=== PATIENT | male | born 1950 | race Two or more races ===

== ENCOUNTER 2021-01-21 18:50 | Emergency (ER) | payer MEDICARE, SELFPAY ==
--- NOTE | ~2021-01-21 | XR_ITS ---
EXAMINATION: XR HAND, RIGHT CLINICAL INFORMATION: Swelling, animal bite COMPARISON: None TECHNIQUE: PA, lateral, and oblique views of the right hand. FINDINGS: Soft tissue swelling of the dorsum of the hand around the area of the head of the metacarpals. No air in the soft tissue or radiopaque foreign body. No fracture or bone destruction. No abnormal periosteal reaction. There is osteopenia. Degenerative periarticular erosions of the head of the third metacarpal at the metacarpal phalangeal joint. There are small vessel calcifications in the hand and the wrist. XR/XR hand RT 2V IMPRESSION: Soft tissue swelling of the dorsum of the hand. No radiopaque foreign body or air in the soft tissue. No acute osseous abnormality.
--- NOTE | ~2021-01-21 | CT_ITS ---
EXAMINATION: CT HAND WITHOUT CONTRAST, RIGHT CLINICAL INFORMATION: Swelling COMPARISON: Radiograph 01/21/2021 TECHNIQUE: Multidetector volumetric imaging of the right hand performed without IV contrast. Coronal and sagittal reformatted images are obtained and reviewed. This CT examination was performed using dose optimization techniques as appropriate, variously including the following: *Automated exposure control *Adjustment of mA and/or kV according to patient size (this includes techniques or standardized protocols for targeted exams where dose is matched to indication/reason for exam; i.e. extremities or head) *Use of iterative reconstruction technique DLP: 128 mGy-cm FINDINGS: There is no acute fracture identified. Soft tissue gas seen between the second and third metacarpals. Associated soft tissue swelling. Arthritic changes at the second metacarpophalangeal joint and third metacarpophalangeal joint with narrowing and subchondral cyst formation. Small marginal erosions. No radiopaque foreign bodies. CT/CT hand RT wo con IMPRESSION: Soft tissue gas with swelling seen between the second and third metacarpals. No acute fracture. 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
[2021-01-21 20:50] VITALS: BP 148/66; PULSE 75; RESP 16; TEMP 37.3; O2SAT 95; BMI 23.1
--- NOTE | 2021-01-21 21:21 | ED_ITS ---
HPI - Animal Bite General Chief Complaint: Animal Bite Stated Complaint: dog bite yesterday, hand swelling Time Seen by Provider: 01/21/21 22:43 Source: patient Mode of arrival: ambulatory Limitations: language barrier History of Present Illness HPI narrative: 70-year-old male presents with right hand redness, pain and swelling after a dog bite yesterday. Patient states his hand has been increasing in redness swelling and pain and is unable to comfortably use the right hand. He does not report any fevers or chills. The dog is unknown. MD complaint: animal bite Onset (ago): day(s) (2) Animal: dog Description of animal: unknown animal and immunizations unknown Mechanism: bite Location - Extremities: right: hand Pain description: burning and constant Severity scale (1-10): 7 Context: unprovoked Associated symptoms: erythema Related Data Patient tetanus UTD: No Previous Rx's Medication Instructions Recorded amoxicillin 875 mg-potassium 1 tab PO Q12H 10 Days #20 tab 01/22/21 clavulanate 125 mg tablet (Augmentin) Allergies Allergy/AdvReac Type Severity Reaction Status Date / Time oxycodone [From PERCOCET] Allergy Unknown CAN'T Verified 01/21/21 20:49 BREATH/VOMITING simvastatin [SIMVASTATIN] Allergy Unknown UNKNOWN Verified 01/21/21 20:49 peas AdvReac Unknown VOMITING/FA Verified 01/21/21 20:49 INTING SALMON [id number] AdvReac Unknown VOMITING/FA Uncoded 01/01/20 15:21 INT Review of Systems Review of Systems: Constitutional: No Fever, No Chills ENT/Mouth: No Ear Pain, No Hoarseness, No sore throat Eyes: No Eye Pain, No Swelling, No Redness, No Foreign Body Cardiovascular: No Chest Pain, No SOB Respiratory: No Cough, No Dyspnea Gastrointestinal: No Nausea, No Vomiting, No Diarrhea, No abdominal Pain Genitourinary: No Dysuria, No Hematuria Musculoskeletal: positive right hand pain and swelling No Myalgias, No Joint Swelling Skin: Positive right hand erythema, No Skin lacerations, No rash Neuro: No Weakness, No Numbness, No Paresthesias, No Loss of Consciousness, No Dizziness, No Headache Psych: No Anxiety/Panic, No Depression Heme/Lymph: no easy bruising, no Lymphadenopathy Endocrine: No Polyuria, No Polydipsia Yes all other systems are reviewed and are negative [facility] Past Medical History Attestation statement: The following information was validated with the patient. Source: old records reviewed Medical History Diabetes Renal failure Rhabdomyolysis Toe amputee Social History Social History Advance Directives: No Advance Directives Information Provided: Yes Physical Exam Vital Signs: Vital Signs: Last Vital Signs Temp 98.7 F 01/22/21 01:08 Pulse 74 01/22/21 01:08 Resp 17 01/22/21 01:08 BP 140/71 H 01/22/21 01:08 Pulse Ox 98 01/22/21 01:08 Body Mass Index 23.1 Appearance: Alert. Oriented X3. No acute distress. Eyes: Pupils equal, round and reactive to light. ENT: Pharynx normal. Neck: Normal inspection. Neck supple. CVS: Normal heart rate and rhythm. Pulses normal. Respiratory: No respiratory distress. Breath sounds normal. Abdomen: Soft and nontender. Skin: Skin warm and dry. Normal skin color. Normal skin turgor. Extremities: No lower extremity edema. Neuro: No motor deficit. No sensory deficit. Course Course Course Narrative: 70-year-old male presents with right hand pain and swelling w ith erythema after an unknown dog bite to the right hand yesterday. Will order labs, lactic, cultures, and ceftriaxone. White count is normal, elevated BUN of 24 which is consistent with prior values, creatinine is 2.07 which is an increase from prior value of 1.36. Did give 1 L of normal saline with ceftriaxone. CRP 5.61, discussion with Dr. Mistry. She will come down assessed patient and evaluate for admission. CT scan of the hand is negative for acute findings. Does show some mild gas consistent with puncture wound and dog bite. Will give Augmentin for 10 days. Patient understands that if symptoms worsen that he should return for evaluation immediately. Patient and patient's family verbalized understanding of and agrees to plan of care discharge home. Consultations Consultation #1: Fede Time: 23:05 MDM - Animal Bite Differential Diagnosis Differential diagnosis: Likely bite by animal and dog bite Medical Records Attestation: I reviewed the patient's medical records. Lab Data Attestation: I reviewed the patient's lab results. Result diagrams: 01/21/21 21:37 01/21/21 21:37 Labs: Lab Results 01/21/21 01/21/21 01/21/21 Range/Units 21:37 21:37 21:37 WBC 9.2 (4.8-10.8) X10*3/uL RBC 4.34 L (4.60-5.80) X10*6/uL Hgb 13.3 L (14.0-18.0) g/dl Hct 37.6 L (42-52) % MCV 86.6 (80-98) fL MCH 30.6 (27.0-33.0) pg MCHC 35.4 (31.0-36.0) g/dl RDW 12.2 (11.0-16.0) % Plt Count 228 (160-400) X10*3/uL MPV 9.7 (9.4-12.4) fL Immature Gran % (Auto) 0.2 (0.0-0.4) % Neut % (Auto) 77.9 H (45-73) % Lymph % (Auto) 13.0 L (20-40) % [place] % (Auto) 7.8 (2-11) % Eos % (Auto) 0.9 (0-4) % Baso % (Auto) 0.2 (0-2) % Lymph # (Auto) 1.2 (1.2-4.9) X10*3/uL [place] # (Auto) 0.7 (0.1-1.2) X10*3/uL Eos # (Auto) 0.1 (0.0-0.4) X10*3/uL Baso # (Auto) 0.0 (0.0-0.2) X10*3/uL Abs Immat Gran (auto) 0.02 (0.00-0.03) X10*3/uL Absolute Neuts (auto) 7.2 (2.0-8.3) X10*3/uL Absolute Nucleated RBC 0.000 (0.0-0.012) X10*3/uL Nucleated RBC % (auto) 0.0 (0.0-0.2) /100WBC ESR (0-15) MM/HR Sodium 139 (135-145) mmol/L Potassium 4.6 (3.3-5.1) mmol/L Chloride 105 (96-108) mmol/L Carbon Dioxide 24 (22-29) mmol/L Anion Gap 15 (12-20) BUN 24 H (9-16) mg/dL Creatinine 2.07 H (0.5-1.4) mg/dL Estim Creat Clear Calc 28.2 Estimated GFR 32 Random Glucose 156 H (60-115) mg/dL Lactic Acid 1.2 (0.5-2.0) mmol/L Calcium 9.8 (8.4-10.2) mg/dL C-Reactive Protein 5.61 H (< or = 0.50) mg/dL 01/21/21 Range/Units 21:37 WBC (4.8-10.8) X10*3/uL RBC (4.60-5.80) X10*6/uL Hgb (14.0-18.0) g/dl Hct (42-52) % MCV (80-98) fL MCH (27.0-33.0) pg MCHC (31.0-36.0) g/dl RDW (11.0-16.0) % Plt Count (160-400) X10*3/uL MPV (9.4-12.4) fL Immature Gran % (Auto) (0.0-0.4) % Neut % (Auto) (45-73) % Lymph % (Auto) (20-40) % [place] % (Auto) (2-11) % Eos % (Auto) (0-4) % Baso % (Auto) (0-2) % Lymph # (Auto) (1.2-4.9) X10*3/uL [place] # (Auto) (0.1-1.2) X10*3/uL Eos # (Auto) (0.0-0.4) X10*3/uL Baso # (Auto) (0.0-0.2) X10*3/uL Abs Immat Gran (auto) (0.00-0.03) X10*3/uL Absolute Neuts (auto) (2.0-8.3) X10*3/uL Absolute Nucleated RBC (0.0-0.012) X10*3/uL Nucleated RBC % (auto) (0.0-0.2) /100WBC ESR 39 H (0-15) MM/HR Sodium (135-145) mmol/L Potassium (3.3-5.1) mmol/L Chloride (96-108) mmol/L Carbon Dioxide (22-29) mmol/L Anion Gap (12-20) BUN (9-16) mg/dL Creatinine (0.5-1.4) mg/dL Estim Creat Clear Calc Estimated GFR Random Glucose (60-115) mg/dL Lactic Acid (0.5-2.0) mmol/L Calcium (8.4-10.2) mg/dL C-Reactive Protein (< or = 0.50) mg/dL Imaging Data Hand x-ray: Attestation: I personally reviewed and interpreted this imaging study as follows: Radiologist's impression: EXAMINATION: XR HAND, RIGHT CLINICAL INFORMATION: Swelling, animal bite COMPARISON: None? TECHNIQUE: PA, lateral, and oblique views of the right hand. FINDINGS: Soft tissue swelling of the dorsum of the hand around the area of the head of the metacarpals. No air in the soft tissue or radiopaque foreign body. No fracture or bone destruction. No abnormal periosteal reaction. There is osteopenia. Degenerative periarticular erosions of the head of the third metacarpal at the metacarpal phalangeal joint. There are small vessel calcifications in the hand and the wrist. XR/XR hand RT 2V IMPRESSION: Soft tissue swelling of the dorsum of the hand. No radiopaque foreign body or air in the soft tissue. No acute osseous abnormality. CT Hand: Attestation: I personally reviewed and interpreted this imaging study as follows: Radiologist's impression: EXAMINATION: CT HAND WITHOUT CONTRAST, RIGHT CLINICAL INFORMATION: Swelling? ? COMPARISON: Radiograph 01/21/2021? TECHNIQUE: Multidetector volumetric imaging of the right hand performed without IV contrast. Coronal and sagittal reformatted images are obtained and reviewed.? ? This CT examination was performed using dose optimization techniques as appropriate, variously including the following: *Automated exposure control *Adjustment of mA and/or kV according to patient size (this includes techniques or standardized protocols for targeted exams where dose is matched to indication/reason for exam; i.e. extremities or head) *Use of iterative reconstruction technique DLP: 128 mGy-cm FINDINGS: There is no acute fracture identified. Soft tissue gas seen between the second and third metacarpals. Associated soft tissue swelling. Arthritic changes at the second metacarpophalangeal joint and third metacarpophalangeal joint with narrowing and subchondral cyst formation. Small marginal erosions. No radiopaque foreign bodies. CT/CT hand RT wo con IMPRESSION: Soft tissue gas with swelling seen between the second and third metacarpals. ? No acute fracture. 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 Discharge Plan Discharge Clinical Impression: Rabies exposure Dog bite Qualifiers: Encounter type: initial encounter Qualified Code(s): W54.0XXA - Bitten by dog, initial encounter Patient Disposition: Home, Self-Care Instructions: Animal Bite (ED), Rabies (ED) Additional Instructions: You were evaluated for dog bite. You must return for rabies vaccine series. Please follow the directions on the discharge instructions. CT scan of the hand shows swelling consistent with cellulitis. Please take Augmentin twice a day for the next 10 days. If you notice any worsening symptoms please return to the emergency department for evaluation. Thank you for choosing this emergency department for evaluation. Please follow-up with primary care physician as needed. Return to the emergency department for any new, concerning, or worsening symptoms. Prescriptions: New amoxicillin-pot clavulanate [Augmentin] 875-125 mg tablet 1 tab PO Q12H 10 Days Qty: 20 RF: 0 Interventions: ED Discharge Assessment Last Done: 01/22/21 01:46
[2021-01-21 21:43] LABS: MANUAL DIFF FLAG NO
[2021-01-21 21:45] LABS: Basophils Percent Auto 0.2 % (0-2); Eosinophils Absolute Auto 0.1 X10*3/uL (0.0-0.4); Eosinophils Percent Auto 0.9 % (0-4); Hematocrit 37.6 % (42-52); Hemoglobin 13.3 g/dl (14.0-18.0); Imm Gran Abs Auto 0.02 X10*3/uL (0.00-0.03); Imm Gran Pct Auto 0.2 % (0.0-0.4); Lymphocytes Absolute Auto 1.2 X10*3/uL (1.2-4.9); Mean Corpuscular HGB Conc 35.4 g/dl (31.0-36.0); Mean Corpuscular Hemoglobin 30.6 pg (27.0-33.0); Mean Corpuscular Volume 86.6 fL (80-98); Mean Platelet Volume 9.7 fL (9.4-12.4); Monocytes Absolute Auto 0.7 X10*3/uL (0.1-1.2); Monocytes Percent Auto 7.8 % (2-11); Neutrophils Absolute Auto 7.2 X10*3/uL (2.0-8.3); Neutrophils Percent Auto 77.9 % (45-73); Platelet Count 228 X10*3/uL (160-400); Red Blood Count 4.34 X10*6/uL (4.60-5.80); Red Cell Distribution Width 12.2 % (11.0-16.0); White Blood Count 9.2 X10*3/uL (4.8-10.8)
[2021-01-21 21:56] LABS: Lactic Acid 1.2 mmol/L (0.5-2.0)
[2021-01-21 21:59] LABS: Anion Gap 15 (12-20); Blood Urea Nitrogen 24 mg/dL (9-16); Calcium 9.8 mg/dL (8.4-10.2); Carbon Dioxide 24 mmol/L (22-29); Chloride 105 mmol/L (96-108); Creatinine Clr Calc Pharmacy 28.2; Estimated Glomerular Filt Rate 32; Glucose Random 156 mg/dL (60-115); Potassium 4.6 mmol/L (3.3-5.1); Sodium 139 mmol/L (135-145)
[2021-01-21] MEDS: cefTRIAXone sodium 1 GM in 0.9 % Sodium Chloride 50 ML IV (22:16)
[2021-01-21] MEDS: Rabies Vaccine (PCEC)/PF 1 ML VIAL IM (22:17)
[2021-01-21] MEDS: Diphth,Pertus(ACell),Tet Adult 0.5 ML SYRINGE IM (22:18)
[2021-01-21] MEDS: Rabies Immune Globulin/PF 1,500 UNIT/5 ML VIAL 1224.7 UNIT IM (22:20)
[2021-01-21 22:51] LABS: C Reactive Protein 5.61 mg/dL (< or = 0.50)
[2021-01-21] MEDS: 0.9 % Sodium Chloride 1,000 ML 999 ML IVCONT (22:55)
[2021-01-21 23:37] LABS: Erythrocyte Sedimentation Rate 39 MM/HR (0-15)
--- NOTE | 2021-01-22 01:03 | PC.NURSE ---
REPORT GIVEN TO KEENA RUSSELL.
[2021-01-22 01:08] VITALS: BP 140/71; PULSE 74; RESP 17; TEMP 37.1; O2SAT 98
== END 2021-01-22 01:59 | disposition home or self-care (01) ==
PROVIDERS: Nurse Practitioner Family; Emergency Provider Emergency Medicine; PCP Internal Medicine
DX: S61.451A Open bite of right hand, initial encounter (principal); Z20.3 Contact with and (suspected) exposure to rabies; Z29.14 Encounter for prophylactic rabies immune globulin; W54.0XXA Bitten by dog, initial encounter; Y93.9 Activity, unspecified; Y92.9 Unspecified place or not applicable; Y99.9 Unspecified external cause status; E11.9 Type 2 diabetes mellitus without complications
CPT/HCPCS: 36415; 73120; 73200; 80048; 83605; 85025; 85652; 86140; 87040; 90375; 90471; 90472; 90675; 90715; 96361; 96365; 96372; 99284; J0696

== ENCOUNTER 2021-01-24 11:41 | Outpatient (REF) | payer MEDICARE, SELFPAY | END 2021-01-24 11:42 | disposition home or self-care (01) | LOC: HO.MDS 11:41 | PROVIDERS: PCP Internal Medicine; Visit Provider Nurse Practitioner Family | DX: Z29.14 Encounter for prophylactic rabies immune globulin (principal); S61.451D Open bite of right hand, subsequent encounter; S60.221D Contusion of right hand, subsequent encounter; W54.0XXD Bitten by dog, subsequent encounter; Z20.3 Contact with and (suspected) exposure to rabies | CPT/HCPCS: 90471; 90675 ==

== ENCOUNTER 2021-01-24 15:58 | Inpatient (IN) | payer MEDICARE, SELFPAY ==
--- NOTE | ~2021-01-24 | XR_ITS ---
EXAMINATION: XR HAND, RIGHT CLINICAL INFORMATION: Dog bite. COMPARISON: None TECHNIQUE: Three views of the right hand. FINDINGS: No fracture. No dislocation. No focal bone lesion or abnormal periosteal reaction. Small vessel calcifications in the hand and wrist. XR/XR hand RT 2V IMPRESSION: No acute abnormality
[2021-01-24 16:13] VITALS: BP 151/68; PULSE 69; RESP 16; TEMP 37.2; O2SAT 97; BMI 22.6
--- NOTE | 2021-01-24 20:52 | ED_ITS ---
HPI - Skin/Abscess/Foreign Bdy General Chief complaint: Skin/Abscess/Foreign Body Stated complaint: Red inflamed skin post dog bite Time Seen by Provider: 01/24/21 20:52 Source: patient and family Mode of arrival: ambulatory Limitations: no limitations History of Present Illness HPI narrative: Patient diabetic had a dog bite by stray dog 3 days ago on his right hand between index and middle finger was seen here started on Augmentin and rabies shot were given for last 24 hours patient noticed increased swelling and redness with some pus discharge at the site of the bite had fever last night of 102 degree. No pain in the paim no wrist pain, neurovascular intact Related Data Home Medications Medication Instructions Recorded Confirmed Lantus Solostar U-100 Insulin DAILY 01/24/21 amlodipine 10 mg tablet 1 tab PO DAILY 01/24/21 01/24/21 amoxicillin 875 mg-potassium 1 tab PO Q12H 01/24/21 01/24/21 clavulanate 125 mg tablet aspirin 81 mg tablet,delayed 1 tab PO DAILY 01/24/21 01/24/21 release citalopram 10 mg tablet 1 tab PO DAILY 01/24/21 01/24/21 clopidogrel 75 mg tablet 1 tab PO DAILY 01/24/21 01/24/21 donepezil 10 mg tablet 1 tab PO BEDTIME 01/24/21 01/24/21 finasteride 5 mg tablet 1 tab PO DAILY 01/24/21 01/24/21 insulin glargine 100 unit/mL 5 unit SUBCUT BEDTIME 01/24/21 01/24/21 subcutaneous solution (Lantus U-100 Insulin) tamsulosin 0.4 mg capsule 1 cap PO DAILY 01/24/21 01/24/21 Allergies Allergy/AdvReac Type Severity Reaction Status Date / Time oxycodone [From PERCOCET] Allergy Unknown CAN'T Verified 01/24/21 21:27 BREATH/VOMITING simvastatin [SIMVASTATIN] Allergy Unknown UNKNOWN Verified 01/24/21 21:27 peas AdvReac Unknown VOMITING/FA Verified 01/24/21 21:27 INTING SALMON [id number] AdvReac Unknown VOMITING/FA Uncoded 01/24/21 21:27 INT Review of Systems Review of Systems: Yes all other systems are reviewed and are negative PMFSH Past Medical History Medical History Diabetes Renal failure Rhabdomyolysis Toe amputee Social History Social History Advance Directives: No Advance Directives Information Provided: No Physical Exam Vital Signs: Vital Signs: Last Vital Signs Temp 99.1 F 01/24/21 23:52 Pulse 77 01/24/21 23:52 Resp 18 01/24/21 23:52 BP 141/76 H 01/24/21 23:52 Pulse Ox 97 01/24/21 23:52 Body Mass Index 22.6 Const: General: comfortable and no acute distress Orientation/consci ousness: patient oriented x3 HENMT: Head: Yes normocephalic Eyes: General: appearance normal, both eyes and all related structures Resp: Effort & Inspection: normal respiratory effort Auscultation: clear to auscultation bilaterally Cardio: Rate: regular rate Rhythm: regular rhythm Heart sounds: S1 normal heart sound present and S2 normal heart sound present GI: Inspection: Yes normal to inspection Palpation (GI): Soft to palpation and nontender Neuro: General: patient oriented x3 Extrem: Hand/finger images: 1. Dog bite ray with surrounding swelling and erythema with pus discharge Good finger movements no signs of tenosynovitis MDM - Skin/Abscess/Foreign Bdy MDM Narrative Medical decision making narrative: Patient dog bite right hand with worsening of swelling and pus discharge at the site of dog bite diabetic x-ray negative for bony erosion feel outpatient antibiotic will admit patient for IV antibiotics Vanco and Zosyn no signs of tenosynovitis at this time Lab Data Attestation: I reviewed the patient's lab results. Result diagrams: 01/24/21 21:18 01/24/21 21:18 Labs: Lab Results 01/24/21 01/24/21 01/24/21 Range/Units 21:18 21:18 21:18 WBC 5.7 (4.8-10.8) X10*3/uL RBC 3.76 L (4.60-5.80) X10*6/uL Hgb 11.7 L (14.0-18.0) g/dl Hct 32.3 L (42-52) % MCV 85.9 (80-98) fL MCH 31.1 (27.0-33.0) pg MCHC 36.2 H (31.0-36.0) g/dl RDW 12.1 (11.0-16.0) % Plt Count 209 (160-400) X10*3/uL MPV 9.8 (9.4-12.4) fL Immature Gran % (Auto) 0.2 (0.0-0.4) % Neut % (Auto) 71.9 (45-73) % Lymph % (Auto) 16.0 L (20-40) % [place] % (Auto) 9.7 (2-11) % Eos % (Auto) 1.8 (0-4) % Baso % (Auto) 0.4 (0-2) % Lymph # (Auto) 0.9 L (1.2-4.9) X10*3/uL [place] # (Auto) 0.6 (0.1-1.2) X10*3/uL Eos # (Auto) 0.1 (0.0-0.4) X10*3/uL Baso # (Auto) 0.0 (0.0-0.2) X10*3/uL Abs Immat Gran (auto) 0.01 (0.00-0.03) X10*3/uL Absolute Neuts (auto) 4.1 (2.0-8.3) X10*3/uL Absolute Nucleated RBC 0.000 (0.0-0.012) X10*3/uL Nucleated RBC % (auto) 0.0 (0.0-0.2) /100WBC Sodium 137 (135-145) mmol/L Potassium 4.2 (3.3-5.1) mmol/L Chloride 107 (96-108) mmol/L Carbon Dioxide 20 L (22-29) mmol/L Anion Gap 14 (12-20) BUN 21 H (9-16) mg/dL Creatinine 1.77 H (0.5-1.4) mg/dL Estim Creat Clear Calc 32.9 Estimated GFR 38 Random Glucose 162 H (60-115) mg/dL Lactic Acid 0.9 (0.5-2.0) mmol/L Calcium 8.8 D (8.4-10.2) mg/dL Total Bilirubin 0.6 (0.0-1.0) mg/dL AST 19 (5-37) U/L ALT 11 (0-40) U/L Alkaline Phosphatase 120 H (39-117) U/L Total Protein 7.1 (6.5-8.0) g/dL Albumin 4.0 (3.5-5.0) g/dL COVID-19 (SHEILA) (Negative) COVID-19 Clin Com 01/24/21 Range/Units 21:20 WBC (4.8-10.8) X10*3/uL RBC (4.60-5.80) X10*6/uL Hgb (14.0-18.0) g/dl Hct (42-52) % MCV (80-98) fL MCH (27.0-33.0) pg MCHC (31.0-36.0) g/dl RDW (11.0-16.0) % Plt Count (160-400) X10*3/uL MPV (9.4-12.4) fL Immature Gran % (Auto) (0.0-0.4) % Neut % (Auto) (45-73) % Lymph % (Auto) (20-40) % [place] % (Auto) (2-11) % Eos % (Auto) (0-4) % Baso % (Auto) (0-2) % Lymph # (Auto) (1.2-4.9) X10*3/uL [place] # (Auto) (0.1-1.2) X10*3/uL Eos # (Auto) (0.0-0.4) X10*3/uL Baso # (Auto) (0.0-0.2) X10*3/uL Abs Immat Gran (auto) (0.00-0.03) X10*3/uL Absolute Neuts (auto) (2.0-8.3) X10*3/uL Absolute Nucleated RBC (0.0-0.012) X10*3/uL Nucleated RBC % (auto) (0.0-0.2) /100WBC Sodium (135-145) mmol/L Potassium (3.3-5.1) mmol/L Chloride (96-108) mmol/L Carbon Dioxide (22-29) mmol/L Anion Gap (12-20) BUN (9-16) mg/dL Creatinine (0.5-1.4) mg/dL Estim Creat Clear Calc Estimated GFR Random Glucose (60-115) mg/dL Lactic Acid (0.5-2.0) mmol/L Calcium (8.4-10.2) mg/dL Total Bilirubin (0.0-1.0) mg/dL AST (5-37) U/L ALT (0-40) U/L Alkaline Phosphatase (39-117) U/L Total Protein (6.5-8.0) g/dL Albumin (3.5-5.0) g/dL COVID-19 (SHEILA) Negative (Negative) COVID-19 Clin Com See Note Discharge Plan Discharge Clinical Impression: Infected wound Dog bite Qualifiers: Encounter type: subsequent encounter Qualified Code(s): W54.0XXD - Bitten by dog, subsequent encounter Diabetes Qualifiers: Diabetes mellitus type: type 2 Diabetes mellitus medical terminologist insulin use: with medical terminologist use Diabetes mellitus complication status: with kidney complications Diabetes mellitus complication detail: with nephropathy Qualified Code(s): E11.21 - Type 2 diabetes mellitus with diabetic nephropathy Patient Disposition: Admitted As Inpatient
[2021-01-24 21:23] VITALS: BP 136/70; PULSE 70; RESP 19; TEMP 36.7; O2SAT 96
[2021-01-24 21:23] LABS: MANUAL DIFF FLAG NO
[2021-01-24 21:30] LABS: Basophils Percent Auto 0.4 % (0-2); Eosinophils Absolute Auto 0.1 X10*3/uL (0.0-0.4); Eosinophils Percent Auto 1.8 % (0-4); Hematocrit 32.3 % (42-52); Hemoglobin 11.7 g/dl (14.0-18.0); Imm Gran Abs Auto 0.01 X10*3/uL (0.00-0.03); Imm Gran Pct Auto 0.2 % (0.0-0.4); Lymphocytes Absolute Auto 0.9 X10*3/uL (1.2-4.9); Mean Corpuscular HGB Conc 36.2 g/dl (31.0-36.0); Mean Corpuscular Hemoglobin 31.1 pg (27.0-33.0); Mean Corpuscular Volume 85.9 fL (80-98); Mean Platelet Volume 9.8 fL (9.4-12.4); Monocytes Absolute Auto 0.6 X10*3/uL (0.1-1.2); Monocytes Percent Auto 9.7 % (2-11); Neutrophils Absolute Auto 4.1 X10*3/uL (2.0-8.3); Neutrophils Percent Auto 71.9 % (45-73); Platelet Count 209 X10*3/uL (160-400); Red Blood Count 3.76 X10*6/uL (4.60-5.80); Red Cell Distribution Width 12.1 % (11.0-16.0); White Blood Count 5.7 X10*3/uL (4.8-10.8)
[2021-01-24] MEDS: Piperacillin Sodium/Tazobactam 3.375 GM in 0.9 % Sodium Chloride 50 ML IV (21:45)
[2021-01-24 21:47] LABS: Lactic Acid 0.9 mmol/L (0.5-2.0)
[2021-01-24 21:54] LABS: Alanine Aminotransferase 11 U/L (0-40); Alkaline Phosphatase 120 U/L (39-117); Anion Gap 14 (12-20); Aspartate Amino Transferase 19 U/L (5-37); Bilirubin Total 0.6 mg/dL (0.0-1.0); Blood Urea Nitrogen 21 mg/dL (9-16); Calcium 8.8 mg/dL (8.4-10.2); Carbon Dioxide 20 mmol/L (22-29); Chloride 107 mmol/L (96-108); Creatinine Clr Calc Pharmacy 32.9; Estimated Glomerular Filt Rate 38; Glucose Random 162 mg/dL (60-115); Potassium 4.2 mmol/L (3.3-5.1); Sodium 137 mmol/L (135-145); Total Protein 7.1 g/dL (6.5-8.0)
[2021-01-24 22:04] LABS: COVID-19 Test Negative (Negative); IDNOW Serial# 9DD0AD1C
[2021-01-24] MEDS: vancomycin HCL 1,000 MG in 0.9 % Sodium Chloride 250 ML 270 MG IV (22:13)
--- NOTE | 2021-01-24 22:15 | PHA.PROG ---
Admission Date/Time: Indication: OSTEO Weight in k.874 kg Adjusted body weight in Kg: [place] body weight in Kg: Obesity Dosing Indication % IBW: N/A Serum Creatinine - Last 168 Hours 01/24/21 21:18 Creatinine 1.77 H Estimated CrCl and GFR - Last 168 Hours 01/24/21 21:18 Estim Creat Clear Calc 32.9 Estimated GFR 38 Vancomycin Loading Dose: 1000MG Current Vancomycin Dosing Regimen: 750MG Q24H Vancomycin Monitoring using AUC goal of 400 - 600 range with trough as surrogate marker: 409 MG/L.HR Date and Time for next Vancomycin Level to be drawn: 01/26/21 @ 2100 Pharmacist Comments on Vancomycin Plan: Vancomycin dosing will take advantage of [employer] as a clinical decision support tool that uses Bayesian modeling to calculate individual patient's pharmacokinetic parameters and forecast the patient's drug concentration time course with the target goal AUC 24 range of 400 - 600 mg/L/hr.
--- NOTE | 2021-01-24 22:41 | P.HPHOSP_ITS ---
History of Present Illness Date of Service: 01/24/21 Chief Complaint: Dog bite 61-year-old male with a past medical history of hypertension, hyperlipidemia, diabetes, BPH, dementia presented to the hospital with a chief complaint of dog bite. Spoke to the patient as well as patient's daughter at bedside. Reportedly patient had a dog bite on last ; had puncture wound between the 2nd and 3rd right hand fingers near the webspace. He has seen a physician outpatient, as they are not sure about the dog and its vaccinations status-patient was given diabetes vaccination; finished 2 doses; due for the 3rd dose on and 4 dose on of this month; management for the 2nd dose today to the clinic they noted that his dog bite site has been worsening and concern for cellulitis, despite being on Augmentin as outpatient. Hence suggested to go to the ER for further evaluation. Patient denies any fevers. Denies any chest pain palpitations lightheadedness or dizziness. Mentioned that he had the redness around the wound is slightly increased; denies any difficulty with range of motion of the fingers of the wrist. Denies any numbness tingling or focal weakness. Review of all other systems is negative except mentioned above ER course: Per ER team patient noted to have cellulitis on the dorsum of the right hand week most pronounced near the puncture wound located between the 2nd and 3rd fingers; range of motion intact; given Zosyn. Also mentioned that on metal plating has some small pus drained; which was sent for the cultures. Blood cultures were ordered. Admitted for further management. [facility] Medical History Diabetes Renal failure Rhabdomyolysis Toe amputee Pertinent family history: Reviewed, patient did not offer any information. Social History Advance Directives: No Advance Directives Information Provided: No Meds Allergies Allergy/AdvReac Type Severity Reaction Status Date / Time oxycodone [From PERCOCET] Allergy Unknown CAN'T Verified 01/24/21 21:27 BREATH/VOMITING simvastatin [SIMVASTATIN] Allergy Unknown UNKNOWN Verified 01/24/21 21:27 peas AdvReac Unknown VOMITING/FA Verified 01/24/21 21:27 INTING SALMON [id number] AdvReac Unknown VOMITING/FA Uncoded 01/24/21 21:27 INT Active Medications: Current Medications Acetaminophen (Acetaminophen 325 Mg Tablet) 650 mg PO Q6H PRN PRN Reason: Pain, Mild (Pain Scale 1-3) Dextrose (Dextrose 50 % 25 Gm/50 Ml Vial) 25 gm IVPUSH Q15M PRN; Protocol PRN Reason: per Hypoglycemia Standing Ord. Glucose (Glucose Gel 15 Gm Gel..Gram.) 15 gm PO Q15M PRN; Protocol PRN Reason: per Hypoglycemia Standing Ord. Vancomycin HCl 750 mg/ Sodium (Chloride) 265 mls @ 265 mls/hr IV Q24H [facility] Sodium Chloride (Ns) 1,000 mls @ 100 mls/hr IVCONT .Q10H [facility] Piperacillin Sod/Tazobactam (Sod 3.375 gm/ Sodium Chloride) 50 mls @ 100 mls/hr IV Q6H [facility] Insulin Human Lispro (Insulin Lispro 100 Unit/Ml 3 Ml Vial) 0 unit SUBCUT QIDACHS [facility]; Protocol Melatonin (Melatonin 3 Mg Tablet) 6 mg PO BEDTIME PRN PRN Reason: Insomnia Pharmacy Consult (Consult Rx Vancomycin Dosing) 1 each MISCELLANE DAILY PRN PRN Reason: Consult order Pharmacy Consult (Consult Rx Perform Med Rec) 1 each MISCELLANE ONCE PRN PRN Reason: Consult order Senna (Sennosides 8.6 Mg Tablet) 17.2 mg PO BEDTIME PRN PRN Reason: Constipation Sodium Chloride (0.9 % Sodium Chloride Flush 3 Ml Syringe) 3 ml IVFLUSH QSHIFT [facility] Home Medications Medication Instructions Recorded Confirmed Last Taken Type Lantus Solostar U-100 Insulin DAILY 01/24/21 Unknown History amlodipine 10 mg tablet 1 tab PO DAILY 01/24/21 01/24/21 01/24/21 History amoxicillin 875 mg-potassium 1 tab PO Q12H 01/24/21 01/24/21 01/24/21 History clavulanate 125 mg tablet aspirin 81 mg tablet,delayed 1 tab PO DAILY 01/24/21 01/24/21 01/24/21 History release citalopram 10 mg tablet 1 tab PO DAILY 01/24/21 01/24/21 01/24/21 History clopidogrel 75 mg tablet 1 tab PO DAILY 01/24/21 01/24/21 01/24/21 History donepezil 10 mg tablet 1 tab PO BEDTIME 01/24/21 01/24/21 01/23/21 History finasteride 5 mg tablet 1 tab PO DAILY 01/24/21 01/24/21 01/24/21 History insulin glargine 100 unit/mL 5 unit SUBCUT BEDTIME 01/24/21 01/24/21 Unknown History subcutaneous solution (Lantus U-100 Insulin) tamsulosin 0.4 mg capsule 1 cap PO DAILY 01/24/21 01/24/21 01/24/21 History Physical Exam Vital Signs and Narrative: Vital Signs: Last Vital Signs Temp 98.0 F 01/24/21 21:23 Pulse 70 01/24/21 21:23 Resp 19 01/24/21 21:23 BP 136/70 01/24/21 21:23 Pulse Ox 96 01/24/21 21:23 Body Mass Index 22.6 Results Labs CBC and Chem 7: 01/24/21 21:18 01/24/21 21:18 Labs: Laboratory Results - last 24 hr 01/24/21 01/24/21 01/24/21 21:18 21:18 21:18 MCV 85.9 MCH 31.1 MCHC 36.2 H RDW 12.1 Plt Count 209 MPV 9.8 Immature Gran % (Auto) 0.2 Neut % (Auto) 71.9 Lymph % (Auto) 16.0 L [place] % (Auto) 9.7 Eos % (Auto) 1.8 Baso % (Auto) 0.4 Lymph # (Auto) 0.9 L [place] # (Auto) 0.6 Eos # (Auto) 0.1 Baso # (Auto) 0.0 Abs Immat Gran (auto) 0.01 Absolute Neuts (auto) 4.1 Absolute Nucleated RBC 0.000 Nucleated RBC % (auto) 0.0 Anion Gap 14 Estim Creat Clear Calc 32.9 Estimated GFR 38 Random Glucose 162 H Lactic Acid 0.9 Calcium 8.8 D Total Bilirubin 0.6 AST 19 ALT 11 Alkaline Phosphatase 120 H Total Protein 7.1 Albumin 4.0 COVID-19 ([facility]) COVID-19 Clin Com 01/24/21 21:20 MCV MCH MCHC RDW Plt Count MPV Immature Gran % (Auto) Neut % (Auto) Lymph % (Auto) [place] % (Auto) Eos % (Auto) Baso % (Auto) Lymph # (Auto) [place] # (Auto) Eos # (Auto) Baso # (Auto) Abs Immat Gran (auto) Absolute Neuts (auto) Absolute Nucleated RBC Nucleated RBC % (auto) Anion Gap Estim Creat Clear Calc Estimated GFR Random Glucose Lactic Acid Calcium Total Bilirubin AST ALT Alkaline Phosphatase Total Protein Albumin COVID-19 ([facility]ILA) Negative COVID-19 Clin Com See Note Imaging Radiologist's Impressions: Impressions Hand X-Ray 01/24/21 21:06 IMPRESSION: No acute abnormality Assessment and Plan (1) Dog bite: Status: Acute (2) Diabetes: Status: Acute (3) Hypertension: Status: Acute 61-year-old male with a past medical history of hypertension, hyperlipidemia, diabetes, BPH, dementia presented to the hospital with a chief complaint of dog bite. Right hand dog bite/cellulitis: Continue Zosyn. Id consult. Patient received 2 dose of rabies vaccination. Third dose due on 15 and 4-6120 second. Follow-up cultures Diabetes: Insulin sliding scale BPH: Continue Flomax History of dementia: Continue home donepezil For all other chronic conditions, home medications will be continued DVT prophylaxis: SCD boots Code status: Full code Quality Stroke Does the patient have a stroke diagnosis?: No VTE Prior VTE?: No VTE Risk Level:: Medical - moderate - high VTE Device Contraindication: N/A - Device Ordered VTE Drug Contraindication: Treatment Not Indicated
[2021-01-24] MEDS: 0.9 % Sodium Chloride 1,000 ML 100 ML IVCONT (23:48)
[2021-01-24 23:52] VITALS: BP 141/76; PULSE 77; RESP 18; TEMP 37.3; O2SAT 97
[2021-01-24 23:57] LABS: Glucose, Whole Blood 127 mg/dL (60-115)
[2021-01-25 02:00] VITALS: BP 164/93; PULSE 76; RESP 19; TEMP 36.8; O2SAT 100
--- NOTE | 2021-01-25 02:04 | PC.NURSE ---
Pt resting on stretcher in NAD, breathing with ease on RA. Pt denies pain/discomfort. Pt offers no complaints. Stretcher remains in low locked position, rails raised, call dickerson and urinal within reach.
[2021-01-25 04:00] VITALS: BP 152/70; PULSE 67; RESP 18; O2SAT 98
[2021-01-25] MEDS: Piperacillin Sodium/Tazobactam 3.375 GM in 0.9 % Sodium Chloride 50 ML IV ×4 (04:11→23:02)
[2021-01-25 07:15] LABS: MANUAL DIFF FLAG NO
[2021-01-25 07:22] LABS: Basophils Percent Auto 0.4 % (0-2); Eosinophils Absolute Auto 0.1 X10*3/uL (0.0-0.4); Eosinophils Percent Auto 3.1 % (0-4); Hematocrit 31.1 % (42-52); Hemoglobin 10.9 g/dl (14.0-18.0); Imm Gran Abs Auto 0.01 X10*3/uL (0.00-0.03); Imm Gran Pct Auto 0.2 % (0.0-0.4); Lymphocytes Absolute Auto 0.9 X10*3/uL (1.2-4.9); Lymphocytes Percent Auto 19.1 % (20-40); Mean Corpuscular Hemoglobin 30.1 pg (27.0-33.0); Mean Corpuscular Volume 85.9 fL (80-98); Mean Platelet Volume 9.7 fL (9.4-12.4); Monocytes Absolute Auto 0.5 X10*3/uL (0.1-1.2); Monocytes Percent Auto 10.3 % (2-11); Neutrophils Percent Auto 66.9 % (45-73); Platelet Count 195 X10*3/uL (160-400); Red Blood Count 3.62 X10*6/uL (4.60-5.80); White Blood Count 4.5 X10*3/uL (4.8-10.8)
[2021-01-25 07:34] LABS: Glucose, Whole Blood 114 mg/dL (60-115)
[2021-01-25 07:46] LABS: Anion Gap 9 (12-20); Blood Urea Nitrogen 16 mg/dL (9-16); Calcium 8.4 mg/dL (8.4-10.2); Carbon Dioxide 25 mmol/L (22-29); Chloride 108 mmol/L (96-108); Creatinine Clr Calc Pharmacy 37.6; Estimated Glomerular Filt Rate 45; Glucose Random 113 mg/dL (60-115); Potassium 3.8 mmol/L (3.3-5.1); Sodium 138 mmol/L (135-145)
--- NOTE | 2021-01-25 08:33 | PHA.MEDREC ---
Pharmacy Consult ? Medication Reconciliation Pharmacy has completed the medication reconciliation. Patient is unsure of what medication he takes. Consult complete based on claim history. Patient did report he only takes Lantus only. Pamela Jin, DayanD
[2021-01-25] MEDS: 0.9 % Sodium Chloride 1,000 ML 100 ML IVCONT ×2 (08:53→23:01)
[2021-01-25] MEDS: Tamsulosin HCL 0.4 MG CAPSULE PO (09:24)
[2021-01-25 09:25] VITALS: BP 152/70
[2021-01-25] MEDS: Aspirin Enteric Coated 81 MG TABLET.DR PO (09:25)
[2021-01-25] MEDS: amLODIPine Besylate 10 MG TABLET PO (09:25)
[2021-01-25] MEDS: Clopidogrel Bisulfate 75 MG TABLET PO (09:25)
[2021-01-25] MEDS: Escitalopram Oxalate 5 MG TABLET PO (09:25)
[2021-01-25] MEDS: Finasteride 5 MG TABLET PO (09:59)
[2021-01-25] MEDS: Rabies Vaccine (PCEC)/PF 1 ML VIAL IM (11:09)
[2021-01-25 12:47] LABS: Glucose, Whole Blood 141 mg/dL (60-115)
--- NOTE | 2021-01-25 13:50 | PM.IMPN ---
Progress Note: A&P (1) Cellulitis: Status: Acute (2) Dog bite: Status: Acute (3) Hypertension: Status: Acute (4) Diabetes: Status: Acute (5) BPH (benign prostatic hyperplasia): Status: Acute (6) Dementia: Status: Acute Assessment and Plan: 61-year-old male with a past medical history of hypertension, hyperlipidemia, diabetes, BPH, dementia presented to the hospital with a chief complaint of dog bite. Right hand dog bite/cellulitis. Continue Zosyn.? ID consultation Initial dose of rabies vaccine on 01/21 along with immunoglobulin, 2nd dose 01/25 Follow rabies vaccine schedule of 4 total doses (day 1,3,7,14) 3rd dose 01/28, 4th dose 02/04, patient can return to the ED for doses Hypertension. Stable blood pressure. Continue amlodipine next Hyperlipidemia Continue aspirin, Plavix Diabetes. Insulin sliding scale, ADA diet BPH Continue Flomax, finasteride History of dementia Continue home donepezil DVT prophylaxis heparin Code status:? Full code Attending Dr. Simental Subjective Subjective Date of Service: 01/25/21 Review of Systems Follow up dog bite feeling ok, pain is better controlled Physical Exam Vital Signs: Vital Signs: Last Vital Signs Temp 98.3 F 01/25/21 02:00 Pulse 67 01/25/21 04:00 Resp 18 01/25/21 04:00 BP 152/70 H 01/25/21 09:25 Pulse Ox 98 01/25/21 04:00 Body Mass Index 22.6 Appearing in no acute distress lung sounds are clear to auscultation heart regular rate rhythm, clear S1, S2 positive bowel sounds, abdomen is soft, nontender neuro patient is alert x3, no focal deficits right hand 2nd and 3rd digit webbing with erythema, mild edema, no drainage or abscess noted Objective Data Current Medications Acetaminophen (Acetaminophen 325 Mg Tablet) 650 mg PO Q6H PRN PRN Reason: Pain, Mild (Pain Scale 1-3) Amlodipine Besylate (Amlodipine Besylate 10 Mg Tablet) 10 mg PO DAILY [facility]; Protocol Last Admin: 01/25/21 09:25 Dose: 10 mg Documented by: Aspirin (Aspirin Enteric Coated 81 Mg Tablet.) 81 mg PO DAILY [facility] Last Admin: 01/25/21 09:25 Dose: 81 mg Documented by: Clopidogrel Bisulfate (Clopidogrel Bisulfate 75 Mg Tablet) 75 mg PO DAILY [facility] Last Admin: 01/25/21 09:25 Dose: 75 mg Documented by: Dextrose (Dextrose 50 % 25 Gm/50 Ml Vial) 25 gm IVPUSH Q15M PRN; Protocol PRN Reason: per Hypoglycemia Standing Ord. Donepezil HCl (Donepezil Hcl 10 Mg Tablet) 10 mg PO BEDTIME [facility] Escitalopram Oxalate (Escitalopram Oxalate 5 Mg Tablet) 5 mg PO DAILY [facility] Last Admin: 01/25/21 09:25 Dose: 5 mg Documented by: Finasteride (Finasteride 5 Mg Tablet) 5 mg PO DAILY [facility] Last Admin: 01/25/21 09:59 Dose: 5 mg Documented by: Glucose (Glucose Gel 15 Gm Gel..Gram.) 15 gm PO Q15M PRN; Protocol PRN Reason: per Hypoglycemia Standing Ord. Vancomycin HCl 750 mg/ Sodium (Chloride) 265 mls @ 265 mls/hr IV Q24H [facility] Sodium Chloride (Ns) 1,000 mls @ 100 mls/hr IVCONT .Q10H [facility] Last Admin: 01/25/21 08:53 Dose: 100 mls/hr Documented by: Piperacillin Sod/Tazobactam (Sod 3.375 gm/ Sodium Chloride) 50 mls @ 100 mls/hr IV Q6H [facility] Last Infusion: 01/25/21 12:44 Dose: Infused Documented by: Insulin Human Lispro (Insulin Lispro 100 Unit/Ml 3 Ml Vial) 0 unit SUBCUT QIDACHS [facility]; Protocol Last Admin: 01/25/21 08:00 Dose: Not Given Documented by: Melatonin (Melatonin 3 Mg Tablet) 6 mg PO BEDTIME PRN PRN Reason: Insomnia Pharmacy Consult (Consult Rx Vancomycin Dosing) 1 each MISCELLANE DAILY PRN PRN Reason: Consult order Pharmacy Consult (Consult Rx Perform Med Rec) 1 each MISCELLANE ONCE PRN PRN Reason: Consult order Senna (Sennosides 8.6 Mg Tablet) 17.2 mg PO BEDTIME PRN PRN Reason: Constipation Sodium Chloride (0.9 % Sodium Chloride Flush 3 Ml Syringe) 3 ml IVFLUSH QSHIFT [facility] Last Admin: 01/25/21 08:01 Dose: Not Given Documented by: Tamsulosin HCl (Tamsulosin Hcl 0.4 Mg Capsule) 0.4 mg PO DAILY [facility] Last Admin: 01/25/21 09:24 Dose: 0.4 mg Documented by: Labs CBC & Chem 7: 01/25/21 07:00 01/25/21 07:00 Labs: Laboratory Results - last 24 hr 01/24/21 01/24/21 01/24/21 21:18 21:18 21:18 MCV 85.9 MCH 31.1 MCHC 36.2 H RDW 12.1 Plt Count 209 MPV 9.8 Immature Gran % (Auto) 0.2 Neut % (Auto) 71.9 Lymph % (Auto) 16.0 L [place] % (Auto) 9.7 Eos % (Auto) 1.8 Baso % (Auto) 0.4 Lymph # (Auto) 0.9 L [place] # (Auto) 0.6 Eos # (Auto) 0.1 Baso # (Auto) 0.0 Abs Immat Gran (auto) 0.01 Absolute Neuts (auto) 4.1 Absolute Nucleated RBC 0.000 Nucleated RBC % (auto) 0.0 Anion Gap 14 Estim Creat Clear Calc 32.9 Estimated GFR 38 POC Glucose Random Glucose 162 H Lactic Acid 0.9 Calcium 8.8 D Total Bilirubin 0.6 AST 19 ALT 11 Alkaline Phosphatase 120 H Total Protein 7.1 Albumin 4.0 COVID-19 ([facility]) COVID-19 Clin Com 01/24/21 01/24/21 01/25/21 21:20 23:49 07:00 MCV 85.9 MCH 30.1 MCHC 35.0 RDW 12.0 Plt Count 195 MPV 9.7 Immature Gran % (Auto) 0.2 Neut % (Auto) 66.9 Lymph % (Auto) 19.1 L [place] % (Auto) 10.3 Eos % (Auto) 3.1 Baso % (Auto) 0.4 Lymph # (Auto) 0.9 L [place] # (Auto) 0.5 Eos # (Auto) 0.1 Baso # (Auto) 0.0 Abs Immat Gran (auto) 0.01 Absolute Neuts (auto) 3.0 Absolute Nucleated RBC 0.000 Nucleated RBC % (auto) 0.0 Anion Gap Estim Creat Clear Calc Estimated GFR POC Glucose 127 H Random Glucose Lactic Acid Calcium Total Bilirubin AST ALT Alkaline Phosphatase Total Protein Albumin COVID-19 ([facility]) Negative COVID-19 Clin Com See Note 01/25/21 01/25/21 01/25/21 07:00 07:30 12:44 MCV MCH MCHC RDW Plt Count MPV Immature Gran % (Auto) Neut % (Auto) Lymph % (Auto) [place] % (Auto) Eos % (Auto) Baso % (Auto) Lymph # (Auto) [place] # (Auto) Eos # (Auto) Baso # (Auto) Abs Immat Gran (auto) Absolute Neuts (auto) Absolute Nucleated RBC Nucleated RBC % (auto) Anion Gap 9 L Estim Creat Clear Calc 37.6 Estimated GFR 45 POC Glucose 114 141 H Random Glucose 113 Lactic Acid Calcium 8.4 Total Bilirubin AST ALT Alkaline Phosphatase Total Protein Albumin COVID-19 ([facility]) COVID-19 Clin Com Microbiology Microbiology Results: Microbiology 01/24/21 21:17 Hand Right Gram Stain - Final 01/24/21 21:17 Hand Right Routine Culture - Preliminary No growth to date. Quality Stroke Does the patient have a stroke diagnosis?: No VTE Prior VTE?: No VTE Risk Level:: Medical - moderate - high VTE Device Contraindication: N/A - Device Ordered VTE Drug Contraindication: Treatment Not Indicated
--- NOTE | 2021-01-25 14:38 | MHC.CM.PN ---
Met with patient and community center director in regards to discharge planning. Patient lives with his , ambulates with a cane and has [employer]UC[employer] hours through [facility]. PCP verified. HCP completed, signed and witnessed.Original given to patient. Copy placed in chart. IMM explained and signed. Patient's daughter will transport him home when medically stable. Patient received J&J vaccine on 07/21. Continue to monitor for d/c needs.
[2021-01-25] MEDS: Heparin Sodium,Porcine 5,000 UNIT/ML VIAL 5000 UNIT SUBCUT (15:10)
[2021-01-25 19:17] VITALS: BP 138/68; PULSE 74; RESP 18; TEMP 36.6; O2SAT 98
[2021-01-25 19:49] VITALS: BMI 23.8
[2021-01-25 20:00] VITALS: BP 138/68; PULSE 74; RESP 18; TEMP 36.6; O2SAT 98
[2021-01-25 20:22] LABS: Glucose, Whole Blood 226 mg/dL (60-115)
[2021-01-25] MEDS: Insulin Lispro 100 UNIT/ML 3 ML VIAL SUBCUT (21:38)
[2021-01-25] MEDS: Donepezil HCl 10 MG TABLET PO (21:39)
[2021-01-25] MEDS: 0.9 % Sodium Chloride Flush 3 ML SYRINGE IVFLUSH (22:51)
[2021-01-25] MEDS: vancomycin HCL 750 MG in 0.9 % Sodium Chloride 250 ML 265 MG IV (23:46)
[2021-01-25] MEDS: Acetaminophen 325 MG TABLET 650 MG PO (23:52)
[2021-01-26] VITALS (7 sets, daily range): BP systolic 131–160; BP diastolic 67–78; PULSE 66–80; RESP 16–18; TEMP 36.1–37.2; O2SAT 96–100; BMI 23.6
[2021-01-26] MEDS: Heparin Sodium,Porcine 5,000 UNIT/ML VIAL 5000 UNIT SUBCUT ×2 (01:48→12:10)
[2021-01-26] MEDS: Piperacillin Sodium/Tazobactam 3.375 GM in 0.9 % Sodium Chloride 50 ML IV ×4 (03:30→21:21)
[2021-01-26 07:05] LABS: Anion Gap 10 (12-20); Blood Urea Nitrogen 20 mg/dL (9-16); Calcium 8.4 mg/dL (8.4-10.2); Carbon Dioxide 22 mmol/L (22-29); Chloride 110 mmol/L (96-108); Creatinine Clr Calc Pharmacy 39.7; Estimated Glomerular Filt Rate 47; Glucose Random 128 mg/dL (60-115); Potassium 4.1 mmol/L (3.3-5.1); Sodium 138 mmol/L (135-145)
[2021-01-26 07:31] LABS: Glucose, Whole Blood 117 mg/dL (60-115)
[2021-01-26] MEDS: Clopidogrel Bisulfate 75 MG TABLET PO (09:27)
[2021-01-26] MEDS: Escitalopram Oxalate 5 MG TABLET PO (09:27)
[2021-01-26] MEDS: Aspirin Enteric Coated 81 MG TABLET.DR PO (09:27)
[2021-01-26] MEDS: amLODIPine Besylate 10 MG TABLET PO (09:27)
[2021-01-26] MEDS: Finasteride 5 MG TABLET PO (09:27)
[2021-01-26] MEDS: Tamsulosin HCL 0.4 MG CAPSULE PO (09:27)
[2021-01-26 11:35] LABS: Glucose, Whole Blood 158 mg/dL (60-115)
[2021-01-26] MEDS: Insulin Lispro 100 UNIT/ML 3 ML VIAL SUBCUT ×2 (12:10→21:20)
[2021-01-26] MEDS: 0.9 % Sodium Chloride 1,000 ML 100 ML IVCONT ×2 (12:24→22:20)
--- NOTE | 2021-01-26 12:32 | PM.DS ---
DS: Providers Provider Date of Service: 01/27/21 <Ramiro Simental MD - Last Filed: 01/27/21 10:11> Date of admission: 01/24/21 22:38 <May Mejias NP - Last Filed: 01/26/21 12:35> Primary care physician: Hien Khan MD <May Mejias NP - Last Filed: 01/26/21 12:35> Attending physician on discharge: Ramiro Simental <Ramiro Simental MD - Last Filed: 01/27/21 10:11> DS: Diagnosis Discharge Diagnosis (1) Cellulitis: Status: Acute <May Mejias NP - Last Filed: 01/26/21 12:35> (2) Dog bite: Status: Acute <May Mejias NP - Last Filed: 01/26/21 12:35> (3) Hypertension: Status: Acute <May Mejias NP - Last Filed: 01/26/21 12:35> (4) Diabetes: Status: Acute <May Mejias NP - Last Filed: 01/26/21 12:35> (5) BPH (benign prostatic hyperplasia): Status: Acute <May Mejias NP - Last Filed: 01/26/21 12:35> (6) Dementia: Status: Acute <May Mejias NP - Last Filed: 01/26/21 12:35> DS: Summary Hospital Course Hospital Course: HP as per admitting provider 61-year-old male with a past medical history of hypertension, hyperlipidemia, diabetes, BPH, dementia presented to the hospital with a chief complaint of dog bite. Spoke to the patient as well as patient's daughter at bedside. Reportedly patient had a dog bite on last ; had puncture wound between the 2nd and 3rd right hand fingers near the webspace. He has seen a physician outpatient, as they are not sure about the dog and its vaccinations status-patient was given diabetes vaccination; finished 2 doses; due for the 3rd dose on and 4 dose on of this month; management for the 2nd dose today to the clinic they noted that his dog bite site has been worsening and concern for cellulitis, despite being on Augmentin as outpatient.? Hence suggested to go to the ER for further evaluation. Patient denies any fevers.? Denies any chest pain palpitations lightheadedness or dizziness. Mentioned that he had the redness around the wound is slightly increased; denies any difficulty with range of motion of the fingers of the wrist. Denies any numbness tingling or focal weakness. Review of all other systems is negative except mentioned above ER course: Per ER team patient noted to have cellulitis on the dorsum of the right hand week most pronounced near the puncture wound located between the 2nd and 3rd fingers; range of motion intact; given Zosyn.? Also mentionthaton metal plating has some small pus drained; which was sent for the cultures.? Blood cultures were ordered. Admitted for further management . Right hand dog bite/cellulitis. Treated with IV vanco and zosyn with significant improvement in his cellulitis. He will be discharged home on doxycycline in addition to the Augmentin that he has at home. (Augmentin script at home was confirmed with daughter). To complete 7 more days. In regards to his rabies vaccine,?initial dose of rabies vaccine on 01/21 along with immunoglobulin, 2nd dose 01/25. Follow rabies vaccine schedule of 4 total doses (day 0,3,7,14) 3rd dose 01/28, 4th dose 02/04, patient can return to the ED for doses. <May Mejias NP - Last Filed: 01/26/21 12:35> Time Spent with Patient Time attestation: Total time spent providing and/or coordinating discharge services: <May Mejias NP - Last Filed: 01/26/21 12:35> Discharge coordination time: Greater than 30 minutes <Ramiro Simental MD - Last Filed: 01/27/21 10:11> Quality: Stroke Does the patient have a stroke diagnosis?: No <Ramiro Simental MD - Last Filed: 01/27/21 10:11> Physical Exam Vital Signs: Vital Signs: Last Vital Signs Temp 97 F 01/26/21 11:09 Pulse 66 01/26/21 11:09 Resp 18 01/26/21 11:09 BP 131/67 01/26/21 11:09 Pulse Ox 96 01/26/21 11:09 Body Mass Index 23.6 <May Mejias NP - Last Filed: 01/26/21 12:35> Const: Other: General - no acute distress, appears comfortable Cardiovascular - regular rate and rhythm, S1-S2 Lungs - normal respiratory effort, clear to auscultation bilaterally, no wheezing Abdomen - soft, non-tender, no rebound or guarding Extremities - no edema bilaterally, Neuro - awake and alert, no focal deficits Hand - R hand erythema significantly improved, no tender, able to make a fist, ROM nearly normal <Ramiro Simental MD - Last Filed: 01/27/21 10:11> DS: Data Data Completed and Pending Labs on day of discharge: Laboratory Results - last 24 hr 01/25/21 01/25/21 01/26/21 12:44 20:12 05:58 Sodium 138 Potassium 4.1 Chloride 110 H Carbon Dioxide 22 Anion Gap 10 L BUN 20 H Creatinine 1.47 H Estim Creat Clear Calc 39.7 Estimated GFR 47 POC Glucose 141 H 226 H Random Glucose 128 H Calcium 8.4 01/26/21 01/26/21 07:23 11:09 Sodium Potassium Chloride Carbon Dioxide Anion Gap BUN Creatinine Estim Creat Clear Calc Estimated GFR POC Glucose 117 H 158 H Random Glucose Calcium Preliminary micro results at discharge 01/24/21 21:17 Routine Culture - Preliminary Hand Right Culture in progress. 01/24/21 21:18 Blood Culture - Preliminary Blood - Venous No growth after 24 hours. 01/24/21 21:17 Blood Culture - Preliminary Blood - Venous No growth after 24 hours. <May Mejias NP - Last Filed: 01/26/21 12:35> Discharge Plan Discharge Patient Disposition: Home, Self-Care <May Mejias NP - Last Filed: 01/26/21 12:35> Discharge Diagnosis: Cellulitis animal bite <May Mejias NP - Last Filed: 01/26/21 12:35> Cellulitis animal bite <Ramiro Simental MD - Last Filed: 01/27/21 10:11> Referrals: Hien Khan MD [Primary Care Provider] - 1 Week <May Mejias NP - Last Filed: 01/26/21 12:35> Discharge Medications: New doxycycline hyclate 100 mg capsule 100 mg PO DAILY Qty: 14 RF: 0 amoxicillin-pot clavulanate [Augmentin] 875-125 mg tablet 1 tab PO BID Qty: 14 RF: 0 Continued citalopram 10 mg tablet 1 tab PO DAILY RF: 0 donepezil 10 mg tablet 1 tab PO BEDTIME [facility]: 0 clopidogrel 75 mg tablet 1 tab PO DAILY RF: 0 aspirin 81 mg tablet,delayed release (DR/EC) 1 tab PO DAILY RF: 0 tamsulosin 0.4 mg capsule 1 cap PO DAILY [facility]: 0 amlodipine 10 mg tablet 1 tab PO DAILY RF: 0 finasteride 5 mg tablet 1 tab PO DAILY RF: 0 Lantus U-100 Insulin 100 unit/mL solution 5 unit subcut BEDTIME RF: 0 Discontinued amoxicillin-pot clavulanate 875-125 mg tablet 1 tab PO Q12H RF: 0 <May Mejias NP - Last Filed: 01/26/21 12:35> Discharge Orders: Discharge Order (Routine); Ordered 01/27/21 Ordered By: Ramiro Simental <May Mejias NP - Last Filed: 01/26/21 12:35> Diet: advance to usual diet <May Mejias NP - Last Filed: 01/26/21 12:35> advance to usual diet <Ramiro Simental MD - Last Filed: 01/27/21 10:11> Activity on Discharge: As tolerated <May Mejias NP - Last Filed: 01/26/21 12:35> As tolerated <Ramiro Simental MD - Last Filed: 01/27/21 10:11> Stand Alone Forms: Patient Portal Discharge page <May Mejias NP - Last Filed: 01/26/21 12:35> Care Plan Goals: Complete rabies vaccine schedule. Next dose is due on 01/28/21, then 02/04/21. <May Mejias NP - Last Filed: 01/26/21 12:35> Health Concerns: Cellulitis animal bite <May Mejias NP - Last Filed: 01/26/21 12:35> Plan of Treatment: Complete treatment for cellulitis - Take Augmentin and doxycycline for another 7 days Make sure to return to [facility] for the rabies vaccine <May Mejias NP - Last Filed: 01/26/21 12:35> Assessment: 70-year-old diabetic who presented initially with dog bite on the right hand. Was readmitted for worsening symptoms. Improved with vanc and Zosyn. Will be discharged home on Augmentin and doxy for another 7 days. Has to return to [facility] short-stay on 01/28 and 02/04 for his last 2 doses of his rabies immunization. <May Mejias NP - Last Filed: 01/26/21 12:35>
--- NOTE | 2021-01-26 12:41 | PM.IMPN ---
Progress Note: A&P (1) Dementia: Status: Acute (2) BPH (benign prostatic hyperplasia): Status: Acute (3) Cellulitis: Status: Acute (4) Infected wound: Status: Acute (5) Dog bite: Status: Acute (6) Diabetes: Status: Acute (7) Hypertension: Status: Acute Assessment and Plan: 61-year-old male with a past medical history of hypertension, hyperlipidemia, diabetes, BPH, dementia presented to the hospital with a chief complaint of dog bite. Right hand dog bite/cellulitis. Continue Vanco and Zosyn.? ID consultation Initial dose of rabies vaccine on 01/21 along with immunoglobulin, 2nd dose 01/25 Follow rabies vaccine schedule of 4 total doses (day 1,3,7,14) 3rd dose 01/28, 4th dose 02/04, patient can return to the ED for doses Follow cx neg after 24 hrs Hypertension.? Stable blood pressure.? Continue amlodipine Hyperlipidemia Continue aspirin, Plavix Diabetes. Insulin sliding scale, ADA diet BPH Continue Flomax, finasteride History of dementia Continue home donepezil DISPO Likely home tomorrow if medically stable and cx negative DVT prophylaxis heparin Code status:? Full code Attending Dr. Simental Subjective Subjective Date of Service: 01/26/21 Review of Systems Follow up dog bite feeling ok, pain is better controlled wound looks better Physical Exam Vital Signs: Vital Signs: Last Vital Signs Temp 97 F 01/26/21 11:09 Pulse 66 01/26/21 11:09 Resp 18 01/26/21 11:09 BP 131/67 01/26/21 11:09 Pulse Ox 96 01/26/21 11:09 Body Mass Index 23.6 Appearing in no acute distress lung sounds are clear to auscultation heart regular rate rhythm, clear S1, S2 positive bowel sounds, abdomen is soft, nontender neuro patient is alert x3, no focal deficits 01/25/21 1st image 01/24/21 2nd image Objective Data Current Medications Acetaminophen (Acetaminophen 325 Mg Tablet) 650 mg PO Q6H PRN PRN Reason: Pain, Mild (Pain Scale 1-3) Last Admin: 01/25/21 23:52 Dose: 650 mg Documented by: Amlodipine Besylate (Amlodipine Besylate 10 Mg Tablet) 10 mg PO DAILY [facility]; Protocol Last Admin: 01/26/21 09:27 Dose: 10 mg Documented by: Aspirin (Aspirin Enteric Coated 81 Mg Tablet.) 81 mg PO DAILY [facility] Last Admin: 01/26/21 09:27 Dose: 81 mg Documented by: Clopidogrel Bisulfate (Clopidogrel Bisulfate 75 Mg Tablet) 75 mg PO DAILY [facility] Last Admin: 01/26/21 09:27 Dose: 75 mg Documented by: Dextrose (Dextrose 50 % 25 Gm/50 Ml Vial) 25 gm IVPUSH Q15M PRN; Protocol PRN Reason: per Hypoglycemia Standing Ord. Donepezil HCl (Donepezil Hcl 10 Mg Tablet) 10 mg PO BEDTIME [facility] Last Admin: 01/25/21 21:39 Dose: 10 mg Documented by: Escitalopram Oxalate (Escitalopram Oxalate 5 Mg Tablet) 5 mg PO DAILY [facility] Last Admin: 01/26/21 09:27 Dose: 5 mg Documented by: Finasteride (Finasteride 5 Mg Tablet) 5 mg PO DAILY [facility] Last Admin: 01/26/21 09:27 Dose: 5 mg Documented by: Glucose (Glucose Gel 15 Gm Gel..Gram.) 15 gm PO Q15M PRN; Protocol PRN Reason: per Hypoglycemia Standing Ord. Heparin Sodium (Porcine) (Heparin Sodium,Porcine 5,000 Unit/Ml Vial) 5,000 unit SUBCUT Q12H [facility] Last Admin: 01/26/21 12:10 Dose: 5,000 unit Documented by: Vancomycin HCl 750 mg/ Sodium (Chloride) 265 mls @ 265 mls/hr IV Q24H [facility] Last Infusion: 01/26/21 00:57 Dose: Infused Documented by: Sodium Chloride (Ns) 1,000 mls @ 100 mls/hr IVCONT .Q10H [facility] Last Admin: 01/26/21 12:24 Dose: 100 mls/hr Documented by: Piperacillin Sod/Tazobactam (Sod 3.375 gm/ Sodium Chloride) 50 mls @ 100 mls/hr IV Q6H [facility] Last Infusion: 01/26/21 09:58 Dose: Infused Documented by: Insulin Human Lispro (Insulin Lispro 100 Unit/Ml 3 Ml Vial) 0 unit SUBCUT QIDACHS [facility]; Protocol Last Admin: 01/26/21 12:10 Dose: 2 unit Documented by: Melatonin (Melatonin 3 Mg Tablet) 6 mg PO BEDTIME PRN PRN Reason: Insomnia Pharmacy Consult (Consult Rx Vancomycin Dosing) 1 each MISCELLANE DAILY PRN PRN Reason: Consult order Pharmacy Consult (Consult Rx Perform Med Rec) 1 each MISCELLANE ONCE PRN PRN Reason: Consult order Senna (Sennosides 8.6 Mg Tablet) 17.2 mg PO BEDTIME PRN PRN Reason: Constipation Sodium Chloride (0.9 % Sodium Chloride Flush 3 Ml Syringe) 3 ml IVFLUSH QSHIFT [facility] Last Admin: 01/26/21 09:15 Dose: Not Given Documented by: Tamsulosin HCl (Tamsulosin Hcl 0.4 Mg Capsule) 0.4 mg PO DAILY [facility] Last Admin: 01/26/21 09:27 Dose: 0.4 mg Documented by: Labs CBC & Chem 7: 01/25/21 07:00 01/26/21 05:58 Labs: Laboratory Results - last 24 hr 01/25/21 01/25/21 01/26/21 12:44 20:12 05:58 Anion Gap 10 L Estim Creat Clear Calc 39.7 Estimated GFR 47 POC Glucose 141 H 226 H Random Glucose 128 H Calcium 8.4 01/26/21 01/26/21 07:23 11:09 Anion Gap Estim Creat Clear Calc Estimated GFR POC Glucose 117 H 158 H Random Glucose Calcium Microbiology Microbiology Results: Microbiology 01/24/21 21:17 Hand Right Gram Stain - Final 01/24/21 21:17 Hand Right Routine Culture - Preliminary Culture in progress. 01/24/21 21:18 Blood - Venous Blood Culture - Preliminary No growth after 24 hours. 01/24/21 21:17 Blood - Venous Blood Culture - Preliminary No growth after 24 hours. Quality Stroke Does the patient have a stroke diagnosis?: No VTE Prior VTE?: No VTE Risk Level:: Medical - moderate - high VTE Device Contraindication: N/A - Device Ordered VTE Drug Contraindication: Treatment Not Indicated
[2021-01-26 16:02] LABS: Glucose, Whole Blood 149 mg/dL (60-115)
--- NOTE | 2021-01-26 16:23 | MHC.CM.PN ---
Female 70 DX Dog bite Patient is being treated with IV ABX while hospitalized. She has received 2/4 rabbies injections. DP home CCA services. [place] [facility] [place] the 2 remaining Rabbies injectiions. Family will provide transportation.
[2021-01-26 20:21] LABS: Glucose, Whole Blood 186 mg/dL (60-115)
[2021-01-26] MEDS: Donepezil HCl 10 MG TABLET PO (21:20)
[2021-01-26] MEDS: 0.9 % Sodium Chloride Flush 3 ML SYRINGE IVFLUSH (21:21)
[2021-01-26 21:49] LABS: Vancomycin Random 7.4 mcg/mL (15-20)
--- NOTE | 2021-01-26 22:06 | HE.PHANOTE ---
VANCO DOSE CHANGED TO 1 GM Q24H EXPECTED TROUGH 16.7 AUC 475
[2021-01-26] MEDS: vancomycin HCL 1,000 MG in 0.9 % Sodium Chloride 250 ML 270 MG IV (22:20)
[2021-01-27] MEDS: Heparin Sodium,Porcine 5,000 UNIT/ML VIAL 5000 UNIT SUBCUT (02:34)
[2021-01-27] MEDS: Piperacillin Sodium/Tazobactam 3.375 GM in 0.9 % Sodium Chloride 50 ML IV ×2 (03:26→10:10)
[2021-01-27 04:00] VITALS: BP 155/78; PULSE 74; RESP 18; TEMP 36.4; O2SAT 96
[2021-01-27 05:48] VITALS: BMI 24.2
[2021-01-27 07:08] VITALS: BP 139/74; PULSE 74; RESP 18; TEMP 36.4; O2SAT 99
[2021-01-27 07:24] LABS: Glucose, Whole Blood 87 mg/dL (60-115)
[2021-01-27 08:19] LABS: Creatinine Clr Calc Pharmacy 41.6; Estimated Glomerular Filt Rate 50
[2021-01-27] MEDS: Aspirin Enteric Coated 81 MG TABLET.DR PO (10:09)
[2021-01-27] MEDS: Finasteride 5 MG TABLET PO (10:09)
[2021-01-27] MEDS: amLODIPine Besylate 10 MG TABLET PO (10:10)
[2021-01-27] MEDS: 0.9 % Sodium Chloride Flush 3 ML SYRINGE IVFLUSH (10:10)
[2021-01-27] MEDS: Tamsulosin HCL 0.4 MG CAPSULE PO (10:10)
[2021-01-27] MEDS: Clopidogrel Bisulfate 75 MG TABLET PO (10:10)
[2021-01-27] MEDS: Escitalopram Oxalate 5 MG TABLET PO (10:10)
--- NOTE | 2021-01-27 10:12 | MHC.CM.PN ---
PATIENT IS DC HOME - SELF CARE. RN AWARE OF PLAN
[2021-01-27 11:41] VITALS: BP 138/76; PULSE 74; RESP 18; TEMP 36.5; O2SAT 98
[2021-01-27 12:00] LABS: Glucose, Whole Blood 130 mg/dL (60-115)
== END 2021-01-27 14:28 | disposition home or self-care (01) | DRG 603 ==
LOC: HO.ED 20:44 → HO.EDOVER 22:49 → HO.IMC 01-25 17:42 → HO.S3 01-26 22:33
PROVIDERS: Nurse Practitioner Acute Care; Admitting Provider Hospitalist; Emergency Provider Internal Medicine; PCP Internal Medicine; Visit Provider Physician Assistant Medical
DX: L03.113 Cellulitis of right upper limb (principal); S61.431A Puncture wound without foreign body of right hand, initial encounter; W54.0XXA Bitten by dog, initial encounter; E78.5 Hyperlipidemia, unspecified; I10 Essential (primary) hypertension; N40.0 Benign prostatic hyperplasia without lower urinary tract symptoms; E11.9 Type 2 diabetes mellitus without complications; F03.90 Unspecified dementia, unspecified severity, without behavioral disturbance, psychotic disturbance, mood disturbance, and anxiety; Z23 Encounter for immunization; Z88.5 Allergy status to narcotic agent; Z79.4 Long term (current) use of insulin; Z79.02 Long term (current) use of antithrombotics/antiplatelets; Z79.82 Long term (current) use of aspirin; Z79.899 Other long term (current) drug therapy
CPT/HCPCS: 36415; 73120; 80048; 80053; 80202; 82565; 82947; 83605; 85025; 87040; 87071; 87077; 87186; 87205; 87635; 90675; 99285; J2543; J3370

== ENCOUNTER 2021-01-28 15:15 | Outpatient (REF) | payer MEDICARE, SELFPAY | END 2021-01-28 15:16 | disposition home or self-care (01) | LOC: HO.MDS 15:15 | PROVIDERS: PCP Internal Medicine; Visit Provider Nurse Practitioner Family | DX: Z29.14 Encounter for prophylactic rabies immune globulin (principal); S61.451D Open bite of right hand, subsequent encounter; L03.113 Cellulitis of right upper limb; W54.0XXD Bitten by dog, subsequent encounter; Z20.3 Contact with and (suspected) exposure to rabies | CPT/HCPCS: 90471; 90675 ==

== ENCOUNTER 2021-02-04 15:17 | Outpatient (REF) | payer MEDICARE, SELFPAY | END 2021-02-04 15:18 | disposition home or self-care (01) | LOC: HO.MDS 15:17 | PROVIDERS: PCP Internal Medicine; Visit Provider Nurse Practitioner Family | DX: Z29.14 Encounter for prophylactic rabies immune globulin (principal); S61.451D Open bite of right hand, subsequent encounter; L03.90 Cellulitis, unspecified; W54.0XXD Bitten by dog, subsequent encounter; Z20.3 Contact with and (suspected) exposure to rabies | CPT/HCPCS: 90471; 90675 ==

== ENCOUNTER 2021-02-18 09:47 | Outpatient (REF) | payer MEDICARE, SELFPAY ==
[2021-02-18 10:16] LABS: MANUAL DIFF FLAG NO
[2021-02-18 10:28] LABS: Basophils Percent Auto 0.5 % (0-2); Eosinophils Absolute Auto 0.1 X10*3/uL (0.0-0.4); Eosinophils Percent Auto 1.8 % (0-4); Hematocrit 34.1 % (42.0-52.0); Hemoglobin 11.9 g/dl (14.0-18.0); Imm Gran Abs Auto 0.03 X10*3/uL (0.00-0.03); Imm Gran Pct Auto 0.5 % (0.0-0.4); Lymphocytes Absolute Auto 1.2 X10*3/uL (1.2-4.9); Lymphocytes Percent Auto 18.8 % (20-40); Mean Corpuscular HGB Conc 34.9 g/dl (31.0-36.0); Mean Corpuscular Hemoglobin 30.5 pg (27.0-33.0); Mean Corpuscular Volume 87.4 fL (80.0-98.0); Mean Platelet Volume 9.9 fL (9.4-12.4); Monocytes Absolute Auto 0.4 X10*3/uL (0.1-1.2); Monocytes Percent Auto 7.2 % (2-11); Neutrophils Absolute Auto 4.4 x10*3/uL (2.0-8.3); Neutrophils Percent Auto 71.2 % (45-73); Platelet Count 219 X10*3/uL (160-400); Red Cell Distribution Width 12.4 % (11.0-16.0); White Blood Count 6.1 X10*3/uL (4.8-10.8)
[2021-02-18 10:48] LABS: Appearance Urine CLEAR; Color Urine YELLOW; Glucose Urine UA 100 MG/DL (NEG); Leukocyte Esterase Urine NEG (NEG); Nitrite Urine NEG (NEG); Urine Blood TRACE (NEG); Urine Ketones NEG (NEG); Urine Protein 2+ MG/DL (NEG-TRACE)
[2021-02-18 10:52] LABS: Albumin Level 4.2 g/dL (3.5-5.0); Anion Gap 14 (12-20); Blood Urea Nitrogen 25 mg/dL (9-16); Calcium 9.5 mg/dL (8.4-10.2); Carbon Dioxide 26 mmol/L (22-29); Chloride 104 mmol/L (96-108); Estimated Glomerular Filt Rate 35; Magnesium 2.1 mg/dL (1.6-2.6); Phosphorus 4.4 mg/dL (2.7-4.5); Potassium 5.6 mmol/L (3.3-5.1); Sodium 138 mmol/L (135-145)
[2021-02-18 11:00] LABS: RBC Urine 0-2 /HPF (0); WBC Urine 0-2 /HPF (0-4)
[2021-02-18 11:19] LABS: Creatinine Urine 88.33 mg/dL; Protein/Creatinine Ratio, Ur 0.83 (<0.2); Total Protein Urine Random 73 mg/dL (<12)
[2021-02-18 11:52] LABS: Microalbum/Creatinine Ratio Ur 537.7 ug/mg cr
[2021-02-21 13:21] LABS: Calcium (PTHI) 9.4 mg/dL (8.6-10.3); PTHI 55 pg/mL (14-64)
== END 2021-02-18 09:48 | disposition home or self-care (01) ==
LOC: HO.LAB 09:47
PROVIDERS: PCP Internal Medicine Hematology & Oncology; Visit Provider Internal Medicine Nephrology
DX: N18.32 Chronic kidney disease, stage 3b (principal); R80.1 Persistent proteinuria, unspecified; N25.0 Renal osteodystrophy
CPT/HCPCS: 36415; 80051; 81001; 82040; 82043; 82306; 82310; 82565; 83735; 83970; 84100; 84156; 84520; 85025; 87086

== ENCOUNTER 2021-03-17 12:00 | Emergency (ER) | payer MEDICARE, SELFPAY ==
--- NOTE | ~2021-03-17 | CT_ITS ---
EXAMINATION: CT SOFT TISSUE NECK WITHOUT CONTRAST CLINICAL INFORMATION: Neck pain. COMPARISON: None TECHNIQUE: Helical imaging was performed in the axial plane with generation of coronal and sagittal reformatted images. This CT examination was performed using dose optimization techniques as appropriate, variously including the following: *Automated exposure control *Adjustment of mA and/or kV according to patient size (this includes techniques or standardized protocols for targeted exams where dose is matched to indication/reason for exam; i.e. extremities or head) *Use of iterative reconstruction technique DLP: 538 mGy-cm FINDINGS: No cervical adenopathy is identified. The parotid glands are homogeneous in attenuation. The submandibular glands are normal. No contour abnormality or pathologic enhancement is seen within the oral cavity or pharyngeal mucosal space. The laryngeal structures are normal. The parapharyngeal fat is preserved. The carotid sheath vasculature opacify normally. No extra mucosal soft tissue mass or fluid collection is seen. No retropharyngeal fluid collection is seen. The thyroid gland is normal. The superior mediastinum is unremarkable. The lung apices are clear. The mastoid air cells and visualized portions of the paranasal sinuses are well-aerated. The temporomandibular joints are normal. No periapical disease is identified. No osseous abnormalities are seen. The imaged portions of the brain parenchyma are unremarkable. There is a loss of C4-C5, C5-C6 and C6-C7 and C7-T1 disc heights with mild ventral and posterior spondylosis. The craniovertebral junction and the C1-C2 alignment is normal. CT/CT soft tissue neck wo con IMPRESSION: Unremarkable CT soft tissue neck with contrast except for degenerative arthritic changes cervical spine.
[2021-03-17 12:05] VITALS: BP 147/54; PULSE 73; RESP 18; TEMP 36.6; O2SAT 98; BMI 22.8
--- NOTE | 2021-03-17 14:25 | ED.GENADULT ---
HPI - General Adult General Chief complaint: General Medical Stated complaint: neck pain, hard time swallowing Time Seen by Provider: 03/17/21 14:23 History of Present Illness HPI narrative: Patient is a 70-year-old male with a history diabetes. Presents today with having neck pain. It is worse with turning to the left or to the right. Not as bad tilting head up and down. There is no fever. Patient denies any pain on swallowing. There is swelling to the neck noted by daughter which had subsided over the last 24 hours. No coughing or congestion. No upper respiratory symptoms. No diaphoresis. No chest pain. No shortness of breath. Patient is from home. Sent in for further evaluation. There is no change in voice. No difficulty in swallowing. No pain noted inside the mouth. No dental issues. No recent oral surgery. Related Data Home Medications Medication Instructions Recorded Confirmed amlodipine 10 mg tablet 1 tab PO DAILY 01/24/21 01/24/21 aspirin 81 mg tablet,delayed 1 tab PO DAILY 01/24/21 01/24/21 release citalopram 10 mg tablet 1 tab PO DAILY 01/24/21 01/24/21 clopidogrel 75 mg tablet 1 tab PO DAILY 01/24/21 01/24/21 donepezil 10 mg tablet 1 tab PO BEDTIME 01/24/21 01/24/21 finasteride 5 mg tablet 1 tab PO DAILY 01/24/21 01/24/21 insulin glargine 100 unit/mL 5 unit SUBCUT BEDTIME 01/24/21 01/24/21 subcutaneous solution (Lantus U-100 Insulin) tamsulosin 0.4 mg capsule 1 cap PO DAILY 01/24/21 01/24/21 Previous Rx's Medication Instructions Recorded amoxicillin 875 mg-potassium 1 tab PO BID #14 tab 01/27/21 clavulanate 125 mg tablet (Augmentin) doxycycline hyclate 100 mg capsule 100 mg PO BID #14 cap 01/27/21 cyclobenzaprine 10 mg tablet 10 mg PO TID PRN #14 tab 03/17/21 Allergies Allergy/AdvReac Type Severity Reaction Status Date / Time oxycodone [From PERCOCET] Allergy Unknown CAN'T Verified 01/24/21 21:27 BREATH/VOMITING simvastatin [SIMVASTATIN] Allergy Unknown UNKNOWN Verified 01/24/21 21:27 peas AdvReac Unknown VOMITING/FA Verified 01/24/21 21:27 INTING BRIJESH [id number] AdvReac Unknown VOMITING/FA Uncoded 01/24/21 21:27 INT Review of Systems Review of Systems: Positive neck pain. Worse with turning the head to the right or left. No nuchal rigidity. All system reviewed otherwise negative [facility] Past Medical History Attestation statement: The following information was validated with the patient. Medical History BPH (benign prostatic hyperplasia) Dementia Diabetes Diabetes Hypertension Renal failure Rhabdomyolysis Toe amputee Social History Social History Household Members: Spouse Housing: Apartment Do you presently have visiting nurse or other home services: Yes (every 3 months) Alcohol intake: never Patient Tobacco Use Status: Never used Tobacco Advance Directives: Yes Advance Directives on File: Yes Advance Directives Date on File: 01/25/21 service: No Current occupational status: retired Physical Exam Vital Signs: Vital Signs: Last Vital Signs Temp 98.0 F 03/17/21 14:39 Pulse 71 03/17/21 14:39 Resp 18 03/17/21 14:39 BP 143/70 H 03/17/21 14:39 Pulse Ox 97 03/17/21 14:39 BMI result Body Mass Index 22.8 Appearance: Alert. Oriented X3. No acute distress. Eyes: Pupils equal, round and reactive to light. ENT: Pharynx normal. No pain on flexion of the neck. Positive pain on turning the head to the left or right. There is no dental issue identified. Posterior pharynx is normal. Tongue is normal. TMs intact bilaterally. Neck: Normal inspection. Neck supple. No lymph nodes noted. No crepitus CVS: Normal heart rate and rhythm. Pulses normal. Normal S1 and S2 Respiratory: No respiratory distress. Breath sounds normal. No Wheezing. No rales Abdomen: Soft and nontender. No rigidity. No distention. good BS x4 Skin: Skin warm and dry. Normal skin color. Normal skin turgor. Extremities: No lower extremity edema. Neurovascular intact to all extremities. No Lacerations. No Rash Neuro: Oriented X 3. No motor deficit. No sensory deficit. Moving all extermities. No slurred speech Medical Decision Making MDM Narrative Medical decision making narrative: Positive pain worse with turning to the left and right. LEs with up and down. No change in voice. No difficulty swallowing. No shortness of breath. Patient electrolytes are unremarkable white count is normal. Unable to give IV contrast due to patient's elevated creatinine which is baseline. A CT scan was done and showed no acute findings. Will discharge patient home. Will likely tore the callus. Lab Data Result diagrams: 03/17/21 14:46 03/17/21 14:46 Labs: Lab Results 03/17/21 03/17/21 Range/Units 14:46 14:46 WBC 7.2 (4.8-10.8) X10*3/uL RBC 3.81 L (4.60-5.80) X10*6/uL Hgb 11.6 L (14.0-18.0) g/dl Hct 33.3 L (42.0-52.0) % MCV 87.4 (80.0-98.0) fL MCH 30.4 (27.0-33.0) pg MCHC 34.8 (31.0-36.0) g/dl RDW 12.1 (11.0-16.0) % Plt Count 235 (160-400) X10*3/uL MPV 9.5 (9.4-12.4) fL Immature Gran % (Auto) 0.0 (0.0-0.4) % Neut % (Auto) 81.6 H (45-73) % Lymph % (Auto) 10.5 L (20-40) % Hendricks % (Auto) 6.9 (2-11) % Eos % (Auto) 0.7 (0-4) % Baso % (Auto) 0.3 (0-2) % Lymph # (Auto) 0.8 L (1.2-4.9) X10*3/uL Hendricks # (Auto) 0.5 (0.1-1.2) X10*3/uL Eos # (Auto) 0.1 (0.0-0.4) X10*3/uL Baso # (Auto) 0.0 (0.0-0.2) X10*3/uL Abs Immat Gran (auto) 0.00 (0.00-0.03) X10*3/uL Absolute Neuts (auto) 5.9 (2.0-8.3) x10*3/uL Absolute Nucleated RBC 0.000 (0.0-0.012) X10*3/uL Nucleated RBC % (auto) 0.0 (0.0-0.2) /100WBC Sodium 137 (135-145) mmol/L Potassium 4.3 D (3.3-5.1) mmol/L Chloride 104 (96-108) mmol/L Carbon Dioxide 24 (22-29) mmol/L Anion Gap 13 (12-20) BUN 24 H (9-16) mg/dL Creatinine 1.75 H (0.5-1.4) mg/dL Estim Creat Clear Calc 33.3 Estimated GFR 39 Random Glucose 203 H D (60-115) mg/dL Calcium 9.1 (8.4-10.2) mg/dL Total Bilirubin 0.6 (0.0-1.0) mg/dL Direct Bilirubin 0.2 (0.0-0.5) mg/dL AST 12 (5-37) U/L ALT 9 (0-40) U/L Alkaline Phosphatase 121 H (39-117) U/L Total Protein 6.9 (6.5-8.0) g/dL Albumin 3.8 (3.5-5.0) g/dL Discharge Plan Discharge Clinical Impression: Torticollis Patient Disposition: Home, Self-Care Instructions: Spasmodic Torticollis (ED) Prescriptions: New cyclobenzaprine 10 mg tablet 10 mg PO TID PRN (Reason: pain) Qty: 14 RF: 0 No Action citalopram 10 mg tablet 1 tab PO DAILY RF: 0 donepezil 10 mg tablet 1 tab PO BEDTIME RF: 0 clopidogrel 75 mg tablet 1 tab PO DAILY RF: 0 aspirin 81 mg tablet,delayed release (DR/EC) 1 tab PO DAILY RF: 0 tamsulosin 0.4 mg capsule 1 cap PO DAILY RF: 0 amlodipine 10 mg tablet 1 tab PO DAILY RF: 0 finasteride 5 mg tablet 1 tab PO DAILY RF: 0 Lantus U-100 Insulin 100 unit/mL solution 5 unit subcut BEDTIME RF: 0 amoxicillin-pot clavulanate [Augmentin] 875-125 mg tablet 1 tab PO BID Qty: 14 RF: 0 doxycycline hyclate 100 mg capsule 100 mg PO BID Qty: 14 RF: 0 Referrals: Hien Khan MD [Primary Care Provider] - 2 days
[2021-03-17 14:39] VITALS: BP 143/70; PULSE 71; RESP 18; TEMP 36.7; O2SAT 97
[2021-03-17 14:53] LABS: MANUAL DIFF FLAG NO
[2021-03-17 14:54] LABS: Basophils Percent Auto 0.3 % (0-2); Eosinophils Absolute Auto 0.1 X10*3/uL (0.0-0.4); Eosinophils Percent Auto 0.7 % (0-4); Hematocrit 33.3 % (42.0-52.0); Hemoglobin 11.6 g/dl (14.0-18.0); Lymphocytes Absolute Auto 0.8 X10*3/uL (1.2-4.9); Lymphocytes Percent Auto 10.5 % (20-40); Mean Corpuscular HGB Conc 34.8 g/dl (31.0-36.0); Mean Corpuscular Hemoglobin 30.4 pg (27.0-33.0); Mean Corpuscular Volume 87.4 fL (80.0-98.0); Mean Platelet Volume 9.5 fL (9.4-12.4); Monocytes Absolute Auto 0.5 X10*3/uL (0.1-1.2); Monocytes Percent Auto 6.9 % (2-11); Neutrophils Absolute Auto 5.9 x10*3/uL (2.0-8.3); Neutrophils Percent Auto 81.6 % (45-73); Platelet Count 235 X10*3/uL (160-400); Red Blood Count 3.81 X10*6/uL (4.60-5.80); Red Cell Distribution Width 12.1 % (11.0-16.0); White Blood Count 7.2 X10*3/uL (4.8-10.8)
--- NOTE | 2021-03-17 14:57 | PC.NURSE ---
labs drawn per order
[2021-03-17 15:26] LABS: Alanine Aminotransferase 9 U/L (0-40); Albumin Level 3.8 g/dL (3.5-5.0); Alkaline Phosphatase 121 U/L (39-117); Anion Gap 13 (12-20); Aspartate Amino Transferase 12 U/L (5-37); Bilirubin Direct 0.2 mg/dL (0.0-0.5); Bilirubin Total 0.6 mg/dL (0.0-1.0); Blood Urea Nitrogen 24 mg/dL (9-16); Calcium 9.1 mg/dL (8.4-10.2); Carbon Dioxide 24 mmol/L (22-29); Chloride 104 mmol/L (96-108); Creatinine Clr Calc Pharmacy 33.3; Estimated Glomerular Filt Rate 39; Glucose Random 203 mg/dL (60-115); Potassium 4.3 mmol/L (3.3-5.1); Sodium 137 mmol/L (135-145); Total Protein 6.9 g/dL (6.5-8.0)
--- NOTE | 2021-03-17 15:45 | PC.NURSE ---
iv inserted for pt to goto ct scan, daughter at bedside, pt c/o 10/10 neck pain with movement only, pt states if he lays still he has no pain.
[2021-03-17 16:00] VITALS: BP 146/72; PULSE 76; RESP 18; TEMP 36.7; O2SAT 96
== END 2021-03-17 17:00 | disposition home or self-care (01) ==
PROVIDERS: Emergency Provider Emergency Medicine Emergency Medical Services; PCP Internal Medicine
DX: M43.6 Torticollis (principal); M54.2 Cervicalgia; E11.9 Type 2 diabetes mellitus without complications; I10 Essential (primary) hypertension; Z79.82 Long term (current) use of aspirin; Z79.4 Long term (current) use of insulin
CPT/HCPCS: 36415; 70490; 80048; 80076; 85025; 99284

== ENCOUNTER 2021-08-29 11:22 | Outpatient (REF) | payer MEDICARE, SELFPAY ==
--- NOTE | ~2021-08-29 | US_ITS ---
EXAMINATION: US RETROPERITONEAL LIMITED (RENAL ONLY) CLINICAL INFORMATION: Persistent proteinuria, CKD. COMPARISON: None TECHNIQUE: Routine imaging of kidneys is performed. FINDINGS: RIGHT KIDNEY: 9.3 x 4.7 x 5.0 cm (SAG x AP x TRV). The kidney is normal in size, contour, and echogenicity. Renal cortical thickness is normal. There is an echogenic stone in the midpole measuring 0.20 x 0.13 x 0.23 cm. No additional echogenic stones seen. There is a simple cyst midpole measuring 0.60 x 0.30 x 0.44 cm. There is no caliectasis or hydronephrosis. LEFT KIDNEY: 9.0 x 5.3 x 4.5 cm (SAG x AP x TRV). The kidney is normal in size, contour, and echogenicity. Renal cortical thickness is normal. No calculi or focal parenchymal lesions. No hydronephrosis. There is anechoic cyst in the midpole measuring 0.47 x 0.35 x 0.50 cm. No additional cyst seen. US/US renal BI IMPRESSION: 1. Bilateral simple renal cysts. 2. Nonobstructive echogenic small calculi midpole, right kidney. 3. There is no caliectasis or hydronephrosis in either kidney.
== END 2021-08-29 11:23 | disposition home or self-care (01) ==
LOC: HO.US 11:22
PROVIDERS: Visit Provider Internal Medicine Nephrology
DX: N18.32 Chronic kidney disease, stage 3b (principal); R80.1 Persistent proteinuria, unspecified
CPT/HCPCS: 76775

== ENCOUNTER 2021-09-26 11:39 | Outpatient (REF) | payer OTHER, SELFPAY ==
[2021-09-26 12:41] LABS: Anion Gap 12 (12-20); Blood Urea Nitrogen 26 mg/dL (9-16); Calcium 9.1 mg/dL (8.4-10.2); Carbon Dioxide 27 mmol/L (22-29); Chloride 104 mmol/L (96-108); Estimated Glomerular Filt Rate 41; Potassium 5.3 mmol/L (3.3-5.1); Sodium 138 mmol/L (135-145)
[2021-09-26 13:26] LABS: Appearance Urine CLEAR; Color Urine YELLOW; Glucose Urine UA NEG (NEG); Leukocyte Esterase Urine NEG (NEG); Nitrite Urine NEG (NEG); Specific Gravity - Urine 1.025 (1.005-1.025); Urine Blood TRACE (NEG); Urine Ketones NEG (NEG); Urine Protein 2+ MG/DL (NEG-TRACE)
[2021-09-26 13:50] LABS: Creatinine Urine 99.74 mg/dL; Protein/Creatinine Ratio, Ur 1.93 (<0.2); Total Protein Urine Random 192 mg/dL (<12)
[2021-09-26 13:55] LABS: Amorphous Sediment Urine 1+ /LPF; RBC Urine 0-2 /HPF (0); WBC Urine 0-2 /HPF (0-4)
[2021-09-26 14:06] LABS: Microalbum/Creatinine Ratio Ur 1246.2 ug/mg cr
[2021-09-27 08:32] LABS: HBS Num1 0.66 mIU/mL (0-7.99); HBc Num1 0.11 S/CO (0.00-0.79); HBsAGNum1 0.18 S/CO (0.00-0.99); Hepatitis B Core Antibody Nonreactive (Nonreactive); Hepatitis B Surface Antigen Negative (Negative); ~HepC Num1 0.06 S/CO (0.00-0.79); ~Hepatitis B Surface Antibody NONREACTIVE (Nonreactive); ~Hepatitis C Antibody Nonreactive (Nonreactive)
[2021-09-27 14:16] LABS: Calcium (PTHI) 9.4 mg/dL (8.6-10.3); PTHI 122 pg/mL (16-77)
[2021-09-28 06:02] LABS: Complement C3 102 mg/dL (82-185)
[2021-09-28 22:03] LABS: Anti Nuclear Antibody Pattern Nuclear, Homogeneous; Anti Nuclear Antibody Screen POSITIVE (NEGATIVE); Anti Nuclear Antibody Titer 1:40 titer
[2021-09-30 15:33] LABS: Prot Elec - Albumin 4.2 g/dL (3.8-4.8); Prot Elec - Alpha1 0.3 g/dL (0.2-0.3); Prot Elec - Alpha2 0.7 g/dL (0.5-0.9); Prot Elec - Beta 1 0.6 g/dL (0.4-0.6); Prot Elec - Beta 2 0.5 g/dL (0.2-0.5); Prot Elec - Gamma 1.1 g/dL (0.8-1.7); Prot Elec - Total Protein 7.3 g/dL (6.1-8.1)
[2021-09-30 16:06] LABS: Kappa, Serum 288 mg/dL (176-443); Kappa/Lambda Ratio, Serum 1.33 (1.29-2.55); Lambda, Serum 216 mg/dL (91-240)
== END 2021-09-26 11:40 | disposition home or self-care (01) ==
LOC: HO.LAB 11:39
PROVIDERS: PCP Internal Medicine; Visit Provider Internal Medicine Nephrology
DX: R80.1 Persistent proteinuria, unspecified (principal); N18.32 Chronic kidney disease, stage 3b
CPT/HCPCS: 36415; 80051; 81001; 82043; 82310; 82565; 83883; 83970; 84156; 84165; 84520; 86038; 86039; 86160; 86704; 86706; 86803; 87340

== ENCOUNTER 2022-02-12 10:09 | Inpatient (IN) | payer OTHER, SELFPAY ==
--- NOTE | ~2022-02-12 | IR_ITS ---
PROCEDURE: IR INSERTION OF PICC CLINICAL INFORMATION: Long-term IV antibiotic requirement. Right hand infection. COMPARISON: None TECHNIQUE: Procedure and risks and benefits including bleeding, infection and blood clot were discussed with the patient and informed consent was obtained. All elements of maximal sterile barrier technique followed including use of cap, mask, sterile gown, sterile gloves, a sterile full body drape and hand hygiene. Also followed skin preparation with 2% chlorhexidine for cutaneous antisepsis, and sterile ultrasound preparation with sterile gel and probe cover when applicable. The right upper arm was prepped and draped in the usual sterile fashion. The skin and soft tissues were anesthetized with 1% lidocaine plain. Using ultrasound guidance, right basilic vein access was obtained. Over an 018 wire and through a peel-away sheath, a 4 [place] single lumen PICC line was positioned. Catheter length is 32 cm. Catheter tip is in the SVC. Real-time ultrasound guidance was used to document vein patency and for needle entry. A formal ultrasound picture was recorded. Fluoroscopy time 0.2 minutes. DAP 27 CG Y per centimeter squared. 1 saved fluoroscopic image. FINDINGS: There is a right upper extremity PICC line with tip projecting over the SVC. IR/IR cvc insert peripheral IMPRESSION: Right upper extremity PICC line placement.
--- NOTE | ~2022-02-12 | IR_ITS ---
EXAMINATION: IR ULTRASOUND-GUIDED VENOUS FOR PICC LINE PLACEMENT Please see PICC line dictation from the same day.
--- NOTE | ~2022-02-12 | MR_ITS ---
EXAMINATION: MR HAND WITH AND WITHOUT CONTRAST, LEFT CLINICAL INFORMATION: Cellulitis of the left hand. COMPARISON: Radiograph dated 02/12/2022. TECHNIQUE: Multiplanar MR imaging was obtained through the left hand on a 1.5 Lakia magnet before and after intravenous administration of 6 mL Gadavist. FINDINGS: At the dorsal aspect of the thumb metacarpal shaft, there is a peripherally enhancing wound in the skin measuring 1 x 1 cm in area with a depth of 1 cm. Peripheral enhancing material within the deep soft tissue planes overlying the dorsal margin of the metacarpal shaft measures 1.5 x 0.5 x 3 cm and tracks along the extensor tendons to the thumb, most concerning for abscess/phlegmon. There is underlying edema signal and enhancement at the thumb metacarpal without appreciable changes on T1-weighted images. The surrounding thenar musculature is edematous with hyperenhancement, likely reactive in nature. No additional collections are identified. Aside from the thumb metacarpal, the bones are normal in signal intensity without additional areas of edema signal or enhancement. 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 No evidence of acute septic arthritis. Tendons are normal in signal intensity without tears. No clear findings of tenosynovitis. MR/MR hand LT wo/w con IMPRESSION: Soft tissue wound at the dorsal aspect of the thumb metacarpal shaft with a 3 cm abscess/phlegmon tracking adjacent to the extensor tendons. Edema signal and enhancement within the thumb metacarpal represent a high probability of osteomyelitis given the proximity to the abscess. No evidence of septic arthritis.
--- NOTE | ~2022-02-12 | XR_ITS ---
EXAMINATION: XR HAND, LEFT CLINICAL INFORMATION: Trauma. Laceration. COMPARISON: Prior imaging of the right hand TECHNIQUE: PA, lateral, and oblique views of the left hand. FINDINGS: An arrow indicates the thenar eminence. There is soft tissue swelling at this site. Extensive vascular calcifications. No radiopaque foreign body. No fracture or dislocation. The bones are demineralized. XR/XR hand LT 2V IMPRESSION: Soft tissue swelling thenar eminence. Vascular calcifications. No radiopaque foreign body. No acute osseous abnormality.
[2022-02-12 10:14] VITALS: BP 150/78; PULSE 78; RESP 17; TEMP 36.1; O2SAT 95; BMI 23.8
--- NOTE | 2022-02-12 11:11 | ED_ITS ---
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 Patient states that 4 days ago, a lamp fell and broke, he tripped over a box and put his hands into the broken lamp to catch himself. Patient denies any dizziness, lightheadedness, abdominal pain, nausea, vomiting, fever, chills, blurry vision, double vision, loss of vision, chest pain, difficulty breathing, shortness of breath, back pain, night sweats, pain with urination, increased urinary frequency, increased urinary urgency, blood in his urine or stool, syncope or a near syncopal episode, bowel incontinence, bladder incontinence, bowel retention, bladder retention, or any other complaints at this time. Onset (ago): day(s) (4) Location: left (hand / thumb) and right (5th finger) Severity: moderate Severity scale (1-10): 5 Relieving factors: none Exacerbating factors: none Associated symptoms: denies other symptoms Treatments prior to arrival: none Related Data Home Medications Medication Instructions Recorded Confirmed amlodipine 10 mg tablet 1 tab PO DAILY 01/24/21 02/12/22 aspirin 81 mg tablet,delayed 1 tab PO DAILY 01/24/21 02/12/22 release citalopram 10 mg tablet 1 tab PO DAILY 01/24/21 02/12/22 clopidogrel 75 mg tablet 1 tab PO DAILY 01/24/21 02/12/22 donepezil 10 mg tablet 1 tab PO BEDTIME 01/24/21 02/12/22 finasteride 5 mg tablet 1 tab PO DAILY 01/24/21 02/12/22 insulin glargine 100 unit/mL 5 unit subcut BEDTIME 01/24/21 02/12/22 subcutaneous solution (Lantus U-100 Insulin) tamsulosin 0.4 mg capsule 1 cap PO DAILY 01/24/21 02/12/22 acetaminophen 325 mg tablet 650 mg PO Q6H PRN Pain 02/12/22 02/12/22 dapagliflozin 10 mg tablet 1 tab PO DAILY 02/12/22 02/12/22 (Farxiga) ergocalciferol (vitamin D2) 1,250 1 cap PO Q2W 02/12/22 02/12/22 mcg (50,000 unit) capsule insulin aspart U-100 100 unit/mL See Protocol subcut QIDACHS 02/12/22 02/12/22 subcutaneous solution (Novolog U-100 Insulin aspart) Previous Rx's Medication Instructions Recorded cyclobenzaprine 10 mg tablet 10 mg PO TID PRN pain #14 tabs 03/17/21 Allergies Allergy/AdvReac Type Severity Reaction Status Date / Time oxycodone [From PERCOCET] Allergy Unknown CAN'T Verified 01/24/21 21:27 BREATH/VOMITING simvastatin [SIMVASTATIN] Allergy Unknown UNKNOWN Verified 01/24/21 21:27 peas AdvReac Unknown VOMITING/FA Verified 01/24/21 21:27 INTING SALMON [id number] AdvReac Unknown VOMITING/FA Uncoded 01/24/21 21:27 INT Review of Systems Constitutional: Constitutional: Reports no additional constitutional complaints, Denies chills, Denies fever(s) and Denies night sweats Eyes: Eyes: Reports no additional eye complaints, Denies blurry vision, Denies change in vision, Denies diplopia, Denies eye discharge, Denies loss of vision and Denies eye pain ENT: Denies dizziness Cardiovascular: Cardiovascular: Reports no additional cardiovascular complaints, Denies chest pain, Denies lightheadedness, Denies Loss of Consciousness and Denies dyspnea Respiratory: Respiratory: Reports no additional respiratory complaints and Denies dyspnea Gastrointestinal: Gastrointestinal: Reports no additional gastrointestinal complaints, Denies abdominal pain, Denies melena, Denies hematochezia, Denies ch caleb in bowel habits and Denies change in stool character Genitourinary: Genitourinary: Reports no additional male genitourinary complaints, Denies hematuria, Denies oliguria, Denies difficulty urinating, Denies dysuria, Denies urinary frequency, Denies urinary hesitancy, Denies urinary incontinence and Denies urinary urgency Musculoskeletal: Musculoskeletal: Reports no additional musculoskeletal complaints, Denies numbness and Denies tingling Integumentary/Breasts: Comments: left hand swelling, redneness, warmth, right 5th finger swelling + warmth + erythema Neurologic: Denies dizziness, Denies loss of vision, Denies numbness and Denies tingling Psychiatric: Psychiatric: Reports no additional psychiatric complaints Endocrine: Endocrine: Reports no additional endocrine complaints Hematologic/Lymphatic: Hematologic/Lymphatic: Reports no additional hematologic/lymphatic complaints Allergic/Immunologic: Allergic/Immunologic: Reports no additional allergic/im munologic complaints PMFSH Past Medical History Attestation statement: The following information was validated with the patient. Source: old records reviewed Medical History (Updated 02/12/22 @ 18:34 by GUILLE Quispe) BPH (benign prostatic hyperplasia) CKD stage G3b/A1, GFR 30-44 and albumin creatinine ratio <30 mg/g Dementia Diabetes Dog bite History of amputation of toe Hypertension Rhabdomyolysis Family History Family History Other Diabetes HTN (hypertension) Social History Social History Household Members: Spouse Housing: Apartment Do you presently have visiting nurse or other home services: Yes (every 3 months) Alcohol intake: never Patient Tobacco Use Status: Never used Tobacco Advance Directives: Yes Advance Directives on File: Yes Advance Directives Date on File: 01/25/21 service: No Current occupational status: retired Physical Exam ED Vital Signs: Vital Signs - 24 hr 02/12/22 10:14 02/12/22 12:00 Temperature 97.0 F 98.2 F Pulse Rate 78 66 Respiratory Rate 17 16 Blood Pressure 150/78 H 125/70 Pulse Oximetry 95 95 Oxygen Delivery Method Room Air Room Air BMI result Body Mass Index 23.8 Const General: cooperative, no acute distress, alert and awake Nutritional Appearance: well nourished Orientation/consciousness: patient oriented x3 Limitations: no limitations HENMT Head: Yes normal to inspection and Yes atraumatic Ears: hearing grossly normal bilaterally and external ears normal General nose exam: Normal external nose present, no nasal discharge noted and no epistaxis Face and sinus: Yes normal facial exam, No abrasion and No laceration Mouth: Normal oral and palatal mucosa present, no drooling and no muffled voice Eyes General: appearance normal, both eyes and all related structures Periorbital: periorbital findings normal Eyelids: Yes eyelids normal Conjunctivae: conjunctivae normal Pupils: Equal, round and reactive pupils present EOM: EOMs intact bilaterally Neck Neck: Yes normal visual inspection, Yes full ROM and Yes no lymphadenopathy Chest Chest palpation & inspection: normal inspection of the chest Resp Effort & Inspection: normal respiratory effort and able to speak in complete sentences Auscultation: clear to auscultation bilaterally Cardio Rate: regular rate Rhythm: regular rhythm GI Inspection: Yes normal to inspection Skin Other: Neuro General: patient oriented x3 and moves all extremities Cranial nerves: Yes Equal, round and reactive pupils present Cognition (Neuro): normal cognition Motor exam (neuro): 5/5 motor strength present throughout Sensory Exam: Normal double simultaneous stimulation for sensation Coordination: [id number] test normal Extrem General: Yes normal to inspection, Yes full ROM and Yes capillary refill normal Psych Appearance: grossly normal Mental Status: mental status grossly normal Affect: normal affect Attitude: cooperative Thought process: Normal thought process present Thought content: Normal thought content present Insight: Good insight present (Psych) Medical Decision Making MDM Narrative Medical decision making narrative: Patient is a 71 year old assigned male at with a history of diabetes, HTN, BPH, and dementia presenting to the emergency department today with left hand cellulitis and right 5th finger cellulitis. Patient's physical exam showed erythema, warmth, and swelling to the left thumb extending through the dorsal left hand and the right 5th finger. Patient's blood work showed a slightly elevated CR, BUN, and CRP. Patient's left hand x-ray showed no acute process. Patient's clinical presentation is not consistent with sepsis. I spoke to the hospitalist team who agreed to admission bilateral hand cellulitis. I explained my physical exam findings as well as all test results to the patient and the patient's daughter. I answered all questions asked by the patient and the patient's daughter. Patient was given IV Zosyn and Vancomycin. Patient and the patient's daughter verbalized agreement and understanding with this treatment plan and admission. Medical Records Medical records reviewed: Yes I reviewed the patient's medical records. Lab Data Lab results reviewed: Yes I reviewed the patient's lab results. Result diagrams: 02/12/22 12:12 02/12/22 12:12 Labs: Lab Results 02/12/22 02/12/22 02/12/22 Range/Units 12:12 12:12 12:12 WBC 9.4 (4.8-10.8) X10*3/uL RBC 4.88 D (4.60-5.80) X10*6/uL Hgb 14.5 D (14.0-18.0) g/dl Hct 42.6 D (42.0-52.0) % MCV 87.3 (80.0-98.0) fL MCH 29.7 (27.0-33.0) pg MCHC 34.0 (31.0-36.0) g/dl RDW 11.9 (11.0-16.0) % Plt Count 298 D (160-400) X10*3/uL MPV 9.1 L (9.4-12.4) fL Immature Gran % (Auto) 0.4 (0.0-0.4) % Neut % (Auto) 84.2 H (45-73) % Lymph % (Auto) 8.1 L (20-40) % [place] % (Auto) 6.7 (2-11) % Eos % (Auto) 0.3 (0-4) % Baso % (Auto) 0.3 (0-2) % Lymph # (Auto) 0.8 L (1.2-4.9) X10*3/uL [place] # (Auto) 0.6 (0.1-1.2) X10*3/uL Eos # (Auto) 0.0 (0.0-0.4) X10*3/uL Baso # (Auto) 0.0 (0.0-0.2) X10*3/uL Abs Immat Gran (auto) 0.04 H (0.00-0.03) X10*3/uL Absolute Neuts (auto) 7.9 (2.0-8.3) x10*3/uL Absolute Nucleated RBC 0.000 (0.0-0.012) X10*3/uL Nucleated RBC % (auto) 0.0 (0.0-0.2) /100WBC ESR (0-15) MM/HR Sodium 138 (135-145) mmol/L Potassium 4.6 (3.3-5.1) mmol/L Chloride 101 (96-108) mmol/L Carbon Dioxide 24 (22-29) mmol/L Anion Gap 18 (12-20) BUN 28 H (9-16) mg/dL Creatinine 1.91 H (0.5-1.4) mg/dL Estim Creat Clear Calc 30.1 Estimated GFR 35 Random Glucose 210 H (60-115) mg/dL Lactic Acid (0.5-2.0) mmol/L Calcium 9.5 (8.4-10.2) mg/dL Magnesium 2.3 (1.6-2.6) mg/dL Total Bilirubin 0.6 (0.0-1.0) mg/dL AST 16 (5-37) U/L ALT 15 (0-40) U/L Alkaline Phosphatase 120 H (39-117) U/L C-Reactive Protein 8.75 H (< or = 0.50) mg/dL Total Protein 8.1 H (6.5-8.0) g/dL Albumin 4.4 (3.5-5.0) g/dL COVID-19 (SHEILA) Negative (Negative) COVID-19 Clin Com See Note 02/12/22 02/12/22 Range/Units 12:12 12:26 WBC (4.8-10.8) X10*3/uL RBC (4.60-5.80) X10*6/uL Hgb (14.0-18.0) g/dl Hct (42.0-52.0) % MCV (80.0-98.0) fL MCH (27.0-33.0) pg MCHC (31.0-36.0) g/dl RDW (11.0-16.0) % Plt Count (160-400) X10*3/uL MPV (9.4-12.4) fL Immature Gran % (Auto) (0.0-0.4) % Neut % (Auto) (45-73) % Lymph % (Auto) (20-40) % [place] % (Auto) (2-11) % Eos % (Auto) (0-4) % Baso % (Auto) (0-2) % Lymph # (Auto) (1.2-4.9) X10*3/uL [place] # (Auto) (0.1-1.2) X10*3/uL Eos # (Auto) (0.0-0.4) X10*3/uL Baso # (Auto) (0.0-0.2) X10*3/uL Abs Immat Gran (auto) (0.00-0.03) X10*3/uL Absolute Neuts (auto) (2.0-8.3) x10*3/uL Absolute Nucleated RBC (0.0-0.012) X10*3/uL Nucleated RBC % (auto) (0.0-0.2) /100WBC ESR 53 H (0-15) MM/HR Sodium (135-145) mmol/L Potassium (3.3-5.1) mmol/L Chloride (96-108) mmol/L Carbon Dioxide (22-29) mmol/L Anion Gap (12-20) BUN (9-16) mg/dL Creatinine (0.5-1.4) mg/dL Estim Creat Clear Calc Estimated GFR Random Glucose (60-115) mg/dL Lactic Acid 1.1 (0.5-2.0) mmol/L Calcium (8.4-10.2) mg/dL Magnesium (1.6-2.6) mg/dL Total Bilirubin (0.0-1.0) mg/dL AST (5-37) U/L ALT (0-40) U/L Alkaline Phosphatase (39-117) U/L C-Reactive Protein (< or = 0.50) mg/dL Total Protein (6.5-8.0) g/dL Albumin (3.5-5.0) g/dL COVID-19 (SHEILA) (Negative) COVID-19 Clin Com Imaging Data Left hand x-ray: Attestation: I personally reviewed and interpreted this imaging study as follows: My impression: No acute zoraida process. Radiologist's impression: EXAMINATION: XR HAND, LEFT CLINICAL INFORMATION: Trauma. Laceration.? COMPARISON: Prior imaging of the right hand? TECHNIQUE: PA, lateral, and oblique views of the left hand. FINDINGS: An arrow indicates the thenar eminence. There is soft tissue swelling at this site. Extensive vascular calcifications. No radiopaque foreign body. No fracture or dislocation. The bones are demineralized.? XR/XR hand LT 2V IMPRESSION: Soft tissue swelling thenar eminence. Vascular calcifications. No radiopaque foreign body. No acute osseous abnormality. Dictated By: Ventura Luna MD Signed By: Electronically signed by Ventura Luna MD 02/12/22 0386 Critical Care Time Critical Care Time Critical Care Time: Yes Total Critical Care Time: 30 Attestation: I spent 30 minutes of Critical Care Time with this patient. This does not include time spent on separately reported billable procedures. Discharge Plan Discharge Clinical Impression: Cellulitis Patient Disposition: Admitted As Inpatient
--- OUTSIDE RECORDS SUMMARY | 2022-02-12 11:27 | XMS_ITS | Continuity of Care Document ---
:1950 Author Organization [facility] Address [address] [place] [id number]- Care Team Providers Name Role Phone Hien Khan MD Primary Care Physician Encounter [facility] Date(s): 07/31/19 - 08/07/19 [facility] [address] [place] [place] [id number]- [facility] Attending Physician: Gume Omalley MD Admitting Physician: Gume Omalley MD Referring Physician: Hien Khan MD Allergies, Adverse Reactions, Alerts Substance Reaction Severity Status Percocet 7.5/325 Localized Superficial Swelling, Mass, or Lump Active statins rhabdomyolysis Active Immunizations Not Given Vaccine Date Status Refusal Reason pneumococcal 13-valent vaccine 08/05/19 Not Given P atient Refuses pneumococcal 13-valent vaccine 03/27/19 Not Given P ermanently Refused influenza virus vaccine, inactivated1 03/26/19 Not Given Patient Refuses 1Result Comment: Patient already received vaccine this year Medications Aricept 10 mg oral tablet 1 tablet, By Mouth, Daily at bedtime, # 30 tablet, 0 Refills, Maintenance, Tablet Start Date: 06/08/09 Status: Orderedaspirin 81 mg oral delayed release tablet 81 mg, 1, tablet, By Mouth, Daily, # 30 tablet, Refills 0, Tot. Refills 0, Maintenance, 04/02/19 11:14:00 EST, Route to Pharmacy Electronically, [facility], 162.56, cm, 04/02/19 7:58:00 EST, Height, 61.6, kg, 03/25/19 23:21:00 EST, Dry W... Start Date: 04/02/19 Status: Orderedcitalopram 10 mg oral tablet 10 mg, 1, tablet, By Mouth, Daily, # 30 tablet, Refills 0, Maintenance, 03/26/19 9:58:09 EST Start Date: 03/26/19 Status: Orderedclopidogrel 75 mg oral tablet 75 mg, 1, tablet, By Mouth, Daily, # 30 tablet, Refills 0, Tot. Refills 0, Maintenance, 04/02/19 11:14:00 EST, Route to Pharmacy Electronically, [facility], 162.56, cm, 04/02/19 7:58:00 EST, Height, 61.6, kg, 03/25/19 23:21:00 EST, Dry W... Start Date: 04/02/19 Status: Ordereddoxycycline hyclate 100 mg oral capsule = 100 mg, By Mouth, Every 12 hours, for 14 days, # 28 capsule, 0 Refills, Acute 08/20/19 9:58:00 EDT, 08/06/19 9:58:00 EDT, Capsule, [facility], 163, cm, 08/06/19 8:40:00 EDT, Height, 63,kg, 05/22/19 18:06:00 EST, Dry Weight Start Date: 08/06/19 Stop Date: 08/20/19 Status: Orderedfinasteride 5 mg oral tablet 1 tablet = 5 mg, By Mouth, Daily, 0 Refills, Maintenance, 07/31/19 11:25:00 EDT Start Date: 07/31/19 Status: OrderedLantus 100 u/ml subcutaneous solution = 5 units, Subcutaneous Injection, Daily at bedtime, Dose decrease from previous dose of 32 units, #10 mL, 0 Refills, Maintenance, 03/26/19 10:01:41 EST, Solution Start Date: 03/26/19 Status: OrderedNorvasc 10 mg oral tablet 10 mg, 1, tablet, By Mouth, Daily, # 30 tablet, Refills 3, Tot. Refills 3, Maintenance, 05/29/19 16:23:00 EST, Route to Pharmacy Electronically, [facility], 163, cm, 05/29/19 8:50:00 EST,Height, 63, kg, 05/22/19 18:06:00 EST, Dry Weight Start Date: 05/29/19 Status: OrderedNovoLOG 100 units/mL subcutaneous solution See Instructions, Subcutaneous Injection, 3 times a day before meals, 150 - 199 1 units 200 - 249 3 units 250 - 299 5 units 300 - 349 7 units 350 - 399 9 unit, 5 Refills, Maintenance, 03/26/19 10:01:23EST Start Date: 03/26/19 Stop Date: 04/25/19 Status: Orderedtamsulosin 0.4 mg oral capsule 0.4 mg, 1, capsule, By Mouth, Daily at bedtime, # 30 capsule, Refills 0, Maintenance, 03/26/19 10:03:59 EST Start Date: 03/26/19 Status: Ordered Vital Signs Most recent to oldest [Reference Range]: 1 Height 163 cm (07/31/19 11:23 AM) Oxygen Saturation [94-100 %] 96 % (07/31/19 11:23 AM) Pulse Rate [55-90 bpm] 82 bpm (07/31/19 11:23 AM) Blood Pressure [90-138/55-84 mm Hg] 122/64 mm Hg (07/31/19 11:23 AM) Blood pressure sites Arm, left (07/31/19 11:23 AM) Social History Social History Type Response Smoking Status Never (less than 100 in life time) entered on: 04/07/19 Sex
--- OUTSIDE RECORDS SUMMARY | 2022-02-12 11:27 | XMS_ITS | Continuity of Care Document ---
:1950 Author Organization [facility] Address [address] [place] [id number]- Care Team Providers Name Role Phone Po Sia ALVAREZ Primary Care Physician Encounter [facility] Date(s): 04/07/19 - 04/11/[address] [address]- [facility] Discharge Disposition: A-D/C Home Attending Physician: Sowmya ALVAREZ, Lalita Galvan Admitting Physician: Sowmya ALVAREZ, Lalita Galvan Referring Physician: Not on Staff, Referring MD Allergies, Adverse Reactions, Alerts Substance Reaction Severity Status Percocet 7.5/325 Localized Superficial Swelling, Mass, or Lump Active statins rhabdomyolysis Active Immunizations Not Given Vaccine Date Status Refusal Reason pneumococcal 13-valent vaccine 03/27/19 Not Given P [...] 04/02/19 11:14:00 EST, Route to Pharmacy Electronically, [facility], 162.56, cm, 04/02/19 7:58:00 EST, Height, 61.6, kg, 03/25/19 23:21:00 EST, Dry W... Start Date: 04/02/19 Status: OrderedAugmentin 875 mg-125 mg oral tablet 1 tablet, By Mouth, Every 12 hours, for 14 days, # 28 tablet, 0 Refills, Acute 04/25/19 8:55:00 EST,04/11/19 8:55:00 EST, Tablet, [facility], 162.5, cm, 04/11/19 8:05:00 EST, Height, 61.6, kg, 04/07/19 22:46:00 EST, Dry Weight Start Date: 04/11/19 Stop Date: 04/25/19 Status: Orderedcitalopram 10 mg oral tablet 10 mg, 1, tablet, By Mouth, Daily, # 30 tablet, Refills 0, Maintenance, 03/26/19 9:58:09 EST Start Date: 03/26/19 Status: Orderedclopidogrel 75 mg oral tablet 75 mg, 1, tablet, By Mouth, Daily, # 30 tablet, Refills 0, Tot. Refills 0, Maintenance, 04/02/19 11:14:00 EST, Route to Pharmacy Electronically, [facility], 162.56, cm, 04/02/19 7:58:00 EST, Height, 61.6, kg, 03/25/19 23:21:00 EST, Dry W... Start Date: 04/02/19 Status: OrderedglyBURIDE 2.5 mg oral tablet 2.5 mg, 1, tablet, By Mouth, Daily, # 30 tablet, Refills 0, Maintenance, 04/02/19 11:16:00 EST Start Date: 04/02/19 Status: OrderedJanuvia 100 mg oral tablet = 100 mg, By Mouth, Daily, # 30 tablet, 0 Refills, Maintenance, 04/02/19 11:17:00 EST, Tablet Start Date: 04/02/19 Status: OrderedLantus 100 u/ml subcutaneous solution = 32 units, Subcutaneous Injection, Daily at bedtime, # 10 mL, 0 Refills, Maintenance, 03/26/19 10:01:41 EST, Solution Start Date: 03/26/19 Status: Orderedlisinopril 20 mg oral tablet 1 tablet, By Mouth, Daily, # 30 tablet, 0 Refills, Maintenance, Tablet Start Date: 06/08/09 Status: OrderedmetFORMIN 1000 mg oral tablet 1 tablet = 1,000 mg, By Mouth, 2 times a day, # 60 tablet, 0 Refills, Maintenance, 04/02/19 11:16:00EST, Tablet Start Date: 04/02/19 Status: OrderedNovoLOG 100 units/mL subcutaneous solution See Instructions, Subcutaneous Injection, 3 times a day before meals, Use as directed for Diabetes mellitus type 1. (Max Dose = 50 units/day), 10 mL vials, 5 Refills, Maintenance, 03/26/19 10:01:23 EST Start Date: 03/26/19 Stop Date: 04/25/19 Status: Orderedtamsulosin 0.4 mg oral capsule 0.4 mg, 1, capsule, By Mouth, Daily at bedtime, # 30 capsule, Refills 0, Maintenance, 03/26/19 10:03:59 EST Start Date: 03/26/19 Status: Ordered Vital Signs Most recent to oldest 1 2 3 [Reference Range]: Height 162.5 cm 162.5 cm 162.5 cm (04/11/19 8:05 AM) (04/11/19 4:32 AM) (04/11/19 12:12 AM) Weight 63 kg (04/07/19 6:20 PM) Oxygen Saturation [94-100 99 % 94 % 96 % %] (04/11/19 8:05 AM) (04/11/19 4:32 AM) (04/11/19 12:12 AM) Pulse Rate [55-90 bpm] 72 bpm 64 bpm 74 bpm (04/11/19 8:05 AM) (04/11/19 4:32 AM) (04/11/19 12:12 AM) Body Mass Index 23.86 [18.5-24.99] (04/07/19 6:20 PM) Blood Pressure 134/68 mm Hg 134/72 mm Hg 154/78 mm Hg [90-138/55-84 mm Hg] (04/11/19 8:05 AM) (04/11/19 4:32 AM) *H* (04/11/19 12:12 AM) Respiratory Rate [16-30 18 br/min 18 br/min 18 br/mi n br/min] (04/11/19 8:05 AM) (04/11/19 4:32 AM) (04/11/19 12:12 AM) Temperature [96.8-100.4 98.3 DegF 98.0 DegF 98.2 Deg F DegF] (04/11/19 8:05 AM) (04/11/19 4:32 AM) (04/11/19 12:12 AM) Mode of Delivery (Oxygen) Room air Room air Room a ir (04/11/19 8:05 AM) (04/11/19 4:32 AM) (04/11/19 12:12 AM) Blood pressure sites Arm, right Arm, right Arm, right (04/11/19 8:05 AM) (04/11/19 4:32 AM) (04/11/19 12:12 AM) Temperature Route Oral Oral Oral (04/11/19 8:05 AM) (04/11/19 4:32 AM) (04/11/19 12:12 AM) Dry Weight 61.6 kg (04/07/19 6:20 PM) Weight Obtained Via Bed scale (04/07/19 6:20 PM) Sensory deficits None (04/07/19 6:20 PM) Mobility assistance Partial assistance (04/07/19 6:20 PM) Social History Social History Type Response Smoking Status Never (less than 100 in life time) entered on: 04/07/19 Sex
--- OUTSIDE RECORDS SUMMARY | 2022-02-12 11:27 | XMS_ITS | Continuity of Care Document ---
:1950 Author Organization [facility] Address [address] [place] [address]- Care Team Providers Name Role Phone Bill ALVAREZ, Hien Hu Primary Care Physician Encounter [facility] Date(s): 04/14/20 - 05/14/20 [facility] [address] [place], [place] [address] Attending Physician: Anthony Estrada Admitting Physician: AdmtrAnthony Referring Physician: Admtr, Sohan8 Allergies, Adverse Reactions, Alerts Substance Reaction Severity [...] 04/02/19 11:14:00 EST, Route to Pharmacy Electronically, [facility], 162.56, cm, 04/02/19 7:58:00 [...] 04/02/19 11:14:00 EST, Route to Pharmacy Electronically, [facility], 162.56, cm, 04/02/19 7:58:00 EST, Height, 61.6, kg, 03/25/19 23:21:00 EST, Dry W... Start Date: 04/02/19 Status: Orderedfinasteride 5 mg oral tablet 1 tablet = 5 mg, By Mouth, Daily, 0 Refills, Maintenance, 07/31/19 11:25:00 EDT Start Date: 07/31/19 Status: OrderedKaltostat wound packing use left foot wound as directed Kaltostat wound packing use left foot wound as directed, See Instructions, # 1 each, Refills 0, Tot.Refills 0, Maintenance, use laft foor open wound as directed disp one box, 08/21/19 11:17:00 EDT, Supply Start Date: 08/21/19 Status: OrderedLantus 100 u/ml subcutaneous solution = 5 units, Subcutaneous Injection, Daily at bedtime, Dose decrease from previous dose of 32 units, #10 mL, 0 Refills, Maintenance, 03/26/19 10:01:41 EST, Solution Start Date: 03/26/19 Status: OrderedNorvasc 10 mg oral tablet 10 mg, 1, tablet, By Mouth, Daily, # 30 tablet, Refills 3, Tot. Refills 3, Maintenance, 05/29/19 16:23:00 EST, Route to Pharmacy Electronically, [facility], 163, cm, 05/29/19 8:50:00 [...] Start Date: 03/26/19 Stop Date: 04/25/19 Status: Orderedplease fit for left foot OFFLOADING shoe please fit for left foot OFFLOADING shoe, See Instructions, # 1 each, Refills 0, Tot. Refills 0, Maintenance, s/p left toe amputation with open wound being packed, 08/21/19 11:12:00 EDT, Supply Start Date: 08/21/19 Status: Orderedtamsulosin 0.4 mg oral capsule 0.4 mg, 1, capsule, By Mouth, Daily at bedtime, # 30 capsule, Refills 0, Maintenance, 03/26/19 10:03:59 EST Start Date: 03/26/19 Status: Ordered Social History Social History Type Response Smoking Status Never (less than 100 in life time) entered on: 04/07/19 Sex
--- OUTSIDE RECORDS SUMMARY | 2022-02-12 11:27 | XMS_ITS | Continuity of Care Document ---
:1950 Author Organization [facility] Address [address] [place] [address]- Care Team Providers Name Role Phone Bill ALVAREZ, Hien Hu Primary Care Physician [place] [facility] [place] 05/30/19 - 07/06/19 [facility] [address] [place] [address]- [facility] Attending Physician: Lalita Degn MD Admitting Physician: Lalita Deng MD Referring Physician: Hien Khan MD Allergies, [...] 04/02/19 11:14:00 EST, Route to Pharmacy Electronically, [facility], 162.56, cm, 04/02/19 7:58:00 EST, [...] 04/02/19 11:14:00 EST, Route to Pharmacy Electronically, [facility], 162.56, cm, 04/02/19 7:58:00 EST, Height, 61.6, kg, 03/25/19 23:21:00 EST, Dry W... Start Date: 04/02/19 Status: OrderedIodosorb 0.9% topical gel See Instructions, Apply to wound three times a week, cover with dressing., # 1 each, 0 Refills, Maintenance, 04/24/19 12:13:00 EST Start Date: 04/24/19 Status: OrderedLantus 100 u/ml subcutaneous solution = 7 units, Subcutaneous Injection, Daily at bedtime, Dose decrease from previous dose of 32 units, #10 mL, 0 Refills, Maintenance, 03/26/19 10:01:41 EST, Solution Start Date: 03/26/19 Status: OrderedNorvasc 10 mg oral tablet 10 mg, 1, tablet, By Mouth, Daily, # 30 tablet, Refills 3, Tot. Refills 3, Maintenance, 05/29/19 16:23:00 EST, Route to Pharmacy Electronically, [facility], 163, cm, 05/29/19 8:50:00 EST,Height, [...]
--- OUTSIDE RECORDS SUMMARY | 2022-02-12 11:27 | XMS_ITS | Continuity of Care Document ---
:1950 Author Organization [facility] Address [address] [place] [address]- Care Team Providers Name Role Phone Hien Khan MD [id number] - 09/04/[facility] [address] [place] [address]- [facility] Attending Physician: Gomez Razo MD Admitting Physician: Gomez Razo MD Referring Physician: Hien Khan MD Allergies, [...] 04/02/19 11:14:00 EST, Route to Pharmacy Electronically, [facility], 162.56, cm, 04/02/19 7:58:00 EST, Height, [...] 04/02/19 11:14:00 EST, Route to Pharmacy Electronically, [facility], 162.56, cm, 04/02/19 7:58:00 EST, Height, 61.6, kg, 03/25/19 23:21:00 EST, Dry W... Start Date: 04/02/19 Status: Ordereddoxycycline hyclate 100 mg oral tablet 1 tablet = 100 mg, By Mouth, 2 times a day, be sure the patient gets the full number of pills please, # 14 tablet, 1 Refills, Maintenance, 09/02/19 9:02:00 EDT, Tablet, [id number], 163, cm, 09/02/19 8:41:00 EDT, Height, 63, kg, ... Start Date: 09/02/19 Stop Date: 09/16/19 Status: Orderedfinasteride 5 mg oral tablet 1 [...] 05/29/19 16:23:00 EST, Route to Pharmacy Electronically, [facility], 163, cm, 05/29/19 8:50:00 EST,Height, [...]
--- OUTSIDE RECORDS SUMMARY | 2022-02-12 11:27 | XMS_ITS | Continuity of Care Document ---
:1950 Author Organization [facility] Address [address] [place] [address]- Care Team Providers Name Role Phone Bill ALVAREZ, Hien Hu Primary Care Physician Encounter [facility] [place] Date(s): 01/15/20 - 05/14/20 [facility] [address] [place], [place] [address] Attending Physician: Pham Michael NP Admitting Physician: Pham Michael NP Allergies, Adverse Reactions, Alerts Substance Reaction Severity [...] 04/02/19 11:14:00 EST, Route to Pharmacy Electronically, [facility], 162.56, cm, 04/02/19 7:58:00 EST, [...] 04/02/19 11:14:00 EST, Route to Pharmacy Electronically, [facility], 162.56, cm, 04/02/19 7:58:00 EST, [...] 05/29/19 16:23:00 EST, Route to Pharmacy Electronically, [facility], 163, cm, 05/29/19 8:50:00 [...]
--- OUTSIDE RECORDS SUMMARY | 2022-02-12 11:27 | XMS_ITS | Continuity of Care Document ---
:1950 Author Organization [facility] Address [address] [place] [address]- Care Team Providers Name Role Phone Hien Khan MD Primary Care Physician Encounter [facility] Date(s): 08/21/19 - 08/28/19 [facility] [address] [place] [address]- [facility] Attending Physician: Pham Michael NP Admitting Physician: Pham Michael NP Referring Physician: Hien Khan MD Allergies, Adverse [...] 04/02/19 11:14:00 EST, Route to Pharmacy Electronically, [facility], 162.56, cm, 04/02/19 7:58:00 EST, [...] 04/02/19 11:14:00 EST, Route to Pharmacy Electronically, [facility], 162.56, cm, 04/02/19 7:58:00 EST, Height, 61.6, kg, 03/25/19 23:21:00 EST, Dry W... Start Date: 04/02/19 Status: Ordereddoxycycline hyclate 100 mg oral capsule 1 capsule = 100 mg, By Mouth, 2 times a day, # 20 capsule, 0 Refills, Maintenance, 08/21/19 11:13:00EDT, [facility]apsule, [id number], 163, cm, 08/21/19 10:37:00 EDT, Height, 63, kg, 05/22/19 18:06:00 EST, Dry Weight Start Date: 08/21/19 Status: Orderedfinasteride 5 mg oral tablet 1 [...] 05/29/19 16:23:00 EST, Route to Pharmacy Electronically, [facility], 163, cm, 05/29/19 8:50:00 EST,Height, 63, [...] oldest [Reference Range]: 1 Height 163 cm (08/21/19 10:37 AM) Weight 64 kg (08/21/19 10:37 AM) Pulse Rate [55-90 bpm] 61 bpm (08/21/19 10:37 AM) Body Mass Index [18.5-24.99] 24.09 (08/21/19 10:37 AM) Blood Pressure [90-138/55-84 mm Hg] 120/60 mm Hg (08/21/19 10:37 AM) Blood pressure sites Arm, right (08/21/19 10:37 AM) Weight Obtained Via Patient/family stated (08/21/19 10:37 AM) Social History Social History Type Response Smoking Status Never (less than 100 in life time) entered on: 04/07/19 Sex
--- OUTSIDE RECORDS SUMMARY | 2022-02-12 11:27 | XMS_ITS | Continuity of Care Document ---
:1950 Author Organization [facility] Address [address] [place] [address]- Care Team Providers Name Role Phone Po Sia ALVAREZ Primary Care Physician Encounter [facility] Date(s): 03/25/19 - 04/02/[address] [address] [facility] Encounter Diagnosis Diabetic foot infection (Final) - 03/26/19 Discharge Disposition: A-D/C Home Attending Physician: Nick Antony MD, [place] Admitting Physician: Pham ALVAREZ, [facility] [place] Referring Physician: Not on Staff, Referring MD Allergies, Adverse Reactions, Alerts Substance Reaction Severity Status Percocet 7.5/325 Localized Superficial Swelling, Mass, or Lump Active statins rhabdomyolysis Active Immunizations Not Given Vaccine Date Status Refusal Reason pneumococcal 13-valent vaccine 03/27/19 Not Given P ermanently Refused influenza virus vaccine, inactivated1 03/26/19 Not Given Patient Refuses 1Result Comment: Patient already received vaccine this year Medications amoxicillin-clavulanate 875 mg-125 mg oral tablet 1 tablet, By Mouth, 2 times a day, for 6 days, # 12 tablet, 0 Refills, Acute 04/08/19 11:15:00 EST, 04/02/19 11:15:00 EST, Tablet, [facility], 162.56, cm, 04/02/19 7:58:00 EST, Height, 61.6, kg, 03/25/19 23:21:00 EST, Dry Weight Start Date: 04/02/19 Stop Date: 04/08/19 Status: OrderedAricept 10 mg oral tablet 1 tablet, By Mouth, Daily at bedtime, # 30 tablet, 0 Refills, Maintenance, Tablet Start Date: 06/08/09 Status: Orderedaspirin 81 mg oral delayed release tablet 81 mg, 1, tablet, By Mouth, Daily, # 30 tablet, Refills 0, Tot. Refills 0, Maintenance, 04/02/19 11:14:00 EST, Route to Pharmacy Electronically, [facility], 162.56, cm, 04/02/19 7:58:00 [...] 04/02/19 11:14:00 EST, Route to Pharmacy Electronically, [facility], 162.56, cm, 04/02/19 7:58:00 EST, Height, [...] 10:03:59 EST Start Date: 03/26/19 Status: Ordered Results Orders for Microbiology Reports Name Date Anaerobic Culture (ANAEROBIC CULTURE) 03/26/19 Wound Deep Culture w/ Gram Smear (DEEP WOUND CULTURE) 03/26/19 Blood Culture 03/25/19 Blood Culture #2 03/25/19 Microbiology Reports TEST:Anaerobic Culture STATUS:Auth (Verified) BODY SITE: SOURCE:SWAB1 COLLECTED DATE/TIME:03/26/19 4:05 PMAnaerobic Culture SPECIMEN DESCRIPTION : SWAB LEFT GREAT TOE SPECIAL REQUESTS : NONE CULTURE : NO ANAEROBES ISOLATED REPORT STATUS : FINAL 03/31/2019TEST:Deep Wound Culture STATUS:Auth (Verified) BODY SITE: SOURCE:SWAB1 COLLECTED DATE/TIME:03/26/19 4:05 PMDeep Wound Culture SPECIMEN DESCRIPTION : SWAB LEFT GREAT TOE SPECIAL REQUESTS : NONE GRAM STAIN : NO CELLS OR ORGANISMS SEEN CULTURE : 3+ STAPHYLOCOCCUS AUREUS. REPORT STATUS : FINAL 03/29/2019 ORGANISM 3+ STAPHYLOCOCCUS AUREUS. METHOD MIN. INHIB. CONC. (MCG/ML) CIPROFLOXACIN SUSCEPTIBLE CLINDAMYCIN SUSCEPTIBLE ERYTHROMYCIN SUSCEPTIBLE LEVOFLOXACIN SUSCEPTIBLE OXACILLIN SUSCEPTIBLE PENICILLIN SUSCEPTIBLE RIFAMPIN SUSCEPTIBLE RIFAMPIN RIFAMPIN SHOULD NOT BE USED ALONE FOR ANTIMICROBIAL RIFAMPIN THERAPY. TETRACYCLINE SUSCEPTIBLE TRIMETH/SULFAMETHOX SUSCEPTIBLE VANCOMYCIN SUSCEPTIBLETEST:Blood Culture STATUS:Auth (Verified) BODY SITE: SOURCE:Blood COLLECTED DATE/TIME:03/25/19 2:20 PMBlood Culture SPECIMEN DESCRIPTION : BLOOD RT HAND SPECIAL REQUESTS : NONE CULTURE : NO GROWTH 6 DAYS REPORT STATUS : FINAL 03/31/2019TEST:Blood Culture, Second Order STATUS:Auth (Verified) BODY SITE: SOURCE:Blood COLLECTED DATE/TIME:03/25/19 2:20 PMBlood Culture, Second Order SPECIMEN DESCRIPTION : BLOOD LT AC SPECIAL REQUESTS : NONE CULTURE : NO GROWTH 6 DAYS REPORT STATUS : FINAL 03/31/2019Radiology Reports Exam Date Time Procedure Performing Provider Status 03/25/19 3:49 PM Foot Min 3 Views Left Stupak , Logan; Auth (Sammi ified) Notes:(Foot Min 3 Views Left) Reason For Exam: InfectionRESULT: Foot Min 3 Views Left Foot Min 3 Views Left, 3 views Refer to EMR; Reason: Infection; Clinical Question(s): Osteomyelitis; L big toe; Special Instructions: L big toe; Hx of Present Illness: pt w black left great toe was seen at [facility] over the weekend and discharged home on PO ABX, pt sent to [facility] by [facility] who was at the home this am , pt also states that left great toe and left foot have gotten worse since pt to home; COMPARISON: None. FINDINGS: Diffuse soft tissue swelling of the hallux. No discrete erosion or permeative bone change. No fracture or malalignment. No evidence of soft tissue gas, although there is a small amount of gas underneath the nail bed of the hallux. Degenerative-appearing erosive arthropathy of the first MTP joint. No additional significant arthropathy. Diffuse vascular calcifications. IMPRESSION: No acute bony abnormalities or radiographic evidence of osteomyelitis. Soft tissue swelling of the hallux with a small amount of gas subjacent to the nailbed. No gross subcutaneous gas. Soft tissue vascular calcifications throughout. WSN: [id number] Dictated By: Long Mojica MD Dictated Date/Time: 03/25/19 3:52 pm Reviewed By: Long Mojica MD Signed By: Long Mojica MD Signed Date/Time: 03/25/19 3:52 pm Transcribed By: ANNI Transcribed Date/Time: 03/25/19 3:52 pm Vital Signs Most recent to oldest 1 2 3 [Reference Range]: Height 162.56 cm 162.56 cm 162.56 cm (04/02/19 7:58 AM) (04/02/19 4:03 AM) (04/01/19 11:10 PM) Weight 61.6 kg 61.6 kg 61.6 kg (04/01/19 7:00 AM) (04/01/19 7:00 AM) (03/25/19 11:21 PM) Oxygen Saturation [94-100 95 % 98 % 96 % %] (04/02/19 7:58 AM) (04/02/19 4:03 AM) (04/01/19 11:10 PM) Pulse Rate [55-90 bpm] 70 bpm 66 bpm 70 bpm (04/02/19 7:58 AM) (04/02/19 4:03 AM) (04/01/19 11:10 PM) Body Mass Index 23.31 23.31 [18.5-24.99] (04/01/19 7:00 AM) (03/25/19 11:21 PM) Blood Pressure 134/79 mm Hg 134/79 mm Hg 131/66 mm Hg [90-138/55-84 mm Hg] (04/02/19 8:48 AM) (04/02/19 7:58 AM) (03/16 12/02 4:03 AM) Respiratory Rate [16-30 17 br/min 16 br/min 16 br/mi n br/min] (04/02/19 7:58 AM) (04/02/19 4:03 AM) (04/01/19 11:10 PM) Temperature [96.8-100.4 99.1 DegF 98.6 DegF 98.8 Deg F DegF] (04/02/19 7:58 AM) (04/02/19 4:03 AM) (04/01/19 11:10 PM) Liters per Minute 0 L/min (04/01/19 12:17 AM) Mode of Delivery (Oxygen) Room air Room air Room a ir (04/02/19 7:58 AM) (04/02/19 4:03 AM) (04/01/19 11:10 PM) Blood pressure sites Arm, left Arm, left Arm, left (04/02/19 7:58 AM) (04/02/19 4:03 AM) (04/01/19 11:10 PM) Temperature Route Oral Oral Oral (04/02/19 7:58 AM) (04/02/19 4:03 AM) (04/01/19 11:10 PM) Dry Weight 61.6 kg (03/25/19 11:21 PM) Weight Obtained Via Bed scale Bed scale (03/25/19 11:21 PM) (03/25/19 10:48 PM) Sensory deficits None (03/25/19 11:21 PM) Mobility assistance Transfer, assist of 1 (03/25/19 11:21 PM)
--- OUTSIDE RECORDS SUMMARY | 2022-02-12 11:27 | XMS_ITS | Continuity of Care Document ---
:1950 Author Organization [facility] Address [address] [place] [address]- Care Team Providers Name Role Phone Hien Khan MD [id number] Date(s[facility] 07/[facility] - 11/03/20 [facility] [address] [place] [address]- Attending Physician: Gume Omalley MD Admitting Physician: [...] 04/02/19 11:14:00 EST, Route to Pharmacy Electronically, [facility], 162.56, cm, 04/02/19 7:58:00 [...] 04/02/19 11:14:00 EST, Route to Pharmacy Electronically, [facility], 162.56, cm, 04/02/19 7:58:00 [...] 05/29/19 16:23:00 EST, Route to Pharmacy Electronically, [facility], 163, cm, 05/29/19 8:50:00 [...]
--- OUTSIDE RECORDS SUMMARY | 2022-02-12 11:27 | XMS_ITS | Continuity of Care Document ---
:1950 Author Organization [facility] Address [address] [place] [address]- Care Team Providers Name Role Phone Hien Khan MD Primary Care Physician Encounter [facility] [place] Date(s): 10/04/20 - 11/03/20 [facility] [address] [place] [address]- Attending Physician: Anthony Estrada Admitting Physician: Anthony Estrada Referring Physician: AdmtrAnthony Allergies, Adverse Reactions, Alerts Substance Reaction Severity [...] 04/02/19 11:14:00 EST, Route to Pharmacy Electronically, [facility], 162.56, cm, 04/02/19 7:58:00 [...] 04/02/19 11:14:00 EST, Route to Pharmacy Electronically, [facility], 162.56, cm, 04/02/19 7:58:00 [...] 05/29/19 16:23:00 EST, Route to Pharmacy Electronically, [facility], 163, cm, 05/29/19 8:50:00 [...]
--- OUTSIDE RECORDS SUMMARY | 2022-02-12 11:27 | XMS_ITS | Continuity of Care Document ---
:1950 Author Organization [facility] Address [address] [place] [address]- Care Team Providers Name Role Phone Hien Khan MD Primary Care Physician [id number] Date(s): 09/29/20 - 10/29/20 [facility] [address] [place], [place] [address] Attending Physician: Anthony Estrada Admitting Physician: Anthony [...] 04/02/19 11:14:00 EST, Route to Pharmacy Electronically, [facility], 162.56, cm, 04/02/19 7:58:00 EST, [...] 04/02/19 11:14:00 EST, Route to Pharmacy Electronically, [facility], 162.56, cm, 04/02/19 7:58:00 EST, [...] 05/29/19 16:23:00 EST, Route to Pharmacy Electronically, [facility], 163, cm, 05/29/19 8:50:00 EST,Height, [...]
--- OUTSIDE RECORDS SUMMARY | 2022-02-12 11:27 | XMS_ITS | Continuity of Care Document ---
:1950 Author Organization [facility] Address [address] [place] [address]- Care Team Providers Name Role Phone Po Sia ALVAREZ Primary Care Physician [place] [facility] [place] 04/07/19 - 04/14/19 [facility] [address] [place] [address]- [facility] Attending Physician: Not on Staff, Attending MD Allergies, Adverse Reactions, Alerts Substance Reaction [...] 04/02/19 11:14:00 EST, Route to Pharmacy Electronically, [facility], 162.56, cm, 04/02/19 7:58:00 EST, Height, 61.6, kg, 03/25/19 23:21:00 EST, Dry W... Start Date: 04/02/19 Status: OrderedAugmentin 875 mg-125 mg oral tablet 1 tablet, By Mouth, Every 12 hours, for 14 days, # 28 tablet, 0 Refills, Acute 04/25/19 8:55:00 EST,04/11/19 8:55:00 EST, Tablet, [facility], 162.5, cm, 04/11/19 8:05:00 EST, [...] 04/02/19 11:14:00 EST, Route to Pharmacy Electronically, [facility], 162.56, cm, 04/02/19 7:58:00 [...] recent to oldest [Reference Range]: 1 Height 162.56 cm (04/07/19 1:42 PM) Weight 63 kg (04/07/19 1:42 PM) Body Mass Index [18.5-24.99] 23.84 (04/07/19 1:42 PM) Blood Pressure [90-138/55-84 mm Hg] 120/60 mm Hg (04/07/19 1:42 PM) Blood pressure sites Arm, left (04/07/19 1:42 PM) Weight Obtained Via Patient/family stated (04/07/19 1:42 PM) Social History Social History Type Response Smoking Status Never (less than 100 in life time) entered on: 04/07/19 Sex
--- OUTSIDE RECORDS SUMMARY | 2022-02-12 11:27 | XMS_ITS | Continuity of Care Document ---
:1950 Author Organization [facility] Address [address] [place] [address]- Care Team Providers Name Role Phone Not on Staff, PCP Primary Care Physician Unavailable Encounter [facility] Date(s): 04/24/19 - 05/01/19 [facility] [address] [place] [address]- [facility] Attending Physician: Walter ZAMBRANO, Danette Freedman Admitting Physician: Walter ZAMBRANO, Danette Freedman Allergies, Adverse Reactions, Alerts Substance Reaction Severity [...] 04/02/19 11:14:00 EST, Route to Pharmacy Electronically, [facility], 162.56, cm, 04/02/19 7:58:00 [...] 04/02/19 11:14:00 EST, Route to Pharmacy Electronically, [facility], 162.56, cm, 04/02/19 7:58:00 EST, Height, 61.6, kg, 03/25/19 23:21:00 EST, Dry W... Start Date: 04/02/19 Status: OrderedglyBURIDE 2.5 mg oral tablet 2.5 mg, 1, tablet, By Mouth, Daily, # 30 tablet, Refills 0, Maintenance, 04/02/19 11:16:00 EST Start Date: 04/02/19 Status: OrderedIodosorb 0.9% topical gel See Instructions, Apply to wound three times a week, cover with dressing., # 1 each, 0 Refills, Maintenance, 04/24/19 12:13:00 EST Start Date: 04/24/19 Status: OrderedJanuvia 100 mg oral tablet = [...] recent to oldest [Reference Range]: 1 Height 162.5 cm (04/24/19 11:47 AM) Weight 63 kg (04/24/19 11:47 AM) Body Mass Index [18.5-24.99] 23.86 (04/24/19 11:47 AM) Blood Pressure [90-138/55-84 mm Hg] 124/70 mm Hg (04/24/19 11:47 AM) Blood pressure sites Arm, left (04/24/19 11:47 AM) Weight Obtained Via Patient/family stated (04/24/19 11:47 AM) Social History Social History Type Response Smoking Status Never (less than 100 in life time) entered on: 04/07/19 Sex
--- OUTSIDE RECORDS SUMMARY | 2022-02-12 11:27 | XMS_ITS | Continuity of Care Document ---
:1950 Author Organization [facility] Address [address] [place] [address]- Care Team Providers Name Role Phone Bill ALVAREZ, Hien Hu Primary Care Physician [place] [facility] [place]s): 04/12/20 - 05/12/20 [facility] [address] [place], [place] [address] Attending Physician: Anthony Estrada Admitting Physician: AdmAnthony carey Referring Physician: AdmtrAnthony Allergies, Adverse Reactions, Alerts [...] 04/02/19 11:14:00 EST, Route to Pharmacy Electronically, [facility], 162.56, cm, 04/02/19 7:58:00 [...] 04/02/19 11:14:00 EST, Route to Pharmacy Electronically, [facility], 162.56, cm, 04/02/19 7:58:00 [...] 05/29/19 16:23:00 EST, Route to Pharmacy Electronically, [facility], 163, cm, 05/29/19 8:50:00 [...]
--- OUTSIDE RECORDS SUMMARY | 2022-02-12 11:28 | XMS_ITS | Continuity of Care Document ---
:1950 Author Organization [facility] Address [address] [place] [address]- Care Team Providers Name Role Phone Bill ALVAREZ, Hien Hu Primary Care Physician En[place] [facility] [place] Date(s): 06/05/19 - 06/05/[address] [address]- [facility] Attending Physician: Not on Staff, Attending MD [...] 04/02/19 11:14:00 EST, Route to Pharmacy Electronically, [facility], 162.56, cm, 04/02/19 7:58:00 [...] 04/02/19 11:14:00 EST, Route to Pharmacy Electronically, [facility], 162.56, cm, 04/02/19 7:58:00 EST, Height, 61.6, kg, 03/25/19 23:21:00 EST, Dry W... Start Date: 04/02/19 Status: Orderedertapenem 1 gm injectable powder for injection = 1 Gm, IV Infusion, Every 24 hours, 1 gm IV daily, end date 07.01.2019, # 33 each, 0 Refills, Acute 07/01/19 16:00:00 EDT, 05/26/19 16:00:00 EST Start Date: 05/26/19 Stop Date: 07/01/19 Status: OrderedIodosorb 0.9% topical gel See Instructions, [...] 05/29/19 16:23:00 EST, Route to Pharmacy Electronically, [facility], 163, cm, 05/29/19 8:50:00 [...]
--- OUTSIDE RECORDS SUMMARY | 2022-02-12 11:28 | XMS_ITS | Continuity of Care Document ---
:1950 Author Organization [facility] Address [address] [place] [address]- Care Team Providers Name Role Phone Po Sia ALVAREZ Primary Care Physician [place] [facility] [place] 04/07/19 - 04/17/19 [facility] [address] [place] [address]- [facility] Attending Physician: Anthony Estrada Admitting Physician: AdmAnthony [...] 04/02/19 11:14:00 EST, Route to Pharmacy Electronically, [facility], 162.56, cm, 04/02/19 7:58:00 EST, Height, 61.6, kg, 03/25/19 23:21:00 EST, Dry W... Start Date: 04/02/19 Status: OrderedAugmentin 875 mg-125 mg oral tablet 1 tablet, By Mouth, Every 12 hours, for 14 days, # 28 tablet, 0 Refills, Acute 04/25/19 8:55:00 EST,04/11/19 8:55:00 EST, Tablet, [facility], 162.5, cm, 04/11/19 8:05:00 [...] 04/02/19 11:14:00 EST, Route to Pharmacy Electronically, [facility], 162.56, cm, 04/02/19 7:58:00 [...]
--- OUTSIDE RECORDS SUMMARY | 2022-02-12 11:28 | XMS_ITS | Continuity of Care Document ---
:1950 Author Organization [facility] Address [address] [place] [address]- Care Team Providers Name Role Phone Po Sia ALVAREZ Primary Care Physician Encounter [facility] [place] Date(s): 04/07/19 - 04/17/19 [facility] [address] [place] [address] Attending Physician: Anthony Estrada Admitting Physician: AdmtrAnthony Referring Physician: Admtr, Anthony Allergies, Adverse Reactions, Alerts Substance Reaction Severity [...] 11:14:00 EST, Route to Pharmacy Electronically, [facility], 162.56, cm, 04/02/19 7:58:00 EST, Height, 61.6, kg, 03/25/19 23:21:00 EST, Dry W... Start Date: 04/02/19 Status: OrderedAugmentin 875 mg-125 mg oral tablet 1 tablet, By Mouth, Every 12 hours, for 14 days, # 28 tablet, 0 Refills, Acute 04/25/19 8:55:00 EST,04/11/19 8:55:00 EST, Tablet, [facility], 162.5, cm, 04/11/19 8:05:00 [...] 11:14:00 EST, Route to Pharmacy Electronically, [facility], 162.56, cm, 04/02/19 7:58:00 [...]
--- OUTSIDE RECORDS SUMMARY | 2022-02-12 11:28 | XMS_ITS | Continuity of Care Document ---
:1950 Author Organization [facility] Address [address] [place] [address]- Care Team Providers Name Role Phone Hien Khan MD Primary Care Physician Encounter 08/07/19 - 10/29/19 [facility] [address] [place] [address]- [facility] Discharge Disposition: GOALS MET Allergies, Adverse Reactions, Alerts Substance Reaction Severity [...] 04/02/19 11:14:00 EST, Route to Pharmacy Electronically, [facility], 162.56, cm, 04/02/19 [...] 04/02/19 11:14:00 EST, Route to Pharmacy Electronically, [facility], 162.56, cm, 04/02/19 [...] 05/29/19 16:23:00 EST, Route to Pharmacy Electronically, [facility], 163, cm, 05/29/19 [...]
--- OUTSIDE RECORDS SUMMARY | 2022-02-12 11:28 | XMS_ITS | Continuity of Care Document ---
:1950 Author Organization [facility] Address [address] [place] [address]- Care Team Providers Name Role Phone Hien Khan MD Primary Care Physician [place] [facility] [place] 09/16/19 [facility] [address] [place] [address]- [facility] Attending Physician: Pham Michael NP Admitting Physician: [...] 04/02/19 11:14:00 EST, Route to Pharmacy Electronically, [facility], 162.56, cm, 04/02/19 7:58:00 [...] 04/02/19 11:14:00 EST, Route to Pharmacy Electronically, [facility], 162.56, cm, 04/02/19 7:58:00 EST, Height, 61.6, kg, 03/25/19 23:21:00 EST, Dry W... Start Date: 04/02/19 Status: Ordereddoxycycline hyclate 100 mg oral tablet 1 tablet = 100 mg, By Mouth, 2 times a day, be sure the patient gets the full number of pills please, # 14 tablet, 1 Refills, Maintenance, 09/02/19 9:02:00 EDT, Tablet, [id number], 163, cm, 09/02/19 8:41:00 EDT, Height, 63, [...] 05/29/19 16:23:00 EST, Route to Pharmacy Electronically, [facility], 163, cm, 05/29/19 8:50:00 EST,Height, 63, [...] oldest [Reference Range]: 1 Height 163 cm (09/09/19 9:43 AM) Oxygen Saturation [94-100 %] 97 % (09/09/19 9:43 AM) Pulse Rate [55-90 bpm] 63 bpm (09/09/19 9:43 AM) Blood Pressure [90-138/55-84 mm Hg] 114/70 mm Hg (09/09/19 9:43 AM) Blood pressure sites Arm, right (09/09/19 9:43 AM) Social History Social History Type Response Smoking Status Never (less than 100 in life time) entered on: 04/07/19 Sex
--- OUTSIDE RECORDS SUMMARY | 2022-02-12 11:28 | XMS_ITS | Continuity of Care Document ---
:1950 Author Organization [facility] Address [address] [place] [address]- Care Team Providers Name Role Phone Hien Khan MD Primary Care Physician [place] [facility] [place](s): 08/04/19 - 08/06/[address] [address]- [facility] Discharge Disposition: A-D/C Home Attending Physician: Pradeep Reddy MD Admitting Physician: Pradeep Reddy MD Referring Physician: Pradeep Reddy MD Allergies, Adverse Reactions, Alerts Substance Reaction [...] 04/02/19 11:14:00 EST, Route to Pharmacy Electronically, [facility], 162.56, cm, 04/02/19 7:58:00 [...] 04/02/19 11:14:00 EST, Route to Pharmacy Electronically, [facility], 162.56, cm, 04/02/19 7:58:00 EST, Height, 61.6, kg, 03/25/19 23:21:00 EST, Dry W... Start Date: 04/02/19 Status: Ordereddoxycycline hyclate 100 mg oral capsule = 100 mg, By Mouth, Every 12 hours, for 14 days, # 28 capsule, 0 Refills, Acute 08/20/19 9:58:00 EDT, 08/06/19 9:58:00 EDT, Capsule, [facility], 163, cm, 08/06/19 8:40:00 EDT, [...] 05/29/19 16:23:00 EST, Route to Pharmacy Electronically, [facility], 163, cm, 05/29/19 8:50:00 [...] Reports Name Date Anaerobic Culture (ANAEROBIC CULTURE) 08/04/19 Tissue Culture w/ Gram Smear (TISSUE/BIOPSY CULT.) 07/16 Microbiology Reports TEST:Anaerobic Culture STATUS:Unauthenticated BODY SITE: SOURCE:TISSUE1 COLLECTED DATE/TIME:08/04/19 11:50 AMAnaerobic Culture SPECIMEN DESCRIPTION : TISSUE [address] METATURSAL LEF FOOT SPECIAL REQUESTS : NONE CULTURE : NO ANAEROBES ISOLATED SO FAR. REPORT STATUS : PRELIMINARY REPORT TEST:Tissue/Biopsy Culture STATUS:Auth (Verified) BODY SITE: SOURCE:TISSUE1 COLLECTED DATE/TIME:08/04/19 11:50 AMTissue/Biopsy Culture SPECIMEN DESCRIPTION : TISSUE [address] METATURSAL LEF FOOT SPECIAL REQUESTS : NONE GRAM STAIN : 3+ POLYMORPHONUCLEAR LEUKOCYTES 1+ GRAM POSITIVE COCCI CULTURE : 2+ STAPHYLOCOCCUS AUREUS. REPORT STATUS : FINAL 08/06/2019 ORGANISM 2+ STAPHYLOCOCCUS AUREUS. METHOD MIN. INHIB. CONC. (MCG/ML) CIPROFLOXACIN SUSCEPTIBLE CLINDAMYCIN SUSCEPTIBLE ERYTHROMYCIN SUSCEPTIBLE LEVOFLOXACIN SUSCEPTIBLE OXACILLIN SUSCEPTIBLE PENICILLIN RESISTANT RIFAMPIN SUSCEPTIBLE RIFAMPIN RIFAMPIN SHOULD NOT BE USED ALONE FOR ANTIMICROBIAL RIFAMPIN THERAPY. TETRACYCLINE SUSCEPTIBLE TRIMETH/SULFAMETHOX SUSCEPTIBLE VANCOMYCIN SUSCEPTIBLE Vital Signs Most recent to oldest 1 2 3 [Reference Range]: Height 163 cm 163 cm 163 cm (08/06/19 8:40 AM) (08/06/19 3:19 AM) (08/06/19 12: 37 AM) Weight 66.3 kg (08/04/19 9:51 AM) Oxygen Saturation [94-100 100 % 96 % 99 % %] (08/06/19 8:40 AM) (08/06/19 3:19 AM) (08/06/19 12: 37 AM) Pulse Rate [55-90 bpm] 87 bpm 83 bpm 82 bpm (08/06/19 8:40 AM) (08/06/19 3:19 AM) (08/06/19 12: 37 AM) Body Mass Index 24.95 [18.5-24.99] (08/04/19 9:51 AM) Blood Pressure 131/72 mm Hg 131/72 mm Hg 115/72 mm Hg [90-138/55-84 mm Hg] (08/06/19 9:08 AM) (08/06/19 8:40 AM) ( 0 3:19 AM) Respiratory Rate [16-30 18 br/min 18 br/min 18 br/mi n br/min] (08/06/19 8:40 AM) (08/06/19 3:19 AM) (08/06/19 12: 37 AM) Temperature [96.8-100.4 97.9 DegF 98.2 DegF 98.9 Deg F DegF] (08/06/19 8:40 AM) (08/06/19 3:19 AM) (08/06/19 12: 37 AM) Liters per Minute 2 L/min 2 L/min 2 L/min (08/04/19 1:45 PM) (08/04/19 1:30 PM) (08/04/19 1:1 5 PM) Mode of Delivery (Oxygen) Room air Room air Room a ir (08/06/19 8:40 AM) (08/06/19 3:19 AM) (08/06/19 12: 37 AM) Blood pressure sites Arm, left Arm, left Arm, left (08/06/19 8:40 AM) (08/06/19 3:19 AM) (08/06/19 12: 37 AM) Temperature Route Oral Oral Oral (08/06/19 8:40 AM) (08/06/19 3:19 AM) (08/06/19 12: 37 AM) Weight Obtained Via Patient/family stated (08/04/19 9:51 AM) Social History Social History Type Response Smoking Status Never (less than 100 in life time) entered on: 04/07/19 Sex
--- OUTSIDE RECORDS SUMMARY | 2022-02-12 11:28 | XMS_ITS | Continuity of Care Document ---
:1950 Author Organization [facility] Address [address] [place] [address]- Care Team Providers Name Role Phone Bill ALVAREZ, Hien Hu Primary Care Physician [place] [facility] [place]s): 01/13/20 - 05/12/20 [facility] [address] [place] [id number] Attending Physician: Pham Michael NP Admitting Physician: Pham Michael NP Referring Physician: Pham Michael NP Allergies, Adverse Reactions, [...] 04/02/19 11:14:00 EST, Route to Pharmacy Electronically, [facility], 162.56, cm, 04/02/19 7:58:00 EST, [...] 04/02/19 11:14:00 EST, Route to Pharmacy Electronically, [facility], 162.56, cm, 04/02/19 7:58:00 EST, [...] 05/29/19 16:23:00 EST, Route to Pharmacy Electronically, [facility], 163, cm, 05/29/19 8:50:00 EST,Height, [...]
--- OUTSIDE RECORDS SUMMARY | 2022-02-12 11:28 | XMS_ITS | Continuity of Care Document ---
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 Discharge Disposition: A-Transfer VNA/Home Health Attending Physician: Morris Coker MD Admitting Physician: Alf Montano MD Referring Physician: Not on Staff, Referring MD [...] 04/02/19 11:14:00 EST, Route to Pharmacy Electronically, [facility], 162.56, cm, 04/02/19 7:58:00 EST, [...] 04/02/19 11:14:00 EST, Route to Pharmacy Electronically, [facility], 162.56, cm, 04/02/19 7:58:00 EST, [...] 05/29/19 16:23:00 EST, Route to Pharmacy Electronically, [facility], 163, cm, 05/29/19 8:50:00 EST,Height, [...] Results Orders for Microbiology Reports Name Date Blood Culture 05/21/19 Blood Culture #2 05/21/19 Microbiology Reports TEST:Blood Culture STATUS:Auth (Verified) BODY SITE: SOURCE:Blood COLLECTED DATE/TIME:05/21/19 4:14 PMBlood Culture SPECIMEN DESCRIPTION : BLOOD RFA SPECIAL REQUESTS : NONE CULTURE : NO GROWTH 5 DAYS. REPORT STATUS : FINAL 05/26/2019TEST:Blood Culture, Second Order STATUS:Auth (Verified) BODY SITE: SOURCE:Blood COLLECTED DATE/TIME:05/21/19 4:14 PMBlood Culture, Second Order SPECIMEN DESCRIPTION : BLOOD LFA SPECIAL REQUESTS : NONE CULTURE : NO GROWTH 5 DAYS. REPORT STATUS : FINAL 05/26/2019Radiology Reports Exam Date Time Procedure Performing Provider Status 05/21/19 1:30 PM Foot Min 3 Views Left Brandie Garcia; Auth (V erified) Notes:(Foot Min 3 Views Left) Reason For Exam: ErythemaRESULT: Foot Min 3 Views Left Foot Min 3 Views Left, 3 views Reason: Erythema; Clinical Question(s): Osteomyelitis; Hx of Present Illness: left great toe amp about 1 month ago.o COMPARISON: 03/25/2019 FINDINGS: Interval amputation at the level of the first MTP joint. There is diffuse soft tissue swelling. Suspected irregularity of the cortical margins of the first metatarsal. Extensive vascular calcifications. IMPRESSION: Irregular margins of the first metatarsal distally raising a concern for osteomyelitis. This can be confirmed with MR. Cholo Roach message has been communicated via the [employer] system on 05/21/2019 1:37 PM, Message ID [id number]. WSN: [id number] Dictated By: Chip Mccarthy MD Dictated Date/Time: 05/21/19 1:37 pm Reviewed By: Chip Mccarthy MD Signed By: Chip Mccarthy MD Signed Date/Time: 05/21/19 1:37 pm Transcribed By: ANNI Transcribed Date/Time: 05/21/19 1:33 pm Vital Signs Most recent to oldest 1 2 3 [Reference Range]: Height 163 cm 163 cm 163 cm (05/29/19 8:50 AM) (05/28/19 7:35 PM) (05/28/19 1:0 3 PM) Weight 63 kg 63 kg (05/22/19 5:00 PM) (05/22/19 4:57 PM) Oxygen Saturation [94-100 97 % 99 % 97 % %] (05/29/19 8:50 AM) (05/28/19 7:35 PM) (05/28/19 1:0 3 PM) Pulse Rate [55-90 bpm] 72 bpm 72 bpm 71 bpm (05/29/19 8:50 AM) (05/28/19 7:35 PM) (05/28/19 1:0 3 PM) Body Mass Index 23.71 23.71 [18.5-24.99] (05/22/19 5:00 PM) (05/22/19 4:57 PM) Blood Pressure 133/83 mm Hg 133/83 mm Hg 148/78 mm Hg [90-138/55-84 mm Hg] (05/29/19 9:33 AM) (05/29/19 8:50 AM) *H* (05/28/19 7:35 PM ) Respiratory Rate [16-30 18 br/min 18 br/min 18 br/mi n br/min] (05/29/19 8:50 AM) (05/28/19 7:35 PM) (05/28/19 1:0 3 PM) Temperature [96.8-100.4 98.7 DegF 98.2 DegF 98.6 Deg F DegF] (05/29/19 8:50 AM) (05/28/19 7:35 PM) (05/28/19 1:0 3 PM) Mode of Delivery (Oxygen) Room air Room air Room a ir (05/29/19 8:50 AM) (05/28/19 7:35 PM) (05/28/19 1:0 3 PM) Blood pressure sites Arm, left Arm, left Arm, right (05/29/19 8:50 AM) (05/28/19 7:35 PM) (05/28/19 1:0 3 PM) Temperature Route Oral Oral Oral (05/29/19 8:50 AM) (05/28/19 7:35 PM) (05/28/19 1:0 3 PM) Dry Weight 63 kg 63 kg (05/22/19 5:00 PM) (05/22/19 4:57 PM) Weight Obtained Via Bed scale (05/22/19 5:00 PM) Dry Weight Obtained Via Bed scale (05/22/19 5:00 PM) Sensory deficits None (05/22/19 4:57 PM) Mobility assistance Wheelchair: total, Other: Wheelchair bound at baseline (05/22/19 4:57 PM) Social History Social History Type Response Smoking Status Never (less than 100 in life time) entered on: 04/07/19 Sex
--- OUTSIDE RECORDS SUMMARY | 2022-02-12 11:28 | XMS_ITS | Continuity of Care Document ---
:1950 Author Organization [facility] Address [address] [place] [address]- Care Team Providers Name Role Phone Bill ALVAREZ, Hien Hu Primary Care Physician [place] [facility] [place]15/19 [facility] [address] [place] [address]- [facility] Attending Physician: Pham Michael NP [...] 04/02/19 11:14:00 EST, Route to Pharmacy Electronically, [facility], 162.56, cm, 04/02/19 [...] 04/02/19 11:14:00 EST, Route to Pharmacy Electronically, [facility], 162.56, cm, 04/02/19 [...] 05/29/19 16:23:00 EST, Route to Pharmacy Electronically, [facility], 163, cm, 05/29/19 [...] oldest [Reference Range]: 1 Height 163 cm (10/08/19 11:54 AM) Weight 62.5 kg (10/08/19 11:54 AM) Pulse Rate [55-90 bpm] 72 bpm (10/08/19 11:54 AM) Body Mass Index [18.5-24.99] 23.52 (10/08/19 11:54 AM) Blood Pressure [90-138/55-84 mm Hg] 124/70 mm Hg (10/08/19 11:54 AM) Blood pressure sites Arm, right (10/08/19 11:54 AM) Weight Obtained Via Patient/family stated (10/08/19 11:54 AM) Social History Social History Type Response Smoking Status Never (less than 100 in life time) entered on: 04/07/19 Sex
--- OUTSIDE RECORDS SUMMARY | 2022-02-12 11:28 | XMS_ITS | Continuity of Care Document ---
:1950 Author Organization [facility] Address [address] [place] [address]- Care Team Providers Name Role Phone Hien Khan MD Primary Care Phys[id number] Date[facility] 07/16/[facility] - 08/21/[facility] [address] [place] [address] [facility] Attending Physician: Gomez Razo MD Admitting Physician: [...] 04/02/19 11:14:00 EST, Route to Pharmacy Electronically, [facility], 162.56, cm, 04/02/19 7:58:00 EST, [...] 04/02/19 11:14:00 EST, Route to Pharmacy Electronically, [facility], 162.56, cm, 04/02/19 7:58:00 EST, Height, 61.6, kg, 03/25/19 23:21:00 EST, Dry W... Start Date: 04/02/19 Status: Ordereddoxycycline hyclate 100 mg oral capsule 1 capsule = 100 mg, By Mouth, 2 times a day, # 20 capsule, 0 Refills, Maintenance, 08/21/19 11:13:00EDT, Capsule, [id number], 163, cm, 08/21/19 10:37:00 EDT, Height, 63, [...] 05/29/19 16:23:00 EST, Route to Pharmacy Electronically, [facility], 163, cm, 05/29/19 8:50:00 [...]
--- OUTSIDE RECORDS SUMMARY | 2022-02-12 11:28 | XMS_ITS | Continuity of Care Document ---
:1950 Author Organization [facility] Address [address] [place] [address]- Care Team Providers Name Role Phone Bill ALVAREZ, Hien Hu Primary Care Physician En[place] [facility] [place] Date(s): 06/10/19 - 07/17/[address] [address]- [facility] Attending Physician: Amadou Pineda MD Admitting Physician: Amadou Pineda MD Referring Physician: Amadou Pineda MD Allergies, Adverse Reactions, Alerts Substance Reaction [...] 11:14:00 EST, Route to Pharmacy Electronically, [facility], 162.56, cm, 04/02/19 7:58:00 EST, Height, [...] 11:14:00 EST, Route to Pharmacy Electronically, [facility], 162.56, cm, 04/02/19 7:58:00 [...] 05/29/19 16:23:00 EST, Route to Pharmacy Electronically, [facility], 163, cm, 05/29/19 8:50:00 [...]
--- OUTSIDE RECORDS SUMMARY | 2022-02-12 11:28 | XMS_ITS | Continuity of Care Document ---
:1950 Author Organization [facility] Address [address] [place] [address]- Care Team Providers Name Role Phone Hien Khan MD Primary Care Physician [place] [facility] [place]s): 09/07/20 - 10/29/20 [facility] [address] [place] [address]- Attending Physician: Gume Omalley MD Admitting Physician: Gume Omalley MD Referring Physician: Gume Omalley MD Allergies, Adverse Reactions, Alerts Substance Reaction [...]
--- OUTSIDE RECORDS SUMMARY | 2022-02-12 11:28 | XMS_ITS | Continuity of Care Document ---
:1950 Author Organization [facility] Address [address] [place] [address]- Care Team Providers Name Role Phone Not on Staff, PCP Primary Care Physician Unavailable En[place] [facility] [place]s): 05/07/19 - 05/14/19 [facility] [address] [place] [address]- [facility] Attending Physician: Sowmya ALVAREZ, Lalita Galvan Admitting Physician: Sowmya ALVAREZ, Lalita Galvan Allergies, Adverse Reactions, Alerts Substance Reaction Severity [...] 04/02/19 11:14:00 EST, Route to Pharmacy Electronically, [facility], 162.56, cm, 04/02/19 7:58:00 [...] 04/02/19 11:14:00 EST, Route to Pharmacy Electronically, [facility], 162.56, cm, 04/02/19 7:58:00 [...] oldest [Reference Range]: 1 Height 162.5 cm (05/07/19 9:08 AM) Blood Pressure [90-138/55-84 mm Hg] 126/77 mm Hg (05/07/19 9:08 AM) Blood pressure sites Arm, left (05/07/19 9:08 AM) Social History Social History Type Response Smoking Status Never (less than 100 in life time) entered on: 04/07/19 Sex
--- OUTSIDE RECORDS SUMMARY | 2022-02-12 11:28 | XMS_ITS | Continuity of Care Document ---
:1950 Author Organization [facility] Address [address] [place] [address]- Care Team Providers Name Role Phone Bill ALVAREZ, Hien Hu Primary Care Physician [place] [facility] [place]07[place] - 07/07/[address] [address]- [facility] Discharge Disposition: A-D/C Home Attending Physician: Dionisio Mcmullen MD, Tay Admitting Physician: Dionisio Mcmuleln MD, Tay Referring Physician: Yaritza Palomo MD Allergies, Adverse Reactions, Alerts Substance Reaction [...] 04/02/19 11:14:00 EST, Route to Pharmacy Electronically, [facility], 162.56, cm, 04/02/19 [...] 04/02/19 11:14:00 EST, Route to Pharmacy Electronically, [facility], 162.56, cm, 04/02/19 [...] 05/29/19 16:23:00 EST, Route to Pharmacy Electronically, [facility], 163, cm, 05/29/19 [...] Most recent to oldest [Reference Range]: 1 2 Height 163 cm 163 cm (07/07/19 11:01 AM) (07/07/19 10:36 AM) Oxygen Saturation [94-100 %] 98 % (07/07/19 11:01 AM) Pulse Rate [55-90 bpm] 80 bpm (07/07/19 11:01 AM) Blood Pressure [90-138/55-84 mm Hg] 134/82 mm Hg (07/07/19 11:01 AM) Respiratory Rate [16-30 br/min] 18 br/min (07/07/19 11:01 AM) Temperature [96.8-100.4 DegF] 97.7 DegF (07/07/19 11:01 AM) Mode of Delivery (Oxygen) Room air (07/07/19 11:01 AM) Blood pressure sites Arm, left (07/07/19 11:01 AM) Temperature Route Oral (07/07/19 11:01 AM) Social History Social History Type Response Smoking Status Never (less than 100 in life time) entered on: 04/07/19 Sex
--- OUTSIDE RECORDS SUMMARY | 2022-02-12 11:28 | XMS_ITS | Continuity of Care Document ---
:1950 Author Organization [facility] Address [address] [place] [address]- Care Team Providers Name Role Phone Hien Khan MD Primary Care Physician [id number] Date(s): 11/04/20 - 11/11/20 [facility] [address] [place] [address]- Attending Physician: Gume Omalley MD Admitting Physician: Gume Omalley MD Allergies, Adverse Reactions, [...]
--- OUTSIDE RECORDS SUMMARY | 2022-02-12 11:28 | XMS_ITS | Continuity of Care Document ---
:1950 Author Organization [facility] Address [address] [place] [id number]- Care Team Providers Name Role Phone Bill ALVAREZ, Hien Hu Primary Care Physician Encounter [facility] [place] Date(s): 06/06/19 - 06/16/19 [facility] [address] [place] [id number]- [facility] Attending Physician: Anthony Estrada Admitting Physician: AdmAnthony [...] 04/02/19 11:14:00 EST, Route to Pharmacy Electronically, [facility], 162.56, cm, 04/02/19 [...] 04/02/19 11:14:00 EST, Route to Pharmacy Electronically, [facility], 162.56, cm, 04/02/19 [...] 05/29/19 16:23:00 EST, Route to Pharmacy Electronically, [facility], 163, cm, 05/29/19 [...]
--- OUTSIDE RECORDS SUMMARY | 2022-02-12 11:28 | XMS_ITS | Continuity of Care Document ---
:1950 Author Organization [facility] Address [address] [place] [id number]- Care Team Providers Name Role Phone Bill ALVAREZ, Hien Hu Primary Care Physician Encounter [facility] [place] Date(s): 06/24/19 - 07/04/19 [facility] [address] [place] [id number]- [facility] Attending Physician: Anthony Estrada Admitting [...] 04/02/19 11:14:00 EST, Route to Pharmacy Electronically, [facility], 162.56, cm, 04/02/19 7:58:00 EST, [...] 04/02/19 11:14:00 EST, Route to Pharmacy Electronically, [facility], 162.56, cm, 04/02/19 7:58:00 EST, [...] 05/29/19 16:23:00 EST, Route to Pharmacy Electronically, [facility], 163, cm, 05/29/19 8:50:00 EST,Height, [...]
[2022-02-12 12:00] VITALS: BP 125/70; PULSE 66; RESP 16; TEMP 36.8; O2SAT 95
[2022-02-12 12:18] LABS: MANUAL DIFF FLAG NO
[2022-02-12 12:21] LABS: Basophils Percent Auto 0.3 % (0-2); Eosinophils Percent Auto 0.3 % (0-4); Hematocrit 42.6 % (42.0-52.0); Hemoglobin 14.5 g/dl (14.0-18.0); Imm Gran Abs Auto 0.04 X10*3/uL (0.00-0.03); Imm Gran Pct Auto 0.4 % (0.0-0.4); Lymphocytes Absolute Auto 0.8 X10*3/uL (1.2-4.9); Lymphocytes Percent Auto 8.1 % (20-40); Mean Corpuscular Hemoglobin 29.7 pg (27.0-33.0); Mean Corpuscular Volume 87.3 fL (80.0-98.0); Mean Platelet Volume 9.1 fL (9.4-12.4); Monocytes Absolute Auto 0.6 X10*3/uL (0.1-1.2); Monocytes Percent Auto 6.7 % (2-11); Neutrophils Absolute Auto 7.9 x10*3/uL (2.0-8.3); Neutrophils Percent Auto 84.2 % (45-73); Platelet Count 298 X10*3/uL (160-400); Red Blood Count 4.88 X10*6/uL (4.60-5.80); Red Cell Distribution Width 11.9 % (11.0-16.0); White Blood Count 9.4 X10*3/uL (4.8-10.8)
[2022-02-12 12:34] LABS: Lactic Acid 1.1 mmol/L (0.5-2.0)
[2022-02-12] MEDS: Piperacillin Sodium/Tazobactam 3.375 GM in 0.9 % Sodium Chloride 50 ML IV (12:35)
[2022-02-12 12:36] LABS: COVID-19 Test Negative (Negative); IDNOW Serial# 16C4AD1C
[2022-02-12 12:39] LABS: Alanine Aminotransferase 15 U/L (0-40); Albumin Level 4.4 g/dL (3.5-5.0); Alkaline Phosphatase 120 U/L (39-117); Anion Gap 18 (12-20); Aspartate Amino Transferase 16 U/L (5-37); Bilirubin Total 0.6 mg/dL (0.0-1.0); Blood Urea Nitrogen 28 mg/dL (9-16); C Reactive Protein 8.75 mg/dL (< or = 0.50); Calcium 9.5 mg/dL (8.4-10.2); Carbon Dioxide 24 mmol/L (22-29); Chloride 101 mmol/L (96-108); Creatinine Clr Calc Pharmacy 30.1; Estimated Glomerular Filt Rate 35; Glucose Random 210 mg/dL (60-115); Magnesium 2.3 mg/dL (1.6-2.6); Potassium 4.6 mmol/L (3.3-5.1); Sodium 138 mmol/L (135-145); Total Protein 8.1 g/dL (6.5-8.0)
--- NOTE | 2022-02-12 12:39 | PC.NURSE ---
Pt alert and oriented, respirations even and unlabored. Red and swollen left hand after lac on lamp. Pt reports no pain at the site, afebrile. IV started and labs drawn and sent. Antibiotics started per the JUN. Son at bedside, resting comfortably.
--- NOTE | 2022-02-12 13:04 | PHA.MEDREC ---
Pharmacy Consult ? Medication Reconciliation Pharmacy has completed the medication reconciliation. Patient had rx bottles of medications. Called patient's daughter to confirm medications not in bottle. Pamela Jin, PharmD
[2022-02-12 13:12] LABS: Erythrocyte Sedimentation Rate 53 MM/HR (0-15)
--- NOTE | 2022-02-12 13:18 | P.HPHOSP_ITS ---
History of Present Illness Date of Service: 02/12/22 Chief Complaint: pain and swllening left hand Reg Sheets, a 71 yo syrian speaking only male (history obtained via certified data center consultant) with insulin dependent non compliant, dementia, HTN, and BPH. He presents with left swelling and pain ( see pictures below),4 days ago, he tripped tripped over a box and while going down held onto a lamp that broke a sustained laceration to the left hand and right little finger. He has since developped redness and swelling over the area with associated pain and out of family concern is brought to be evaluated today. He has movement but is limitted d/t pain. CR is slightly elevated from his baseline (1.6-1.7) at 1.9 with a slight bump in his BUN (baseline 24-26) at 28 today. CRP is 8.75, ESR 53. He is given Zosyn + Vanco. Culture pending. Review of Systems Review of Systems: Gen: no fever Resp: no sob, no cough CV: no chest, no SILVA, no leg edema GI: No n/v, no abd pain Neuro: No confusion skin/join: redness and pain over left hand Yes all other systems are reviewed and are negative [facility] Medical History (Updated 02/12/22 @ 13:44 by Viraj Alston MD) BPH (benign prostatic hyperplasia) CKD stage G3b/A1, GFR 30-44 and albumin creatinine ratio <30 mg/g Dementia Diabetes Dog bite History of amputation of toe Hypertension Rhabdomyolysis Family History Other Diabetes HTN (hypertension) Social History Household Members: Spouse Housing: Apartment Do you presently have visiting nurse or other home services: Yes (every 3 months) Alcohol intake: never Patient Tobacco Use Status: Never used Tobacco Advance Directives: Yes Advance Directives on File: Yes Advance Directives Date on File: 01/25/21 service: No Current occupational status: retired Meds Allergies Allergy/AdvReac Type Severity Reaction Status Date / Time oxycodone [From PERCOCET] Allergy Unknown CAN'T Verified 01/24/21 21:27 BREATH/VOMITING simvastatin [SIMVASTATIN] Allergy Unknown UNKNOWN Verified 01/24/21 21:27 peas AdvReac Unknown VOMITING/FA Verified 01/24/21 21:27 INTING SALMON [id number] AdvReac Unknown VOMITING/FA Uncoded 01/24/21 21:27 INT Active Medications: Current Medications Pharmacy Consult (Consult Rx Vancomycin Dosing) 1 each MISCELLANE DAILY PRN PRN Reason: Consult order Pharmacy Consult (Consult Rx Perform Med Rec) 1 each MISCELLANE ONCE PRN PRN Reason: Consult order Home Medications Medication Instructions Recorded Confirmed Last Taken Type amlodipine 10 mg tablet 1 tab PO DAILY 01/24/21 02/12/22 02/12/22 History aspirin 81 mg tablet,delayed 1 tab PO DAILY 01/24/21 02/12/22 02/12/22 History release citalopram 10 mg tablet 1 tab PO DAILY 01/24/21 02/12/22 02/12/22 History clopidogrel 75 mg tablet 1 tab PO DAILY 01/24/21 02/12/22 02/12/22 History donepezil 10 mg tablet 1 tab PO BEDTIME 01/24/21 02/12/22 02/11/22 History finasteride 5 mg tablet 1 tab PO DAILY 01/24/21 02/12/22 02/12/22 History insulin glargine 100 unit/mL 5 unit subcut BEDTIME 01/24/21 02/12/22 02/11/22 History subcutaneous solution (Lantus U-100 Insulin) tamsulosin 0.4 mg capsule 1 cap PO DAILY 01/24/21 02/12/22 02/12/22 History acetaminophen 325 mg tablet 650 mg PO Q6H PRN Pain 02/12/22 02/12/22 Unknown History dapagliflozin 10 mg tablet 1 tab PO DAILY 02/12/22 02/12/22 02/12/22 History (Farxiga) ergocalciferol (vitamin D2) 1,250 1 cap PO Q2W 02/12/22 02/12/22 01/30/22 History mcg (50,000 unit) capsule insulin aspart U-100 100 unit/mL See Protocol subcut QIDACHS 02/12/22 02/12/22 02/12/22 History subcutaneous solution (Novolog U-100 Insulin aspart) Physical Exam Vital Signs and Narrative: Vital Signs: Last Vital Signs Temp 98.2 F 02/12/22 12:00 Pulse 66 02/12/22 12:00 Resp 16 02/12/22 12:00 BP 125/70 02/12/22 12:00 Pulse Ox 95 02/12/22 12:00 O2 Del Method 02/12/22 12:00 BMI result Body Mass Index 23.8 Const: Other: Constitutional: Alert, in no distress, Mental Status: Oriented to person, place and time. Eyes: Pupils are equal, round and reactive to light. Ear, Nose and Throat: Oropharynx clear, mucous membranes moist. Ears and nose without eformities. Respiratory: Clear to auscultation. No wheezing, rales or rhonchi. Cardiovascular: S1 S2 regular. No murmurs, rubs or gallops. Gastrointestinal: Abdomen soft, non-tender, non-distended. Normal bowel sounds.? Neurologic: Cranial nerves II-XII grossly intact. No focal neurological deficits. Moves all extremities spontaneously.? Skin: Musculoskeletal: No cyanosis or clubbing. Psychiatric: Normal mood and affect? Results Labs CBC and Chem 7: 02/12/22 12:12 02/12/22 12:12 Labs: Laboratory Results - last 24 hr 02/12/22 02/12/22 02/12/22 12:12 12:12 12:12 MCV 87.3 MCH 29.7 MCHC 34.0 RDW 11.9 Plt Count 298 D MPV 9.1 L Immature Gran % (Auto) 0.4 Neut % (Auto) 84.2 H Lymph % (Auto) 8.1 L [place] % (Auto) 6.7 Eos % (Auto) 0.3 Baso % (Auto) 0.3 Lymph # (Auto) 0.8 L [place] # (Auto) 0.6 Eos # (Auto) 0.0 Baso # (Auto) 0.0 Abs Immat Gran (auto) 0.04 H Absolute Neuts (auto) 7.9 Absolute Nucleated RBC 0.000 Nucleated RBC % (auto) 0.0 ESR Anion Gap 18 Estim Creat Clear Calc 30.1 Estimated GFR 35 Random Glucose 210 H Lactic Acid Calcium 9.5 Magnesium 2.3 Total Bilirubin 0.6 AST 16 ALT 15 Alkaline Phosphatase 120 H C-Reactive Protein 8.75 H Total Protein 8.1 H Albumin 4.4 COVID-19 (SHEILA) Negative COVID-19 Clin Com See Note 02/12/22 02/12/22 12:12 12:26 MCV MCH MCHC RDW Plt Count MPV Immature Gran % (Auto) Neut % (Auto) Lymph % (Auto) [place] % (Auto) Eos % (Auto) Baso % (Auto) Lymph # (Auto) [place] # (Auto) Eos # (Auto) Baso # (Auto) Abs Immat Gran (auto) Absolute Neuts (auto) Absolute Nucleated RBC Nucleated RBC % (auto) ESR 53 H Anion Gap Estim Creat Clear Calc Estimated GFR Random Glucose Lactic Acid 1.1 Calcium Magnesium Total Bilirubin AST ALT Alkaline Phosphatase C-Reactive Protein Total Protein Albumin COVID-19 (SHEILA) COVID-19 Clin Com Imaging Radiologist's Impressions: Impressions Hand X-Ray 02/12/22 11:05 IMPRESSION: Soft tissue swelling thenar eminence. Vascular calcifications. No radiopaque foreign body. No acute osseous abnormality. Assessment and Plan (1) Cellulitis: Status: Acute (2) Infected wound: Status: Acute Plan 71 year old syrian speaking only male (history obtained via certified data center consultant) with insulin dependent non compliant, dementia, HTN, and BPH. He presents with left swelling and pain ( see pictures below),4 days ago, he tripped tripped over a box and while going down held onto a lamp that broke a sustained laceration to the left hand and right little finger. He has cellulitis of the hand associated with high CRP and ESR 1/Hand cellulitis--I agree with Jayce, ID and Ortho consult. Get MRI to r/o osteo, follow culture. Pain control with IV morphine 2/Diabetes--continue home regimen, add SSI, diabetic diet 3/CKD3B, mild TONY--IV fluid and reassess tomorrow 4/HTN-controlled, continue Norvasc 5/BPH-Flomax 6/Dementia--Aricept 7/DVT prophylaxis--Heparin 8/Full code Admit for at least 2 midnight for management of limb threatening cellulitis of the hand with IV abx and surgical evaluation and further testing with MRI Quality Stroke Does the patient have a stroke diagnosis?: No VTE Prior VTE?: No VTE Risk Level:: Medical - moderate - high VTE Device Contraindication: Treatment Not Indicated VTE Drug Contraindication: N/A - Med Ordered
[2022-02-12] MEDS: Heparin Sodium,Porcine 5,000 UNIT/ML VIAL 5000 UNIT SUBCUT ×2 (14:18→23:14)
[2022-02-12] MEDS: vancomycin HCL 1,500 MG in 0.9 % Sodium Chloride 500 ML 333.33 MG IV (14:18)
--- NOTE | 2022-02-12 15:00 | PHA.PROG ---
Admission Date/Time: February 12, 2022 13:49 Indication:SKIN/SKIN STRUCTURE Weight in k.049 kg Adjusted body weight in K.74 [place] body weight in Kg: Obesity Dosing Indication % IBW: Serum Creatinine - Last 168 Hours 02/12/22 12:12 Creatinine 1.91 H Estimated CrCl and GFR - Last 168 Hours 02/12/22 12:12 Estim Creat Clear Calc 30.1 Estimated GFR 35 Vancomycin Loading Dose: 1500 MG Current Vancomycin Dosing Regimen: 750MG 24H Vancomycin Monitoring using AUC goal of 400 - 600 range with trough as surrogate marker: AUC 465; TROUGH 15.2 Date and Time for next Vancomycin Level to be drawn: 02/14 @1200 Pharmacist Comments on Vancomycin Plan: RANDOM AFTER 2 DOSES Vancomycin dosing will take advantage of [employer] as a clinical decision support tool that uses Bayesian modeling to calculate individual patient's pharmacokinetic parameters and forecast the patient's drug concentration time course with the target goal AUC 24 range of 400 - 600 mg/L/hr.
[2022-02-12 16:39] VITALS: PULSE 72; RESP 16; O2SAT 97
[2022-02-12 16:41] VITALS: BP 125/73
[2022-02-12] MEDS: Sodium Chloride 0.45 % 1,000 ML 100 ML IVCONT (17:49)
[2022-02-12 17:57] LABS: Glucose, Whole Blood 113 mg/dL (60-115)
[2022-02-13] VITALS (16 sets, daily range): BP systolic 116–162; BP diastolic 61–85; PULSE 69–96; RESP 16–18; TEMP 36.6–37.3; O2SAT 94–99
[2022-02-13] MEDS: Piperacillin Sodium/Tazobactam 2.25 GM in 0.9 % Sodium Chloride 50 ML IV ×4 (00:21→18:23)
[2022-02-13] MEDS: Acetaminophen 325 MG TABLET 650 MG PO (00:27)
[2022-02-13] MEDS: 0.9 % Sodium Chloride Flush 3 ML SYRINGE IVFLUSH ×3 (00:27→23:36)
[2022-02-13 05:00] LABS: Creatinine Clr Calc Pharmacy 34.6; Estimated Glomerular Filt Rate 41
[2022-02-13] MEDS: Heparin Sodium,Porcine 5,000 UNIT/ML VIAL 5000 UNIT SUBCUT ×2 (06:36→21:26)
[2022-02-13] MEDS: Morphine Sulfate 4 MG/ML CARTRIDGE 2 MG IVPUSH (06:44)
--- NOTE | 2022-02-13 07:51 | P.CONOP_ITS ---
History of Present Illness HPI Consult date: 02/13/22 Chief complaint: cellulitis of the hand Narrative: 71 yo kinyarwanda speaking only male? with insulin dependent non compliant, dementia, HTN, and BPH. He presented to the ED with? worsening left hand pain and swelling x 4 days. He states he tripped tripped over a box? and while going down held onto a lamp that broke a sustained laceration to the left hand and right little finger. Upon arrival to the ED, He has movement but is limitted d/t? pain. CR is slightly elevated from his baseline (1.6-1.7) at 1.9 with a slight bump in his BUN (baseline 24-26) at 28 today.? CRP is 8.75, ESR 53.? He is given? Zosyn + Vanco. Culture pending. Orthopedics was consulted for further recommendations. Review of Systems Review of Systems: per [facility] Past Medical History Medical History (Updated 02/13/22 @ 08:03 by Jose Alfredo Spaulding PA-C) BPH (benign prostatic hyperplasia) CKD stage G3b/A1, GFR 30-44 and albumin creatinine ratio <30 mg/g Dementia Diabetes Dog bite History of amputation of toe Hypertension Rhabdomyolysis Family History Family History Other Diabetes HTN (hypertension) Social History Social History Household Members: Spouse Housing: Apartment Do you presently have visiting nurse or other home services: Yes (every 3 months) Alcohol intake: never Patient Tobacco Use Status: Never used Tobacco Advance Directives Date on File: 01/25/21 service: No Current occupational status: retired Meds Allergies Allergy/AdvReac Type Severity Reaction Status Date / Time oxycodone [From PERCOCET] Allergy Unknown CAN'T Verified 01/24/21 21:27 BREATH/VOMITING simvastatin [SIMVASTATIN] Allergy Unknown UNKNOWN Verified 01/24/21 21:27 peas AdvReac Unknown VOMITING/FA Verified 01/24/21 21:27 INTING SALMON [id number] AdvReac Unknown VOMITING/FA Uncoded 01/24/21 21:27 INT Active Medications: Current Medications Acetaminophen (Acetaminophen 325 Mg Tablet) 650 mg PO Q6H PRN PRN Reason: Pain, Mild (Pain Scale 1-3) Last Admin: 02/13/22 00:27 Dose: 650 mg Docusate Sodium (Docusate Sodium 100 Mg Capsule) 100 mg PO DAILY PRN PRN Reason: Constipation Heparin Sodium (Porcine) (Heparin Sodium,Porcine 5,000 Unit/Ml Vial) 5,000 unit SUBCUT Q8H [facility] Last Admin: 02/13/22 06:36 Dose: 5,000 unit Piperacillin Sod/Tazobactam (Sod 2.25 gm/ Sodium Chloride) 50 mls @ 100 mls/hr IV Q6H [facility] Last Admin: 02/13/22 01:20 Dose: Not Given Vancomycin HCl 750 mg/ Sodium (Chloride) 265 mls @ 265 mls/hr IV Q24H [facility] Insulin Human Lispro (Insulin Lispro 100 Unit/Ml 3 Ml Vial) 0 unit SUBCUT QIDAC [facility]; Protocol Last Admin: 02/12/22 22:51 Dose: Not Given Magnesium Hydroxide (Milk Of Magnesia 30 Ml Oral.Susp) 30 ml PO DAILY PRN PRN Reason: Constipation Melatonin (Melatonin 3 Mg Tablet) 6 mg PO BEDTIME PRN PRN Reason: Insomnia Morphine Sulfate (Morphine Sulfate 4 Mg/Ml Cartridge) 2 mg IVPUSH Q4H PRN; Protocol PRN Reason: Pain, Severe (Pain Scale 7-10) Last Admin: 02/13/22 06:44 Dose: 2 mg Ondansetron HCl (Ondansetron Hcl 4 Mg/2 Ml Vial) 4 mg IVPUSH Q8H PRN PRN Reason: Nausea and Vomiting Pharmacy Consult (Consult Rx Vancomycin Dosing) 1 each MISCELLANE DAILY PRN PRN Reason: Consult order Pharmacy Consult (Consult Rx Perform Med Rec) 1 each MISCELLANE ONCE PRN PRN Reason: Consult order Sodium Chloride (0.9 % Sodium Chloride Flush 3 Ml Syringe) 3 ml IVFLUSH QSHIFT [facility] Last Admin: 02/13/22 00:27 Dose: 3 ml Home Medications Medication Instructions Recorded Confirmed Last Taken Type amlodipine 10 mg tablet 1 tab PO DAILY 01/24/21 02/12/22 02/12/22 History aspirin 81 mg tablet,delayed 1 tab PO DAILY 01/24/21 02/12/22 02/12/22 History release citalopram 10 mg tablet 1 tab PO DAILY 01/24/21 02/12/22 02/12/22 History clopidogrel 75 mg tablet 1 tab PO DAILY 01/24/21 02/12/22 02/12/22 History donepezil 10 mg tablet 1 tab PO BEDTIME 01/24/21 02/12/22 02/11/22 History finasteride 5 mg tablet 1 tab PO DAILY 01/24/21 02/12/22 02/12/22 History insulin glargine 100 unit/mL 5 unit subcut BEDTIME 01/24/21 02/12/22 02/11/22 History subcutaneous solution (Lantus U-100 Insulin) tamsulosin 0.4 mg capsule 1 cap PO DAILY 01/24/21 02/12/22 02/12/22 History acetaminophen 325 mg tablet 650 mg PO Q6H PRN Pain 02/12/22 02/12/22 Unknown History dapagliflozin 10 mg tablet 1 tab PO DAILY 02/12/22 02/12/22 02/12/22 History (Farxiga) ergocalciferol (vitamin D2) 1,250 1 cap PO Q2W 02/12/22 02/12/22 01/30/22 History mcg (50,000 unit) capsule insulin aspart U-100 100 unit/mL See Protocol subcut QIDACHS 02/12/22 02/12/22 02/12/22 History subcutaneous solution (Novolog U-100 Insulin aspart) Physical Exam Vital Signs: Vital Signs: Last Vital Signs Temp 98.6 F 02/13/22 00:00 Pulse 80 02/13/22 00:00 Resp 16 02/13/22 06:44 BP 160/80 H 02/13/22 00:00 Pulse Ox 97 02/13/22 00:00 O2 Del Method 02/13/22 00:00 BMI result Body Mass Index 23.8 Const: General: cooperative and no acute distress Orientation/consciousness: patient oriented x3 Resp: Effort & Inspection: normal respiratory effort and able to speak in complete sentences Cardio: Peripheral pulses: Peripheral pulses 2+ throughout Neuro: General: patient oriented x3 Extrem: Other: Left Thumb redness and swelling from the IP joint down to the CMC joint. No pain with axial loading. There is tenderness along the dorsal aspect of the thumb, no pain along the thenar eminence. No pain along the flexor tendons. No pain w ith active or passive ROM of the fingers. He has some difficulty with full flexion of the index and middle finger due to swelling. No tenderness throughout the web spaces of the hand. NVI. Results Labs Result Diagrams: 02/12/22 12:12 02/13/22 04:23 Labs: Abnormal lab results 02/12/22 02/12/22 02/12/22 Range/Units 12:12 12:12 12:26 MPV 9.1 L (9.4-12.4) fL Neut % (Auto) 84.2 H (45-73) % Lymph % (Auto) 8.1 L (20-40) % Lymph # (Auto) 0.8 L (1.2-4.9) X10*3/uL Abs Immat Gran (auto) 0.04 H (0.00-0.03) X10*3/uL ESR 53 H (0-15) MM/HR BUN 28 H (9-16) mg/dL Creatinine 1.91 H (0.5-1.4) mg/dL Random Glucose 210 H (60-115) mg/dL Alkaline Phosphatase 120 H (39-117) U/L C-Reactive Protein 8.75 H (< or = 0.50) mg/dL Total Protein 8.1 H (6.5-8.0) g/dL 02/13/22 Range/Units 04:23 MPV (9.4-12.4) fL Neut % (Auto) (45-73) % Lymph % (Auto) (20-40) % Lymph # (Auto) (1.2-4.9) X10*3/uL Abs Immat Gran (auto) (0.00-0.03) X10*3/uL ESR (0-15) MM/HR BUN (9-16) mg/dL Creatinine 1.66 H (0.5-1.4) mg/dL Random Glucose (60-115) mg/dL Alkaline Phosphatase (39-117) U/L C-Reactive Protein (< or = 0.50) mg/dL Total Protein (6.5-8.0) g/dL H & H 02/12/22 Range/Units 12:12 Hgb 14.5 D (14.0-18.0) g/dl Hct 42.6 D (42.0-52.0) % All other labs normal. Assessment and Plan (1) Cellulitis: Status: Acute (2) Hand abscess: Status: Acute Plan I discussed the case with Dr. Novoa. I discussed the extent of the infection to the patient and options available. Since he has not improved with IV abx at this time, he may benefit from I&D of the left hand. I explained to the patient the procedure in detail along with the risks benefits and alternatives. Risks including but not limited to ongoing infection, wound breakdown, s tiffness, on going pain, numbness and need for further washouts. He does understand all this and would like to proceed with I&D left hand with Dr. Novoa. He will remain NPO. Procedures Date of Service Date of Service: 02/13/22
[2022-02-13 08:00] LABS: Glucose, Whole Blood 106 mg/dL (60-115)
--- NOTE | 2022-02-13 08:26 | HE.PHANOTE ---
Vancomycin Dosing Addendun Continue with current regimen. next level 02/14/22 @1200
--- NOTE | 2022-02-13 09:36 | P.PNIM_ITS ---
Subjective Subjective Date of Service: 02/13/22 Interval History: Seen in f/u for infected hand interval history: redness is better compare to yesterday, pain is also better Review of Systems no fever or chills Physical Exam Vital Signs: Vital Signs: Last Vital Signs Temp 98.6 F 02/13/22 00:00 Pulse 77 02/13/22 08:01 Resp 18 02/13/22 08:01 BP 132/72 02/13/22 08:01 Pulse Ox 96 02/13/22 08:01 O2 Del Method 02/13/22 08:01 BMI result Body Mass Index 23.8 Const: General: cooperative and no acute distress Resp: Effort & Inspection: normal respiratory effort and able to speak in complete sentences Cardio: Peripheral pulses: Peripheral pulses 2+ throughout Extrem: Other: Left Thumb redness and swelling from the IP joint down to the CMC joint. No pain with axial loading. There is tenderness along the dorsal aspect of the thumb, no pain along the thenar eminence. No pain along the flexor tendons. No pain with active or passive ROM of the fingers. He has some difficulty with full flexion of the index and middle finger due to swelling. No tenderness throughout the web spaces of the hand. NVI. Objective Data Active Medications Acetaminophen (Acetaminophen 325 Mg Tablet) 650 mg PO Q6H PRN PRN Reason: Pain, Mild (Pain Scale 1-3) Last Admin: 02/13/22 00:27 Dose: 650 mg Documented By: CHRYSTAL Docusate Sodium (Docusate Sodium 100 Mg Capsule) 100 mg PO DAILY PRN PRN Reason: Constipation Heparin Sodium (Porcine) (Heparin Sodium,Porcine 5,000 Unit/Ml Vial) 5,000 unit SUBCUT Q8H [facility] Last Admin: 02/13/22 06:36 Dose: 5,000 unit Documented By: HCRYSTAL Piperacillin Sod/Tazobactam (Sod 2.25 gm/ Sodium Chloride) 50 mls @ 100 mls/hr IV Q6H [facility] Last Admin: 02/13/22 08:06 Dose: 100 mls/hr Documented By: HITESH Vancomycin HCl 750 mg/ Sodium (Chloride) 265 mls @ 265 mls/hr IV Q24H [facility] Insulin Human Lispro (Insulin Lispro 100 Unit/Ml 3 Ml Vial) 0 unit SUBCUT QIDACHS [facility]; Protocol Last Admin: 02/13/22 08:00 Dose: Not Given Documented By: HITESH Non-Admin Reason: No Insulin Coverage Magnesium Hydroxide (Milk Of Magnesia 30 Ml Oral.Susp) 30 ml PO DAILY PRN PRN Reason: Constipation Melatonin (Melatonin 3 Mg Tablet) 6 mg PO BEDTIME PRN PRN Reason: Insomnia Morphine Sulfate (Morphine Sulfate 4 Mg/Ml Cartridge) 2 mg IVPUSH Q4H PRN; Protocol PRN Reason: Pain, Severe (Pain Scale 7-10) Last Admin: 02/13/22 06:44 Dose: 2 mg Documented By: CHRYSTAL Ondansetron HCl (Ondansetron Hcl 4 Mg/2 Ml Vial) 4 mg IVPUSH Q8H PRN PRN Reason: Nausea and Vomiting Pharmacy Consult (Consult Rx Vancomycin Dosing) 1 each MISCELLANE DAILY PRN PRN Reason: Consult order Pharmacy Consult (Consult Rx Perform Med Rec) 1 each MISCELLANE ONCE PRN PRN Reason: Consult order Sodium Chloride (0.9 % Sodium Chloride Flush 3 Ml [facility]) [facility] Last Admin: 02/13/22 08:06 Dose: 3 ml Documented By: HITESH Labs CBC & Chem 7: 02/12/22 12:12 02/13/22 04:23 Labs: Laboratory Results - last 24 hr 02/12/22 02/12/22 02/12/22 12:12 12:12 12:12 MCV 87.3 MCH 29.7 MCHC 34.0 RDW 11.9 Plt Count 298 D MPV 9.1 L Immature Gran % (Auto) 0.4 Neut % (Auto) 84.2 H Lymph % (Auto) 8.1 L [place] % (Auto) 6.7 Eos % (Auto) 0.3 Baso % (Auto) 0.3 Lymph # (Auto) 0.8 L [place] # (Auto) 0.6 Eos # (Auto) 0.0 Baso # (Auto) 0.0 Abs Immat Gran (auto) 0.04 H Absolute Neuts (auto) 7.9 Absolute Nucleated RBC 0.000 Nucleated RBC % (auto) 0.0 ESR Anion Gap 18 Estim Creat Clear Calc 30.1 Estimated GFR 35 POC Glucose Random Glucose 210 H Lactic Acid Calcium 9.5 Magnesium 2.3 Total Bilirubin 0.6 AST 16 ALT 15 Alkaline Phosphatase 120 H C-Reactive Protein 8.75 H Total Protein 8.1 H Albumin 4.4 COVID-19 (SHEILA) Negative COVID-19 Face to Face Live Com See Note 02/12/22 02/12/22 02/12/22 12:12 12:26 17:44 MCV MCH MCHC RDW Plt Count MPV Immature Gran % (Auto) Neut % (Auto) Lymph % (Auto) [place] % (Auto) Eos % (Auto) Baso % (Auto) Lymph # (Auto) [place] # (Auto) Eos # (Auto) Baso # (Auto) Abs Immat Gran (auto) Absolute Neuts (auto) Absolute Nucleated RBC Nucleated RBC % (auto) ESR 53 H Anion Gap Estim Creat Clear Calc Estimated GFR POC Glucose 113 Random Glucose Lactic Acid 1.1 Calcium Magnesium Total Bilirubin AST ALT Alkaline Phosphatase C-Reactive Protein Total Protein Albumin COVID-19 (SHEILA) COVID-19 [employer] 02/13/22 02/13/22 04:23 07:56 MCV MCH MCHC RDW Plt Count MPV Immature Gran % (Auto) Neut % (Auto) Lymph % (Auto) [place] % (Auto) Eos % (Auto) Baso % (Auto) Lymph # (Auto) [place] # (Auto) Eos # (Auto) Baso # (Auto) Abs Immat Gran (auto) Absolute Neuts (auto) Absolute Nucleated RBC Nucleated RBC % (auto) ESR Anion Gap Estim Creat Clear Calc 34.6 Estimated GFR 41 POC Glucose 106 Random Glucose Lactic Acid Calcium Magnesium Total Bilirubin AST ALT Alkaline Phosphatase C-Reactive Protein Total Protein Albumin COVID-19 (SHEILA) COVID-19 [employer] Assessment and Plan (1) Hand abscess: Status: Acute (2) Cellulitis: Status: Acute Plan ?71 year old belarusian speaking only male? (history obtained via certified alteration hand)? with insulin dependent non compliant, dementia, HTN, and BPH. He presents with? left swelling and pain ( see pictures below),4 days ago, he tripped tripped over a box? and while going down held onto a lamp that broke a sustained laceration to the left hand and right little finger. He has cellulitis of the hand associated with high CRP and ESR 1/Left Hand cellulitis-- - Vanco and Zosyn D2 - ID and Ortho consult. -Get MRI to r/o osteo, follow culture. Pain control with IV morphine \2/Diabetes--continue home regimen (lantus, SSI) hold Faxiga,, diabetic diet 3/CKD3B, mild TONY--IV fluid and reassess tomorrow 4/HTN-controlled, continue Norvasc 5/BPH-Flomax, finesteride 6/Dementia--Aricept 7/DVT prophylaxis--Heparin 8/Full code Need for inpatient: management of limb threatening cellulitis of the hand with IV abx and surgical evaluation and further testing with MRI Quality Stroke Does the patient have a stroke diagnosis?: No VTE Prior VTE?: No VTE Risk Level:: Medical - moderate - high VTE Device Contraindication: Treatment Not Indicated VTE Drug Contraindication: N/A - Med Ordered
--- NOTE | 2022-02-13 09:47 | PC.NURSE ---
pt to the OR
--- NOTE | 2022-02-13 10:26 | HO.ANESPROP2 ---
HPI - Anesthesia Eval Consult details Narrative: 71 M for I and D left hand abscess PMFSH Active Problems Active Problems: All Active Problems (Updated 02/13/22 @ 08:03 by Jose Alfredo Spaulding PA-C) Hand abscess (Acute) Cellulitis (Acute) Infected wound (Acute) Past Medical History Medical History (Updated 02/13/22 @ 08:03 by Jose Alfredo Spaulding PA-C) BPH (benign prostatic hyperplasia) CKD stage G3b/A1, GFR 30-44 and albumin creatinine ratio <30 mg/g Dementia Diabetes Dog bite History of amputation of toe Hypertension Rhabdomyolysis Family History Family History Other Diabetes HTN (hypertension) Family history of problems with anesthesia: No Surgical History History of Problems with Anesthesia: No Social History Social History Household Members: Spouse Housing: Apartment Do you presently have visiting nurse or other home services: Yes (every 3 months) Alcohol intake: never Patient Tobacco Use Status: Former Tobacco user Quit Date: 1999 Advance Directives Date on File: 01/25/21 service: No Current occupational status: retired Meds Allergies Allergy/AdvReac Type Severity Reaction Status Date / Time oxycodone [From PERCOCET] Allergy Unknown CAN'T Verified 01/24/21 21:27 BREATH/VOMITING simvastatin [SIMVASTATIN] Allergy Unknown UNKNOWN Verified 01/24/21 21:27 peas AdvReac Unknown VOMITING/FA Verified 01/24/21 21:27 INTING SALMON [id number] AdvReac Unknown VOMITING/FA Uncoded 01/24/21 21:27 INT Active Medications: Current Medications Acetaminophen (Acetaminophen 325 Mg Tablet) 650 mg PO Q6H PRN PRN Reason: Pain, Mild (Pain Scale 1-3) Last Admin: 02/13/22 00:27 Dose: 650 mg Amlodipine Besylate (Amlodipine Besylate 10 Mg Tablet) 10 mg PO DAILY [facility]; Protocol Aspirin (Aspirin Enteric Coated 81 Mg Tablet.Dr) 81 mg PO DAILY [facility] Docusate Sodium (Docusate Sodium 100 Mg Capsule) 100 mg PO DAILY PRN PRN Reason: Constipation Donepezil HCl (Donepezil Hcl 10 Mg Tablet) 10 mg PO BEDTIME [facility] Empagliflozin (Empagliflozin 10 Mg Tablet) 10 mg PO DAILY [facility] Ergocalciferol (Ergocalciferol (Vitamin D2) 1,250 Mcg Capsule) 1,250 mcg PO Q14H [facility] Escitalopram Oxalate (Escitalopram Oxalate 5 Mg Tablet) 5 mg PO DAILY [facility] Finasteride (Finasteride 5 Mg Tablet) 5 mg PO DAILY [facility] Heparin Sodium (Porcine) (Heparin Sodium,Porcine 5,000 Unit/Ml Vial) 5,000 unit SUBCUT Q8H [facility] Last Admin: 02/13/22 06:36 Dose: 5,000 unit Piperacillin Sod/Tazobactam (Sod 2.25 gm/ Sodium Chloride) 50 mls @ 100 mls/hr IV Q6H [facility] Last Infusion: 02/13/22 08:36 Dose: Infused Vancomycin HCl 750 mg/ Sodium (Chloride) 265 mls @ 265 mls/hr IV Q24H [facility] Insulin Glargine (Insulin Glargine,Hum.Rec.Anlog 100 Unit/Ml 10 Ml Vial) 5 unit SUBCUT BEDTIME [facility] Insulin Human Lispro (Insulin Lispro 100 Unit/Ml 3 Ml Vial) 0 unit SUBCUT QIDACHS [facility]; Protocol Last Admin: 02/13/22 08:00 Dose: Not Given Magnesium Hydroxide (Milk Of Magnesia 30 Ml Oral.Susp) 30 ml PO DAILY PRN PRN Reason: Constipation Melatonin (Melatonin 3 Mg Tablet) 6 mg PO BEDTIME PRN PRN Reason: Insomnia Morphine Sulfate (Morphine Sulfate 4 Mg/Ml Cartridge) 2 mg IVPUSH Q4H PRN; Protocol PRN Reason: Pain, Severe (Pain Scale 7-10) Last Admin: 02/13/22 06:44 Dose: 2 mg Ondansetron HCl (Ondansetron Hcl 4 Mg/2 Ml Vial) 4 mg IVPUSH Q8H PRN PRN Reason: Nausea and Vomiting Pharmacy Consult (Consult Rx Vancomycin Dosing) 1 each MISCELLANE DAILY PRN PRN Reason: Consult order Pharmacy Consult (Consult Rx Perform Med Rec) 1 each MISCELLANE ONCE PRN PRN Reason: Consult order Sodium Chloride (0.9 % Sodium Chloride Flush 3 Ml Syringe) 3 ml IVFLUSH QSHIFT [facility] Last Admin: 02/13/22 08:06 Dose: 3 ml Tamsulosin HCl (Tamsulosin Hcl 0.4 Mg Capsule) 0.4 mg PO DAILY [facility] Home Medications Medication Instructions Recorded Confirmed Last Taken Type amlodipine 10 mg tablet 1 tab PO DAILY 01/24/21 02/12/22 02/12/22 History aspirin 81 mg tablet,delayed 1 tab PO DAILY 01/24/21 02/12/22 02/12/22 History release citalopram 10 mg tablet 1 tab PO DAILY 01/24/21 02/12/22 02/12/22 History clopidogrel 75 mg tablet 1 tab PO DAILY 01/24/21 02/12/22 02/12/22 History donepezil 10 mg tablet 1 tab PO BEDTIME 01/24/21 02/12/22 02/11/22 History finasteride 5 mg tablet 1 tab PO DAILY 01/24/21 02/12/22 02/12/22 History insulin glargine 100 unit/mL 5 unit subcut BEDTIME 01/24/21 02/12/22 02/11/22 History subcutaneous solution (Lantus U-100 Insulin) tamsulosin 0.4 mg capsule 1 cap PO DAILY 01/24/21 02/12/22 02/12/22 History acetaminophen 325 mg tablet 650 mg PO Q6H PRN Pain 02/12/22 02/12/22 Unknown History dapagliflozin 10 mg tablet 1 tab PO DAILY 02/12/22 02/12/22 02/12/22 History (Farxiga) ergocalciferol (vitamin D2) 1,250 1 cap PO Q2W 02/12/22 02/12/22 01/30/22 History mcg (50,000 unit) capsule insulin aspart U-100 100 unit/mL See Protocol subcut QIDACHS 02/12/22 02/12/22 02/12/22 History subcutaneous solution (Novolog U-100 Insulin aspart) Exam Exam Date and Time: February 13, 2022 1026 Height,Weight and Vital Signs: Height 5 ft 4 in Weight 63.049 kg Last Vital Signs Temp 98.7 F 02/13/22 10:05 Pulse 69 02/13/22 10:05 Resp 16 02/13/22 10:05 BP 142/79 H 02/13/22 10:05 Pulse Ox 97 02/13/22 10:05 O2 Del Method 02/13/22 10:05 Pertinent Lab Results Pertinent Lab Results: Laboratory Tests 02/12/22 02/12/22 02/12/22 12:12 12:12 12:12 WBC 9.4 RBC 4.88 D Hgb 14.5 D Hct 42.6 D MCV 87.3 MCH 29.7 MCHC 34.0 RDW 11.9 Plt Count 298 D MPV 9.1 L Immature Gran % (Auto) 0.4 Neut % (Auto) 84.2 H Lymph % (Auto) 8.1 L [place] % (Auto) 6.7 Eos % (Auto) 0.3 Baso % (Auto) 0.3 Lymph # (Auto) 0.8 L [place] # (Auto) 0.6 Eos # (Auto) 0.0 Baso # (Auto) 0.0 Abs Immat Gran (auto) 0.04 H Absolute Neuts (auto) 7.9 Absolute Nucleated RBC 0.000 Nucleated RBC % (auto) 0.0 ESR Sodium 138 Potassium 4.6 Chloride 101 Carbon Dioxide 24 Anion Gap 18 BUN 28 H Creatinine 1.91 H Estim Creat Clear Calc 30.1 Estimated GFR 35 POC Glucose Random Glucose 210 H Lactic Acid Calcium 9.5 Magnesium 2.3 Total Bilirubin 0.6 AST 16 ALT 15 Alkaline Phosphatase 120 H C-Reactive Protein 8.75 H Total Protein 8.1 H Albumin 4.4 COVID-19 (SHEILA) Negative COVID-19 Clin Com See Note 02/12/22 02/12/22 02/12/22 12:12 12:26 17:44 WBC RBC Hgb Hct MCV MCH MCHC RDW Plt Count MPV Immature Gran % (Auto) Neut % (Auto) Lymph % (Auto) [place] % (Auto) Eos % (Auto) Baso % (Auto) Lymph # (Auto) [place] # (Auto) Eos # (Auto) Baso # (Auto) Abs Immat Gran (auto) Absolute Neuts (auto) Absolute Nucleated RBC Nucleated RBC % (auto) ESR 53 H Sodium Potassium Chloride Carbon Dioxide Anion Gap BUN Creatinine Estim Creat Clear Calc Estimated GFR POC Glucose 113 Random Glucose Lactic Acid 1.1 Calcium Magnesium Total Bilirubin AST ALT Alkaline Phosphatase C-Reactive Protein Total Protein Albumin COVID-19 (SHEILA) COVID-19 Clin Com 02/13/22 02/13/22 04:23 07:56 WBC RBC Hgb Hct MCV MCH MCHC RDW Plt Count MPV Immature Gran % (Auto) Neut % (Auto) Lymph % (Auto) [place] % (Auto) Eos % (Auto) Baso % (Auto) Lymph # (Auto) [place] # (Auto) Eos # (Auto) Baso # (Auto) Abs Immat Gran (auto) Absolute Neuts (auto) Absolute Nucleated RBC Nucleated RBC % (auto) ESR Sodium Potassium Chloride Carbon Dioxide Anion Gap BUN Creatinine 1.66 H Estim Creat Clear Calc 34.6 Estimated GFR 41 POC Glucose 106 Random Glucose Lactic Acid Calcium Magnesium Total Bilirubin AST ALT Alkaline Phosphatase C-Reactive Protein Total Protein Albumin COVID-19 (SHEILA) COVID-19 Clin Com Airway Mallampati Class: III TM Dist: >3cm Neck ROM: Full Loose/Missing/Broken Teeth: Yes (Poor dentition overall , multiple chipped teeth ) Heart: S1, S2 Lungs: b/l breath sounds Assessment and Plan Assessment Anesthesia Assessment: Anesthesia Plan Discussed and Chart Reviewed Final Anesthetic Review Family History of Problems with Anesthesia: No History of Problems with Anesthesia: No NPO: Yes ASA Class: III and Emergency Final Preanesthetic Review: Meds/Allgs Chart Reviewed and Consent Obtained/Reviewed Patient Risk: Intermediate Procedure Risk: Intermediate Anesthetic Plan Anesthetic Plan: GA Disposition: Inp. Admit - Standard Bed
--- NOTE | 2022-02-13 10:29 | PC.NURSE ---
Patient in OR, medications not given
--- NOTE | 2022-02-13 11:30 | MHC.SHP ---
Pre-Procedural Eval Section A Date of Service: 02/13/22 The patient is an INPATIENT: Yes Changes since office visit: No Cold of Flu in the past 2 weeks, No New Medical Problems, No Changes in Medication and No Patient answered all questions The History & Physical has been completed within 30 days and I have reviewed it.: Yes Section B Chief Complaint: right hand abscess Allergies: Allergies Allergy/AdvReac Type Severity Reaction Status Date / Time oxycodone [From PERCOCET] Allergy Unknown CAN'T Verified 01/24/21 21:27 BREATH/VOMITING simvastatin [SIMVASTATIN] Allergy Unknown UNKNOWN Verified 01/24/21 21:27 peas AdvReac Unknown VOMITING/FA Verified 01/24/21 21:27 INTING SALMON [id number] AdvReac Unknown VOMITING/FA Uncoded 01/24/21 21:27 INT Exam Exam Comment: S: the patient is a 71-year-old man who sustained an injury from a broken lamp to the dorsal aspect of his left thumb, and also to the right small finger. Developed swelling and redness and was seen in the emergency department and placed on IV antibiotics. The small finger reportedly looks and feels a lot better but he still has quite a bit of swelling and tenderness in the dorsal aspect of the left thumb at the 1st metacarpal level. He also has diabetes. O: The patient was alert oriented and in no acute distress. With regards to the right small finger he has mild erythema which the patient says is much improved since he has been on an IV antibiotics. Was minimally tender and he can make a fist and fully extended. No pain with axial loading. With regards to the left hand: He has significant swelling and erythema to the dorsal aspect of the left hand primarily over the dorsal aspect of the 1st metacarpal. There is also an approximately 5 mm scabbed over wound at the apex of this area of swelling and mild fluctuance. The thenar aspect is not particularly tender and he is able to actively flex and extend the thumb. He feels like sensation is intact and normal to the volar aspect of the thumb. He can actively bring his fingers close to a fist and back into extension without pain. No pain with axial loading of the wrist. Plan Assessment and plan: 1. Left dorsal hand abscess, primarily over the 1st metacarpal following an injury about 4-5 days ago with a broken lamp. I educated the patient about this condition we discussed operative and non operative treatment options, and I am recommending an operative I&D. The risks and benefits of operative treatment were discussed with the patient and the patient wishes to proceed with surgery. These risks include, but are not limited to risk of damage to blood vessels, nerves, tendons, infection, recurrence, incomplete relief of preoperative symptoms, persistent pain, possible need for further surgery and the risks associated with regional blocks and anesthesia. The plan is to take the patient to the operating room Today for the following procedures: 1. left hand I and D 2. [ ] All of the preoperative paperwork including the consent was filled out today. All the patient's questions were answered. The patient understands that they will be contacted by our datawarehouse developer soon to schedule this procedure I have reviewed the history and physical and performed a pertinent physical examination on my patient. No changes have occurred unless specified.
--- NOTE | 2022-02-13 13:08 | W.PM.OPN ---
Operative Note Operative Note Date of Service: 02/13/22 Narrative: Operative Note Narrative: Preop diagnosis: left hand abscess Postop diagnosis: Same Procedure: 1. Left hand abscess I and D, including volar aspect of 1st webspace Surgeon: Betty Novoa MD Anesthesia: General Anesthesia Findings: creamy yellow purulence extending from the dorsum of the 1st metacarpal thumb to the volar aspect of the for post web space dorsal aspect over the 2nd metacarpal and superficially down to the basal joint Implants: iodoform gauze drains x4 Tourniquet time: 0 minutes EBL: 5.0 ml Specimen: cultures x2 Drains: None Complications: None Disposition: Brought to the recovery room in stable condition Plan: admit back to floor for IV antibiotics pulled drains postop day 1 Follow-up in 5-7 days for wound check, suture removal and to check pathology Indications: The patient is a [age] year old man with an abscess peaking over the dorsal aspect of his left 1st metacarpal after cutting this area with a broken lamp. . The risks and benefits of operative treatment, including but not limited to risk of damage to blood vessels, nerves, tendons, infection, recurrence, persistent pain or numbness, incomplete resolution of preoperative symptoms, or need for further surgery were discussed with the patient and they wished to proceed with surgery. Procedure: Once consent was obtained patient was brought back to the operating suite and placed in the operating table in a supine position. . Perioperative antibiotics and anesthesia was administered by the anesthesia team. A tourniquet was applied to the proximal aspect of the Left upper extremity and the limb was prepped and draped in a standard surgical fashion. The Tourniquet was not inflated during the case. I made a 1.5 cm longitudinal incision over the draining wound which had its apex over the dorsal aspect of the left thumb 1st metacarpal. Incision was made through the skin to the subcutaneous tissues. There is immediately copious amounts of creamy yellow purulence. Cultures were taken. I then explored this wound and found that it extended subcutaneously for about 2-3 cm distally, about 3 cm proximally, and then also into the deeper space extending to the volar aspect of the 1st web space bursa. Cultures were again taken from the deeper aspect of the 1st web space. It also extended radially over the dorsal aspect of the 2nd metacarpal. I made 1 cm incisions over the dorsal aspect a 2nd metacarpal, more distally over the 1st metacarpal head, and volarly through the 1st web space on the volar aspect of the 1st web space. The wound was then copiously irrigated with normal saline. I also did debrided a small amount of devitalized tissue from the wound over the 1st metacarpal. I then placed 4 separate iodoform gauze strips as drains 1 extending from the primary wound over the 1st metacarpal to the incision I made over the 2nd metacarpal, the 2nd extending through the 1st web space to this small incision I made over the volar aspect of the 1st web space, and the 3rd Extending to the wound at the distal aspect of the 1st metacarpal. the 4th piece of iodoform gauze was placed as a loop into the space proximal to the wound towards the basal joint of the thumb. A sterile dressing was then applied. The patient appears to have tolerated the procedure well and with no complications. All digits were well vascularized conclusion of the case.
[2022-02-13] MEDS: fentaNYL citrate/PF 100 MCG/2 ML VIAL 25 MCG IVPUSH (13:32)
[2022-02-13] MEDS: vancomycin HCL 750 MG in 0.9 % Sodium Chloride 250 ML 265 MG IV (14:32)
[2022-02-13 16:28] LABS: Glucose, Whole Blood 119 mg/dL (60-115)
[2022-02-13 20:19] LABS: Glucose, Whole Blood 244 mg/dL (60-115)
[2022-02-13] MEDS: Insulin Glargine,Hum.rec.anlog 100 UNIT/ML 10 ML VIAL SUBCUT (21:26)
[2022-02-13] MEDS: Donepezil HCl 10 MG TABLET PO (21:26)
[2022-02-13] MEDS: Insulin Lispro 100 UNIT/ML 3 ML VIAL SUBCUT (21:26)
[2022-02-13] MEDS: Ergocalciferol (Vitamin D2) 1,250 MCG CAPSULE 1250 MCG PO (23:36)
[2022-02-14] VITALS: BP 134/69; PULSE 75; RESP 14; TEMP 37.2; O2SAT 94
[2022-02-14] MEDS: Piperacillin Sodium/Tazobactam 2.25 GM in 0.9 % Sodium Chloride 50 ML IV ×4 (00:24→17:55)
[2022-02-14] MEDS: Heparin Sodium,Porcine 5,000 UNIT/ML VIAL 5000 UNIT SUBCUT ×3 (05:56→21:38)
--- NOTE | 2022-02-14 06:39 | PC.NURSE ---
pt refused 0400 VSs.
[2022-02-14 07:10] LABS: Creatinine Clr Calc Pharmacy 33.6; Estimated Glomerular Filt Rate 40
[2022-02-14 08:00] VITALS: BP 142/74; PULSE 67; RESP 18; TEMP 37.1; O2SAT 92
[2022-02-14] MEDS: Empagliflozin 10 MG TABLET PO (08:05)
[2022-02-14] MEDS: Finasteride 5 MG TABLET PO (08:05)
[2022-02-14] MEDS: Aspirin Enteric Coated 81 MG TABLET.DR PO (08:05)
[2022-02-14] MEDS: amLODIPine Besylate 10 MG TABLET PO (08:05)
[2022-02-14] MEDS: Tamsulosin HCL 0.4 MG CAPSULE PO (08:05)
[2022-02-14] MEDS: 0.9 % Sodium Chloride Flush 3 ML SYRINGE IVFLUSH ×3 (08:06→21:38)
[2022-02-14] MEDS: Escitalopram Oxalate 5 MG TABLET PO (08:06)
--- NOTE | 2022-02-14 08:07 | PM.PNORT ---
Subjective Subjective Date of Service: 02/14/22 Interval history: POD 1 s/p I&D left hand no overnight events resting in bed, elevating arm, pain is tolerable Physical Exam Vital Signs: Vital Signs: Last Vital Signs Temp 98.9 F 02/14/22 00:00 Pulse 75 02/14/22 00:00 Resp 14 02/14/22 00:00 BP 134/69 02/14/22 00:00 Pulse Ox 94 02/14/22 00:00 O2 Del Method 02/14/22 00:00 O2 Flow Rate 3 02/13/22 12:25 BMI result Body Mass Index 23.8 Const: General: cooperative, healthy appearing and no acute distress Resp: Effort & Inspection: normal respiratory effort and able to speak in complete sentences Cardio: Rate: regular rate Peripheral pulses: Peripheral pulses 2+ throughout GI: Palpation (GI): Soft to palpation Skin: General skin exam: no rashes or lesions noted Extrem: Other: Left hand incision clean dry and intact. improved swelling. He is able to extend all digits . He can make a fist with the exception of his index and middle finger flex to about 2 cm above palmar crease. NVI. Procedures Date of Service Date of Service: 02/14/22 Progress Note: A&P Assessment and plan (1) Hand abscess: Status: Acute (2) Cellulitis: Status: Acute Plan continue iv abx and follow cultures daily dry dressing changes elevate work on Hand ROM. Time Spent With Patient Time: Total time spent is greater than 50% in coordination of care (as documented) at patient's floor/unit and/or counseling patient: Quality Stroke Does the patient have a stroke diagnosis?: No VTE Prior VTE?: No VTE Risk Level:: Medical - moderate - high VTE Device Contraindication: Treatment Not Indicated VTE Drug Contraindication: N/A - Med Ordered
[2022-02-14] MEDS: Insulin Lispro 100 UNIT/ML 3 ML VIAL SUBCUT ×2 (08:13→12:03)
[2022-02-14 08:17] LABS: Glucose, Whole Blood 155 mg/dL (60-115)
--- NOTE | 2022-02-14 10:42 | HO.POSTANES ---
Post Anesthesia Evaluation Post Anesthesia Evaluation Vital Signs: Vital Signs Temp Pulse Resp BP Pulse Ox O2 Del Method 02/14/22 08:00 98.8 F 67 18 142/74 H 92 Room Air 02/14/22 00:00 98.9 F 75 14 134/69 94 Room Air Anesthesia: General Mental Status: Awake Pain Control: Satisfactory Nausea/Vomiting: None Hydration: Adequate Anesthesia-Related Issues: No Anes. Related Issues
[2022-02-14 11:14] VITALS: BP 128/62; PULSE 76; RESP 18; TEMP 36.9; O2SAT 95
[2022-02-14 11:24] LABS: Glucose, Whole Blood 226 mg/dL (60-115)
[2022-02-14 11:40] LABS: Glucose, Whole Blood 276 mg/dL (60-115)
--- NOTE | 2022-02-14 13:06 | W.PM.IDCN ---
History of Present Illness Data of Consult Service Date: 02/14/22 Requesting physician: Tejinder Thomas Primary Care Provider: Penny Camarena MD HPI Reason for consult: bilateral hand wounds,abscess left hand He presents to hospital with discomfort bilateral hands after falling on lamp four days ago. He has no fever or chills or leukocytosis. He has redness and swelling and went to OR yesterday and Dr Novoa opened area of purulence at dorsum first [facility] to [employer] web space He has culture pending. 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) Alcohol intake: never Patient Tobacco Use Status: Former Tobacco user Quit Date: 1999 Advance Directives Date on File: 01/25/21 service: No Current occupational status: retired Meds Allergies Allergy/AdvReac Type Severity Reaction Status Date / Time oxycodone [From PERCOCET] Allergy Unknown CAN'T Verified 01/24/21 21:27 BREATH/VOMITING simvastatin [SIMVASTATIN] Allergy Unknown UNKNOWN Verified 01/24/21 21:27 peas AdvReac Unknown VOMITING/FA Verified 01/24/21 21:27 INTING SALMON [id number] AdvReac Unknown VOMITING/FA Uncoded 01/24/21 21:27 INT Active Medications: Current Medications Acetaminophen (Acetaminophen 325 Mg Tablet) 650 mg PO Q6H PRN PRN Reason: Pain, Mild (Pain Scale 1-3) Last Admin: 02/13/22 00:27 Dose: 650 mg Amlodipine Besylate (Amlodipine Besylate 10 Mg Tablet) 10 mg PO DAILY [facility]; Protocol Last Admin: 02/14/22 08:05 Dose: 10 mg Aspirin (Aspirin Enteric Coated 81 Mg Tablet.) 81 mg PO DAILY [facility] Last Admin: 02/14/22 08:05 Dose: 81 mg Docusate Sodium (Docusate Sodium 100 Mg Capsule) 100 mg PO DAILY PRN PRN Reason: Constipation Donepezil HCl (Donepezil Hcl 10 Mg Tablet) 10 mg PO BEDTIME [facility] Last Admin: 02/13/22 21:26 Dose: 10 mg Empagliflozin (Empagliflozin 10 Mg Tablet) 10 mg PO DAILY [facility] Last Admin: 02/14/22 08:05 Dose: 10 mg Ergocalciferol (Ergocalciferol (Vitamin D2) 1,250 Mcg Capsule) 1,250 mcg PO Q14H [facility] Last Admin: 02/13/22 23:36 Dose: 1,250 mcg Escitalopram Oxalate (Escitalopram Oxalate 5 Mg Tablet) 5 mg PO DAILY [facility] Last Admin: 02/14/22 08:06 Dose: 5 mg Fentanyl (Fentanyl Citrate/Pf 100 Mcg/2 Ml Vial) 25 mcg IVPUSH Q5M PRN; Protocol PRN Reason: Pain, Moderate (Pain Scale 4-6 Last Admin: 02/13/22 13:32 Dose: 25 mcg Finasteride (Finasteride 5 Mg Tablet) 5 mg PO DAILY [facility] Last Admin: 02/14/22 08:05 Dose: 5 mg Heparin Sodium (Porcine) (Heparin Sodium,Porcine 5,000 Unit/Ml Vial) 5,000 unit SUBCUT Q8H [facility] Last Admin: 02/14/22 05:56 Dose: 5,000 unit Piperacillin Sod/Tazobactam (Sod 2.25 gm/ Sodium Chloride) 50 mls @ 100 mls/hr IV Q6H [facility] Last Admin: 02/14/22 12:04 Dose: 100 mls/hr Vancomycin HCl 750 mg/ Sodium (Chloride) 265 mls @ 265 mls/hr IV Q24H [facility] Last Infusion: 02/13/22 16:14 Dose: Infused Insulin Glargine (Insulin Glargine,Hum.Rec.Anlog 100 Unit/Ml 10 Ml Vial) 5 unit SUBCUT BEDTIME [facility] Last Admin: 02/13/22 21:26 Dose: 5 unit Insulin Human Lispro (Insulin Lispro 100 Unit/Ml 3 Ml Vial) 0 unit SUBCUT QIDACHS [facility]; Protocol Last Admin: 02/14/22 12:03 Dose: 6 unit Magnesium Hydroxide (Milk Of Magnesia 30 Ml Oral.Susp) 30 ml PO DAILY PRN PRN Reason: Constipation Melatonin (Melatonin 3 Mg Tablet) 6 mg PO BEDTIME PRN PRN Reason: Insomnia Morphine Sulfate (Morphine Sulfate 4 Mg/Ml Cartridge) 2 mg IVPUSH Q4H PRN; Protocol PRN Reason: Pain, Severe (Pain Scale 7-10) Last Admin: 02/13/22 06:44 Dose: 2 mg Ondansetron HCl (Ondansetron Hcl 4 Mg/2 Ml Vial) 4 mg IVPUSH Q8H PRN PRN Reason: Nausea and Vomiting Pharmacy Consult (Consult Rx Vancomycin Dosing) 1 each MISCELLANE DAILY PRN PRN Reason: Consult order Pharmacy Consult (Consult Rx Perform Med Rec) 1 each MISCELLANE ONCE PRN PRN Reason: Consult order Sodium Chloride (0.9 % Sodium Chloride Flush 3 Ml Syringe) 3 ml IVFLUSH [facility] Last Admin: 02/14/22 08:06 Dose: 3 ml Tamsulosin HCl (Tamsulosin Hcl 0.4 Mg Capsule) 0.4 mg PO DAILY [facility] Last Admin: 02/14/22 08:05 Dose: 0.4 mg Home Medications Medication Instructions Recorded Confirmed Last Taken Type amlodipine 10 mg tablet 1 tab PO DAILY 01/24/21 02/12/22 02/12/22 History aspirin 81 mg tablet,delayed 1 tab PO DAILY 01/24/21 02/12/22 02/12/22 History release citalopram 10 mg tablet 1 tab PO DAILY 01/24/21 02/12/22 02/12/22 History clopidogrel 75 mg tablet 1 tab PO DAILY 01/24/21 02/12/22 02/12/22 History donepezil 10 mg tablet 1 tab PO BEDTIME 01/24/21 02/12/22 02/11/22 History finasteride 5 mg tablet 1 tab PO DAILY 01/24/21 02/12/22 02/12/22 History insulin glargine 100 unit/mL 5 unit subcut BEDTIME 01/24/21 02/12/22 02/11/22 History subcutaneous solution (Lantus U-100 Insulin) tamsulosin 0.4 mg capsule 1 cap PO DAILY 01/24/21 02/12/22 02/12/22 History acetaminophen 325 mg tablet 650 mg PO Q6H PRN Pain 02/12/22 02/12/22 Unknown History dapagliflozin 10 mg tablet 1 tab PO DAILY 02/12/22 02/12/22 02/12/22 History (Farxiga) ergocalciferol (vitamin D2) 1,250 1 cap PO Q2W 02/12/22 02/12/22 01/30/22 History mcg (50,000 unit) capsule insulin aspart U-100 100 unit/mL See Protocol subcut QIDACHS 02/12/22 02/12/22 02/12/22 History subcutaneous solution (Novolog U-100 Insulin aspart) Physical Exam Vital Signs: Vital Signs: Last Vital Signs Temp 98.4 F 02/14/22 11:14 Pulse 76 02/14/22 11:14 Resp 18 02/14/22 11:14 BP 128/62 02/14/22 11:14 Pulse Ox 95 02/14/22 11:14 O2 Del Method 02/14/22 11:14 O2 Flow Rate 3 02/13/22 12:25 BMI result Body Mass Index 23.8 Const: General: cooperative HEENT: Head: Yes normal to inspection Face and sinus: Yes normal facial exam Mouth: Normal oral and palatal mucosa present Teeth and gingiva: dentition normal Eyes: General: appearance normal, both eyes and all related structures Pupils: Equal, round and reactive pupils present Resp: Effort & Inspection: normal respiratory effort Cardio: Rate: regular rate Rhythm: regular rhythm GI: Palpation (GI): Soft to palpation and nontender : General: Yes no CVA tenderness Back/Spine/Pelvis: Back: no CVA tenderness Skin: General skin exam: no rashes or lesions noted Neuro: General: moves all extremities Cranial nerves: Yes Equal, round and reactive pupils present Extrem: Other: postop wrapped left hand,some cellulitis thumb remains right fifth finger some erythema General: Yes normal to inspection Psych: Appearance: grossly normal Results Labs CBC & Chem 7: 02/12/22 12:12 02/14/22 05:54 Labs: BMP 02/14/22 05:54 Creatinine 1.71 H Microbiology Microbiology Results: Microbiology 02/13/22 Unknown Hand Left Gram Stain - Final 02/13/22 Unknown Hand Left Routine Culture - Preliminary Culture in progress. 02/13/22 Unknown Hand Left Gram Stain - Final 02/13/22 Unknown Hand Left Routine Culture - Preliminary Culture in progress. 02/12/22 12:26 Blood - Venous Blood Culture - Preliminary No growth after 24 hours. 02/12/22 12:12 Blood - Venous Blood Culture - Preliminary No growth after 24 hours. 02/13/22 11:52 Hand Left Direct Acid Fast Bacilli Smear - Final 02/13/22 11:52 Hand Left Acid Fast Bacilli Culture & Smear - Final 02/13/22 11:55 Hand Left Direct Acid Fast Bacilli Smear - Final 02/13/22 11:55 Hand Left Acid Fast Bacilli Culture & Smear - Final Assessment and Plan (1) Hand abscess: Status: Acute He has creamy pus reported from hand. There is possible staph or strep NKDA (2) Cellulitis: Status: Acute Plan Would continue Vancomycin and piperacillin/tazobactam Await cultures and duration antibiotics to be determined. He can probably get po when leaves for fourteen days but await cultures
[2022-02-14 13:08] LABS: Vancomycin Random 12.2 mcg/mL (15-20)
--- NOTE | 2022-02-14 13:21 | HE.PHANOTE ---
RE: vanco trough on 02/14 came back at 12.2; increased dose to 1000mg Q24H with predicted AUC 520mg/L; next level to be drawn 02/16 @1200
[2022-02-14] MEDS: vancomycin HCL 1,000 MG in 0.9 % Sodium Chloride 250 ML 270 MG IV (13:52)
[2022-02-14] MEDS: Ergocalciferol (Vitamin D2) 1,250 MCG CAPSULE 1250 MCG PO (13:57)
--- NOTE | 2022-02-14 16:16 | HO.PM.IMPN ---
Subjective Subjective Date of Service: 02/14/22 Interval History: f/u for infected hand Review of Systems erythema /pain seems to be improving Physical Exam Vital Signs: Vital Signs: Last Vital Signs Temp 98.4 F 02/14/22 11:14 Pulse 76 02/14/22 11:14 Resp 18 02/14/22 11:14 BP 128/62 02/14/22 11:14 Pulse Ox 95 02/14/22 11:14 O2 Del Method 02/14/22 12:50 O2 Flow Rate 3 02/13/22 12:25 Oxygen Flow Rate 95 02/14/22 12:50 BMI result Body Mass Index 23.8 Appearance: Alert.? Oriented X3.? cvs: rrr, [id number] , no murmur res: clear to auscultation ,no rhonchii or wheezing abd: no rebound or guarding ,nt, bs present. ext pulses present ,right humb pain/erythema neuro: axo3 , nonfocal. Objective Data Active Medications Acetaminophen (Acetaminophen 325 Mg Tablet) 650 mg PO Q6H PRN PRN Reason: Pain, Mild (Pain Scale 1-3) Last Admin: 02/13/22 00:27 Dose: 650 mg Documented By: CHRYSTAL Amlodipine Besylate (Amlodipine Besylate 10 Mg Tablet) 10 mg PO DAILY [facility]; Protocol Last Admin: 02/14/22 08:05 Dose: 10 mg Documented By: ANALY Aspirin (Aspirin Enteric Coated 81 Mg Tablet.) 81 mg PO DAILY [facility] Last Admin: 02/14/22 08:05 Dose: 81 mg Documented By: ANALY Docusate Sodium (Docusate Sodium 100 Mg Capsule) 100 mg PO DAILY PRN PRN Reason: Constipation Donepezil HCl (Donepezil Hcl 10 Mg Tablet) 10 mg PO BEDTIME [facility] Last Admin: 02/13/22 21:26 Dose: 10 mg Documented By: HERIBERTO Empagliflozin (Empagliflozin 10 Mg Tablet) 10 mg PO DAILY [facility] Last Admin: 02/14/22 08:05 Dose: 10 mg Documented By: ANALY Ergocalciferol (Ergocalciferol (Vitamin D2) 1,250 Mcg Capsule) 1,250 mcg PO Q14H [facility] Last Admin: 02/14/22 13:57 Dose: 1,250 mcg Documented By: ANALY Escitalopram Oxalate (Escitalopram Oxalate 5 Mg Tablet) 5 mg PO DAILY [facility] Last Admin: 02/14/22 08:06 Dose: 5 mg Documented By: ANALY Fentanyl (Fentanyl Citrate/Pf 100 Mcg/2 Ml Vial) 25 mcg IVPUSH Q5M PRN; Protocol PRN Reason: Pain, Moderate (Pain Scale 4-6 Last Admin: 02/13/22 13:32 Dose: 25 mcg Documented By: GORDON Finasteride (Finasteride 5 Mg Tablet) 5 mg PO DAILY [facility] Last Admin: 02/14/22 08:05 Dose: 5 mg Documented By: ANALY Heparin Sodium (Porcine) (Heparin Sodium,Porcine 5,000 Unit/Ml Vial) 5,000 unit SUBCUT Q8H [facility] Last Admin: 02/14/22 13:52 Dose: 5,000 unit Documented By: ANALY Piperacillin Sod/Tazobactam (Sod 2.25 gm/ Sodium Chloride) 50 mls @ 100 mls/hr IV Q6H [facility] Last Infusion: 02/14/22 13:13 Dose: 0 mls/hr Documented By: ANALY Vancomycin HCl 1,000 mg/ (Sodium Chloride) 270 mls @ 270 mls/hr IV Q24H [facility] Last Infusion: 02/14/22 15:19 Dose: 0 mls/hr Documented By: ANALY Insulin Glargine (Insulin Glargine,Hum.Rec.Anlog 100 Unit/Ml 10 Ml Vial) 5 unit SUBCUT BEDTIME [facility] Last Admin: 02/13/22 21:26 Dose: 5 unit Documented By: HERIBERTO Insulin Human Lispro (Insulin Lispro 100 Unit/Ml 3 Ml Vial) 0 unit SUBCUT QIDACHS [facility]; Protocol Last Admin: 02/14/22 12:03 Dose: 6 unit Documented By: ANALY Magnesium Hydroxide (Milk Of Magnesia 30 Ml Oral.Susp) 30 ml PO DAILY PRN PRN Reason: Constipation Melatonin (Melatonin 3 Mg Tablet) 6 mg PO BEDTIME PRN PRN Reason: Insomnia Morphine Sulfate (Morphine Sulfate 4 Mg/Ml Cartridge) 2 mg IVPUSH Q4H PRN; Protocol PRN Reason: Pain, Severe (Pain Scale 7-10) Last Admin: 02/13/22 06:44 Dose: 2 mg Documented By: CHRYSTAL Ondansetron HCl (Ondansetron Hcl 4 Mg/2 Ml Vial) 4 mg IVPUSH Q8H PRN PRN Reason: Nausea and Vomiting Pharmacy Consult (Consult Rx Vancomycin Dosing) 1 each MISCELLANE DAILY PRN PRN Reason: Consult order Pharmacy Consult (Consult Rx Perform Med Rec) 1 each MISCELLANE ONCE PRN PRN Reason: Consult order Sodium Chloride (0.9 % Sodium Chloride Flush 3 Ml Syringe) 3 ml IVFLUSH QSHIFT [facility] Last Admin: 02/14/22 13:53 Dose: 3 ml Documented By: ANALY Tamsulosin HCl (Tamsulosin Hcl 0.4 Mg Capsule) 0.4 mg PO DAILY [facility] Last Admin: 02/14/22 08:05 Dose: 0.4 mg Documented By: ANALY Labs CBC & Chem 7: 02/12/22 12:12 02/14/22 05:54 Labs: Laboratory Results - last 24 hr 02/13/22 02/13/22 02/14/22 16:05 20:14 05:54 Estim Creat Clear Calc 33.6 Estimated GFR 40 POC Glucose 119 H 244 H Random Vancomycin 02/14/22 02/14/22 02/14/22 08:13 11:13 11:28 Estim Creat Clear Calc Estimated GFR POC Glucose 155 H 226 H 276 H Random Vancomycin 02/14/22 11:58 Estim Creat Clear Calc Estimated GFR POC Glucose Random Vancomycin 12.2 L Microbiology Microbiology Results: Microbiology 02/12/22 12:26 Blood Culture - Preliminary Blood - Venous No growth after 48 hours. 02/12/22 12:12 Blood Culture - Preliminary Blood - Venous No growth after 48 hours. 02/13/22 Unknown Gram Stain - Final Hand Left Routine Culture - Preliminary Culture in progress. 02/13/22 Unknown Gram Stain - Final Hand Left Routine Culture - Preliminary Culture in progress. 02/13/22 11:52 Direct Acid Fast Bacilli Smear - Final Hand Left Acid Fast Bacilli Culture & Smear - Final 02/13/22 11:55 Direct Acid Fast Bacilli Smear - Final Hand Left Acid Fast Bacilli Culture & Smear - Final Assessment and Plan (1) Hand abscess: Status: Acute (2) Cellulitis: Status: Acute (3) Infected wound: Status: Acute Plan ?71 year old mongolian speaking only male? (history obtained via certified aerial photograph interpreter)? with insulin dependent non compliant, dementia, HTN, and BPH. He presents with? left swelling and pain ( see pictures below),4 days ago, he tripped tripped over a box? and while going down held onto a lamp that broke a sustained laceration to the left hand and right little finger. He has cellulitis of the hand associated with high CRP and ESR 1/Left Hand cellulitis- Vanco and Zosyn D3 vanco trough 12.2 - ID and Ortho consult. -Get MRI to r/o osteo, follow culture. Pain control with IV morphine 2/Diabetes--continue home regimen (lantus, SSI) hold Faxiga,, diabetic diet 3/CKD3B, mild TONY--IV fluid and reassess tomorrow 4/HTN-controlled, continue Norvasc 5/BPH-Flomax, finesteride 6/Dementia--Aricept 7/DVT prophylaxis--Heparin 8/Full code Need for inpatient: management of limb threatening cellulitis of the hand with IV abx and surgical evaluation and further testing with MRI. Quality Stroke Does the patient have a stroke diagnosis?: No VTE Prior VTE?: No VTE Risk Level:: Medical - moderate - high VTE Device Contraindication: Treatment Not Indicated VTE Drug Contraindication: N/A - Med Ordered
[2022-02-14 16:22] VITALS: BP 134/68; PULSE 70; RESP 18; TEMP 36.9; O2SAT 94
[2022-02-14 16:33] LABS: Glucose, Whole Blood 141 mg/dL (60-115)
[2022-02-14 20:00] VITALS: BP 148/71; PULSE 68; RESP 18; TEMP 37.2
[2022-02-14 21:10] LABS: Glucose, Whole Blood 146 mg/dL (60-115)
[2022-02-14] MEDS: Donepezil HCl 10 MG TABLET PO (21:38)
[2022-02-14] MEDS: Insulin Glargine,Hum.rec.anlog 100 UNIT/ML 10 ML VIAL SUBCUT (21:38)
[2022-02-15] VITALS: BP 133/65; PULSE 66; RESP 16; TEMP 36.5; O2SAT 94
[2022-02-15] MEDS: Piperacillin Sodium/Tazobactam 2.25 GM in 0.9 % Sodium Chloride 50 ML IV ×4 (00:41→18:28)
[2022-02-15] MEDS: Ergocalciferol (Vitamin D2) 1,250 MCG CAPSULE 1250 MCG PO ×2 (03:31→18:29)
[2022-02-15 04:00] VITALS: BP 144/67; PULSE 65; TEMP 36.3; O2SAT 96
[2022-02-15] MEDS: Heparin Sodium,Porcine 5,000 UNIT/ML VIAL 5000 UNIT SUBCUT ×3 (06:06→22:31)
[2022-02-15 07:19] LABS: Creatinine Clr Calc Pharmacy 30.9; Estimated Glomerular Filt Rate 36
--- NOTE | 2022-02-15 07:20 | PM.PNORT ---
Subjective Subjective Date of Service: 02/15/22 Interval history: POD2 s/p I&D left hand. No overnight events. Resting in bed comfortably, elevating arm. Pain is managed. No additional complaints. Physical Exam Vital Signs: Vital Signs: Last Vital Signs Temp 97.3 F 02/15/22 04:00 Pulse 65 02/15/22 04:00 Resp 16 02/15/22 00:00 BP 144/67 H 02/15/22 04:00 Pulse Ox 96 02/15/22 04:00 O2 Del Method 02/15/22 04:00 O2 Flow Rate 3 02/13/22 12:25 Oxygen Flow Rate 95 02/14/22 12:50 BMI result Body Mass Index 23.8 Const: General: cooperative, healthy appearing and no acute distress Resp: Effort & Inspection: normal respiratory effort and able to speak in complete sentences Cardio: Rate: regular rate Peripheral pulses: Peripheral pulses 2+ throughout GI: Palpation (GI): Soft to palpation Skin: Lesions: no lesions Rashes: no rashes Extrem: Other: Left hand dressings are clean, dry, and intact. Able to move all digits. Lacking about 1.5cm from making a closed fist. Sensation intact. Capillary refill intact. Procedures Date of Service Date of Service: 02/15/22 Progress Note: A&P Assessment and plan (1) Hand abscess: Status: Acute (2) Cellulitis: Status: Acute (3) Infected wound: Status: Acute Plan Continue IV abx and follow cultures Daily dry dressing changes Elevate Continuie to work on Hand ROM. Time Spent With Patient Time: Total time spent is greater than 50% in coordination of care (as documented) at patient's floor/unit and/or counseling patient: Quality Stroke Does the patient have a stroke diagnosis?: No VTE Prior VTE?: No VTE Risk Level:: Medical - moderate - high VTE Device Contraindication: Treatment Not Indicated VTE Drug Contraindication: N/A - Med Ordered
[2022-02-15 07:46] VITALS: BP 138/67; PULSE 65; RESP 18; TEMP 36.9; O2SAT 93
[2022-02-15 07:56] LABS: Glucose, Whole Blood 139 mg/dL (60-115)
[2022-02-15] MEDS: Empagliflozin 10 MG TABLET PO (09:08)
[2022-02-15] MEDS: amLODIPine Besylate 10 MG TABLET PO (09:08)
[2022-02-15] MEDS: Tamsulosin HCL 0.4 MG CAPSULE PO (09:08)
[2022-02-15] MEDS: 0.9 % Sodium Chloride Flush 3 ML SYRINGE IVFLUSH ×3 (09:09→22:32)
[2022-02-15] MEDS: Escitalopram Oxalate 5 MG TABLET PO (09:09)
[2022-02-15] MEDS: Finasteride 5 MG TABLET PO (09:09)
[2022-02-15] MEDS: Aspirin Enteric Coated 81 MG TABLET.DR PO (09:09)
--- NOTE | 2022-02-15 09:16 | P.CDIC_ITS ---
CDI Concurrent Query Documentation Clarification: PHYSICIAN'S DOCUMENTATION REQUEST Date of Query: 02/15/2217 Patient Name: Reg Sheets Admit Date: 02/12/22 Dear Doctor, A review of the medical record indicates additional documentation may be needed. Please review below and update the documentation accordingly. Clinical Indicators Risk Factors/Clinical Indicators/Treatments Progress notes: Assessment/plan: Dementia, on Aricept If possible, please further clarify type of Dementia and any associated manifestations: Disease Type: Vascular dementia Alzheimer's dementia Senile dementia Presenile dementia * Other ? please specify * Unable to determine Use of terms such as suspected, likely, concern for, or probable (associated with a specific diagnosis that is being evaluated, monitored, or treated as if it exists) are acceptable and can be coded in the inpatient setting, when documented at the time of discharge. Thank you, Radha Galan [facility], CDIS Extension: [phone] Please use your independent medical judgment in providing your response. THIS QUERY IS PART OF THE PERMANENT MEDICAL RECORD Provider Response: Other Other Diagnosis: Dementia unspecified( unable to determine)
[2022-02-15 10:35] LABS: Glucose, Whole Blood 171 mg/dL (60-115)
[2022-02-15 10:48] VITALS: BP 137/72; PULSE 70; RESP 18; TEMP 37.1; O2SAT 92
[2022-02-15] MEDS: Insulin Lispro 100 UNIT/ML 3 ML VIAL SUBCUT ×3 (12:03→20:33)
--- NOTE | 2022-02-15 14:02 | HO.PM.IMPN ---
Subjective Subjective Date of Service: 02/15/22 Interval History: f/u for infected hand Review of Systems erythema /pain seems similar to yesterday. Denies any chest pain or shortness of breath or abdominal pain or fever or chills or cough or phlegm. Physical Exam Vital Signs: Vital Signs: Last Vital Signs Temp 98.7 F 02/15/22 10:48 Pulse 70 02/15/22 10:48 Resp 18 02/15/22 10:48 BP 137/72 02/15/22 10:48 Pulse Ox 92 02/15/22 10:48 O2 Del Method 02/15/22 10:48 O2 Flow Rate 3 02/13/22 12:25 Oxygen Flow Rate 95 02/14/22 12:50 BMI result Body Mass Index 23.8 Appearance: Alert.? Oriented X3.? cvs: rrr, [id number] , no murmur res: clear to auscultation ,no rhonchii or wheezing abd: no rebound or guarding ,nt, bs present. ext pulses present ,right humb pain/erythema neuro: axo3 , nonfocal. Objective Data Active Medications Acetaminophen (Acetaminophen 325 Mg Tablet) 650 mg PO Q6H PRN PRN Reason: Pain, Mild (Pain Scale 1-3) Last Admin: 02/13/22 00:27 Dose: 650 mg Documented By: CHRYSTAL Amlodipine Besylate (Amlodipine Besylate 10 Mg Tablet) 10 mg PO DAILY [facility]; Protocol Last Admin: 02/15/22 09:08 Dose: 10 mg Documented By: TIANNA Aspirin (Aspirin Enteric Coated 81 Mg Tablet.) 81 mg PO DAILY [facility] Last Admin: 02/15/22 09:09 Dose: 81 mg Documented By: TIANNA Docusate Sodium (Docusate Sodium 100 Mg Capsule) 100 mg PO DAILY PRN PRN Reason: Constipation Donepezil HCl (Donepezil Hcl 10 Mg Tablet) 10 mg PO BEDTIME [facility] Last Admin: 02/14/22 21:38 Dose: 10 mg Documented By: HERIBERTO Empagliflozin (Empagliflozin 10 Mg Tablet) 10 mg PO DAILY [facility] Last Admin: 02/15/22 09:08 Dose: 10 mg Documented By: TIANNA Ergocalciferol (Ergocalciferol (Vitamin D2) 1,250 Mcg Capsule) 1,250 mcg PO Q14H [facility] Last Admin: 02/15/22 03:31 Dose: 1,250 mcg Documented By: HERIBERTO Escitalopram Oxalate (Escitalopram Oxalate 5 Mg Tablet) 5 mg PO DAILY [facility] Last Admin: 02/15/22 09:09 Dose: 5 mg Documented By: TIANNA Fentanyl (Fentanyl Citrate/Pf 100 Mcg/2 Ml Vial) 25 mcg IVPUSH Q5M PRN; Protocol PRN Reason: Pain, Moderate (Pain Scale 4-6 Last Admin: 02/13/22 13:32 Dose: 25 mcg Documented By: GORDON Finasteride (Finasteride 5 Mg Tablet) 5 mg PO DAILY [facility] Last Admin: 02/15/22 09:09 Dose: 5 mg Documented By: TIANNA Heparin Sodium (Porcine) (Heparin Sodium,Porcine 5,000 Unit/Ml Vial) 5,000 unit SUBCUT Q8H [facility] Last Admin: 02/15/22 13:00 Dose: 5,000 unit Documented By: TIANNA Piperacillin Sod/Tazobactam (Sod 2.25 gm/ Sodium Chloride) 50 mls @ 100 mls/hr IV Q6H [facility] Last Admin: 02/15/22 13:00 Dose: 100 mls/hr Documented By: TIANNA Vancomycin HCl 1,000 mg/ (Sodium Chloride) 270 mls @ 270 mls/hr IV Q24H [facility] Last Infusion: 02/14/22 15:19 Dose: 0 mls/hr Documented By: ANALY Insulin Glargine (Insulin Glargine,Hum.Rec.Anlog 100 Unit/Ml 10 Ml Vial) 5 unit SUBCUT BEDTIME [facility] Last Admin: 02/14/22 21:38 Dose: 5 unit Documented By: HERIBERTO Insulin Human Lispro (Insulin Lispro 100 Unit/Ml 3 Ml Vial) 0 unit SUBCUT QIDACHS [facility]; Protocol Last Admin: 02/15/22 12:03 Dose: 2 unit Documented By: TIANNA Magnesium Hydroxide (Milk Of Magnesia 30 Ml Oral.Susp) 30 ml PO DAILY PRN PRN Reason: Constipation Melatonin (Melatonin 3 Mg Tablet) 6 mg PO BEDTIME PRN PRN Reason: Insomnia Morphine Sulfate (Morphine Sulfate 4 Mg/Ml Cartridge) 2 mg IVPUSH Q4H PRN; Protocol PRN Reason: Pain, Severe (Pain Scale 7-10) Last Admin: 02/13/22 06:44 Dose: 2 mg Documented By: CHRYSTAL Ondansetron HCl (Ondansetron Hcl 4 Mg/2 Ml Vial) 4 mg IVPUSH Q8H PRN PRN Reason: Nausea and Vomiting Pharmacy Consult (Consult Rx Vancomycin Dosing) 1 each MISCELLANE DAILY PRN PRN Reason: Consult order Pharmacy Consult (Consult Rx Perform Med Rec) 1 each MISCELLANE ONCE PRN PRN Reason: Consult order Sodium Chloride (0.9 % Sodium Chloride Flush 3 Ml Syringe) 3 ml IVFLUSH QSHIFT [facility] Last Admin: 02/15/22 09:09 Dose: 3 ml Documented By: TIANNA Tamsulosin HCl (Tamsulosin Hcl 0.4 Mg Capsule) 0.4 mg PO DAILY [facility] Last Admin: 02/15/22 09:08 Dose: 0.4 mg Documented By: TIANNA Labs CBC & Chem 7: 02/12/22 12:12 02/15/22 06:00 Labs: Laboratory Results - last 24 hr 02/14/22 02/14/22 02/15/22 16:27 21:06 06:00 Estim Creat Clear Calc 30.9 Estimated GFR 36 POC Glucose 141 H 146 H 02/15/22 02/15/22 07:50 10:31 Estim Creat Clear Calc Estimated GFR POC Glucose 139 H 171 H Microbiology Microbiology Results: Microbiology 02/13/22 Unknown Gram Stain - Final Hand Left Routine Culture - Preliminary Culture in progress. 02/13/22 Unknown Gram Stain - Final Hand Left Routine Culture - Preliminary Culture in progress. 02/12/22 12:26 Blood Culture - Preliminary Blood - Venous No growth after 48 hours. 02/12/22 12:12 Blood Culture - Preliminary Blood - Venous No growth after 48 hours. Assessment and Plan (1) Hand abscess: Status: Acute (2) Cellulitis: Status: Acute (3) Infected wound: Status: Acute Plan 71 year old chinese speaking only male? (history obtained via certified asl interpreter)? with insulin dependent non compliant, dementia, HTN, and BPH. He presents with? left swelling and pain ( see pictures below),4 days ago, he tripped tripped over a box? and while going down held onto a lamp that broke a sustained laceration to the left hand and right little finger. He has cellulitis of the hand associated with high CRP and ESR 1/Left Hand cellulitis- Vanco and Zosyn D4 vanco trough 12.2 yesterday follow culture. Pain control with IV morphine MRI reviewed with orthopedics surgery- patient need to go to OR tomorrow for washout possible abscess area. Id following 2/Diabetes--continue home regimen (lantus, SSI) hold Faxiga,, diabetic diet 3/CKD3B, mild TONY--IV fluid and reassess tomorrow 4/HTN-controlled, continue Norvasc 5/BPH-Flomax, finesteride 6/Dementia--Aricept 7/DVT prophylaxis--Heparin 8/Full code Need for inpatient: management of limb threatening cellulitis of the hand with IV abx and surgical intervention in am. Quality Stroke Does the patient have a stroke diagnosis?: No VTE Prior VTE?: No VTE Risk Level:: Medical - moderate - high VTE Device Contraindication: Treatment Not Indicated VTE Drug Contraindication: N/A - Med Ordered
[2022-02-15] MEDS: vancomycin HCL 1,000 MG in 0.9 % Sodium Chloride 250 ML 270 MG IV (14:24)
[2022-02-15 15:59] LABS: Glucose, Whole Blood 187 mg/dL (60-115)
[2022-02-15 19:22] VITALS: BP 137/77; PULSE 76; RESP 18; TEMP 36.1; O2SAT 97
[2022-02-15 19:33] LABS: Glucose, Whole Blood 173 mg/dL (60-115)
[2022-02-15] MEDS: Donepezil HCl 10 MG TABLET PO (20:34)
[2022-02-15] MEDS: Insulin Glargine,Hum.rec.anlog 100 UNIT/ML 10 ML VIAL SUBCUT (20:35)
[2022-02-15 23:36] VITALS: BP 138/73; PULSE 73; RESP 14; TEMP 36.4; O2SAT 94
[2022-02-16] VITALS (11 sets, daily range): BP systolic 116–156; BP diastolic 64–80; PULSE 63–117; RESP 12–19; TEMP 36.1–37; O2SAT 96–98
[2022-02-16] MEDS: Piperacillin Sodium/Tazobactam 2.25 GM in 0.9 % Sodium Chloride 50 ML IV ×4 (01:22→18:36)
--- NOTE | 2022-02-16 05:57 | PC.NURSE ---
Report given to OR nurse, pt will be picked up to surgical [facility] at 8am. Heparin was held awaiting surgery. Pt is aware of plan of care.
[2022-02-16 07:06] LABS: Estimated Glomerular Filt Rate 39
[2022-02-16 07:25] LABS: Glucose, Whole Blood 98 mg/dL (60-115)
[2022-02-16] MEDS: amLODIPine Besylate 10 MG TABLET PO (07:52)
[2022-02-16] MEDS: Tamsulosin HCL 0.4 MG CAPSULE PO (07:52)
[2022-02-16] MEDS: Aspirin Enteric Coated 81 MG TABLET.DR PO (07:52)
[2022-02-16] MEDS: Escitalopram Oxalate 5 MG TABLET PO (07:52)
[2022-02-16] MEDS: Empagliflozin 10 MG TABLET PO (07:53)
[2022-02-16] MEDS: Finasteride 5 MG TABLET PO (07:53)
--- NOTE | 2022-02-16 07:54 | P.OP_ITS ---
Operative Note Operative Note Date of Service: 02/16/22 Narrative: Operative Note Narrative: Preop diagnosis: 1. Left hand abscess Postop diagnosis: Same Procedure: 1. I and D left hand abscess Surgeon: Betty Novoa MD Anesthesia: General Anesthesia Findings: Some creamy yellow purulence found about the wound over the dorsal aspect of the 1st metacarpal. He had also necrosed some of the skin in this area creating an approximately 1.2 cm soft tissue defect, with the EPL tendon visible in the floor of the wound. Implants: none Tourniquet time: 0 minutes EBL: 5.0 ml Specimen: cultures x 1 Drains: None Complications: None Disposition: Brought to the recovery room in stable condition Plan: Admit back to the floor for IV antibiotics Remove iodoform drain tomorrow, followed by daily dressing changes Follow-up in about 5 days after discharge for wound check and to check cultures Anticipate suture removal in about 3 weeks postop Indications: The patient is a 71 year old man with a left hand infection status post I&D on 02/13/2022 . The risks and benefits of operative treatment, including but not limited to risk of damage to blood vessels, nerves, tendons, infection, recurrence, persistent pain or numbness, incomplete resolution of preoperative symptoms, or need for further surgery were discussed with the patient and they wished to proceed with surgery. Procedure: Once consent was obtained patient was brought back to the operating suite and placed in the operating table in a supine position. A tourniquet was applied to the proximal aspect of the left upper extremity and the limb was prepped and draped in a standard surgical fashion. The tourniquet was not inflated during the case There was creamy yellow purulence within the wound over the dorsal aspect of the 1st metacarpal. This was easily expressed from the local area. The 1st web space area was soft and without evidence of abscess. The wound in this area has shown good healing. The patient now has an approximately 1.5 cm diameter wound over the dorsal aspect of the 1st metacarpal, after losing some of the necrotic tissue in this area. The wound was debrided of some fibrinous exudate and nonviable tissue. At this point we can see the EPL tendon clearly passing through the floor of this wound. Cultures were taken and the wound was copiously irrigated with normal saline. I made the decision to close the wound so as to protect the EPL tendon. The skin edges were reapproximated with some 4-0 Prolene suture material. Prior to this some iodoform gauze was positioned within the abscess cavity and exiting through the small incision I had created 3 days ago just distal to the above- noted larger more proximal wound. A sterile dressing was then applied. The patient appears to have tolerated the procedure well and with no complications. All digits were well vascularized conclusion of the case.
[2022-02-16] MEDS: Lactated Ringers 1,000 ML 80 ML IVCONT (08:15)
--- NOTE | 2022-02-16 08:57 | HO.ANESPROP2 ---
HPI - Anesthesia Eval Consult details Narrative: 71 M for left hand I and D . left hand cellulitis , on IV ABX . [facility] Active Problems Active Problems: All Active Problems (Updated 02/13/22 @ 08:03 by Jose Alfredo Spaulding PA-C) Hand abscess (Acute) Cellulitis (Acute) Infected wound (Acute) Past Medical History Medical History Plantar ulcer of left foot Stage 3b chronic kidney disease (CKD) History of amputation of toe CKD stage G3b/A1, GFR 30-44 and albumin creatinine ratio <30 mg/g Dementia BPH (benign prostatic hyperplasia) Hypertension Dog bite Rhabdomyolysis Diabetes Family History Family History Other Diabetes HTN (hypertension) Family history of problems with anesthesia: No Surgical History History of Problems with Anesthesia: No Social History Household Members: Spouse Housing: Apartment Do you presently have visiting nurse or other home services: Yes Alcohol intake: never Patient Tobacco Use Status: Former Tobacco user Quit Date: 1999 Advance Directives Date on File: 01/25/21 service: No Current occupational status: retired Meds Allergies Allergy/AdvReac Type Severity Reaction Status Date / Time oxycodone [From PERCOCET] Allergy Unknown CAN'T Verified 11/27/22 13:53 BREATH/VOMITING simvastatin [SIMVASTATIN] Allergy Unknown UNKNOWN Verified 11/27/22 13:53 peas AdvReac Unknown VOMITING/FA Verified 11/27/22 13:53 INTING SALMON [id number] AdvReac Unknown VOMITING/FA Uncoded 10/24/22 12:38 INT Active Medications: Current Medications Acetaminophen (Acetaminophen 325 Mg Tablet) 650 mg PO Q6H PRN PRN Reason: Pain, Mild (Pain Scale 1-3) Last Admin: 02/13/22 00:27 Dose: 650 mg Amlodipine Besylate (Amlodipine Besylate 10 Mg Tablet) 10 mg PO DAILY [facility]; Protocol Last Admin: 02/16/22 07:52 Dose: 10 mg Aspirin (Aspirin Enteric Coated 81 Mg Tablet.Dr) 81 mg PO DAILY [facility] Last Admin: 02/16/22 07:52 Dose: 81 mg Docusate Sodium (Docusate Sodium 100 Mg Capsule) 100 mg PO DAILY PRN PRN Reason: Constipation Donepezil HCl (Donepezil Hcl 10 Mg Tablet) 10 mg PO BEDTIME [facility] Last Admin: 02/15/22 20:34 Dose: 10 mg Empagliflozin (Empagliflozin 10 Mg Tablet) 10 mg PO DAILY [facility] Last Admin: 02/16/22 07:53 Dose: 10 mg Ergocalciferol (Ergocalciferol (Vitamin D2) 1,250 Mcg Capsule) 1,250 mcg PO Q14H [facility] Last Admin: 02/15/22 18:29 Dose: 1,250 mcg Escitalopram Oxalate (Escitalopram Oxalate 5 Mg Tablet) 5 mg PO DAILY [facility] Last Admin: 02/16/22 07:52 Dose: 5 mg Fentanyl (Fentanyl Citrate/Pf 100 Mcg/2 Ml Vial) 25 mcg IVPUSH Q5M PRN; Protocol PRN Reason: Pain, Moderate (Pain Scale 4-6 Last Admin: 02/13/22 13:32 Dose: 25 mcg Finasteride (Finasteride 5 Mg Tablet) 5 mg PO DAILY [facility] Last Admin: 02/16/22 07:53 Dose: 5 mg Heparin Sodium (Porcine) (Heparin Sodium,Porcine 5,000 Unit/Ml Vial) 5,000 unit SUBCUT Q8H [facility] Last Admin: 02/16/22 07:35 Dose: Not Given Piperacillin Sod/Tazobactam (Sod 2.25 gm/ Sodium Chloride) 50 mls @ 100 mls/hr IV Q6H [facility] Last Infusion: 02/16/22 07:56 Dose: Infused Vancomycin HCl 1,000 mg/ (Sodium Chloride) 270 mls @ 270 mls/hr IV Q24H [facility] Last Infusion: 02/15/22 18:26 Dose: Infused Lactated Ringer's (Lr) 1,000 mls @ 80 mls/hr IVCONT .[id number] [facility] Insulin Glargine (Insulin Glargine,Hum.Rec.Anlog 100 Unit/Ml 10 Ml Vial) 5 unit SUBCUT BEDTIME [facility] Last Admin: 02/15/22 20:35 Dose: 5 unit Insulin Human Lispro (Insulin Lispro 100 Unit/Ml 3 Ml Vial) 0 unit SUBCUT QIDACHS [facility]; Protocol Last Admin: 02/16/22 07:44 Dose: Not Given Magnesium Hydroxide (Milk Of Magnesia 30 Ml Oral.Susp) 30 ml PO DAILY PRN PRN Reason: Constipation Melatonin (Melatonin 3 Mg Tablet) 6 mg PO BEDTIME PRN PRN Reason: Insomnia Morphine Sulfate (Morphine Sulfate 4 Mg/Ml Cartridge) 2 mg IVPUSH Q4H PRN; Protocol PRN Reason: Pain, Severe (Pain Scale 7-10) Last Admin: 02/13/22 06:44 Dose: 2 mg Ondansetron HCl (Ondansetron Hcl 4 Mg/2 Ml Vial) 4 mg IVPUSH Q8H PRN PRN Reason: Nausea and Vomiting Pharmacy Consult (Consult Rx Vancomycin Dosing) 1 each MISCELLANE DAILY PRN PRN Reason: Consult order Pharmacy Consult (Consult Rx Perform Med Rec) 1 each MISCELLANE ONCE PRN PRN Reason: Consult order Sodium Chloride (0.9 % Sodium Chloride Flush 3 Ml Syringe) 3 ml IVFLUSH [facility] Last Admin: 02/16/22 08:30 Dose: Not Given Tamsulosin HCl (Tamsulosin Hcl 0.4 Mg Capsule) 0.4 mg PO DAILY [facility] Last Admin: 02/16/22 07:52 Dose: 0.4 mg Home Medications Medication Instructions Recorded Confirmed Last Taken Type aspirin 81 mg tablet,delayed 1 tab PO DAILY 01/24/21 11/20/22 10/24/22 09:00 History release citalopram 10 mg tablet 1 tab PO DAILY 01/24/21 11/20/22 10/24/22 09:00 History clopidogrel 75 mg tablet 1 tab PO DAILY 01/24/21 11/20/22 10/24/22 09:00 History donepezil 10 mg tablet 1 tab PO BEDTIME 01/24/21 11/20/22 10/23/22 History finasteride 5 mg tablet 1 tab PO DAILY 01/24/21 11/20/22 10/24/22 09:00 History insulin glargine 100 unit/mL 3 unit subcut BEDTIME 01/24/21 11/20/22 10/23/22 History subcutaneous solution (Lantus U-100 Insulin) tamsulosin 0.4 mg capsule 1 cap PO DAILY 01/24/21 11/20/22 10/24/22 09:00 History acetaminophen 500 mg tablet 1,000 mg PO Q6H PRN Fever Or Pain 07/11/23 08/07/23 Unknown History Exam Exam Date and Time: February 16, 2022 0857 Height,Weight and Vital Signs: Height 5 ft 4 in Weight 63.049 kg Last Vital Signs Temp 97.9 F 02/16/22 08:00 Pulse 79 02/16/22 08:00 Resp 16 02/16/22 08:00 BP 149/77 H 02/16/22 08:00 Pulse Ox 98 02/16/22 08:00 O2 Del Method 02/16/22 08:00 O2 Flow Rate 3 02/13/22 12:25 Oxygen Flow Rate 95 02/14/22 12:50 Pertinent Lab Results Pertinent Lab Results: Laboratory Tests 02/12/22 02/12/22 02/12/22 12:12 12:12 12:12 WBC 9.4 RBC 4.88 D Hgb 14.5 D Hct 42.6 D MCV 87.3 MCH 29.7 MCHC 34.0 RDW 11.9 Plt Count 298 D MPV 9.1 L Immature Gran % (Auto) 0.4 Neut % (Auto) 84.2 H Lymph % (Auto) 8.1 L Becker % (Auto) 6.7 Eos % (Auto) 0.3 Baso % (Auto) 0.3 Lymph # (Auto) 0.8 L Becker # (Auto) 0.6 Eos # (Auto) 0.0 Baso # (Auto) 0.0 Abs Immat Gran (auto) 0.04 H Absolute Neuts (auto) 7.9 Absolute Nucleated RBC 0.000 Nucleated RBC % (auto) 0.0 ESR Sodium 138 Potassium 4.6 Chloride 101 Carbon Dioxide 24 Anion Gap 18 BUN 28 H Creatinine 1.91 H Estim Creat Clear Calc 30.1 Estimated GFR 35 POC Glucose Random Glucose 210 H Lactic Acid Calcium 9.5 Magnesium 2.3 Total Bilirubin 0.6 AST 16 ALT 15 Alkaline Phosphatase 120 H C-Reactive Protein 8.75 H Total Protein 8.1 H Albumin 4.4 Random Vancomycin COVID-19 (SHEILA) Negative COVID-19 Clin Com See Note 02/12/22 02/12/22 02/12/22 12:12 12:26 17:44 WBC RBC Hgb Hct MCV MCH MCHC RDW Plt Count MPV Immature Gran % (Auto) Neut % (Auto) Lymph % (Auto) Becker % (Auto) Eos % (Auto) Baso % (Auto) Lymph # (Auto) Becker # (Auto) Eos # (Auto) Baso # (Auto) Abs Immat Gran (auto) Absolute Neuts (auto) Absolute Nucleated RBC Nucleated RBC % (auto) ESR 53 H Sodium Potassium Chloride Carbon Dioxide Anion Gap BUN Creatinine Estim Creat Clear Calc Estimated GFR POC Glucose 113 Random Glucose Lactic Acid 1.1 Calcium Magnesium Total Bilirubin AST ALT Alkaline Phosphatase C-Reactive Protein Total Protein Albumin Random Vancomycin COVID-19 (SHEILA) COVID-19 Clin Com 02/13/22 02/13/22 02/13/22 04:23 07:56 16:05 WBC RBC Hgb Hct MCV MCH MCHC RDW Plt Count MPV Immature Gran % (Auto) Neut % (Auto) Lymph % (Auto) Becker % (Auto) Eos % (Auto) Baso % (Auto) Lymph # (Auto) Becker # (Auto) Eos # (Auto) Baso # (Auto) Abs Immat Gran (auto) Absolute Neuts (auto) Absolute Nucleated RBC Nucleated RBC % (auto) ESR Sodium Potassium Chloride Carbon Dioxide Anion Gap BUN Creatinine 1.66 H Estim Creat Clear Calc 34.6 Estimated GFR 41 POC Glucose 106 119 H Random Glucose Lactic Acid Calcium Magnesium Total Bilirubin AST ALT Alkaline Phosphatase C-Reactive Protein Total Protein Albumin Random Vancomycin COVID-19 (SHEILA) COVID-19 Clin Com 02/13/22 02/14/22 02/14/22 20:14 05:54 08:13 WBC RBC Hgb Hct MCV MCH MCHC RDW Plt Count MPV Immature Gran % (Auto) Neut % (Auto) Lymph % (Auto) Becker % (Auto) Eos % (Auto) Baso % (Auto) Lymph # (Auto) Becker # (Auto) Eos # (Auto) Baso # (Auto) Abs Immat Gran (auto) Absolute Neuts (auto) Absolute Nucleated RBC Nucleated RBC % (auto) ESR Sodium Potassium Chloride Carbon Dioxide Anion Gap BUN Creatinine 1.71 H Estim Creat Clear Calc 33.6 Estimated GFR 40 POC Glucose 244 H 155 H Random Glucose Lactic Acid Calcium Magnesium Total Bilirubin AST ALT Alkaline Phosphatase C-Reactive Protein Total Protein Albumin Random Vancomycin COVID-19 (SHEILA) COVID-19 Clin Com 02/14/22 02/14/22 02/14/22 11:13 11:28 11:58 WBC RBC Hgb Hct MCV MCH MCHC RDW Plt Count MPV Immature Gran % (Auto) Neut % (Auto) Lymph % (Auto) Becker % (Auto) Eos % (Auto) Baso % (Auto) Lymph # (Auto) Becker # (Auto) Eos # (Auto) Baso # (Auto) Abs Immat Gran (auto) Absolute Neuts (auto) Absolute Nucleated RBC Nucleated RBC % (auto) ESR Sodium Potassium Chloride Carbon Dioxide Anion Gap BUN Creatinine Estim Creat Clear Calc Estimated GFR POC Glucose 226 H 276 H Random Glucose Lactic Acid Calcium Magnesium Total Bilirubin AST ALT Alkaline Phosphatase C-Reactive Protein Total Protein Albumin Random Vancomycin 12.2 L COVID-19 (SHEILA) COVID-19 S&N [facility]iro[facility] 02/14/22 02/14/22 02/15/22 16:27 21:06 06:00 WBC RBC Hgb Hct MCV MCH MCHC RDW Plt Count MPV Immature Gran % (Auto) Neut % (Auto) Lymph % (Auto) Becker % (Auto) Eos % (Auto) Baso % (Auto) Lymph # (Auto) Becker # (Auto) Eos # (Auto) Baso # (Auto) Abs Immat Gran (auto) Absolute Neuts (auto) Absolute Nucleated RBC Nucleated RBC % (auto) ESR Sodium Potassium Chloride Carbon Dioxide Anion Gap BUN Creatinine 1.86 H Estim Creat Clear Calc 30.9 Estimated GFR 36 POC Glucose 141 H 146 H Random Glucose Lactic Acid Calcium Magnesium Total Bilirubin AST ALT Alkaline Phosphatase C-Reactive Protein Total Protein Albumin Random Vancomycin COVID-19 (SHEILA) COVID-19 S&N Airoflo 02/15/22 02/15/22 02/15/22 07:50 10:31 15:43 WBC RBC Hgb Hct MCV MCH MCHC RDW Plt Count MPV Immature Gran % (Auto) Neut % (Auto) Lymph % (Auto) Becker % (Auto) Eos % (Auto) Baso % (Auto) Lymph # (Auto) Becker # (Auto) Eos # (Auto) Baso # (Auto) Abs Immat Gran (auto) Absolute Neuts (auto) Absolute Nucleated RBC Nucleated RBC % (auto) ESR Sodium Potassium Chloride Carbon Dioxide Anion Gap BUN Creatinine Estim Creat Clear Calc Estimated GFR POC Glucose 139 H 171 H 187 H Random Glucose Lactic Acid Calcium Magnesium Total Bilirubin AST ALT Alkaline Phosphatase C-Reactive Protein Total Protein Albumin Random Vancomycin COVID-19 (SHEILA) COVID-19 S&N Airoflo 02/15/22 02/16/22 02/16/22 19:24 05:51 07:13 WBC RBC Hgb Hct MCV MCH MCHC RDW Plt Count MPV Immature Gran % (Auto) Neut % (Auto) Lymph % (Auto) Becker % (Auto) Eos % (Auto) Baso % (Auto) Lymph # (Auto) Becker # (Auto) Eos # (Auto) Baso # (Auto) Abs Immat Gran (auto) Absolute Neuts (auto) Absolute Nucleated RBC Nucleated RBC % (auto) ESR Sodium Potassium Chloride Carbon Dioxide Anion Gap BUN Creatinine 1.74 H Estim Creat Clear Calc 33.0 Estimated GFR 39 POC Glucose 173 H 98 Random Glucose Lactic Acid Calcium Magnesium Total Bilirubin AST ALT Alkaline Phosphatase C-Reactive Protein Total Protein Albumin Random Vancomycin COVID-19 (S[facility]ILA) COVID-19 Clin Com Airway Mallampati Class: III Loose/Missing/Broken Teeth: Yes Assessment and Plan Assessment Anesthesia Assessment: Anesthesia Plan Discussed and Chart Reviewed Final Anesthetic Review Family History of Problems with Anesthesia: No History of Problems with Anesthesia: No NPO: Yes ASA Class: III and Emergency Final Preanesthetic Review: Meds/Allgs Chart Reviewed, Consent Obtained/Reviewed and Anes Risks/Benef Reviewed Patient Risk: Intermediate Procedure Risk: Intermediate Anesthetic Plan Anesthetic Plan: GA and Agree w/ Assess. and Plan Disposition: Standard PACU
--- NOTE | 2022-02-16 09:06 | MHC.SHP ---
Pre-Procedural Eval Section A Date of Service: 02/16/22 The patient is an INPATIENT: Yes Changes since office visit: No Cold of Flu in the past 2 weeks, No New Medical Problems, No Changes in Medication and No Patient answered all questions The History & Physical has been completed within 30 days and I have reviewed it.: Yes Section B Chief Complaint: left hand abscess Allergies: Allergies Allergy/AdvReac Type Severity Reaction Status Date / Time oxycodone [From PERCOCET] Allergy Unknown CAN'T Verified 01/24/21 21:27 BREATH/VOMITING simvastatin [SIMVASTATIN] Allergy Unknown UNKNOWN Verified 01/24/21 21:27 peas AdvReac Unknown VOMITING/FA Verified 01/24/21 21:27 INTING SALMON [id number] AdvReac Unknown VOMITING/FA Uncoded 01/24/21 21:27 INT Exam Exam Comment: the patient is a 71-year-old man with a left hand abscess status post I&D on 02/13/2022. Patient with concern for persistent abscess And question of osteomyelitis on MRI. Sensation intact to all digits. Cap refill brisk. Patient can actively flex fingers towards a fist and bring them back into full extension, including the thumb. Minimal discomfort with palpation of 1st webspace today at the bedside Plan I have reviewed the history and physical and performed a pertinent physical examination on my patient. No changes have occurred unless specified. assessment and plan: 1. Left hand abscess status post I and D On 02/13/2022 I educated the patient about this condition we discussed the risks and benefits of a repeat I and D. The risks and benefits of operative treatment were discussed with the patient and the patient wishes to proceed with surgery. These risks include, but are not limited to risk of damage to blood vessels, nerves, tendons, infection, recurrence, incomplete relief of preoperative symptoms, persistent pain, possible need for further surgery and the risks associated with regional blocks and anesthesia. The plan is to take the patient to the operating room today for the following procedures: 1. left hand repeat I and D 2. [ ] All of the preoperative paperwork including the consent was filled out today. All the patient's questions were answered. The patient understands that they will be contacted by our president practicing urologist soon to schedule this procedure
[2022-02-16] MEDS: Ergocalciferol (Vitamin D2) 1,250 MCG CAPSULE 1250 MCG PO ×2 (11:08→21:00)
[2022-02-16 11:21] LABS: Glucose, Whole Blood 115 mg/dL (60-115)
--- NOTE | 2022-02-16 12:08 | HO.PM.IMPN ---
Subjective Subjective Date of Service: 02/16/22 Interval History: left hand abcess/possible ?oseto Review of Systems still has hadn pain/sweling no fever or chills or nausea vomiting or diarrhea. Physical Exam Vital Signs: Vital Signs: Last Vital Signs Temp 97.0 F 02/16/22 12:00 Pulse 92 02/16/22 12:00 Resp 16 02/16/22 12:00 BP 138/67 02/16/22 12:00 Pulse Ox 97 02/16/22 12:00 O2 Del Method 02/16/22 12:00 O2 Flow Rate 4 02/16/22 10:24 Oxygen Flow Rate 95 02/14/22 12:50 BMI result Body Mass Index 23.8 ?Appearance: Alert.? Oriented X3.? cvs: rrr, [id number] , no murmur res: clear to auscultation ,no rhonchii or wheezing abd: no rebound or guarding ,nt, bs present. ext pulses present ,left thumb pain/erythema neuro: axo3 , nonfocal. Objective Data Active Medications Acetaminophen (Acetaminophen 325 Mg Tablet) 650 mg PO Q6H PRN PRN Reason: Pain, Mild (Pain Scale 1-3) Last Admin: 02/13/22 00:27 Dose: 650 mg Documented By: CHRYSTAL Amlodipine Besylate (Amlodipine Besylate 10 Mg Tablet) 10 mg PO DAILY [facility]; Protocol Last Admin: 02/16/22 07:52 Dose: 10 mg Documented By: SAMI Aspirin (Aspirin Enteric Coated 81 Mg Tablet.) 81 mg PO DAILY [facility] Last Admin: 02/16/22 07:52 Dose: 81 mg Documented By: SAMI Docusate Sodium (Docusate Sodium 100 Mg Capsule) 100 mg PO DAILY PRN PRN Reason: Constipation Donepezil HCl (Donepezil Hcl 10 Mg Tablet) 10 mg PO BEDTIME [facility] Last Admin: 02/15/22 20:34 Dose: 10 mg Documented By: NATALIIA Empagliflozin (Empagliflozin 10 Mg Tablet) 10 mg PO DAILY [facility] Last Admin: 02/16/22 07:53 Dose: 10 mg Documented By: SAMI Ergocalciferol (Ergocalciferol (Vitamin D2) 1,250 Mcg Capsule) 1,250 mcg PO Q14H [facility] Last Admin: 02/16/22 11:08 Dose: 1,250 mcg Documented By: SAMI Escitalopram Oxalate (Escitalopram Oxalate 5 Mg Tablet) 5 mg PO DAILY [facility] Last Admin: 02/16/22 07:52 Dose: 5 mg Documented By: SAMI Fentanyl (Fentanyl Citrate/Pf 100 Mcg/2 Ml Vial) 25 mcg IVPUSH Q5M PRN; Protocol PRN Reason: Pain, Moderate (Pain Scale 4-6 Last Admin: 02/13/22 13:32 Dose: 25 mcg Documented By: GORDON Finasteride (Finasteride 5 Mg Tablet) 5 mg PO DAILY [facility] Last Admin: 02/16/22 07:53 Dose: 5 mg Documented By: SAMI Heparin Sodium (Porcine) (Heparin Sodium,Porcine 5,000 Unit/Ml Vial) 5,000 unit SUBCUT Q8H [facility] Last Admin: 02/16/22 07:35 Dose: Not Given Documented By: SAMI Non-Admin Reason: pt to go to OR Hydromorphone HCl (Hydromorphone Hcl 0.5 Mg/0.5 Ml Syringe) 0.25 mg IVPUSH Q5M PRN; Protocol PRN Reason: Pain, Severe (Pain Scale 7-10) Piperacillin Sod/Tazobactam (Sod 2.25 gm/ Sodium Chloride) 50 mls @ 100 mls/hr IV Q6H [facility] Last Infusion: 02/16/22 07:56 Dose: 0 mls/hr Documented By: SAMI Vancomycin HCl 1,000 mg/ (Sodium Chloride) 270 mls @ 270 mls/hr IV Q24H [facility] Last Infusion: 02/15/22 18:26 Dose: 0 mls/hr Documented By: TIANNA Lactated Ringer's (Lr) 1,000 mls @ 80 mls/hr IVCONT .[id number] [facility] Last Infusion: 02/16/22 11:17 Dose: 0 mls/hr Documented By: RONA Insulin Glargine (Insulin Glargine,Hum.Rec.Anlog 100 Unit/Ml 10 Ml Vial) 5 unit SUBCUT BEDTIME [facility] Last Admin: 02/15/22 20:35 Dose: 5 unit Documented By: NATALIIA Insulin Human Lispro (Insulin Lispro 100 Unit/Ml 3 Ml Vial) 0 unit SUBCUT QIDACHS [facility]; Protocol Last Admin: 02/16/22 11:20 Dose: Not Given Documented By: SAMI Non-Admin Reason: No Insulin Coverage Magnesium Hydroxide (Milk Of Magnesia 30 Ml Oral.Susp) 30 ml PO DAILY PRN PRN Reason: Constipation Melatonin (Melatonin 3 Mg Tablet) 6 mg PO BEDTIME PRN PRN Reason: Insomnia Morphine Sulfate (Morphine Sulfate 4 Mg/Ml Cartridge) 2 mg IVPUSH Q4H PRN; Protocol PRN Reason: Pain, Severe (Pain Scale 7-10) Last Admin: 02/13/22 06:44 Dose: 2 mg Documented By: CHRYSTAL Ondansetron HCl (Ondansetron Hcl 4 Mg/2 Ml Vial) 4 mg IVPUSH Q8H PRN PRN Reason: Nausea and Vomiting Pharmacy Consult (Consult Rx Vancomycin Dosing) 1 each MISCELLANE DAILY PRN PRN Reason: Consult order Pharmacy Consult (Consult Rx Perform Med Rec) 1 each MISCELLANE ONCE PRN PRN Reason: Consult order Sodium Chloride (0.9 % Sodium Chloride Flush 3 Ml Syringe) 3 ml IVFLUSH QSHIFT [facility] Last Admin: 02/16/22 08:30 Dose: Not Given Documented By: SAMI Non-Admin Reason: IV Running Tamsulosin HCl (Tamsulosin Hcl 0.4 Mg Capsule) 0.4 mg PO DAILY [facility] Last Admin: 02/16/22 07:52 Dose: 0.4 mg Documented By: SAMI Labs CBC & Chem 7: 02/12/22 12:12 02/16/22 05:51 Labs: Laboratory Results - last 24 hr 02/15/22 02/15/22 02/16/22 15:43 19:24 05:51 Estim Creat Clear Calc 33.0 Estimated GFR 39 POC Glucose 187 H 173 H 02/16/22 02/16/22 07:13 11:06 Estim Creat Clear Calc Estimated GFR POC Glucose 98 115 Microbiology Microbiology Results: Microbiology 02/16/22 Unknown Gram Stain - Final Hand Left 02/13/22 Unknown Gram Stain - Final Hand Left Routine Culture - Final Pasteurella canis Streptococcus viridans group 02/13/22 Unknown Gram Stain - Final Hand Left Routine Culture - Final Pasteurella canis Streptococcus viridans group Assessment and Plan (1) Hand abscess: Status: Acute (2) Cellulitis: Status: Acute (3) Infected wound: Status: Acute Plan 71 year old occitan speaking only male? 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 with insulin dependent non compliant, dementia, HTN, and BPH. He presents with? left swelling and pain ( see pictures below),4 days ago, he tripped tripped over a box? and while going down held onto a lamp that broke a sustained laceration to the left hand and right little finger. He has cellulitis of the hand associated with high CRP and ESR 1/Left Hand cellulitis- Vanco and Zosyn D4 vanco trough 12.2 yesterday follow culture. Pain control with IV morphine MRI reviewed with orthopedics surgery- patient need to go to OR today for I&D. Id following 2/Diabetes--continue home regimen (lantus, SSI) hold Faxiga,, diabetic diet 3/CKD3B, mild TONY--IV fluid and reassess tomorrow 4/HTN-controlled, continue Norvasc 5/BPH-Flomax, finesteride 6/Dementia--Aricept 7/DVT prophylaxis--Heparin Need for inpatient: management of limb threatening cellulitis of the hand with IV abx and surgical intervention in am. Quality Stroke Does the patient have a stroke diagnosis?: No VTE Prior VTE?: No VTE Risk Level:: Medical - moderate - high VTE Device Contraindication: Treatment Not Indicated VTE Drug Contraindication: N/A - Med Ordered
--- NOTE | 2022-02-16 12:46 | PM.IDPN ---
Subjective Subjective Date of Service: 02/16/22 Critical Care Time (minutes): 15 Comment: he has no complaints,feels better Objective Data Labs CBC & Chem 7: 02/12/22 12:12 02/16/22 05:51 Labs: Laboratory Results - last 24 hr 02/15/22 02/15/22 02/16/22 15:43 19:24 05:51 Creatinine 1.74 H Estim Creat Clear Calc 33.0 Estimated GFR 39 POC Glucose 187 H 173 H 02/16/22 02/16/22 07:13 11:06 Creatinine Estim Creat Clear Calc Estimated GFR POC Glucose 98 115 Microbiology Microbiology Results: Microbiology 02/16/22 Unknown Hand Left Gram Stain - Final 02/13/22 Unknown Hand Left Gram Stain - Final 02/13/22 Unknown Hand Left Routine Culture - Final Pasteurella canis Streptococcus viridans group 02/13/22 Unknown Hand Left Gram Stain - Final 02/13/22 Unknown Hand Left Routine Culture - Final Pasteurella canis Streptococcus viridans group 02/12/22 12:26 Blood - Venous Blood Culture - Preliminary No growth after 48 hours. 02/12/22 12:12 Blood - Venous Blood Culture - Preliminary No growth after 48 hours. 02/13/22 11:52 Hand Left Direct Acid Fast Bacilli Smear - Final 02/13/22 11:52 Hand Left Acid Fast Bacilli Culture & Smear - Final 02/13/22 11:55 Hand Left Direct Acid Fast Bacilli Smear - Final 02/13/22 11:55 Hand Left Acid Fast Bacilli Culture & Smear - Final Physical Exam Vital Signs: Vital Signs: Last Vital Signs Temp 97.0 F 02/16/22 12:00 Pulse 92 02/16/22 12:00 Resp 16 02/16/22 12:00 BP 138/67 02/16/22 12:00 Pulse Ox 97 02/16/22 12:00 O2 Del Method 02/16/22 12:00 O2 Flow Rate 4 02/16/22 10:24 Oxygen Flow Rate 95 02/14/22 12:50 BMI result Body Mass Index 23.8 Const: General: cooperative Resp: Effort & Inspection: normal respiratory effort Cardio: Rate: regular rate Rhythm: regular rhythm GI: Inspection: Yes normal to inspection Extrem: Other: hands wrapped Assessment and Plan Assessment and plan (1) Hand abscess: Problem details: There is pasteurella canis and strep viridans wound Osteomyelitis suspected on scan Status: Acute (2) Infected wound: Status: Acute Plan IV Ceftriaxone 1 g a day and po Levaquin 750 mg po daily for six weeks Time Spent With Patient Time: Total time spent is greater than 50% in coordination of care (as documented) at patient's floor/unit and/or counseling patient:
[2022-02-16 13:49] LABS: Vancomycin Trough 15.5 mcg/mL (10.0-20.0)
[2022-02-16] MEDS: vancomycin HCL 1,000 MG in 0.9 % Sodium Chloride 250 ML 270 MG IV (14:03)
[2022-02-16] MEDS: Heparin Sodium,Porcine 5,000 UNIT/ML VIAL 5000 UNIT SUBCUT ×2 (14:03→21:00)
--- NOTE | 2022-02-16 14:41 | MHC.CM.PN ---
Addendum entered by Steff Cheng RN 02/16/22 14:48: CALL FROM DAUGHTER STEVENSON PATIENT'S HAS BEEN USING [facility] HAS CONTACTED FAMILY TO SAY THAT IF PATIENT NEEDS VNA AT DC, THEY CAN OFFER SERVICES. Original Note: CM NEGLECTED TO NOTE ON THIS PATIENT. CONVERSATION WITH PATIENT DAUGHTER STEVENSON PATIENT LIVES WITH . HE HAS A CANE AND WALKER BUT MOSTLY USES THE [facility] FAMILY PREFERS THAT HE DC HOME WITH SERVICES IF NEEDED, AND NOT TO SNF. PATIENT HAS NO VNA IN THE HOME. [facility] AND PATIENT AGREE TO REFERRAL TO [facility] FOR DC NEEDS. IMM 02/15 IN CHART
[2022-02-16 15:57] LABS: Glucose, Whole Blood 194 mg/dL (60-115)
[2022-02-16] MEDS: Insulin Lispro 100 UNIT/ML 3 ML VIAL SUBCUT ×2 (17:00→20:41)
[2022-02-16] MEDS: 0.9 % Sodium Chloride Flush 3 ML SYRINGE IVFLUSH (17:01)
[2022-02-16 20:15] LABS: Glucose, Whole Blood 216 mg/dL (60-115)
[2022-02-16] MEDS: Insulin Glargine,Hum.rec.anlog 100 UNIT/ML 10 ML VIAL SUBCUT (20:40)
[2022-02-16] MEDS: Donepezil HCl 10 MG TABLET PO (20:40)
[2022-02-16] MEDS: Lactated Ringers 1,000 ML 100 ML IVCONT (20:41)
[2022-02-17] VITALS: BP 136/67; PULSE 74; RESP 17; TEMP 37.1; O2SAT 97
[2022-02-17] MEDS: Piperacillin Sodium/Tazobactam 2.25 GM in 0.9 % Sodium Chloride 50 ML IV ×2 (00:07→06:04)
[2022-02-17 04:00] VITALS: BP 159/74; PULSE 66; RESP 17; TEMP 36.8; O2SAT 93
[2022-02-17 05:59] LABS: Hematocrit 34.3 % (42.0-52.0); Hemoglobin 11.4 g/dl (14.0-18.0); Mean Corpuscular HGB Conc 33.2 g/dl (31.0-36.0); Mean Corpuscular Hemoglobin 29.2 pg (27.0-33.0); Mean Corpuscular Volume 87.9 fL (80.0-98.0); Mean Platelet Volume 9.1 fL (9.4-12.4); Platelet Count 300 X10*3/uL (160-400); Red Cell Distribution Width 11.6 % (11.0-16.0); White Blood Count 6.4 X10*3/uL (4.8-10.8)
[2022-02-17] MEDS: Heparin Sodium,Porcine 5,000 UNIT/ML VIAL 5000 UNIT SUBCUT ×3 (05:59→20:30)
[2022-02-17 06:40] LABS: Creatinine Clr Calc Pharmacy 37.6; Estimated Glomerular Filt Rate 45
[2022-02-17 06:44] LABS: Anion Gap 15 (12-20); Blood Urea Nitrogen 30 mg/dL (9-16); Calcium 8.3 mg/dL (8.4-10.2); Carbon Dioxide 20 mmol/L (22-29); Chloride 107 mmol/L (96-108); Creatinine Clr Calc Pharmacy 36.8; Estimated Glomerular Filt Rate 44; Glucose Random 156 mg/dL (60-115); Potassium 4.3 mmol/L (3.3-5.1); Sodium 138 mmol/L (135-145)
--- NOTE | 2022-02-17 06:44 | HE.PHANOTE ---
RE PAUL CONTINUE CURRENT DOSE. NEXT TROUGH DUE 02/18 @1200 JENNY
[2022-02-17 07:27] VITALS: BP 154/81; PULSE 70; RESP 18; TEMP 36.6; O2SAT 95
[2022-02-17 07:34] LABS: Glucose, Whole Blood 134 mg/dL (60-115)
--- NOTE | 2022-02-17 07:45 | PM.PNORT ---
Subjective Subjective Date of Service: 02/17/22 Interval history: POD 1 s/p repeat I&D left hand. No overnight events. Resting in bed comfortably, elevating arm. Pain is managed. No additional complaints. Physical Exam Vital Signs: Vital Signs: Last Vital Signs Temp 97.8 F 02/17/22 07:27 Pulse 70 02/17/22 07:27 Resp 18 02/17/22 07:27 BP 154/81 H 02/17/22 07:27 Pulse Ox 95 02/17/22 07:27 O2 Del Method 02/17/22 07:27 O2 Flow Rate 4 02/16/22 10:24 Oxygen Flow Rate 95 02/14/22 12:50 BMI result Body Mass Index 23.8 Const: General: cooperative and no acute distress Orientation/consciousness: patient oriented x3 Resp: Effort & Inspection: normal respiratory effort and able to speak in complete sentences Cardio: Rate: regular rate Peripheral pulses: Peripheral pulses 2+ throughout GI: Palpation (GI): Soft to palpation Skin: Lesions: no lesions Rashes: no rashes Neuro: General: patient oriented x3 Extrem: Other: Left hand incisions are clean, dry, and intact. Able to move all digits. Lacking about 1.5cm from making a closed fist. Sensation intact. Capillary refill intact. Procedures Date of Service Date of Service: 02/17/22 Progress Note: A&P Assessment and plan (1) Hand abscess: Status: Acute Assessment and Plan: Remove iodoform drain , followed by daily dressing changes Follow-up in about 5 days after discharge for wound check and to check cultures Anticipate suture removal in about 3 weeks postop (2) Cellulitis: Status: Acute Time Spent With Patient Time: Total time spent is greater than 50% in coordination of care (as documented) at patient's floor/unit and/or counseling patient: Quality Stroke Does the patient have a stroke diagnosis?: No VTE Prior VTE?: No VTE Risk Level:: Medical - moderate - high VTE Device Contraindication: Treatment Not Indicated VTE Drug Contraindication: N/A - Med Ordered
[2022-02-17] MEDS: levoFLOXacin 750 MG TABLET PO (07:50)
[2022-02-17] MEDS: Aspirin Enteric Coated 81 MG TABLET.DR PO (07:50)
[2022-02-17] MEDS: Escitalopram Oxalate 5 MG TABLET PO (07:50)
[2022-02-17] MEDS: amLODIPine Besylate 10 MG TABLET PO (07:51)
[2022-02-17] MEDS: Tamsulosin HCL 0.4 MG CAPSULE PO (07:51)
[2022-02-17] MEDS: Finasteride 5 MG TABLET PO (07:51)
[2022-02-17] MEDS: Empagliflozin 10 MG TABLET PO (07:51)
[2022-02-17] MEDS: cefTRIAXone sodium 1 GM in 0.9 % Sodium Chloride 50 ML IV (07:52)
[2022-02-17] MEDS: 0.9 % Sodium Chloride Flush 3 ML SYRINGE IVFLUSH (07:52)
[2022-02-17] MEDS: Lactated Ringers 1,000 ML 80 ML IVCONT (08:31)
--- NOTE | 2022-02-17 09:47 | MHC.CLN ---
NUTRITION CHANGED DIET TO DIABETIC 2000 KCAL. HAS DX DM AND TAKES INSULIN.
[2022-02-17 11:29] VITALS: BP 125/66; PULSE 71; RESP 18; TEMP 36.6; O2SAT 97
[2022-02-17 11:41] LABS: Glucose, Whole Blood 169 mg/dL (60-115)
--- NOTE | 2022-02-17 11:50 | MHC.CM.PN ---
Addendum entered by Steff Cheng RN 02/17/22 14:18: COMPLETED FLUSH FORM UPLOADED TO [facility]. AWAITING NEPHROLOGY CONSULT PRIOR TO PLACEMENT. Original Note: PICC ORDERED. REFERRAL PLACED TO [facility].
[2022-02-17] MEDS: Insulin Lispro 100 UNIT/ML 3 ML VIAL SUBCUT ×2 (12:05→20:31)
[2022-02-17] MEDS: Acetaminophen 325 MG TABLET 650 MG PO (12:07)
--- NOTE | 2022-02-17 13:27 | HO.POSTANES ---
Post Anesthesia Evaluation Post Anesthesia Evaluation Vital Signs: Vital Signs Temp Pulse Resp BP Pulse Ox O2 Del Method 02/17/22 11:29 97.9 F 71 18 125/66 97 Room Air 02/17/22 07:27 97.8 F 70 18 154/81 H 95 Room Air 02/17/22 04:00 98.2 F 66 17 159/74 H 93 Room Air Anesthesia: General Mental Status: Awake Pain Control: Satisfactory Nausea/Vomiting: None Hydration: Adequate Anesthesia-Related Issues: No Anes. Related Issues
--- NOTE | 2022-02-17 14:20 | HO.PM.IMPN ---
Subjective Subjective Date of Service: 02/17/22 Interval History: left hand abcess/possible ?oseto Review of Systems Hand pain and swelling seems to be improvin denies any chest pain or shortness of breath or abdominal pain or nausea vomiting Physical Exam Vital Signs: Vital Signs: Last Vital Signs Temp 97.9 F 02/17/22 11:29 Pulse 71 02/17/22 11:29 Resp 18 02/17/22 11:29 BP 125/66 02/17/22 11:29 Pulse Ox 97 02/17/22 11:29 O2 Del Method 02/17/22 11:29 O2 Flow Rate 4 02/16/22 10:24 Oxygen Flow Rate 95 02/14/22 12:50 BMI result Body Mass Index 23.8 Appearance: Alert.? Oriented X3.? cvs: rrr, [id number] res: clear to auscultation ,no rhonchii or wheezing abd: no rebound or guarding ,nt, bs present. ext pulses present ,left thumb pain/erythema,moving hand and digits better neuro: axo3 , nonfocal. Objective Data Active Medications Acetaminophen (Acetaminophen 325 Mg Tablet) 650 mg PO Q6H PRN PRN Reason: Pain, Mild (Pain Scale 1-3) Last Admin: 02/17/22 12:07 Dose: 650 mg Documented By: SAMI Amlodipine Besylate (Amlodipine Besylate 10 Mg Tablet) 10 mg PO DAILY [facility]; Protocol Last Admin: 02/17/22 07:51 Dose: 10 mg Documented By: SAMI Aspirin (Aspirin Enteric Coated 81 Mg Tablet.Dr) 81 mg PO DAILY [facility] Last Admin: 02/17/22 07:50 Dose: 81 mg Documented By: SAMI Docusate Sodium (Docusate Sodium 100 Mg Capsule) 100 mg PO DAILY PRN PRN Reason: Constipation Donepezil HCl (Donepezil Hcl 10 Mg Tablet) 10 mg PO BEDTIME [facility]PLAC[facility] Last Admin: 02/16/22 20:40 Dose: 10 mg Documented By: MERCEDES Empagliflozin (Empagliflozin 10 Mg Tablet) 10 mg PO DAILY [facility] Last Admin: 02/17/22 07:51 Dose: 10 mg Documented By: SAMI Ergocalciferol (Ergocalciferol (Vitamin D2) 1,250 Mcg Capsule) 1,250 mcg PO Q14D [facility]PLAC[facility] Escitalopram Oxalate (Escitalopram Oxalate 5 Mg Tablet) 5 mg PO DAILY [facility] Last Admin: 02/17/22 07:50 Dose: 5 mg Documented By: SAMI Fentanyl (Fentanyl Citrate/Pf 100 Mcg/2 Ml Vial) 25 mcg IVPUSH Q5M PRN; Protocol PRN Reason: Pain, Moderate (Pain Scale 4-6 Last Admin: 02/13/22 13:32 Dose: 25 mcg Documented By: GORDON Finasteride (Finasteride 5 Mg Tablet) 5 mg PO DAILY [facility] Last Admin: 02/17/22 07:51 Dose: 5 mg Documented By: SAMI Heparin Sodium (Porcine) (Heparin Sodium,Porcine 5,000 Unit/Ml Vial) 5,000 unit SUBCUT Q8H [facility] Last Admin: 02/17/22 13:31 Dose: 5,000 unit Documented By: SAMI Hydromorphone HCl (Hydromorphone Hcl 0.5 Mg/0.5 Ml Syringe) 0.25 mg IVPUSH Q5M PRN; Protocol PRN Reason: Pain, Severe (Pain Scale 7-10) Lactated Ringer's (Lr) 1,000 mls @ 80 mls/hr IVCONT .[id number] REPLACED BY [facility] Last Admin: 02/17/22 08:31 Dose: 80 mls/hr Documented By: SAMI Ceftriaxone Sodium 1 gm/ (Sodium Chloride) 50 mls @ 100 mls/hr IV Q24H REPL[facility]ED [facility] Last Infusion: 02/17/22 08:32 Dose: 0 mls/hr Documented By: SAMI Insulin Glargine (Insulin Glargine,Hum.Rec.Anlog 100 Unit/Ml 10 Ml Vial) 5 unit SUBCUT BEDTIME [facility]PL[facility]ED [facility] Last Admin: 02/16/22 20:40 Dose: 5 unit Documented By: CHAY-АЛЕКСАНДР Insulin Human Lispro (Insulin Lispro 100 Unit/Ml 3 Ml Vial) 0 unit SUBCUT QIDACHS REPLACED BY [facility]; Protocol Last Admin: 02/17/22 12:05 Dose: 2 unit Documented By: SAMI Levofloxacin (Levofloxacin 750 Mg Tablet) 750 mg PO Q48H REPLACED BY [facility] Last Admin: 02/17/22 07:50 Dose: 750 mg Documented By: SAMI Magnesium Hydroxide (Milk Of Magnesia 30 Ml Oral.Susp) 30 ml PO DAILY PRN PRN Reason: Constipation Melatonin (Melatonin 3 Mg Tablet) 6 mg PO BEDTIME PRN PRN Reason: Insomnia Ondansetron HCl (Ondansetron Hcl 4 Mg/2 Ml Vial) 4 mg IVPUSH Q8H PRN PRN Reason: Nausea and Vomiting Pharmacy Consult (Consult Rx Vancomycin Dosing) 1 each MISCELLANE DAILY PRN PRN Reason: Consult order Pharmacy Consult (Consult Rx Perform Med Rec) 1 each MISCELLANE ONCE PRN PRN Reason: Consult order Sodium Chloride (0.9 % Sodium Chloride Flush 3 Ml Syringe) 3 ml IVFLUSH QSHIFT REPLACED BY [facility] Last Admin: 02/17/22 07:52 Dose: 3 ml Documented By: SAMI Tamsulosin HCl (Tamsulosin Hcl 0.4 Mg Capsule) 0.4 mg PO DAILY REPLACED [facility] Last Admin: 02/17/22 07:51 Dose: 0.4 mg Documented By: SAMI Labs CBC & Chem 7: 02/17/22 05:19 02/17/22 05:19 Labs: Laboratory Results - last 24 hr 02/16/22 02/16/22 02/17/22 15:40 19:46 05:19 MCV MCH MCHC RDW Plt Count MPV Absolute Nucleated RBC Nucleated RBC % (auto) Anion Gap Estim Creat Clear Calc 37.6 Estimated GFR 45 POC Glucose 194 H 216 H Random Glucose Calcium 02/17/22 02/17/22 02/17/22 05:19 05:19 07:26 MCV 87.9 MCH 29.2 MCHC 33.2 RDW 11.6 Plt Count 300 MPV 9.1 L Absolute Nucleated RBC 0.000 Nucleated RBC % (auto) 0.0 Anion Gap 15 Estim Creat Clear Calc 36.8 Estimated GFR 44 POC Glucose 134 H Random Glucose 156 H Calcium 8.3 L D 02/17/22 11:28 MCV MCH MCHC RDW Plt Count MPV Absolute Nucleated RBC Nucleated RBC % (auto) Anion Gap Estim Creat Clear Calc Estimated GFR POC Glucose 169 H Random Glucose Calcium Microbiology Microbiology Results: Microbiology 02/12/22 12:12 Blood Culture - Final Blood - Venous No growth after 5 days. 02/16/22 Unknown Gram Stain - Final Hand Left Routine Culture - Preliminary No growth to date. Assessment and Plan (1) Hand abscess: Status: Acute (2) Cellulitis: Status: Acute (3) Infected wound: Status: Acute Plan 71 year old ethiopian speaking only male? (history obtained via certified cover remover)? with insulin dependent non compliant, dementia, HTN, and BPH. He presents with? left swelling and pain ( see pictures below),4 days ago, he tripped tripped over a box? and while going down held onto a lamp that broke a sustained laceration to the left hand and right little finger. He has cellulitis of the hand associated with high CRP and ESR 1/Left Hand cellulitis/ possible osteomyelitis/hand abcess . ? MRI reviewed with orthopedics surgery-s/p I&D yesterday. ? cultures reviewed with ID -recomended - switched to ceftriaxone and Flagyl wound culture from yesterday also pending, decline order added need picc line . 2/Diabetes--continue home regimen (lantus, SSI) hold Faxiga,, diabetic diet 3/CKD3B, mild TONY--IV fluid and reassess tomorrow 4/HTN-controlled, continue Norvasc 5/BPH-Flomax, finesteride 6/Dementia--Aricept 7/DVT prophylaxis--Heparin Need for inpatient: management of limb threatening cellulitis of the hand with IV abx ,picc line , repeat culture. Quality Stroke Does the patient have a stroke diagnosis?: No VTE Prior VTE?: No VTE Risk Level:: Medical - moderate - high VTE Device Contraindication: Treatment Not Indicated VTE Drug Contraindication: N/A - Med Ordered
[2022-02-17 15:25] VITALS: BP 148/70; PULSE 68; RESP 16; TEMP 36.9; O2SAT 94
--- NOTE | 2022-02-17 15:59 | PM.CNNEP ---
History of Present Illness Reason for Consult Consult date: 02/17/22 Reason for consult: CKD Requesting physician: Tejinder Thomas Chief Complaint Chief complaint: left hand abscess History of Present Illness Narrative: Mr. Reg Sheets is a 71-year-old gentleman with past medical history of CKD stage IIIb (BL Cr 1.6-1.9) who follows Dr Middleton. He has CKD related to diabetic nephropathy, for which he is on Faxriga. He also has a history of HYPERkalemia for which he is on lokelma. He presents for hand cellulitis. He will need picc for likely osteomyelitis. Review of Systems Review of Systems Hand pain and swelling seems to be improvin denies any chest pain or shortness of breath or abdominal pain or nausea vomiting Yes all other systems are reviewed and are negative PMFSH Past Medical History Medical History BPH (benign prostatic hyperplasia) CKD stage G3b/A1, GFR 30-44 and albumin creatinine ratio <30 mg/g Dementia Diabetes Dog bite History of amputation of toe Hypertension Rhabdomyolysis Family History Family History Other Diabetes HTN (hypertension) Family history: reviewed and not pertinent Social History Social History Household Members: Spouse, Family and Children Housing: Apartment Do you presently have visiting nurse or other home services: Yes ([employer]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) Alcohol intake: never Patient Tobacco Use Status: Former Tobacco user Quit Date: 1999 Advance Directives Date on File: 01/25/21 service: No Current occupational status: retired Meds Allergies Allergy/AdvReac Type Severity Reaction Status Date / Time oxycodone [From PERCOCET] Allergy Unknown CAN'T Verified 01/24/21 21:27 BREATH/VOMITING simvastatin [SIMVASTATIN] Allergy Unknown UNKNOWN Verified 01/24/21 21:27 peas AdvReac Unknown VOMITING/FA Verified 01/24/21 21:27 INTING SALMON [id number] AdvReac Unknown VOMITING/FA Uncoded 01/24/21 21:27 INT Active Medications: Current Medications Acetaminophen (Acetaminophen 325 Mg Tablet) 650 mg PO Q6H PRN PRN Reason: Pain, Mild (Pain Scale 1-3) Last Admin: 11/04/22 12:07 Dose: 650 mg Amlodipine Besylate (Amlodipine Besylate 10 Mg Tablet) 10 mg PO DAILY [facility]; Protocol Last Admin: 02/17/22 07:51 Dose: 10 mg Aspirin (Aspirin Enteric Coated 81 Mg Tablet.Dr) 81 mg PO DAILY [facility] Last Admin: 02/17/22 07:50 Dose: 81 mg Docusate Sodium (Docusate Sodium 100 Mg Capsule) 100 mg PO DAILY PRN PRN Reason: Constipation Donepezil HCl (Donepezil Hcl 10 Mg Tablet) 10 mg PO BEDTIME [facility] Last Admin: 02/16/22 20:40 Dose: 10 mg Empagliflozin (Empagliflozin 10 Mg Tablet) 10 mg PO DAILY [facility] Last Admin: 02/17/22 07:51 Dose: 10 mg Ergocalciferol (Ergocalciferol (Vitamin D2) 1,250 Mcg Capsule) 1,250 mcg PO Q14D [facility] Escitalopram Oxalate (Escitalopram Oxalate 5 Mg Tablet) 5 mg PO DAILY [facility] Last Admin: 02/17/22 07:50 Dose: 5 mg Fentanyl (Fentanyl Citrate/Pf 100 Mcg/2 Ml Vial) 25 mcg IVPUSH Q5M PRN; Protocol PRN Reason: Pain, Moderate (Pain Scale 4-6 Last Admin: 02/13/22 13:32 Dose: 25 mcg Finasteride (Finasteride 5 Mg Tablet) 5 mg PO DAILY [facility] Last Admin: 02/17/22 07:51 Dose: 5 mg Heparin Sodium (Porcine) (Heparin Sodium,Porcine 5,000 Unit/Ml Vial) 5,000 unit SUBCUT Q8H [facility] Last Admin: 02/17/22 13:31 Dose: 5,000 unit Hydromorphone HCl (Hydromorphone Hcl 0.5 Mg/0.5 Ml Syringe) 0.25 mg IVPUSH Q5M PRN; Protocol PRN Reason: Pain, Severe (Pain Scale 7-10) Lactated Ringer's (Lr) 1,000 mls @ 80 mls/hr IVCONT .[id number] [facility] Last Infusion: 02/17/22 15:55 Dose: 0 mls/hr Ceftriaxone Sodium 1 gm/ (Sodium Chloride) 50 mls @ 100 mls/hr IV Q24H [facility] Last Infusion: 02/17/22 08:32 Dose: Infused Insulin Glargine (Insulin Glargine,Hum.Rec.Anlog 100 Unit/Ml 10 Ml Vial) 5 unit SUBCUT BEDTIME [facility] Last Admin: 02/16/22 20:40 Dose: 5 unit Insulin Human Lispro (Insulin Lispro 100 Unit/Ml 3 Ml Vial) 0 unit SUBCUT QIDACHS [facility]; Protocol Last Admin: 02/17/22 12:05 Dose: 2 unit Levofloxacin (Levofloxacin 750 Mg Tablet) 750 mg PO Q48H [facility] Last Admin: 02/17/22 07:50 Dose: 750 mg Magnesium Hydroxide (Milk Of Magnesia 30 Ml Oral.Susp) 30 ml PO DAILY PRN PRN Reason: Constipation Melatonin (Melatonin 3 Mg Tablet) 6 mg PO BEDTIME PRN PRN Reason: Insomnia Ondansetron HCl (Ondansetron Hcl 4 Mg/2 Ml Vial) 4 mg IVPUSH Q8H PRN PRN Reason: Nausea and Vomiting Pharmacy Consult (Consult Rx Vancomycin Dosing) 1 each MISCELLANE DAILY PRN PRN Reason: Consult order Pharmacy Consult (Consult Rx Perform Med Rec) 1 each MISCELLANE ONCE PRN PRN Reason: Consult order Sodium Chloride (0.9 % Sodium Chloride Flush 3 Ml Syringe) 3 ml IVFLUSH QSHIFT [facility] Last Admin: 02/17/22 15:03 Dose: Not Given Tamsulosin HCl (Tamsulosin Hcl 0.4 Mg Capsule) 0.4 mg PO DAILY [facility] Last Admin: 02/17/22 07:51 Dose: 0.4 mg Home Medications Medication Instructions Recorded Confirmed Last Taken Type amlodipine 10 mg tablet 1 tab PO DAILY 01/24/21 02/12/22 02/12/22 History aspirin 81 mg tablet,delayed 1 tab PO DAILY 01/24/21 02/12/22 02/12/22 History release citalopram 10 mg tablet 1 tab PO DAILY 01/24/21 02/12/22 02/12/22 History clopidogrel 75 mg tablet 1 tab PO DAILY 01/24/21 02/12/22 02/12/22 History donepezil 10 mg tablet 1 tab PO BEDTIME 01/24/21 02/12/22 02/11/22 History finasteride 5 mg tablet 1 tab PO DAILY 01/24/21 02/12/22 02/12/22 History insulin glargine 100 unit/mL 5 unit subcut BEDTIME 01/24/21 02/12/22 02/11/22 History subcutaneous solution (Lantus U-100 Insulin) tamsulosin 0.4 mg capsule 1 cap PO DAILY 01/24/21 02/12/22 02/12/22 History acetaminophen 325 mg tablet 650 mg PO Q6H PRN Pain 02/12/22 02/12/22 Unknown History dapagliflozin 10 mg tablet 1 tab PO DAILY 02/12/22 02/12/22 02/12/22 History (Farxiga) ergocalciferol (vitamin D2) 1,250 1 cap PO Q2W 02/12/22 02/12/22 01/30/22 History mcg (50,000 unit) capsule insulin aspart U-100 100 unit/mL See Protocol subcut QIDACHS 02/12/22 02/12/22 02/12/22 History subcutaneous solution (Novolog U-100 Insulin aspart) Physical Exam Vital Signs: Last Vital Signs Temp 98.5 F 02/17/22 15:25 Pulse 68 02/17/22 15:25 Resp 16 02/17/22 15:25 BP 148/70 H 02/17/22 15:25 Pulse Ox 94 02/17/22 15:25 O2 Del Method 02/17/22 15:25 O2 Flow Rate 4 02/16/22 10:24 Oxygen Flow Rate 95 02/14/22 12:50 BMI result Body Mass Index 23.8 Const Other: Constitutional: Alert, in no distress, Mental Status: Oriented to person, place and time. Eyes: Pupils are equal, round and reactive to light. Ear, Nose and Throat: Oropharynx clear, mucous membranes moist. Ears and nose without eformities. Respiratory: Clear to auscultation. No wheezing, rales or rhonchi. Cardiovascular: S1 S2 regular. No murmurs, rubs or gallops. Gastrointestinal: Abdomen soft, non-tender, non-distended. Normal bowel sounds.? Neurologic: Cranial nerves II-XII grossly intact. No focal neurological deficits. Moves all extremities spontaneously.? Skin: Musculoskeletal: No cyanosis or clubbing. Psychiatric: Normal mood and affect? Results Lab Results Result Diagrams: 02/17/22 05:19 02/17/22 05:19 Lab results: Chemistry 02/15/22 02/16/22 02/17/22 06:00 05:51 05:19 Sodium Potassium Carbon Dioxide BUN Creatinine 1.86 H 1.74 H 1.53 H Calcium 02/17/22 05:19 Sodium 138 Potassium 4.3 Carbon Dioxide 20 L BUN 30 H Creatinine 1.56 H Calcium 8.3 L D Hematology 02/17/22 05:19 WBC 6.4 Hgb 11.4 L D Plt Count 300 Assessment and Plan (1) Hand abscess: Status: Acute (2) Cellulitis: Status: Acute (3) Infected wound: Status: Acute (4) Stage 3b chronic kidney disease (CKD): Status: Acute Plan Mr. Reg Sheets is a 71-year-old gentleman with past medical history of CKD stage IIIb (BL Cr 1.6-1.9) who follows Dr Middleton. He has CKD related to diabetic nephropathy, for which he is on Faxriga. He also has a history of HYPERkalemia for which he is on lokelma. He is now hospitalized for left hand celluitis and osteo. 1. CKD stage IIIb Cr at baseline The patient is cleared for PICC line. Please place in dominant arm. Altough a picc line could reduce chances for successful fistula formation in the future, this risk is not as significant for Mr Sheets given his age and stable GFR. Procedures Date of Service Date of Service: 02/17/22
[2022-02-17 18:11] LABS: Glucose, Whole Blood 137 mg/dL (60-115)
[2022-02-17 20:00] VITALS: BP 128/64; PULSE 67; RESP 17; TEMP 36.6; O2SAT 94
[2022-02-17 20:22] LABS: Glucose, Whole Blood 222 mg/dL (60-115)
[2022-02-17] MEDS: Donepezil HCl 10 MG TABLET PO (20:30)
[2022-02-17] MEDS: Insulin Glargine,Hum.rec.anlog 100 UNIT/ML 10 ML VIAL SUBCUT (20:30)
[2022-02-18] VITALS (7 sets, daily range): BP systolic 136–169; BP diastolic 62–78; PULSE 63–75; RESP 14–18; TEMP 36.6–37.4; O2SAT 94–97
[2022-02-18] MEDS: Lactated Ringers 1,000 ML 80 ML IVCONT (01:41)
[2022-02-18] MEDS: Heparin Sodium,Porcine 5,000 UNIT/ML VIAL 5000 UNIT SUBCUT ×3 (05:46→20:25)
[2022-02-18 08:15] LABS: Glucose, Whole Blood 117 mg/dL (60-115)
--- NOTE | 2022-02-18 10:11 | P.PNIM_ITS ---
Subjective Subjective Date of Service: 02/18/22 Interval History: left hand abcess/possible ?oseto Review of Systems Hand pain and swelling seems to be improvin ?denies any chest pain or shortness of breath or abdominal pain or nausea vomit ing Physical Exam Vital Signs: Vital Signs: Last Vital Signs Temp 98.2 F 02/18/22 07:24 Pulse 75 02/18/22 07:24 Resp 14 02/18/22 07:24 BP 160/76 H 02/18/22 07:24 Pulse Ox 94 02/18/22 07:24 O2 Del Method 02/18/22 07:24 O2 Flow Rate 4 02/16/22 10:24 Oxygen Flow Rate 95 02/14/22 12:50 BMI result Body Mass Index 23.8 Appearance: Alert.? Oriented X3.? cvs: [id number], [id number] res: clear to auscultation ,no rhonchii or wheezing abd: no rebound or guarding ,nt, bs present. ext pulses present ,left thumb pain/erythema,moving hand and digits better neuro: axo3 , nonfocal. Objective Data Active Medications Acetaminophen (Acetaminophen 325 Mg Tablet) 650 mg PO Q6H PRN PRN Reason: Pain, Mild (Pain Scale 1-3) Last Admin: 02/17/22 12:07 Dose: 650 mg Documented By: SAMI Amlodipine Besylate (Amlodipine Besylate 10 Mg Tablet) 10 mg PO DAILY [facility]; Protocol Last Admin: 02/17/22 07:51 Dose: 10 mg Documented By: SAMI Aspirin (Aspirin Enteric Coated 81 Mg Tablet.) 81 mg PO DAILY [facility] Last Admin: 02/17/22 07:50 Dose: 81 mg Documented By: SAMI Docusate Sodium (Docusate Sodium 100 Mg Capsule) 100 mg PO DAILY PRN PRN Reason: Constipation Donepezil HCl (Donepezil Hcl 10 Mg Tablet) 10 mg PO BEDTIME [facility] Last Admin: 02/17/22 20:30 Dose: 10 mg Documented By: ROBERT Empagliflozin (Empagliflozin 10 Mg Tablet) 10 mg PO DAILY [facility] Last Admin: 02/17/22 07:51 Dose: 10 mg Documented By: SAMI Ergocalciferol (Ergocalciferol (Vitamin D2) 1,250 Mcg Capsule) 1,250 mcg PO Q14D [facility] Escitalopram Oxalate (Escitalopram Oxalate 5 Mg Tablet) 5 mg PO DAILY [facility] Last Admin: 02/17/22 07:50 Dose: 5 mg Documented By: SAMI Fentanyl (Fentanyl Citrate/Pf 100 Mcg/2 Ml Vial) 25 mcg IVPUSH Q5M PRN; Protocol PRN Reason: Pain, Moderate (Pain Scale 4-6 Last Admin: 02/13/22 13:32 Dose: 25 mcg Documented By: GORDON Finasteride (Finasteride 5 Mg Tablet) 5 mg PO DAILY [facility] Last Admin: 02/17/22 07:51 Dose: 5 mg Documented By: SAMI Heparin Sodium (Porcine) (Heparin Sodium,Porcine 5,000 Unit/Ml Vial) 5,000 unit SUBCUT Q8H [facility] Last Admin: 02/18/22 05:46 Dose: 5,000 unit Documented By: ROBERT Hydromorphone HCl (Hydromorphone Hcl 0.5 Mg/0.5 Ml Syringe) 0.25 mg IVPUSH Q5M PRN; Protocol PRN Reason: Pain, Severe (Pain Scale 7-10) Ceftriaxone Sodium 1 gm/ (Sodium Chloride) 50 mls @ 100 mls/hr IV Q24H [facility] Last Infusion: 02/17/22 08:32 Dose: 0 mls/hr Documented By: SAMI Insulin Glargine (Insulin Glargine,Hum.Rec.Anlog 100 Unit/Ml 10 Ml Vial) 5 unit SUBCUT BEDTIME [facility] Last Admin: 02/17/22 20:30 Dose: 5 unit Documented By: ROBERT Insulin Human Lispro (Insulin Lispro 100 Unit/Ml 3 Ml Vial) 0 unit SUBCUT QIDACHS [facility]; Protocol Last Admin: 02/18/22 08:38 Dose: Not Given Documented By: JOHNNYJ Non-Admin Reason: No Insulin Coverage Levofloxacin (Levofloxacin 750 Mg Tablet) 750 mg PO Q48H [facility] Last Admin: 02/17/22 07:50 Dose: 750 mg Documented By: SAMI Magnesium Hydroxide (Milk Of Magnesia 30 Ml Oral.Susp) 30 ml PO DAILY PRN PRN Reason: Constipation Melatonin (Melatonin 3 Mg Tablet) 6 mg PO BEDTIME PRN PRN Reason: Insomnia Ondansetron HCl (Ondansetron Hcl 4 Mg/2 Ml Vial) 4 mg IVPUSH Q8H PRN PRN Reason: Nausea and Vomiting Pharmacy Consult (Consult Rx Vancomycin Dosing) 1 each MISCELLANE DAILY PRN PRN Reason: Consult order Pharmacy Consult (Consult Rx Perform Med Rec) 1 each MISCELLANE ONCE PRN PRN Reason: Consult order Sodium Chloride (0.9 % Sodium Chloride Flush 3 Ml Syringe) 3 ml IVFLUSH QSHIFT [facility] Last Admin: 02/18/22 01:53 Dose: Not Given Documented By: ROBERT Non-Admin Reason: IV Running Tamsulosin HCl (Tamsulosin Hcl 0.4 Mg Capsule) 0.4 mg PO DAILY [facility] Last Admin: 02/17/22 07:51 Dose: 0.4 mg Documented By: SAMI Labs CBC & Chem 7: 02/17/22 05:19 02/17/22 05:19 Labs: Laboratory Results - last 24 hr 02/17/22 02/17/22 02/17/22 11:28 18:06 19:36 POC Glucose 169 H 137 H 222 H 02/18/22 08:08 POC Glucose 117 H Microbiology Microbiology Results: Microbiology 02/16/22 Unknown Gram Stain - Final Hand Left Routine Culture - Final No growth after 2 days 02/12/22 12:26 Blood Culture - Final Blood - Venous No growth after 5 days. 02/12/22 12:12 Blood Culture - Final Blood - Venous No growth after 5 days. Assessment and Plan (1) Hand abscess: Status: Acute (2) Cellulitis: Status: Acute (3) Infected wound: Status: Acute Plan 71 year old south [place]ese speaking only male? (history obtained via certified park interpreter)? with insulin dependent non compliant, dementia, HTN, and BPH. He presents with? left swelling and pain ( see pictures below),4 days ago, he tripped tripped over a box? and while going down held onto a lamp that broke a sustained laceration to the left hand and right little finger. He has cellulitis of the hand associated with high CRP and ESR 1/Left Hand cellulitis/ possible osteomyelitis/hand abcess . ? MRI reviewed with orthopedics surgery-s/p I&D yesterday. ? cultures reviewed with ID -recomended - switched to ceftriaxone and Flagyl wound culture from yesterday also pending, decline order added s/p picc line yesterday. 2/Diabetes--continue home regimen (lantus, SSI) hold Faxiga,, diabetic diet 3/CKD3B, mild TONY--IV fluid and reassess tomorrow 4/HTN-controlled, continue Norvasc 5/BPH-Flomax, finesteride 6/Dementia--Aricept 7/DVT prophylaxis--Heparin Need for inpatient: management of limb threatening cellulitis of the hand with IV abx ,picc line , repeat culture wound -pending. Quality Stroke Does the patient have a stroke diagnosis?: No VTE Prior VTE?: No VTE Risk Level:: Medical - moderate - high VTE Device Contraindication: Treatment Not Indicated VTE Drug Contraindication: N/A - Med Ordered
[2022-02-18] MEDS: Escitalopram Oxalate 5 MG TABLET PO (10:29)
[2022-02-18] MEDS: Finasteride 5 MG TABLET PO (10:29)
[2022-02-18] MEDS: Aspirin Enteric Coated 81 MG TABLET.DR PO (10:29)
[2022-02-18] MEDS: Empagliflozin 10 MG TABLET PO (10:29)
[2022-02-18] MEDS: amLODIPine Besylate 10 MG TABLET PO (10:29)
[2022-02-18] MEDS: Tamsulosin HCL 0.4 MG CAPSULE PO (10:29)
[2022-02-18] MEDS: cefTRIAXone sodium 1 GM in 0.9 % Sodium Chloride 50 ML IV (10:30)
[2022-02-18] MEDS: 0.9 % Sodium Chloride Flush 3 ML SYRINGE IVFLUSH ×2 (10:30→14:55)
--- NOTE | 2022-02-18 10:36 | PM.PNORT ---
Subjective Subjective Date of Service: 02/18/22 Interval history: POD 2 s/p repeat I&D left hand. No overnight events. Resting in bed comfortably, elevating arm. Pain is managed. No additional complaints. Physical Exam Vital Signs: Vital Signs: Last Vital Signs Temp 98.2 F 02/18/22 07:24 Pulse 75 02/18/22 07:24 Resp 14 02/18/22 07:24 BP 160/76 H 02/18/22 07:24 Pulse Ox 94 02/18/22 07:24 O2 Del Method 02/18/22 07:24 O2 Flow Rate 4 02/16/22 10:24 Oxygen Flow Rate 95 02/14/22 12:50 BMI result Body Mass Index 23.8 Appearance: Alert.? Oriented X3.? cvs: rrr, [id number] res: clear to auscultation ,no rhonchii or wheezing abd: no rebound or guarding ,nt, bs present. ext pulses present ,left thumb pain/erythema,moving hand and digits better neuro: axo3 , nonfocal. Const: General: cooperative and no acute distress Orientation/consciousness: patient oriented x3 Resp: Effort & Inspection: normal respiratory effort and able to speak in complete sentences Cardio: Rate: regular rate Peripheral pulses: Peripheral pulses 2+ throughout GI: Palpation (GI): Soft to palpation Skin: Lesions: no lesions Rashes: no rashes Neuro: General: patient oriented x3 Extrem: Other: Left hand incisions are clean, dry, and intact. Able to move all digits. Lacking about 1.5cm from making a closed fist. Sensation intact. Capillary refill intact. Procedures Date of Service Date of Service: 02/18/22 Progress Note: A&P Assessment and plan (1) Hand abscess: Status: Acute Assessment and Plan: Daily dressing changes to be done by nursing - communication order placed Follow-up in about 5 days after discharge for wound check and to check cultures Anticipate suture removal in about 3 weeks postop Able to d/c from ortho perspective (2) Cellulitis: Status: Acute Time Spent With Patient Time: Total time spent is greater than 50% in coordination of care (as documented) at patient's floor/unit and/or counseling patient: Quality Stroke Does the patient have a stroke diagnosis?: No VTE Prior VTE?: No VTE Risk Level:: Medical - moderate - high VTE Device Contraindication: Treatment Not Indicated VTE Drug Contraindication: N/A - Med Ordered
[2022-02-18 11:35] LABS: Glucose, Whole Blood 266 mg/dL (60-115)
[2022-02-18] MEDS: Insulin Lispro 100 UNIT/ML 3 ML VIAL SUBCUT ×3 (12:04→20:24)
[2022-02-18 16:10] LABS: Glucose, Whole Blood 174 mg/dL (60-115)
--- NOTE | 2022-02-18 17:21 | P.PNNP_ITS ---
Subjective Subjective Date of Service: 02/18/22 Interval history: No events Physical Exam Vital Signs: Vital Signs: Last Vital Signs Temp 99.4 F 02/18/22 15:25 Pulse 75 02/18/22 15:25 Resp 18 02/18/22 15:25 BP 144/72 H 02/18/22 15:25 Pulse Ox 96 02/18/22 15:25 O2 Del Method 02/18/22 15:25 O2 Flow Rate 4 02/16/22 10:24 Oxygen Flow Rate 95 02/14/22 12:50 BMI result Body Mass Index 23.8 Const: General: cooperative, healthy appearing, no acute distress, alert and awake Nutritional Appearance: well nourished Orientation/consciousness: patient oriented x3 Limitations: no limitations and No language barrier HEENT: Head: Yes normal to inspection and Yes atraumatic Ears: hearing grossly normal bilaterally and external ears normal General nose exam: Normal external nose present, no nasal discharge noted and no epistaxis Face and sinus: Yes normal facial exam, No abrasion and No laceration Mouth: Normal oral and palatal mucosa present, no drooling and no muffled voice Teeth and gingiva: dentition normal Eyes: General: appearance normal, both eyes and all related structures Periorbital: periorbital findings normal Eyelids: Yes eyelids normal Conjunctivae: conjunctivae normal Pupils: Equal, round and reactive pupils present EOM: EOMs intact bilaterally Neck: Neck: Yes normal visual inspection, Yes full ROM and Yes no lymphadenopathy Chest: Chest palpation & inspection: normal inspection of the chest Resp: Effort & Inspection: normal respiratory effort and able to speak in complete sentences Auscultation: clear to auscultation bilaterally Cardio: Rate: regular rate Rhythm: regular rhythm Peripheral pulses: Peripheral pulses 2+ throughout GI: Inspection: Yes normal to inspection Palpation (GI): Soft to palpation and nontender : General: Yes no CVA tenderness Back/Spine/Pelvis: Back: no CVA tenderness Skin: General skin exam: no rashes or lesions noted Lesions: no lesions Rashes: no rashes Neuro: General: patient oriented x3 and moves all extremities Cranial nerves: Yes Equal, round and reactive pupils present Cognition (Neuro): normal cognition Motor exam (neuro): 5/5 motor strength present throughout Sensory Exam: Normal double simultaneous stimulation for sensation Coordina tion: [id number] test normal Extrem: General: Yes normal to inspection, Yes full ROM and Yes capillary refill normal Psych: Appearance: grossly normal Mental Status: mental status grossly normal Affect: normal affect Attitude: cooperative Thought process: Normal thought process present Thought content: Normal thought content present Insight: Good insight present (Psych) Objective Data Labs CBC & Chem 7: 02/17/22 05:19 02/17/22 05:19 Labs: Laboratory Results - last 24 hr 02/17/22 02/17/22 02/18/22 18:06 19:36 08:08 POC Glucose 137 H 222 H 117 H 02/18/22 02/18/22 11:16 16:06 POC Glucose 266 H 174 H Microbiology Microbiology Results: Microbiology 02/16/22 Unknown Hand Left Gram Stain - Final 02/16/22 Unknown Hand Left Routine Culture - Final No growth after 2 days 02/12/22 12:26 Blood - Venous Blood Culture - Final No growth after 5 days. 02/12/22 12:12 Blood - Venous Blood Culture - Final No growth after 5 days. 02/13/22 Unknown Hand Left Gram Stain - Final 02/13/22 Unknown Hand Left Routine Culture - Final Pasteurella canis Streptococcus viridans group 02/13/22 Unknown Hand Left Gram Stain - Final 02/13/22 Unknown Hand Left Routine Culture - Final Pasteurella canis Streptococcus viridans group 02/13/22 11:52 Hand Left Direct Acid Fast Bacilli Smear - Final 02/13/22 11:52 Hand Left Acid Fast Bacilli Culture & Smear - Final 02/13/22 11:55 Hand Left Direct Acid Fast Bacilli Smear - Final 02/13/22 11:55 Hand Left Acid Fast Bacilli Culture & Smear - Final Procedures Date of Service Date of Service: 02/18/22 Assessment & Plan Assessment and plan (1) Hand abscess: Status: Acute (2) Cellulitis: Status: Acute (3) Infected wound: Status: Acute (4) Stage 3b chronic kidney disease (CKD): Status: Acute Plan Mr. Reg Sheets is a 71-year-old gentleman with past medical history of CKD stage IIIb (BL Cr 1.6-1.9) who follows Dr Middleton. He has CKD related to diabetic nephropathy, for which he is on Faxriga. He also has a history of HYPERkalemia for which he is on lokelma. He is now hospitalized for left hand celluitis and osteo. 1. CKD stage IIIb Cr at baseline The patient is cleared for PICC line. Please place in dominant arm. Altough a picc line could reduce chances for successful fistula formation in the future, this risk is not as significant for Mr Sheets given his age and stable GFR. Time Spent With Patient Time: Total time spent is greater than 50% in coordination of care (as documented) at patient's floor/unit and/or counseling patient: Progress Note: Quality Stroke Does the patient have a stroke diagnosis?: No
[2022-02-18 19:28] LABS: Glucose, Whole Blood 183 mg/dL (60-115)
[2022-02-18] MEDS: Donepezil HCl 10 MG TABLET PO (20:23)
[2022-02-18] MEDS: Insulin Glargine,Hum.rec.anlog 100 UNIT/ML 10 ML VIAL SUBCUT (20:24)
[2022-02-19] MEDS: 0.9 % Sodium Chloride Flush 3 ML SYRINGE IVFLUSH ×3 (01:12→16:18)
[2022-02-19 03:42] VITALS: BP 151/78; PULSE 75; RESP 16; TEMP 36.8; O2SAT 96
[2022-02-19] MEDS: Heparin Sodium,Porcine 5,000 UNIT/ML VIAL 5000 UNIT SUBCUT ×3 (05:24→21:39)
[2022-02-19 06:58] VITALS: BP 152/80; PULSE 70; RESP 18; TEMP 36.1; O2SAT 96
[2022-02-19 07:20] LABS: Glucose, Whole Blood 192 mg/dL (60-115)
[2022-02-19] MEDS: Insulin Lispro 100 UNIT/ML 3 ML VIAL SUBCUT ×2 (08:26→16:18)
[2022-02-19] MEDS: cefTRIAXone sodium 1 GM in 0.9 % Sodium Chloride 50 ML IV (08:26)
[2022-02-19] MEDS: Empagliflozin 10 MG TABLET PO (08:27)
[2022-02-19] MEDS: Escitalopram Oxalate 5 MG TABLET PO (08:27)
[2022-02-19] MEDS: Finasteride 5 MG TABLET PO (08:27)
[2022-02-19] MEDS: Tamsulosin HCL 0.4 MG CAPSULE PO (08:27)
[2022-02-19] MEDS: amLODIPine Besylate 10 MG TABLET PO (08:27)
[2022-02-19] MEDS: Aspirin Enteric Coated 81 MG TABLET.DR PO (08:27)
[2022-02-19] MEDS: levoFLOXacin 750 MG TABLET PO (08:27)
--- NOTE | 2022-02-19 10:20 | PM.DS ---
DS: Providers Provider Date of Service: 02/19/22 Date of admission: 02/12/22 13:49 Primary care physician: Penny Camarena MD Consults: 02/12/22 13:50 Consult to Orthopedics Routine Consulting Provider: Betty Novoa Reason for consultation: Cellulitis of the hand Has provider been notified: No 02/14/22 08:14 Consult to Infectious Diseases Routine Consulting Provider: Tania Monroy Reason for consultation: abx recommendations 02/17/22 12:43 Consult to Nephrology Routine Consulting Provider: Cale Vilchis Reason for consultation: ckd /[facility] [place] [facility] -need picc line Has provider been notified: No DS: Diagnosis Discharge Diagnosis (1) Hand abscess: Status: Acute (2) Cellulitis: Status: Acute (3) Infected wound: Status: Acute (4) Stage 3b chronic kidney disease (CKD): Status: Acute DS: Summary Hospital Course Hospital Course: 71 yo solomon islander speaking only male? 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 with insulin dependent non compliant, dementia, HTN, and BPH. He presents with? left swelling and pain ( see pictures below),4 days ago, he tripped tripped over a box? and while going down held onto a lamp that broke a sustained laceration to the left hand and right little finger. He has since developped redness and swelling over the area with associated pain and out of family concern is? brought to be evaluated today. He has movement but is limitted d/t? pain. CR is slightly elevated from his baseline (1.6-1.7) at 1.9 with a slight bump in his BUN (baseline 24-26) at 28 today.? CRP is 8.75, ESR 53.? He is given? Zosyn + Vanco. Culture pending. Time Spent with Patient Time attestation: Total time spent providing and/or coordinating discharge services: Discharge coordination time: Greater than 30 minutes Quality: Safe Use of Opioids Does Pt have an Active Cancer Diagnosis on the Problem List?: No Quality: Stroke Does the patient have a stroke diagnosis?: No Physical Exam Vital Signs: Vital Signs: Last Vital Signs Temp 97 F 02/19/22 06:58 Pulse 70 02/19/22 06:58 Resp 18 02/19/22 06:58 BP 152/80 H 02/19/22 06:58 Pulse Ox 96 02/19/22 06:58 O2 Del Method 02/19/22 06:58 O2 Flow Rate 4 02/16/22 10:24 Oxygen Flow Rate 95 02/14/22 12:50 BMI result Body Mass Index 23.8 DS: Data Data Completed and Pending Labs on day of discharge: Laboratory Results - last 24 hr 02/18/22 02/18/22 02/18/22 11:16 16:06 19:04 POC Glucose 266 H 174 H 183 H 02/19/22 06:58 POC Glucose 192 H Discharge Plan Discharge Anticipated Discharge Date/Time: 02/19/22 10:09 Patient Disposition: Xfer SNF Discharge Diagnosis: Hand cellulitis , dm. Referrals: [facility] [Outside] - 1 Week Kayli Lewis PA-C [Physician Veterinary Physiologist] - 02/22/22 10:30 am Penny Camarena MD [Primary Care Provider] - 1 Week Discharge Medications: New docusate sodium 100 mg Capsule 100 mg PO DAILY PRN (Reason: Constipation) Qty: 30 0RF ceftriaxone 1 gram Recon Soln 1 g IV Q24H Qty: 40 0RF Rx Instructions: end date 04/01/22. levofloxacin 750 mg Tablet 750 mg PO Q48H Qty: 20 0RF Continued citalopram 10 mg tablet 1 tab PO DAILY donepezil 10 mg tablet 1 tab PO BEDTIME clopidogrel 75 mg tablet 1 tab PO DAILY aspirin 81 mg tablet,delayed release (DR/EC) 1 tab PO DAILY tamsulosin 0.4 mg capsule 1 cap PO DAILY amlodipine 10 mg tablet 1 tab PO DAILY finasteride 5 mg tablet 1 tab PO DAILY insulin glargine [Lantus U-100 Insulin] 100 unit/mL solution 5 unit subcut BEDTIME cyclobenzaprine 10 mg tablet 10 mg PO TID PRN (Reason: pain) Qty: 14 0RF ergocalciferol (vitamin D2) 1,250 mcg (50,000 unit) capsule 1 cap PO Q2W Farxiga 10 mg tablet 1 tab PO DAILY insulin aspart U-100 [Novolog U-100 Insulin aspart] 100 unit/mL solution See Protocol subcut QIDACHS Protocol: Insulin Correction Scale Less than or equal to 110 ---- Give (units): 0 111 to 150 Give (units): 0 151 to 200 Give (units): 2 201 to 250 Give (units): 4 251 to 300 Give (units): 6 301 to 350 Give (units): 8 Greater than 350 Give (units): 10 Call MD if Blood Glucose > : 350 acetaminophen 325 mg Tablet 650 mg PO Q6H PRN (Reason: Pain) Discharge Orders: Discharge Order (Routine); Ordered 02/20/22 Ordered By: Tejinder Thomas Diet: Advance to usual diet Activity on Discharge: As tolerated Stand Alone Forms: Patient Portal Discharge page Care Plan Goals: patient was admitted for left hand cellulitis and abscess: started on broad-spectrum IV antibiotics, blood cultures sent and subsequently MRI and Ortho was consulted- patient had I&D done with Ortho and cellulitis is improving, cultures blood culture as well as wound culture are reviewed blood culture negative, MRI showed possibility of osteomyelitis of left ( please see detailed MRI section in imaging.): patient was seen by infectious disease and recommended to switch antibiotic to ceftriaxone as well as Levaquin for 6 weeks(as per wound cultures). Please monitor CBC, BMP, LFTs, CRP, ESR Q weekly while while patient is on antibiotics. Patient is to follow-up with Orthopedics out patiently please see ortho instructions below. Continue current dressing . Health Concerns: as above. Plan of Treatment: Keep splint clean, dry, and intact Elevate throughout the day No lifting Perform fist/finger exercises throughout the day Do not bathe or shower--keep splint dry Call [facility] orthopedics with any questions or concerns. Follow up with orthopedics in 5 days post op - 02/22/2022 at 10:30am Assessment: As above.
--- NOTE | 2022-02-19 10:29 | MHC.CM.PN ---
CM CALLED PTS DAUGHTER, STEVENSON [phone]) WHO CONFIRMS THE PLAN IS FOR PT TO DC HOME WITH SERVICES PT WILL NEED 6 WEEKS OF IV ABX TO END ON March REFERRALS PREVIOUSLY MADE TO [facility] AND [employer] STEVENSON SAYS SHE FEELS COMFORTABLE ADMINISTERING MEDS LONG SHE HAS TRAINING AND ALL OF THE SUPPLIES SHE SAYS SHE DID THIS FOLLOWING THE PTS AMP, HOWEVER DID HAVE PROBLEMS WITH MISSING SUPPLIES SO JUST WANTS TO MAKE SURE SHE HAS EVERYTHING BEFORE HE GOES HOME PLAN IS FOR DC SUNDAY
--- NOTE | 2022-02-19 10:31 | HO.PM.IMPN ---
Subjective Subjective Date of Service: 02/19/22 Interval History: left hand abcess/possible ?oseto Review of Systems improving moving hand fingers fine denies any chest pain or sob or dizziness . Physical Exam Vital Signs: Vital Signs: Last Vital Signs Temp 97 F 02/19/22 06:58 Pulse 70 02/19/22 06:58 Resp 18 02/19/22 06:58 BP 152/80 H 02/19/22 06:58 Pulse Ox 96 02/19/22 06:58 O2 Del Method 02/19/22 06:58 O2 Flow Rate 4 02/16/22 10:24 Oxygen Flow Rate 95 02/14/22 12:50 BMI result Body Mass Index 23.8 ?Appearance: Alert.? Oriented X3.? cvs: rrr, [id number] res: clear to auscultation ,no rhonchii or wheezing abd: no rebound or guarding ,nt, bs present. ext pulses present ,left thumb pain/erythema,moving hand and digits better neuro: axo3 , nonfocal. Objective Data Active Medications Acetaminophen (Acetaminophen 325 Mg Tablet) 650 mg PO Q6H PRN PRN Reason: Pain, Mild (Pain Scale 1-3) Last Admin: 02/17/22 12:07 Dose: 650 mg Documented By: SAMI Amlodipine Besylate (Amlodipine Besylate 10 Mg Tablet) 10 mg PO DAILY [facility]; Protocol Last Admin: 02/19/22 08:27 Dose: 10 mg Documented By: NICKI Aspirin (Aspirin Enteric Coated 81 Mg Tablet.) 81 mg PO DAILY [facility] Last Admin: 02/19/22 08:27 Dose: 81 mg Documented By: NICKI Docusate Sodium (Docusate Sodium 100 Mg Capsule) 100 mg PO DAILY PRN PRN Reason: Constipation Donepezil HCl (Donepezil Hcl 10 Mg Tablet) 10 mg PO BEDTIME [facility] Last Admin: 02/18/22 20:23 Dose: 10 mg Documented By: PARAS Empagliflozin (Empagliflozin 10 Mg Tablet) 10 mg PO DAILY [facility] Last Admin: 02/19/22 08:27 Dose: 10 mg Documented By: NICKI Ergocalciferol (Ergocalciferol (Vitamin D2) 1,250 Mcg Capsule) 1,250 mcg PO Q14D [facility] Escitalopram Oxalate (Escitalopram Oxalate 5 Mg Tablet) 5 mg PO DAILY [facility] Last Admin: 02/19/22 08:27 Dose: 5 mg Documented By: NICKI Fentanyl (Fentanyl Citrate/Pf 100 Mcg/2 Ml Vial) 25 mcg IVPUSH Q5M PRN; Protocol PRN Reason: Pain, Moderate (Pain Scale 4-6 Last Admin: 02/13/22 13:32 Dose: 25 mcg Documented By: GORDON Finasteride (Finasteride 5 Mg Tablet) 5 mg PO DAILY [facility] Last Admin: 02/19/22 08:27 Dose: 5 mg Documented By: NICKI Heparin Sodium (Porcine) (Heparin Sodium,Porcine 5,000 Unit/Ml Vial) 5,000 unit SUBCUT Q8H [facility] Last Admin: 02/19/22 05:24 Dose: 5,000 unit Documented By: ROBERT Hydromorphone HCl (Hydromorphone Hcl 0.5 Mg/0.5 Ml Syringe) 0.25 mg IVPUSH Q5M PRN; Protocol PRN Reason: Pain, Severe (Pain Scale 7-10) Ceftriaxone Sodium 1 gm/ (Sodium Chloride) 50 mls @ 100 mls/hr IV Q24H [facility] Last Infusion: 02/19/22 10:06 Dose: 0 mls/hr Documented By: NICKI Insulin Glargine (Insulin Glargine,Hum.Rec.Anlog 100 Unit/Ml 10 Ml Vial) 5 unit SUBCUT BEDTIME [facility] Last Admin: 02/18/22 20:24 Dose: 5 unit Documented By: PARAS Insulin Human Lispro (Insulin Lispro 100 Unit/Ml 3 Ml Vial) 0 unit SUBCUT QIDACHS [facility]; Protocol Last Admin: 02/19/22 08:26 Dose: 2 unit Documented By: NICKI Levofloxacin (Levofloxacin 750 Mg Tablet) 750 mg PO Q48H [facility] Last Admin: 02/19/22 08:27 Dose: 750 mg Documented By: NICKI Magnesium Hydroxide (Milk Of Magnesia 30 Ml Oral.Susp) 30 ml PO DAILY PRN PRN Reason: Constipation Melatonin (Melatonin 3 Mg Tablet) 6 mg PO BEDTIME PRN PRN Reason: Insomnia Ondansetron HCl (Ondansetron Hcl 4 Mg/2 Ml Vial) 4 mg IVPUSH Q8H PRN PRN Reason: Nausea and Vomiting Pharmacy Consult (Consult Rx Vancomycin Dosing) 1 each MISCELLANE DAILY PRN PRN Reason: Consult order Pharmacy Consult (Consult Rx Perform Med Rec) 1 each MISCELLANE ONCE PRN PRN Reason: Consult order Sodium Chloride (0.9 % Sodium Chloride Flush 3 Ml Syringe) 3 ml IVFLUSH QSHIFT [facility] Last Admin: 02/19/22 08:27 Dose: 3 ml Documented By: NICKI Tamsulosin HCl (Tamsulosin Hcl 0.4 Mg Capsule) 0.4 mg PO DAILY [facility] Last Admin: 02/19/22 08:27 Dose: 0.4 mg Documented By: NICKI Labs CBC & Chem 7: 02/17/22 05:19 02/17/22 05:19 Labs: Laboratory Results - last 24 hr 02/18/22 02/18/22 02/18/22 11:16 16:06 19:04 POC Glucose 266 H 174 H 183 H 02/19/22 06:58 POC Glucose 192 H Microbiology Microbiology Results: Microbiology 02/16/22 Unknown Gram Stain - Final Hand Left Routine Culture - Final No growth after 2 days Assessment and Plan (1) Hand abscess: Status: Acute (2) Cellulitis: Status: Acute (3) Osteomyelitis: Status: Acute Plan 71 year old bhutanese speaking only male? 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 with insulin dependent non compliant, dementia, HTN, and BPH. He presents with? left swelling and pain ( see pictures below),4 days ago, he tripped tripped over a box? and while going down held onto a lamp that broke a sustained laceration to the left hand and right little finger. He has cellulitis of the hand associated with high CRP and ESR 1/Left Hand cellulitis/ possible osteomyelitis/hand abcess . ? MRI reviewed with orthopedics surgery-s/p I&D yesterday. ? cultures reviewed with ID -recomended -? switched to ceftriaxone and Flagyl ?wound culture from yesterday also pending, decline order added s/p picc line yesterday. 2/Diabetes--continue home regimen (lantus, SSI) hold Faxiga,, diabetic diet 3/CKD3B, mild TONY--improved with hydration 4/HTN-controlled, continue Norvasc 5/BPH-Flomax, finesteride 6/Dementia--Aricept 7/DVT prophylaxis--Heparin Need for inpatient: waiting for vna /antibiotics Arrangement at home. refuses to go to rehab Quality Stroke Does the patient have a stroke diagnosis?: No VTE Prior VTE?: No VTE Risk Level:: Medical - moderate - high VTE Device Contraindication: Treatment Not Indicated VTE Drug Contraindication: N/A - Med Ordered
[2022-02-19 11:02] VITALS: BP 123/65; PULSE 68; RESP 18; TEMP 36.1; O2SAT 97
[2022-02-19 11:22] LABS: Glucose, Whole Blood 143 mg/dL (60-115)
--- NOTE | 2022-02-19 15:32 | PM.PNNEP ---
Subjective Subjective Date of Service: 02/19/22 Interval history: Awaiting rehab has PICC CKD stable last when labs checked pt denies retention symptoms Physical Exam Vital Signs: Vital Signs: Last Vital Signs Temp 97 F 02/19/22 11:02 Pulse 68 02/19/22 11:02 Resp 18 02/19/22 11:02 BP 123/65 02/19/22 11:02 Pulse Ox 97 02/19/22 11:02 O2 Del Method 02/19/22 11:02 O2 Flow Rate 4 02/16/22 10:24 Oxygen Flow Rate 95 02/14/22 12:50 BMI result Body Mass Index 23.8 Const: General: cooperative, healthy appearing, no acute distress, alert and awake Nutritional Appearance: well nourished Limitations: no limitations and No language barrier Chest: Chest palpation & inspection: normal inspection of the chest Resp: Effort & Inspection: normal respiratory effort and able to speak in complete sentences Auscultation: clear to auscultation bilaterally Cardio: Rate: regular rate Rhythm: regular rhythm Peripheral pulses: Peripheral pulses 2+ throughout GI: Inspection: Yes normal to inspection Palpation (GI): Soft to palpation and nontender : General: Yes no CVA tenderness Back/Spine/Pelvis: Back: no CVA tenderness Objective Data Labs CBC & Chem 7: 02/17/22 05:19 02/17/22 05:19 Labs: Laboratory Results - last 24 hr 02/18/22 02/19/22 02/19/22 19:04 06:58 11:02 POC Glucose 183 H 192 H 143 H Microbiology Microbiology Results: Microbiology 02/16/22 Unknown Hand Left Gram Stain - Final 02/16/22 Unknown Hand Left Routine Culture - Final No growth after 2 days 02/12/22 12:26 Blood - Venous Blood Culture - Final No growth after 5 days. 02/12/22 12:12 Blood - Venous Blood Culture - Final No growth after 5 days. 02/13/22 Unknown Hand Left Gram Stain - Final 02/13/22 Unknown Hand Left Routine Culture - Final Pasteurella canis Streptococcus viridans group 02/13/22 Unknown Hand Left Gram Stain - Final 02/13/22 Unknown Hand Left Routine Culture - Final Pasteurella canis Streptococcus viridans group 02/13/22 11:52 Hand Left Direct Acid Fast Bacilli Smear - Final 02/13/22 11:52 Hand Left Acid Fast Bacilli Culture & Smear - Final 02/13/22 11:55 Hand Left Direct Acid Fast Bacilli Smear - Final 02/13/22 11:55 Hand Left Acid Fast Bacilli Culture & Smear - Final Procedures Date of Service Date of Service: 02/19/22 Assessment & Plan Assessment and plan (1) Hand abscess: Status: Acute (2) Cellulitis: Status: Acute (3) Infected wound: Status: Acute (4) Stage 3b chronic kidney disease (CKD): Status: Acute Plan Mr. Reg Sheets is a 71-year-old gentleman with past medical history of CKD stage IIIb (BL Cr 1.6-1.9) who follows Dr Mdidleton. He has CKD related to diabetic nephropathy, for which he is on Faxriga. He also has a history of HYPERkalemia for which he is on lokelma. He is now hospitalized for left hand celluitis and osteo. 1. CKD stage IIIb Cr at baseline The patient is cleared for PICC line. It was placed in his dominant arm. Altough a picc line could reduce chances for successful fistula formation in the future, this risk is not as significant for Mr Sheets given his age and stable GFR. we will arrange f/u for CKD care with [facility] Time Spent With Patient Time: Total time spent is greater than 50% in coordination of care (as documented) at patient's floor/unit and/or counseling patient: Progress Note: Quality Stroke Does the patient have a stroke diagnosis?: No
[2022-02-19 15:35] VITALS: BP 123/68; PULSE 88; RESP 19; TEMP 36; O2SAT 99
[2022-02-19 15:46] LABS: Glucose, Whole Blood 189 mg/dL (60-115)
[2022-02-19 19:30] VITALS: BP 115/62; PULSE 78; RESP 19; TEMP 36.5; O2SAT 96
[2022-02-19 19:44] LABS: Glucose, Whole Blood 100 mg/dL (60-115)
[2022-02-19] MEDS: Donepezil HCl 10 MG TABLET PO (20:40)
[2022-02-19] MEDS: Insulin Glargine,Hum.rec.anlog 100 UNIT/ML 10 ML VIAL SUBCUT (20:41)
[2022-02-19 23:58] VITALS: BP 137/66; PULSE 85; RESP 18; TEMP 36.8; O2SAT 98
[2022-02-20] MEDS: 0.9 % Sodium Chloride Flush 3 ML SYRINGE IVFLUSH ×4 (01:51→20:30)
[2022-02-20 04:00] VITALS: BP 123/85; PULSE 86; RESP 18; TEMP 36.6; O2SAT 97
[2022-02-20] MEDS: Heparin Sodium,Porcine 5,000 UNIT/ML VIAL 5000 UNIT SUBCUT ×3 (05:21→21:39)
[2022-02-20 07:27] VITALS: BP 131/78; PULSE 78; RESP 18; TEMP 36.7; O2SAT 100
[2022-02-20 07:36] LABS: Glucose, Whole Blood 116 mg/dL (60-115)
[2022-02-20] MEDS: cefTRIAXone sodium 1 GM in 0.9 % Sodium Chloride 50 ML IV (08:55)
[2022-02-20] MEDS: Finasteride 5 MG TABLET PO (08:55)
[2022-02-20] MEDS: amLODIPine Besylate 10 MG TABLET PO (08:55)
[2022-02-20] MEDS: Aspirin Enteric Coated 81 MG TABLET.DR PO (08:55)
[2022-02-20] MEDS: Empagliflozin 10 MG TABLET PO (08:55)
[2022-02-20] MEDS: Escitalopram Oxalate 5 MG TABLET PO (08:55)
[2022-02-20] MEDS: Tamsulosin HCL 0.4 MG CAPSULE PO (08:55)
[2022-02-20 11:18] VITALS: BP 124/73; PULSE 73; RESP 18; TEMP 36.6; O2SAT 99
[2022-02-20 11:32] LABS: Glucose, Whole Blood 238 mg/dL (60-115)
--- NOTE | 2022-02-20 11:34 | MHC.CM.PN ---
PATIENT WILL DC HOME WITH RESUMPTION OF HIS [facility] SERVICES AND NEW IV ABX WITH [facility] DELIVERY CASE MANAGEMENT FOLLOWING FOR DC PAPERWORK
[2022-02-20] MEDS: Insulin Lispro 100 UNIT/ML 3 ML VIAL SUBCUT ×2 (12:06→20:28)
--- NOTE | 2022-02-20 14:17 | MHC.CM.PN ---
DAUGHTER STEVENSON ([phone]) WILL BE HERE AT 1600 TO TRANSPORT PATIENT HOME. [facility] AND [facility] MADE AWARE. DAUGHTER HAS DONE IV FOR PATIENT IN PAST AND WILL NEED A REFRESHER SHE IS AWARE THAT [facility] SENT A VIDEO TEACH AND [facility] WILL ADMINISTER THE FIRST DOSE, WHICH SHE CAN WATCH. RN AWARE OF PLAN
--- NOTE | 2022-02-20 14:28 | MHC.CM.PN ---
[facility] JUST NOW CALLED TO SAY THAT THEY DO NOT DO IV ABX. T/W REMINDED CALLER THAT [facility] AGREED TO TAKE PATIENT ON 02/17 KNOWING THAT HE NEEDED 6 WEEKS OF IV MEDICATION. [facility] UNABLE TO ACCEPT ANY LONGER
--- NOTE | 2022-02-20 14:53 | HO.PM.IMPN ---
Subjective Subjective Date of Service: 02/20/22 Interval History: left hand abcess/possible ?oseto Review of Systems improving moving hand fingers fine denies any chest pain or sob or dizziness . Physical Exam Vital Signs: Vital Signs: Last Vital Signs Temp 97.8 F 02/20/22 11:18 Pulse 73 02/20/22 11:18 Resp 18 02/20/22 11:18 BP 124/73 02/20/22 11:18 Pulse Ox 99 02/20/22 11:18 O2 Del Method 02/20/22 11:18 O2 Flow Rate 4 02/16/22 10:24 Oxygen Flow Rate 95 02/14/22 12:50 BMI result Body Mass Index 23.8 ?Appearance: Alert.? Oriented X3.? cvs: rrr, [id number] res: clear to auscultation ,no rhonchii or wheezing abd: no rebound or guarding ,nt, bs present. ext pulses present ,left thumb pain/erythema,moving hand and digits better neuro: axo3 , nonfocal Objective Data Active Medications Acetaminophen (Acetaminophen 325 Mg Tablet) 650 mg PO Q6H PRN PRN Reason: Pain, Mild (Pain Scale 1-3) Last Admin: 02/17/22 12:07 Dose: 650 mg Documented By: SAMI Amlodipine Besylate (Amlodipine Besylate 10 Mg Tablet) 10 mg PO DAILY [facility]; Protocol Last Admin: 02/20/22 08:55 Dose: 10 mg Documented By: TIANNA Aspirin (Aspirin Enteric Coated 81 Mg Tablet.) 81 mg PO DAILY [facility] Last Admin: 02/20/22 08:55 Dose: 81 mg Documented By: TIANNA Docusate Sodium (Docusate Sodium 100 Mg Capsule) 100 mg PO DAILY PRN PRN Reason: Constipation Donepezil HCl (Donepezil Hcl 10 Mg Tablet) 10 mg PO BEDTIME [facility] Last Admin: 02/19/22 20:40 Dose: 10 mg Documented By: DIMITRIOS Empagliflozin (Empagliflozin 10 Mg Tablet) 10 mg PO DAILY [facility] Last Admin: 02/20/22 08:55 Dose: 10 mg Documented By: TIANNA Ergocalciferol (Ergocalciferol (Vitamin D2) 1,250 Mcg Capsule) 1,250 mcg PO Q14D [facility] Escitalopram Oxalate (Escitalopram Oxalate 5 Mg Tablet) 5 mg PO DAILY [facility] Last Admin: 02/20/22 08:55 Dose: 5 mg Documented By: TIANNA Fentanyl (Fentanyl Citrate/Pf 100 Mcg/2 Ml Vial) 25 mcg IVPUSH Q5M PRN; Protocol PRN Reason: Pain, Moderate (Pain Scale 4-6 Last Admin: 02/13/22 13:32 Dose: 25 mcg Documented By: GORDON Finasteride (Finasteride 5 Mg Tablet) 5 mg PO DAILY [facility] Last Admin: 02/20/22 08:55 Dose: 5 mg Documented By: TIANNA Heparin Sodium (Porcine) (Heparin Sodium,Porcine 5,000 Unit/Ml Vial) 5,000 unit SUBCUT Q8H [facility] Last Admin: 02/20/22 14:12 Dose: 5,000 unit Documented By: TIANNA Hydromorphone HCl (Hydromorphone Hcl 0.5 Mg/0.5 Ml Syringe) 0.25 mg IVPUSH Q5M PRN; Protocol PRN Reason: Pain, Severe (Pain Scale 7-10) Ceftriaxone Sodium 1 gm/ (Sodium Chloride) 50 mls @ 100 mls/hr IV Q24H [facility] Last Infusion: 02/20/22 10:30 Dose: 0 mls/hr Documented By: TIANNA Insulin Glargine (Insulin Glargine,Hum.Rec.Anlog 100 Unit/Ml 10 Ml Vial) 5 unit SUBCUT BEDTIME [facility] Last Admin: 02/19/22 20:41 Dose: 5 unit Documented By: DIMITRIOS Insulin Human Lispro (Insulin Lispro 100 Unit/Ml 3 Ml Vial) 0 unit SUBCUT QIDACHS [facility]; Protocol Last Admin: 02/20/22 12:06 Dose: 4 unit Documented By: TIANNA Levofloxacin (Levofloxacin 750 Mg Tablet) 750 mg PO Q48H [facility] Last Admin: 02/19/22 08:27 Dose: 750 mg Documented By: NICKI Magnesium Hydroxide (Milk Of Magnesia 30 Ml Oral.Susp) 30 ml PO DAILY PRN PRN Reason: Constipation Melatonin (Melatonin 3 Mg Tablet) 6 mg PO BEDTIME PRN PRN Reason: Insomnia Ondansetron HCl (Ondansetron Hcl 4 Mg/2 Ml Vial) 4 mg IVPUSH Q8H PRN PRN Reason: Nausea and Vomiting Pharmacy Consult (Consult Rx Vancomycin Dosing) 1 each MISCELLANE DAILY PRN PRN Reason: Consult order Pharmacy Consult (Consult Rx Perform Med Rec) 1 each MISCELLANE ONCE PRN PRN Reason: Consult order Sodium Chloride (0.9 % Sodium Chloride Flush 3 Ml Syringe) 3 ml IVFLUSH QSHIFT [facility] Last Admin: 02/20/22 08:55 Dose: 3 ml Documented By: TIANNA Tamsulosin HCl (Tamsulosin Hcl 0.4 Mg Capsule) 0.4 mg PO DAILY [facility] Last Admin: 02/20/22 08:55 Dose: 0.4 mg Documented By: TIANNA Labs CBC & Chem 7: 02/17/22 05:19 02/17/22 05:19 Labs: Laboratory Results - last 24 hr 02/19/22 02/19/22 02/20/22 15:43 19:23 07:25 POC Glucose 189 H 100 116 H 02/20/22 11:12 POC Glucose 238 H Assessment and Plan (1) Osteomyelitis: Status: Acute (2) Hand abscess: Status: Acute (3) Cellulitis: Status: Acute Plan 71 year old kazakh speaking only male? 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 with insulin dependent non compliant, dementia, HTN, and BPH. He presents with? left swelling and pain ( see pictures below),4 days ago, he tripped tripped over a box? and while going down held onto a lamp that broke a sustained laceration to the left hand and right little finger. He has cellulitis of the hand associated with high CRP and ESR 1/Left Hand cellulitis/ possible osteomyelitis/hand abcess . ? MRI reviewed with orthopedics surgery-s/p I&D . Edema signal and enhancement within the thumb metacarpal represent a high probability of osteomyelitis given the proximity to the abscess. ? cultures reviewed with ID -recomended -? switched to ceftriaxone and levaquin for 6 weeks ?wound culture from yesterday also pending, decline order added s/p picc line . please see ortho instructions also. 2/Diabetes--continue home regimen (lantus, SSI) hold Faxiga,, diabetic diet 3/CKD3B, mild TONY--improved with hydration 4/HTN-controlled, continue Norvasc 5/BPH-Flomax, finesteride 6/Dementia--Aricept 7/DVT prophylaxis--Heparin Need for inpatient: waiting for vna /antibiotics refuses to go to rehab,waiting for vna/home antibiotics arrangement Quality Stroke Does the patient have a stroke diagnosis?: No VTE Prior VTE?: No VTE Risk Level:: Medical - moderate - high VTE Device Contraindication: Treatment Not Indicated VTE Drug Contraindication: N/A - Med Ordered
[2022-02-20 16:31] VITALS: BP 140/74; PULSE 84; RESP 18; TEMP 36.7; O2SAT 97
[2022-02-20 16:40] LABS: Glucose, Whole Blood 138 mg/dL (60-115)
[2022-02-20 19:59] VITALS: BP 139/70; PULSE 74; RESP 18; TEMP 36.8; O2SAT 96
[2022-02-20 20:06] LABS: Glucose, Whole Blood 234 mg/dL (60-115)
[2022-02-20] MEDS: Donepezil HCl 10 MG TABLET PO (20:28)
[2022-02-20] MEDS: Insulin Glargine,Hum.rec.anlog 100 UNIT/ML 10 ML VIAL SUBCUT (20:29)
[2022-02-21] VITALS: BP 122/67; PULSE 81; RESP 16; TEMP 36.6; O2SAT 98
[2022-02-21 03:33] VITALS: BP 137/73; PULSE 82; RESP 17; TEMP 36.6; O2SAT 97
[2022-02-21] MEDS: Heparin Sodium,Porcine 5,000 UNIT/ML VIAL 5000 UNIT SUBCUT ×2 (05:36→13:37)
[2022-02-21 07:18] VITALS: BP 142/68; PULSE 75; RESP 18; TEMP 36; O2SAT 95
[2022-02-21 07:48] LABS: Glucose, Whole Blood 165 mg/dL (60-115)
[2022-02-21] MEDS: cefTRIAXone sodium 1 GM in 0.9 % Sodium Chloride 50 ML IV (08:51)
[2022-02-21] MEDS: Insulin Lispro 100 UNIT/ML 3 ML VIAL SUBCUT (08:51)
[2022-02-21] MEDS: 0.9 % Sodium Chloride Flush 3 ML SYRINGE IVFLUSH (08:51)
[2022-02-21] MEDS: amLODIPine Besylate 10 MG TABLET PO (08:53)
[2022-02-21] MEDS: Finasteride 5 MG TABLET PO (08:53)
[2022-02-21] MEDS: levoFLOXacin 750 MG TABLET PO (08:53)
[2022-02-21] MEDS: Aspirin Enteric Coated 81 MG TABLET.DR PO (08:53)
[2022-02-21] MEDS: Escitalopram Oxalate 5 MG TABLET PO (08:53)
[2022-02-21] MEDS: Tamsulosin HCL 0.4 MG CAPSULE PO (08:53)
[2022-02-21] MEDS: Empagliflozin 10 MG TABLET PO (08:53)
--- NOTE | 2022-02-21 11:14 | P.PNIM_ITS ---
Subjective Subjective Date of Service: 02/21/22 Interval History: the patient was seen and evaluated this morning Laying in bed, feels comfortable with decrease pian and sweling in hand No reported other overnight events. Systemic review: No fever, chills or weakness No chest pain, palpitation No shortness of breath or coughing No abdominal pain, nausea or vomiting No urinary symptoms hand swelling and pain resolving Physical Exam Vital Signs: Vital Signs: Last Vital Signs Temp 96.8 F 02/21/22 07:18 Pulse 75 02/21/22 07:18 Resp 18 02/21/22 07:18 BP 142/68 H 02/21/22 07:18 Pulse Ox 95 02/21/22 07:18 O2 Del Method 02/21/22 07:18 O2 Flow Rate 4 02/16/22 10:24 Oxygen Flow Rate 95 02/14/22 12:50 BMI result Body Mass Index 23.8 Const: Other: Constitutional : Awake, interactive, not in distress Neck : Normal inspection, Supple Cardiovascular : RRR, no JVP, no lower extremity edema Respiratory : good bilateral air entry, no crackles, wheezes or rhonchi Gastrointestinal: soft, lax, Normal bowel sounds, Non tender Skin : Warm, Dry, left hand covered with dressing with no erythema or drainage noted Neurological : Alert & oriented x3, No focal deficit Objective Data Active Medications Acetaminophen (Acetaminophen 325 Mg Tablet) 650 mg PO Q6H PRN PRN Reason: Pain, Mild (Pain Scale 1-3) Last Admin: 02/17/22 12:07 Dose: 650 mg Documented By: SAMI Amlodipine Besylate (Amlodipine Besylate 10 Mg Tablet) 10 mg PO DAILY [facility]; Protocol Last Admin: 02/21/22 08:53 Dose: 10 mg Documented By: MABLE Aspirin (Aspirin Enteric Coated 81 Mg Tablet.) 81 mg PO DAILY [facility] Last Admin: 02/21/22 08:53 Dose: 81 mg Documented By: MABLE Docusate Sodium (Docusate Sodium 100 Mg Capsule) 100 mg PO DAILY PRN PRN Reason: Constipation Donepezil HCl (Donepezil Hcl 10 Mg Tablet) 10 mg PO BEDTIME [facility] Last Admin: 02/20/22 20:28 Dose: 10 mg Documented By: HERIBERTO Empagliflozin (Empagliflozin 10 Mg Tablet) 10 mg PO DAILY [facility] Last Admin: 02/21/22 08:53 Dose: 10 mg Documented By: MABLE Ergocalciferol (Ergocalciferol (Vitamin D2) 1,250 Mcg Capsule) 1,250 mcg PO Q14D [facility] Escitalopram Oxalate (Escitalopram Oxalate 5 Mg Tablet) 5 mg PO DAILY [facility] Last Admin: 02/21/22 08:53 Dose: 5 mg Documented By: MABLE Fentanyl (Fentanyl Citrate/Pf 100 Mcg/2 Ml Vial) 25 mcg IVPUSH Q5M PRN; Protocol PRN Reason: Pain, Moderate (Pain Scale 4-6 Last Admin: 02/13/22 13:32 Dose: 25 mcg Documented By: GORDON Finasteride (Finasteride 5 Mg Tablet) 5 mg PO DAILY [facility] Last Admin: 02/21/22 08:53 Dose: 5 mg Documented By: MABLE Heparin Sodium (Porcine) (Heparin Sodium,Porcine 5,000 Unit/Ml Vial) 5,000 unit SUBCUT Q8H [facility] Last Admin: 02/21/22 05:36 Dose: 5,000 unit Documented By: ANUP Hydromorphone HCl (Hydromorphone Hcl 0.5 Mg/0.5 Ml Syringe) 0.25 mg IVPUSH Q5M PRN; Protocol PRN Reason: Pain, Severe (Pain Scale 7-10) Ceftriaxone Sodium 1 gm/ (Sodium Chloride) 50 mls @ 100 mls/hr IV Q24H [facility] Last Infusion: 02/21/22 09:50 Dose: 0 mls/hr Documented By: MABLE Insulin Glargine (Insulin Glargine,Hum.Rec.Anlog 100 Unit/Ml 10 Ml Vial) 5 unit SUBCUT BEDTIME [facility] Last Admin: 02/20/22 20:29 Dose: 5 unit Documented By: HERIBERTO Insulin Human Lispro (Insulin Lispro 100 Unit/Ml 3 Ml Vial) 0 unit SUBCUT QIDACHS [facility]; Protocol Last Admin: 02/21/22 08:51 Dose: 2 unit Documented By: MABLE Levofloxacin (Levofloxacin 750 Mg Tablet) 750 mg PO Q48H [facility] Last Admin: 02/21/22 08:53 Dose: 750 mg Documented By: MABLE Magnesium Hydroxide (Milk Of Magnesia 30 Ml Oral.Susp) 30 ml PO DAILY PRN PRN Reason: Constipation Melatonin (Melatonin 3 Mg Tablet) 6 mg PO BEDTIME PRN PRN Reason: Insomnia Ondansetron HCl (Ondansetron Hcl 4 Mg/2 Ml Vial) 4 mg IVPUSH Q8H PRN PRN Reason: Nausea and Vomiting Pharmacy Consult (Consult Rx Vancomycin Dosing) 1 each MISCELLANE DAILY PRN PRN Reason: Consult order Pharmacy Consult (Consult Rx Perform Med Rec) 1 each MISCELLANE ONCE PRN PRN Reason: Consult order Sodium Chloride (0.9 % Sodium Chloride Flush 3 Ml Syringe) 3 ml IVFLUSH QSHIFT [facility] Last Admin: 02/21/22 08:51 Dose: 3 ml Documented By: MABLE Tamsulosin HCl (Tamsulosin Hcl 0.4 Mg Capsule) 0.4 mg PO DAILY [facility] Last Admin: 02/21/22 08:53 Dose: 0.4 mg Documented By: MABLE Labs CBC & Chem 7: 02/17/22 05:19 02/17/22 05:19 Labs: Laboratory Results - last 24 hr 02/20/22 02/20/22 02/20/22 11:12 16:34 20:02 POC Glucose 238 H 138 H 234 H 02/21/22 07:17 POC Glucose 165 H Assessment and Plan (1) Infected wound: Status: Acute (2) Osteomyelitis: Status: Acute (3) Hand abscess: Status: Acute Plan 71 year old male with PMHx of insulin dependent non compliant, dementia, HTN, and BPH. He presents with? left hand swelling and pain after he tripped tripped over a box? and while going down held onto a lamp that broke a sustained laceration to the left hand and right little finger. He has cellulitis of the hand associated with high CRP and ESR # Left Hand cellulitis with osteomyelitis and hand abscess . MRI Edema signal and enhancement within the thumb metacarpal represent high probability of osteomyelitis given the proximity to the abscess. orthopedics surgery-s/p I&D . cultures reviewed with ID -recomended -? switched to ceftriaxone and levaquin for 6 weeks to finish by March 29 repeated wound culture negative s/p picc line # Diabetes continue home regimen (lantus, SSI) hold Faxiga,, diabetic diet # CKD3B, mild TONY improved with hydration # HTN-controlled, continue Norvasc # BPH-Flomax, finesteride # Dementia--Aricept # DVT prophylaxis--Heparin Need for inpatient: waiting for vna /antibiotics refuses to go to rehab,waiting for vna/home antibiotics arrangement Quality Stroke Does the patient have a stroke diagnosis?: No VTE Prior VTE?: No VTE Risk Level:: Medical - moderate - high VTE Device Contraindication: Treatment Not Indicated VTE Drug Contraindication: N/A - Med Ordered
[2022-02-21 11:22] VITALS: BP 143/79; PULSE 85; RESP 18; TEMP 36.6; O2SAT 99
[2022-02-21 11:51] LABS: Glucose, Whole Blood 126 mg/dL (60-115)
--- NOTE | 2022-02-21 14:04 | MHC.CM.PN ---
[facility] CAN PROVIDE THE NURSING SKILLS PLAN IS HOME TODAY AND DAUGHTER STEVENSON ([phone]) WILL BE HERE OT TRANSPORT. RN MADE AWARE OF PLAN.
--- NOTE | 2022-02-21 14:29 | P.DS_ITS ---
DS: Providers Provider Date of Service: 02/21/22 Date of admission: 02/12/22 13:49 Primary care physician: Penny Camarena MD Consults: 02/12/22 13:50 Consult to Orthopedics Routine Consulting Provider: Betty Novoa Reason for consultation: Cellulitis of the hand Has provider been notified: No 02/14/22 08:14 Consult to Infectious Diseases Routine Consulting Provider: Tania Monroy Reason for consultation: abx recommendations 02/17/22 12:43 Consult to Nephrology Routine Consulting Provider: Cale Vilchis Reason for consultation: ckd /need intermediate antibiotics -need picc line Has provider been notified: No DS: Diagnosis Discharge Diagnosis (1) Infected wound: Status: Acute (2) Osteomyelitis: Status: Acute (3) Hand abscess: Status: Acute (4) Cellulitis: Status: Acute DS: Summary Hospital Course Hospital Course: Admission note HPI Reg Sheets, a 71 yo belarusian speaking only male? (history obtained via certified hand cooper helper)? with insulin dependent non compliant, dementia, HTN, and BPH. He presents with? left swelling and pain ( see pictures below),4 days ago, he tripped tripped over a box? and while going down held onto a lamp that broke a sustained laceration to the left hand and right little finger. He has since d evelopped redness and swelling over the area with associated pain and out of family concern is? brought to be evaluated today. He has movement but is limitted d/t? pain. CR is slightly elevated from his baseline (1.6-1.7) at 1.9 with a slight bump in his BUN (baseline 24-26) at 28 today.? CRP is 8.75, ESR 53.? He is given? Zosyn + Vanco. Culture pending. Hospital course The patient was admitted to the hospital for evaluation of Left Hand cellulitis and swelling. Images were concerning for evidence of abscess and possible osteomyelitis. Treated with IV antibiotic of vancomycin and Zosyn at the beginning as MRI showed Edema signal and enhancement within the thumb metacarpal represent high probability of osteomyelitis given the proximity to the abscess. Seen by orthopedic team who did IND with good result at the wound culture grew pasteurella and stripped very dense. Seen by Infectious Disease specialist who recommended treatment with ceftriaxone and Levaquin for total of 6 weeks. A a PICC line was placed and VNA service ready to follow with him at home to finish treatment. Plan to follow-up with orthopedic team as outpatient. Continue ceftriaxone and Levaquin for total of 6 weeks Visiting nurses to follow at home To follow-up with orthopedic team as scheduled for wound check Time Spent with Patient Time attestation: Total time spent providing and/or coordinating discharge services: Discharge coordination time: Greater than 30 minutes Quality: Safe Use of Opioids Does Pt have an Active Cancer Diagnosis on the Problem List?: No Quality: Stroke Does the patient have a stroke diagnosis?: No Physical Exam Vital Signs: Vital Signs: Last Vital Signs Temp 97.8 F 02/21/22 11: Pulse 85 02/21/22 11:22 Resp 18 02/21/22 11:22 BP 143/79 H 02/21/22 11:22 Pulse Ox 99 02/21/22 11:22 O2 Del Method 02/21/22 11:22 O2 Flow Rate 4 02/16/22 10:24 Oxygen Flow Rate 95 02/14/22 12:50 BMI result Body Mass Index 23.8 Const: Other: Constitutional : Awake, interactive, not in distress Neck : Normal inspection, Supple Cardiovascular : RRR, no JVP, no lower extremity edema Respiratory : good bilateral air entry, no crackles, wheezes or rhonchi Gastrointestinal: soft, lax, Normal bowel sounds, Non tender Skin : Warm, Dry, left hand covered with dressing with no erythema or drainage noted Neurological : Alert & oriented x3, No focal deficit DS: Data Data Completed and Pending Labs on day of discharge: Laboratory Results - last 24 hr 02/20/22 02/20/22 02/21/22 16:34 20:02 07:17 POC Glucose 138 H 234 H 165 H 02/21/22 11:21 POC Glucose 126 H Imaging Hand MRI: Radiologist's impression: ITS Impressions Hand X-Ray 02/12/22 11:05 IMPRESSION: Soft tissue swelling thenar eminence. Vascular calcifications. No radiopaque foreign body. No acute osseous abnormality. Hand MRI 02/14/22 20:22 IMPRESSION: Soft tissue wound at the dorsal aspect of the thumb metacarpal shaft with a 3 cm abscess/phlegmon tracking adjacent to the extensor tendons. Edema signal and enhancement within the thumb metacarpal represent a high probability of osteomyelitis given the proximity to the abscess. No evidence of septic arthritis. PICC Line Insertion 02/17/22 17:29 IMPRESSION: Right upper extremity PICC line placement. Discharge Plan Discharge Anticipated Discharge Date/Time: 02/19/22 10:09 Patient Disposition: Home Health Service Discharge Diagnosis: Hand cellulitis with osteomyelitis Referrals: Kayli Lewis PA-C [Physician Financial Services Officer] - 02/22/22 10:30 am Penny Camarena MD [Primary Care Provider] - 1 Week Discharge Medications: New ceftriaxone 1 gram Recon Soln 1 g IV Q24H Qty: 40 0RF Rx Instructions: end date 04/01/22. docusate sodium 100 mg Capsule 100 mg PO DAILY PRN (Reason: Constipation) Qty: 30 0RF levofloxacin 750 mg Tablet 750 mg PO Q48H Qty: 20 0RF Continued citalopram 10 mg tablet 1 tab PO DAILY donepezil 10 mg tablet 1 tab PO BEDTIME clopidogrel 75 mg tablet 1 tab PO DAILY aspirin 81 mg tablet,delayed release (DR/EC) 1 tab PO DAILY tamsulosin 0.4 mg capsule 1 cap PO DAILY amlodipine 10 mg tablet 1 tab PO DAILY finasteride 5 mg tablet 1 tab PO DAILY insulin glargine [Lantus U-100 Insulin] 100 unit/mL solution 5 unit subcut BEDTIME cyclobenzaprine 10 mg tablet 10 mg PO TID PRN (Reason: pain) Qty: 14 0RF ergocalciferol (vitamin D2) 1,250 mcg (50,000 unit) capsule 1 cap PO Q2W Farxiga 10 mg tablet 1 tab PO DAILY insulin aspart U-100 [Novolog U-100 Insulin aspart] 100 unit/mL solution See Protocol subcut QIDACHS Protocol: Insulin Correction Scale Less than or equal to 110 ---- Give (units): 0 111 to 150 Give (units): 0 151 to 200 Give (units): 2 201 to 250 Give (units): 4 251 to 300 Give (units): 6 301 to 350 Give (units): 8 Greater than 350 Give (units): 10 Call MD if Blood Glucose > : 350 acetaminophen 325 mg Tablet 650 mg PO Q6H PRN (Reason: Pain) Discharge Orders: Discharge Order (Routine); Ordered 02/21/22 Ordered By: Serena Sadler Diet: Advance to usual diet Activity on Discharge: As tolerated Stand Alone Forms: Patient Portal Discharge page Care Plan Goals: Health Concerns: Read below Plan of Treatment: Daily dressing changes Anticipate suture removal in about 3 weeks postop Keep splint clean, dry, and intact, Elevate throughout the day No lifting Perform fist/finger exercises throughout the day Do not bathe or shower--keep splint dry [place] [facility] [place] with any questions or concerns. Follow up with orthopedics in 5 days post op - 02/22/2022 at 10:30am for wound check and to check cultures with orthopedic Assessment: You were admitted to the hospital for evaluation of and wound and abscess. Treated with drainage and IV antibiotics with good response. Hemorrhage of the wall had and was concerning for bone infection evaluated by Infectious Disease specialist who recommended total of 6 weeks of antibiotics.
--- NOTE | 2022-02-21 16:22 | PC.NURSE ---
Alert and oriented. Denies pain, VSS, afebrile, no acute resp. distress noted. Took all schedule meds as ordered. Left hand dressing CDI. Continue on IV ABT, no adverse reactions noted. New order to discharge patient home. Went over discharge instructions, follow up apt and medication administrations with patient and his daughter, verbalized understanding back. Staff transported to the [facility] via w/c. Left via car with his daughter/grand-daughter.
== END 2022-02-21 16:00 | disposition home health service (06) | DRG 603 ==
LOC: HO.ED 12:52 → HO.EDOVER 18:34 → HO.S3 02-13 14:28
PROVIDERS: Internal Medicine; Orthopaedic Surgery; Physician Assistant Medical; Admitting Provider Internal Medicine; Emergency Provider Emergency Medicine; PCP Internal Medicine; Visit Provider Student in an Organized Health Care Education/Training Program
PROC: 0J9K0ZZ Drainage of Left Hand Subcutaneous Tissue and Fascia, Open Approach (ICD-10-PCS; principal; 2022-02-13 15:10)
PROC: 0H9GXZZ Drainage of Left Hand Skin, External Approach (ICD-10-PCS; principal; 2022-02-16 09:10)
DX: L02.512 Cutaneous abscess of left hand (principal); L03.114 Cellulitis of left upper limb; N17.9 Acute kidney failure, unspecified; I96 Gangrene, not elsewhere classified; M86.9 Osteomyelitis, unspecified; E11.22 Type 2 diabetes mellitus with diabetic chronic kidney disease; I12.9 Hypertensive chronic kidney disease with stage 1 through stage 4 chronic kidney disease, or unspecified chronic kidney disease; N40.0 Benign prostatic hyperplasia without lower urinary tract symptoms; N18.32 Chronic kidney disease, stage 3b; F03.90 Unspecified dementia, unspecified severity, without behavioral disturbance, psychotic disturbance, mood disturbance, and anxiety; E11.69 Type 2 diabetes mellitus with other specified complication; B95.4 Other streptococcus as the cause of diseases classified elsewhere; Z20.822 Contact with and (suspected) exposure to COVID-19; Z87.891 Personal history of nicotine dependence; Z91.14 Patient's other noncompliance with medication regimen; Z88.5 Allergy status to narcotic agent; Z88.8 Allergy status to other drugs, medicaments and biological substances; Z79.4 Long term (current) use of insulin; Z79.02 Long term (current) use of antithrombotics/antiplatelets; Z79.82 Long term (current) use of aspirin; Z79.899 Other long term (current) drug therapy
CPT/HCPCS: 36415; 36573; 73120; 73220; 76937; 80048; 80053; 80202; 82565; 82947; 83605; 83735; 85025; 85027; 85652; 86140; 87040; 87070; 87077; 87116; 87205; 87635; 97110; 97165; 97530; 99285; A9585; C1751; J0696; J1170; J2250; J2270; J2405; J2543; J3010; J3370

== ENCOUNTER → 2022-02-27 14:36 | Outpatient (BNVA) | payer OTHER, SELFPAY | PROVIDERS: PCP Internal Medicine; Visit Provider Physician Assistant | DX: Z47.89 Encounter for other orthopedic aftercare (principal); L03.90 Cellulitis, unspecified; Z87.2 Personal history of diseases of the skin and subcutaneous tissue; Z79.2 Long term (current) use of antibiotics | CPT/HCPCS: 99212 ==

== ENCOUNTER → 2022-03-02 13:21 | Outpatient (BNVA) | payer OTHER, SELFPAY | PROVIDERS: PCP Internal Medicine; Visit Provider Physician Assistant | DX: L02.512 Cutaneous abscess of left hand (principal); L03.012 Cellulitis of left finger; T81.49XA Infection following a procedure, other surgical site, initial encounter; A28.0 Pasteurellosis; B95.0 Streptococcus, group A, as the cause of diseases classified elsewhere; Z51.89 Encounter for other specified aftercare; Z98.890 Other specified postprocedural states | CPT/HCPCS: 99212 ==

== ENCOUNTER 2022-03-08 09:20 | Outpatient (REF) | payer OTHER, SELFPAY ==
--- NOTE | ~2022-03-08 | XR_ITS ---
EXAMINATION: XR HAND, RIGHT CLINICAL INFORMATION: Pain in right hand. COMPARISON: Right hand 01/24/2021. TECHNIQUE: PA, lateral, and oblique views of the right hand. FINDINGS: There is fracture with displacement and intra-articular extension involving the distal segment of the mid phalanx 5th digit with mild soft tissue swelling. No additional fracture seen. There is no dislocation. There is loss of PIP and DIP joints in all digits consistent with degenerative osteoarthritis. XR/XR hand RT min 3V IMPRESSION: Likely fracture with displacement and intra-articular extension distal segment mid phalanx 5th digit. This could be secondary to trauma. If patient has no history of trauma, followup should be considered to exclude any underlying intraosseous lesion which is not visualized at this time. There are degenerative osteoarthritic changes involving the PIP and DIP joints of all digits.
== END 2022-03-08 09:21 | disposition home or self-care (01) ==
LOC: HO.HOSX 09:20
PROVIDERS: Visit Provider Physician Assistant
DX: M79.641 Pain in right hand (principal); L03.90 Cellulitis, unspecified; L02.511 Cutaneous abscess of right hand
CPT/HCPCS: 73130; 99212

== ENCOUNTER 2022-03-13 20:13 | Outpatient (REF) | payer OTHER, SELFPAY ==
[2022-03-13 20:17] LABS: MANUAL DIFF FLAG NO
[2022-03-13 20:24] LABS: Basophils Percent Auto 0.5 % (0-2); Eosinophils Absolute Auto 0.2 X10*3/uL (0.0-0.4); Eosinophils Percent Auto 2.8 % (0-4); Hematocrit 37.1 % (42.0-52.0); Hemoglobin 12.5 g/dl (14.0-18.0); Imm Gran Abs Auto 0.02 X10*3/uL (0.00-0.03); Imm Gran Pct Auto 0.4 % (0.0-0.4); Lymphocytes Percent Auto 18.2 % (20-40); Mean Corpuscular HGB Conc 33.7 g/dl (31.0-36.0); Mean Corpuscular Hemoglobin 29.9 pg (27.0-33.0); Mean Corpuscular Volume 88.8 fL (80.0-98.0); Mean Platelet Volume 10.1 fL (9.4-12.4); Monocytes Absolute Auto 0.4 X10*3/uL (0.1-1.2); Monocytes Percent Auto 6.4 % (2-11); Neutrophils Absolute Auto 4.1 x10*3/uL (2.0-8.3); Neutrophils Percent Auto 71.7 % (45-73); Platelet Count 201 X10*3/uL (160-400); Red Blood Count 4.18 X10*6/uL (4.60-5.80); Red Cell Distribution Width 12.7 % (11.0-16.0); White Blood Count 5.7 X10*3/uL (4.8-10.8)
[2022-03-13 20:37] LABS: Alanine Aminotransferase 20 U/L (0-40); Albumin Level 3.9 g/dL (3.5-5.0); Alkaline Phosphatase 95 U/L (39-117); Anion Gap 14 (12-20); Aspartate Amino Transferase 20 U/L (5-37); Bilirubin Direct < 0.2 mg/dL (0.0-0.5); Bilirubin Total 0.2 mg/dL (0.0-1.0); Blood Urea Nitrogen 32 mg/dL (9-16); C Reactive Protein < 0.10 mg/dL (< or = 0.50); Calcium 8.9 mg/dL (8.4-10.2); Carbon Dioxide 22 mmol/L (22-29); Chloride 102 mmol/L (96-108); Estimated Glomerular Filt Rate 30; Glucose Random 243 mg/dL (60-115); Sodium 134 mmol/L (135-145); Total Protein 6.9 g/dL (6.5-8.0)
[2022-03-13 21:20] LABS: Erythrocyte Sedimentation Rate 12 MM/HR (0-15)
== END 2022-03-13 20:14 | disposition home or self-care (01) ==
LOC: HO.LNP 20:13
PROVIDERS: Visit Provider Internal Medicine
DX: L02.512 Cutaneous abscess of left hand (principal)
CPT/HCPCS: 80048; 80076; 85025; 85652; 86140

== ENCOUNTER → 2022-03-24 10:15 | Outpatient (BNVA) | payer OTHER, SELFPAY | PROVIDERS: PCP Internal Medicine; Visit Provider Internal Medicine | DX: M86.9 Osteomyelitis, unspecified (principal); L02.512 Cutaneous abscess of left hand | CPT/HCPCS: 99212 ==

== ENCOUNTER 2022-09-20 08:59 | Outpatient (RCR) | payer OTHER, SELFPAY | END 2022-12-13 16:25 | disposition home or self-care (01) | LOC: HO.WCC 08:59 | PROVIDERS: PCP Internal Medicine; Visit Provider Surgery | DX: E11.621 Type 2 diabetes mellitus with foot ulcer (principal); L97.515 Non-pressure chronic ulcer of other part of right foot with muscle involvement without evidence of necrosis; E11.51 Type 2 diabetes mellitus with diabetic peripheral angiopathy without gangrene; E11.69 Type 2 diabetes mellitus with other specified complication; M86.472 Chronic osteomyelitis with draining sinus, left ankle and foot; E11.40 Type 2 diabetes mellitus with diabetic neuropathy, unspecified; E11.22 Type 2 diabetes mellitus with diabetic chronic kidney disease; I12.9 Hypertensive chronic kidney disease with stage 1 through stage 4 chronic kidney disease, or unspecified chronic kidney disease; N18.9 Chronic kidney disease, unspecified; L84 Corns and callosities; Z79.4 Long term (current) use of insulin; Z79.2 Long term (current) use of antibiotics; Z79.82 Long term (current) use of aspirin; Z79.899 Other long term (current) drug therapy; Z89.412 Acquired absence of left great toe; Z89.421 Acquired absence of other right toe(s) | CPT/HCPCS: 11042; 11043; 11044; 87070; 87073; 87077; 87186; 87205; 99212 ==

== ENCOUNTER 2022-10-24 12:23 | Inpatient (IN) | payer OTHER, SELFPAY ==
--- NOTE | ~2022-10-24 | XR_ITS ---
EXAMINATION: XR FOOT, LEFT CLINICAL INFORMATION: Left foot pain COMPARISON: Left foot 06/23/2016 TECHNIQUE: AP, lateral, and oblique views of the left foot. FINDINGS: The bones are diffusely demineralized. Since the prior study of 2016, there has been amputation of the great toe and the head and distal shaft of the first metatarsal. There is question of amputation of the head of the second metatarsal versus bony destruction. There is superior dislocation of the proximal middle and distal phalanx of the second toe. No fracture. Arterial vascular calcifications are seen.. XR/XR foot LT 2V IMPRESSION: 1. Interval amputation of the great toe and the head and distal shaft of the first metatarsal. 2. Question of amputation of the head of the second metatarsal versus bony destruction.
--- NOTE | ~2022-10-24 | MR_ITS ---
EXAMINATION: MRI FOOT WITHOUT AND WITH CONTRAST, LEFT CLINICAL INFORMATION: Osteomyelitis. COMPARISON: X-rays of the left foot 10/24/2022 TECHNIQUE: MRI of the left foot without and with contrast. Contrast dose 5.5 mL of Gadavist given intravenously. FINDINGS: GREAT TOE: Postsurgical changes with amputation at the level of the proximal 1st metatarsal as seen on radiographs. There is mild abnormal decreased T1 increased T2 signal without enhancement in the immediate surrounding soft tissues compatible with edema. There is some minimal scarring and/or deformity of the medial subcutaneous soft tissues likely related to prior surgery and perhaps prior inflammation or soft tissue infection. 2ND DIGIT: There is a superficial defect/ulceration in the plantar soft tissues at the level of the distal end of the 2nd metatarsal. Deep to the ulceration is an irregular peripherally enhancing tract of fluid likely reflecting a sinus tract extending to distal end of the remaining metatarsal. As seen on the radiographs there is a sharp end to the 2nd metatarsal bone which could reflect postsurgical change but cannot exclude erosion. There is diffuse abnormal signal throughout the bone dark on T1 and bright on T2 with concomitant enhancement. There is also circumferential abnormal signal in the immediate surrounding soft tissues with concomitant enhancement compatible with cellulitis. 2ND PROXIMAL PHALANX: There is dorsal displacement of the phalanges as seen on prior radiographs. This is likely at least in part postsurgical. There is diffuse abnormal signal within the proximal two-thirds portion of the bone dark on T1 and bright on T2 but without enhancement. There is also circumferential abnormal signal in the surrounding soft tissues dark on T1 and bright on T2 but with minimal if any enhancement more compatible with edema than cellulitis. 2nd tarsometatarsal joint is normal. 3RD DIGIT: There is abnormal marrow signal most compatible with bone marrow edema crossing the joint involving the distal half of the metatarsal and most of the proximal phalanx. The bone does not enhance. There is generalized abnormal signal in the plantar soft tissues and circumferentially about the bone with minimal enhancement compatible with a combination of edema and minimal cellulitis. There is no sinus tract extending to this bone. The middle and distal phalanges are normal. The bones of the 4th and 5th digits are normal. NAVICULAR: Minimal edema within the lateral aspect of the bone without fracture. SUBCUTANEOUS SOFT TISSUES: In addition to that noted above there is generalized fluid-like signal circumferentially about the visualized foot with partial enhancement compatible with a combination of edema and cellulitis. Muscles/tendons: There is generalized increased T2 signal with partial enhancement along with some fatty infiltration compatible with denervation myositis but cannot exclude infectious myositis. MR/MR foot LT wo/w con IMPRESSION: Stable postsurgical changes also seen on prior radiographs with amputation at the level of the proximal 1st metatarsal. 2ND DIGIT: Probable resection of the distal end of the metatarsal, although this needs to be confirmed with surgical history. Erosive changes of the distal end of the bone cannot be excluded. The abnormal signal and enhancement within the 2nd metatarsal along with the overlying sinus tract and ulceration is most compatible with osteomyelitis ,cellulitis, with a communicating sinus tract. The additional abnormality of the 2nd proximal phalanx is nonspecific but suspicious for osteomyelitis given the adjacent abnormalities. It is possible this could reflect reactive edema or be related to the dorsal displacement and postsurgical change. No definite bony destruction. 3RD DIGIT: Suspect a combination of edema and cellulitis in the soft tissues overlying the digit. Marrow abnormality nonspecific. This could reflect stress reaction, bone contusion or osteomyelitis of the distal metatarsal and proximal phalanx. No MRI evidence for bone erosion or destruction. Generalized abnormality in the subcutaneous soft tissues compatible with a combination of edema and cellulitis. Generalized muscle abnormality compatible with myositis - either denervation myositis or infectious myositis.
--- NOTE | 2022-10-24 12:29 | ED_ITS ---
HPI - General Adult General Chief complaint: Wound/Laceration Stated complaint: Open Wound L Foot Sent by Wound Center Time Seen by Provider: 10/24/22 15:42 Source: patient Mode of arrival: ambulatory Limitations: no limitations History of Present Illness HPI narrative: 71-year-old male with previous right big toe amputation followed by wound care history of osteomyelitis presents to the emergency department with worsening infection and other concerns the patient needs IV antibiotics. Patient was seen had x-rays labs done. X-ray done shows osteomyelitis of the 2nd metatarsal at this time. With bony destruction fortunately patient does not have a Onset (ago): day(s) Related Data Home Medications Medication Instructions Recorded Confirmed amlodipine 10 mg tablet 1 tab PO DAILY 01/24/21 02/12/22 aspirin 81 mg tablet,delayed 1 tab PO DAILY 01/24/21 02/12/22 release citalopram 10 mg tablet 1 tab PO DAILY 01/24/21 02/12/22 clopidogrel 75 mg tablet 1 tab PO DAILY 01/24/21 02/12/22 donepezil 10 mg tablet 1 tab PO BEDTIME 01/24/21 02/12/22 finasteride 5 mg tablet 1 tab PO DAILY 01/24/21 02/12/22 insulin glargine 100 unit/mL 5 unit subcut BEDTIME 01/24/21 02/12/22 subcutaneous solution (Lantus U-100 Insulin) tamsulosin 0.4 mg capsule 1 cap PO DAILY 01/24/21 02/12/22 acetaminophen 325 mg tablet 650 mg PO Q6H PRN Pain 02/12/22 02/12/22 dapagliflozin propanediol 10 mg 1 tab PO DAILY 02/12/22 02/12/22 tablet (Farxiga) ergocalciferol (vitamin D2) 1,250 1 cap PO Q2W 02/12/22 02/12/22 mcg (50,000 unit) capsule insulin aspart U-100 100 unit/mL See Protocol subcut QIDACHS 02/12/22 02/12/22 subcutaneous solution (Novolog U-100 Insulin aspart) Previous Rx's Medication Instructions Recorded cyclobenzaprine 10 mg tablet 10 mg PO TID PRN pain #14 tabs 03/17/21 ceftriaxone 1 gram solution for 1 g IV Q24H #40 ea 02/19/22 injection docusate sodium 100 mg capsule 100 mg PO DAILY PRN Constipation 02/19/22 #30 caps levofloxacin 750 mg tablet 750 mg PO Q48H #20 tabs 02/19/22 Allergies Allergy/AdvReac Type Severity Reaction Status Date / Time oxycodone [From PERCOCET] Allergy Unknown CAN'T Verified 10/24/22 12:38 BREATH/VOMITING simvastatin [SIMVASTATIN] Allergy Unknown UNKNOWN Verified 10/24/22 12:38 peas AdvReac Unknown VOMITING/FA Verified 10/24/22 12:38 INTING SALMON [id number] AdvReac Unknown VOMITING/FA Uncoded 10/24/22 12:38 INT Review of Systems Review of Systems: Review of systems: General: Patient denies any fever chills recent illness or falls Musculoskeletal: Denies back pain or body aches or other injuries HEENT: denies headache, runny nose, ear pain Respiratory: denies shortness of breath, cough Cardiovascular: no chest pain or palpitations : denies dysuria, frequency Abdomen: no nausea vomiting denies abdominal pain Extremities: no swelling, no pain Skin: no diaphoresis Yes all other systems are reviewed and are negative PMFSH Past Medical History Medical History BPH (benign prostatic hyperplasia) CKD stage G3b/A1, GFR 30-44 and albumin creatinine ratio <30 mg/g Dementia Diabetes Dog bite History of amputation of toe Hypertension Rhabdomyolysis Stage 3b chronic kidney disease (CKD) Family History Family History Other Diabetes HTN (hypertension) Social History Social History Household Members: Spouse, Family and Children Housing: Apartment Do you presently have visiting nurse or 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 home 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) Alcohol intake: former Patient Tobacco Use Status: Former Tobacco user Quit Date: 1999 Smoked in Last 30 Days: No Use of substances other than those prescribed or required for medical reasons: No Advance Directives: Yes Advance Directives on File: Yes Advance Directives Date on File: 01/25/21 service: No Current occupational status: retired Physical Exam ED Vital Signs: Vital Signs - 24 hr 10/24/22 12:35 10/24/22 15:42 Temperature 98.0 F Pulse Rate 67 81 Respiratory Rate 18 18 Blood Pressure 137/68 138/57 L Pulse Oximetry 98 98 Oxygen Delivery Method Room Air Room Air BMI result Body Mass Index 23.2 General: Well-appearing well-nourished in no signs of distress HEENT: Normocephalic atraumatic Neck: No signs of JVD, no masses no tenderness or lymphadenopathy Cardiovascular: Regular rate and rhythm Respiratory: Clear to auscultation bilaterally Abdomen: Soft nontender no masses Extremities: Left foot with signs of infection redness going from amputation toward the middle of the foot and upper the lateral leg Normal pedal pulses no signs of edema Skin: Dry warm no rashes Back: No tenderness full ROM Course Course Course Narrative: This is an RME: Additional HPI, ROS, PE not included below will be deferred to primary provider. Patient is a 71 year old male with a PMH of DM, osteomyelitis, and amputation of the R foot big toe presents from the would clinic for a worsening wound and to recieve IV antibiotics. Patient denies fever, chills, headache, vision changes. nausea, vomiting, chest pain, SOB. Plan: Labs, x ray Medical Decision Making Medical Decision Making [facility] Narrative: Patient sent wound care was seen had labs drawn x-ray which confirms obliteration of the 2nd metatarsal due to osteomyelitis patient was started on vancomycin Zosyn fluids I will add on blood cultures and lactate to the work disorder been done Differential Diagnosis Differential Diagnoses: The differential diagnosis associated with the presentation includes Osteomyelitis cellulitis with lymphangitis Admission/Observation Consideration of admission/observation: Escalation of care including admission/observation considered Consult Healthcare Provider Management of the patient was discussed with: Hospitalist and Quality Control Supervisor Dr. Thomas agrees with antibiotics and admission. Lab Data [facility] Lab Attestation statement: I reviewed the patient's lab results. 10/24/22 12:50 10/24/22 12:51 Labs: Lab Results 10/24/22 10/24/22 10/24/22 Range/Units 12:50 12:51 12:51 WBC 9.7 (4.8-10.8) X10*3/uL RBC 4.21 L (4.60-5.80) X10*6/uL Hgb 11.8 L (14.0-18.0) g/dl Hct 35.9 L (42.0-52.0) % MCV 85.3 (80.0-98.0) fL MCH 28.0 (27.0-33.0) pg MCHC 32.9 (31.0-36.0) g/dl RDW 14.1 (11.0-16.0) % Plt Count 287 D (160-400) X10*3/uL MPV 9.3 L (9.4-12.4) fL Immature Gran % (Auto) 0.3 (0.0-0.4) % Neut % (Auto) 84.6 H (45-73) % Lymph % (Auto) 7.7 L (20-40) % [place] % (Auto) 5.5 (2-11) % Eos % (Auto) 1.5 (0-4) % Baso % (Auto) 0.4 (0-2) % Lymph # (Auto) 0.8 L (1.2-4.9) X10*3/uL [place] # (Auto) 0.5 (0.1-1.2) X10*3/uL Eos # (Auto) 0.2 (0.0-0.4) X10*3/uL Baso # (Auto) 0.0 (0.0-0.2) X10*3/uL Abs Immat Gran (auto) 0.03 (0.00-0.03) X10*3/uL Absolute Neuts (auto) 8.2 (2.0-8.3) x10*3/uL Absolute Nucleated RBC 0.000 (0.0-0.012) X10*3/uL Nucleated RBC % (auto) 0.0 (0.0-0.2) /100WBC ESR 73 H (0-15) MM/HR Sodium 136 (135-145) mmol/L Potassium 4.7 (3.3-5.1) mmol/L Chloride 104 (96-108) mmol/L Carbon Dioxide 22 (22-29) mmol/L Anion Gap 15 (12-20) BUN 31 H (9-16) mg/dL Creatinine 1.85 H (0.5-1.4) mg/dL Estim Creat Clear Calc 31.1 Estimated GFR 36 Random Glucose 162 H (60-115) mg/dL Calcium 10.2 D (8.4-10.2) mg/dL Magnesium 2.4 (1.6-2.6) mg/dL Total Bilirubin 0.9 (0.0-1.0) mg/dL AST 17 (5-37) U/L ALT 13 (0-40) U/L Alkaline Phosphatase 98 (39-117) U/L C-Reactive Protein 13.56 H (< or = 0.50) mg/dL Total Protein 7.4 (6.5-8.0) g/dL Albumin 3.8 (3.5-5.0) g/dL Independent Interpretation I performed an independent interpretation of an: Plain X-Ray Radiology Impression Discussion of test interpretation with radiology: I have reviewed the radiologist's reading. Independent Historian Clinical information obtained from an independent historian. History obtained from or confirmed by: Other External Record Review External record reviewed: Inpatient record, Office record, Outpatient record, Prior outpatient radiology and Outside ED record Prescription Management I considered prescription management with: Pain Medication Chronic Conditions Patient?s care impacted by: Diabetes and Hypertension Social Determinants Patient?s care significantly limited by Social Determinants of Health including: Inadequate housing Core Measures AMI core measures followed: Yes Critical Care Time Critical Care Time Critical Care Time: Yes Total Critical Care Time: 35 Attestation: Osteomyelitis cellulitis and concerns for infection I spoke with hospitalist as well as wound care about this patient start the patient on antibiotics since patient going to room I did complete septic workup as well. Discharge Plan Discharge Clinical Impression: Osteomyelitis, Cellulitis of skin with lymphangitis Patient Disposition: Admitted As Inpatient
[2022-10-24 12:35] VITALS: BP 137/68; PULSE 67; RESP 18; TEMP 36.7; O2SAT 98; BMI 23.2
[2022-10-24 13:27] LABS: MANUAL DIFF FLAG NO
[2022-10-24 13:28] LABS: Basophils Percent Auto 0.4 % (0-2); Eosinophils Absolute Auto 0.2 X10*3/uL (0.0-0.4); Eosinophils Percent Auto 1.5 % (0-4); Hematocrit 35.9 % (42.0-52.0); Hemoglobin 11.8 g/dl (14.0-18.0); Imm Gran Abs Auto 0.03 X10*3/uL (0.00-0.03); Imm Gran Pct Auto 0.3 % (0.0-0.4); Lymphocytes Absolute Auto 0.8 X10*3/uL (1.2-4.9); Lymphocytes Percent Auto 7.7 % (20-40); Mean Corpuscular HGB Conc 32.9 g/dl (31.0-36.0); Mean Corpuscular Volume 85.3 fL (80.0-98.0); Mean Platelet Volume 9.3 fL (9.4-12.4); Monocytes Absolute Auto 0.5 X10*3/uL (0.1-1.2); Monocytes Percent Auto 5.5 % (2-11); Neutrophils Absolute Auto 8.2 x10*3/uL (2.0-8.3); Neutrophils Percent Auto 84.6 % (45-73); Platelet Count 287 X10*3/uL (160-400); Red Blood Count 4.21 X10*6/uL (4.60-5.80); Red Cell Distribution Width 14.1 % (11.0-16.0); White Blood Count 9.7 X10*3/uL (4.8-10.8)
[2022-10-24 13:47] LABS: Alanine Aminotransferase 13 U/L (0-40); Albumin Level 3.8 g/dL (3.5-5.0); Alkaline Phosphatase 98 U/L (39-117); Anion Gap 15 (12-20); Aspartate Amino Transferase 17 U/L (5-37); Bilirubin Total 0.9 mg/dL (0.0-1.0); Blood Urea Nitrogen 31 mg/dL (9-16); C Reactive Protein 13.56 mg/dL (< or = 0.50); Calcium 10.2 mg/dL (8.4-10.2); Carbon Dioxide 22 mmol/L (22-29); Chloride 104 mmol/L (96-108); Creatinine Clr Calc Pharmacy 31.1; Estimated Glomerular Filt Rate 36; Glucose Random 162 mg/dL (60-115); Magnesium 2.4 mg/dL (1.6-2.6); Potassium 4.7 mmol/L (3.3-5.1); Sodium 136 mmol/L (135-145); Total Protein 7.4 g/dL (6.5-8.0)
[2022-10-24 14:11] LABS: Erythrocyte Sedimentation Rate 73 MM/HR (0-15)
[2022-10-24 15:42] VITALS: BP 138/57; PULSE 81; RESP 18; O2SAT 98
--- NOTE | 2022-10-24 15:46 | PC.NURSE ---
Arrived from wound clinic with daughter. patient with circular open area to bottom of left foot. scant amount of ss drainage. No odor. Warmth felt surrounding wound site and on top of left leg. Wound packed by wound clinic, dressing removed. Wound with tunneling. Per patient and daughter area started about 4 months ago as a callus , was being followed by ortho Dr. Lyon who per daughter was shaving area down. per daughter area has progressively gotten worse. Patient denies pain but states when he walks area hurts.
[2022-10-24 16:31] LABS: Lactic Acid 1.1 mmol/L (0.5-2.0)
[2022-10-24 16:50] LABS: COVID-19 Test Negative (Negative); IDNOW Serial# 08D9AD1C
--- NOTE | 2022-10-24 17:18 | PHA.MEDREC ---
Pharmacy Consult ? Medication Reconciliation Pharmacy has completed the medication reconciliation. Spoke to patient's daughter to confirm meds.
[2022-10-24] MEDS: Piperacillin Sodium/Tazobactam 3.375 GM in 0.9 % Sodium Chloride 50 ML IV (17:31)
[2022-10-24] MEDS: 0.9 % Sodium Chloride 1,000 ML 999 ML IV (17:32)
--- NOTE | 2022-10-24 18:03 | PM.IMHP ---
History of Present Illness Date of Service: 10/24/22 Attending physician on admission: Tejinder Thomas Chief Complaint: foot ulcer 71-year-old [place]an-speaking male with history (obtained with the help of certified meat smoker) history of diabetes, hypertension, BPH, dementia, CKD-came to the hospital because of left foot ulcer. Patient was sent from the wound care emergency department with worsening infection and other concerns the patient needs IV antibiotics.? Patient says that he has foot wound from at least 3-4 months-he said he had callus initially and then it was cut down and subsequently he developed foot ulcer. Wound Care sent for further evaluation: In ED patient does not have any leukocytosis, fever, found to have elevated ESR and CRP. Foot x-ray shows question of previous surgery on the 2nd toe versus bony erosion. Patient was given vanco and Zosyn and requested admission for foot cellulitis and wound Denies any new complaint of chest pain or shortness of breath or abdominal pain or fever or chills or nausea or vomiting Denies any cough Denies any weakness or numbness. WBC: 9.7, H&H 11.8/35.9, platelets 287. BMP: Sodium 136, BUN 31 creatinine 1.85, lactic acid 1.1, blood cultures sent. ?XR/XR foot LT 2V IMPRESSION: 1.? Interval amputation of the great toe and the head and distal shaft of the first metatarsal. 2.? Question of amputation of the head of the second metatarsal versus bony destruction. Review of Systems Review of Systems: As above. 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) Alcohol intake: former Patient Tobacco Use Status: Former Tobacco user Quit Date: 1999 Smoked in Last 30 Days: No Use of substances other than those prescribed or required for medical reasons: No Advance Directives: Yes Advance Directives on File: Yes Advance Directives Date on File: 01/25/21 service: No Current occupational status: retired Meds Allergies Allergy/AdvReac Type Severity Reaction Status Date / Time oxycodone [From PERCOCET] Allergy Unknown CAN'T Verified 10/24/22 12:38 BREATH/VOMITING simvastatin [SIMVASTATIN] Allergy Unknown UNKNOWN Verified 10/24/22 12:38 peas AdvReac Unknown VOMITING/FA Verified 10/24/22 12:38 INTING SALMON [id number] AdvReac Unknown VOMITING/FA Uncoded 10/24/22 12:38 INT Active Medications: Current Medications Amlodipine Besylate (Amlodipine Besylate 10 Mg Tablet) 10 mg PO DAILY [facility]; Protocol Aspirin (Aspirin Enteric Coated 81 Mg Tablet.Dr) 81 mg PO DAILY [facility] Clopidogrel Bisulfate (Clopidogrel Bisulfate 75 Mg Tablet) 75 mg PO DAILY [facility] Donepezil HCl (Donepezil Hcl 10 Mg Tablet) 10 mg PO BEDTIME [facility] Non-Formulary Medication (Acetaminophen) 1,000 mg PO Q6H PRN PRN Reason: Fever Or Pain Non-Formulary Medication (Citalopram) 1 tab PO DAILY [facility] Non-Formulary Medication (Dapagliflozin Propanediol [Farxiga]) 1 tab PO DAILY [facility] Pharmacy Consult (Consult Rx Perform Med Rec) 1 each MISCELLANE ONCE PRN PRN Reason: Consult order Pharmacy Consult (Consult Rx Vancomycin Dosing) 1 each MISCELLANE DAILY PRN PRN Reason: Consult order Sodium Chloride (0.9 % Sodium Chloride Flush 3 Ml Syringe) [facility] Medications Medication Instructions Recorded Confirmed Last Taken Type amlodipine 10 mg tablet 1 tab PO DAILY 01/24/21 10/24/22 10/24/22 09:00 History aspirin 81 mg tablet,delayed 1 tab PO DAILY 01/24/21 10/24/22 10/24/22 09:00 History release citalopram 10 mg tablet 1 tab PO DAILY 01/24/21 10/24/22 10/24/22 09:00 History clopidogrel 75 mg tablet 1 tab PO DAILY 01/24/21 10/24/22 10/24/22 09:00 History donepezil 10 mg tablet 1 tab PO BEDTIME 01/24/21 10/24/22 10/23/22 History finasteride 5 mg tablet 1 tab PO DAILY 01/24/21 10/24/22 10/24/22 09:00 History insulin glargine 100 unit/mL 3 unit subcut BEDTIME 01/24/21 10/24/22 10/23/22 History subcutaneous solution (Lantus U-100 Insulin) tamsulosin 0.4 mg capsule 1 cap PO DAILY 01/24/21 10/24/22 10/24/22 09:00 History dapagliflozin propanediol 10 mg 1 tab PO DAILY 02/12/22 10/24/22 10/24/22 09:00 History tablet (Farxiga) acetaminophen 500 mg tablet 1,000 mg PO Q6H PRN Fever Or Pain 10/24/22 10/24/22 Unknown History lisinopril 10 mg tablet 10 mg PO BEDTIME 10/24/22 10/24/22 10/23/22 History Physical Exam Vital Signs and Narrative: Vital Signs: Last Vital Signs Temp 98.0 F 10/24/22 12:35 Pulse 81 10/24/22 15:42 Resp 18 10/24/22 15:42 BP 138/57 L 10/24/22 15:42 Pulse Ox 98 10/24/22 15:42 O2 Del Method Room Air 10/24/22 15:42 BMI result Body Mass Index 23.2 Appearance: Alert.? Oriented X3.? not in distress.? Eyes: Pupils equal, round and reactive to light.? Sclera nonicteric.? ENT: Pharynx normal.? Moist mucous membranes. cvs: rrr, [id number] . res: clear to auscultation ,no rhonchii or wheezing abd: no rebound or guarding ,nt, bs present. ext pulses present , no cyanosis left foot plantar area ulcer- mild erythema of forefoot otherwise no discharge from the ulcer site, has old big toe amputation scar, also on the right side 4th toe is amputated. neuro: axo3 , nonfocal. Results Labs 10/24/22 12:50 10/24/22 12:51 Labs: Laboratory Results - last 24 hr 10/24/22 10/24/22 10/24/22 12:50 12:51 12:51 MCV 85.3 MCH 28.0 MCHC 32.9 RDW 14.1 Plt Count 287 D MPV 9.3 L Immature Gran % (Auto) 0.3 Neut % (Auto) 84.6 H Lymph % (Auto) 7.7 L [place] % (Auto) 5.5 Eos % (Auto) 1.5 Baso % (Auto) 0.4 Lymph # (Auto) 0.8 L [place] # (Auto) 0.5 Eos # (Auto) 0.2 Baso # (Auto) 0.0 Abs Immat Gran (auto) 0.03 Absolute Neuts (auto) 8.2 Absolute Nucleated RBC 0.000 Nucleated RBC % (auto) 0.0 ESR 73 H Anion Gap 15 Estim Creat Clear Calc 31.1 Estimated GFR 36 Random Glucose 162 H Lactic Acid Calcium 10.2 D Magnesium 2.4 Total Bilirubin 0.9 AST 17 ALT 13 Alkaline Phosphatase 98 C-Reactive Protein 13.56 H Total Protein 7.4 Albumin 3.8 COVID-19 ([facility]) COVID-19 Clin Com 10/24/22 10/24/22 16:09 16:27 MCV MCH MCHC RDW Plt Count MPV Immature Gran % (Auto) Neut % (Auto) Lymph % (Auto) [place] % (Auto) Eos % (Auto) Baso % (Auto) Lymph # (Auto) [place] # (Auto) Eos # (Auto) Baso # (Auto) Abs Immat Gran (auto) Absolute Neuts (auto) Absolute Nucleated RBC Nucleated RBC % (auto) ESR Anion Gap Estim Creat Clear Calc Estimated GFR Random Glucose Lactic Acid 1.1 Calcium Magnesium Total Bilirubin AST ALT Alkaline Phosphatase C-Reactive Protein Total Protein Albumin COVID-19 ([facility]ILA) Negative COVID-19 Clin Com See Note Imaging Radiologist's Impressions: Impressions Foot X-Ray 10/24/22 12:40 IMPRESSION: 1. Interval amputation of the great toe and the head and distal shaft of the first metatarsal. 2. Question of amputation of the head of the second metatarsal versus bony destruction. Assessment and Plan (1) Cellulitis of foot: Status: Acute Plan 71-year-old [place]an-speaking male with history (obtained with the help of certified meat smoker) history of diabetes, hypertension, BPH, dementia, CKD-came to the hospital because of left foot ulcer. Patient was sent from the wound care emergency department with question of worsening infection and other concerns the patient needs IV antibiotics. Diabetic foot infection/cellulitis: ? Concern of osteomyelitis WBC normal, no tachycardia, lactic acid normal Blood culture pending Started on vanco Zosyn Surgery evaluation Diabetes continue home regimen (lantus, SSI) hold Faxiga,, diabetic diet CKD3: hold lisniopril,moniter renal function . HTN-controlled, continue Norvasc BPH-Flomax, finesteride Dementia--Aricept DVT prophylaxis--Heparin Patient is being admitted for diabetic foot cellulitis,? Concern of osteomyelitis: Need IV antibiotics, surgery evaluation and ID input. Above management discussed with patient and his daughter in detail length they both understand and in agreement with the above plan, time spent 70 minute, patient is full code. Time Spent With Patient Time: Total time managing care of this patient today ____ minutes. Quality Stroke Does the patient have a stroke diagnosis?: No VTE Prior VTE?: No VTE Risk Level:: Medical - moderate - high VTE Device Contraindication: N/A - Device Ordered VTE Drug Contraindication: N/A - Med Ordered
[2022-10-24] MEDS: vancomycin HCL 1,500 MG in 0.9 % Sodium Chloride 500 ML 333.33 MG IV (18:04)
--- NOTE | 2022-10-24 19:37 | PC.NURSE ---
report given to overflow, transport to bring patient
[2022-10-24 20:28] VITALS: BP 180/84; PULSE 63; RESP 18; TEMP 36.8; O2SAT 99
[2022-10-24 20:29] LABS: Glucose, Whole Blood 99 mg/dL (60-115)
[2022-10-24] MEDS: Donepezil HCl 10 MG TABLET PO (21:02)
[2022-10-24] MEDS: Heparin Sodium,Porcine 5,000 UNIT/ML VIAL 5000 UNIT SUBCUT (21:02)
[2022-10-24] MEDS: Insulin Glargine,Hum.rec.anlog 100 UNIT/ML 10 ML VIAL SUBCUT (21:03)
--- NOTE | 2022-10-24 22:57 | MHC.CM.PN ---
Addendum entered by Tiki Reyes 10/24/22 23:09: THRIVE negative Original Note: BETANCUR 10/24. A&Ox4. Pt lives with his . Uses cane/walker. Has daily [employer] T[employer] from [facility]. States has nurse q3days for dressing changes, does not know what agency. Pt goes to [facility] [place] W[place] care clinic. Placed to observation for L foot ulceration and ? osteomyelitis. Pt received J&J vaccine. No booster. HCP on file. D/C plan: pending MDR's and hospital course. 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 Family will transport home.
--- NOTE | 2022-10-25 00:55 | PC.NURSE ---
pt transferred from main ed, denies any complaints left foot wound CDI
[2022-10-25 05:39] LABS: MANUAL DIFF FLAG NO
[2022-10-25 05:44] LABS: Basophils Percent Auto 0.7 % (0-2); Eosinophils Absolute Auto 0.3 X10*3/uL (0.0-0.4); Eosinophils Percent Auto 4.5 % (0-4); Hematocrit 34.8 % (42.0-52.0); Hemoglobin 11.5 g/dl (14.0-18.0); Imm Gran Abs Auto 0.02 X10*3/uL (0.00-0.03); Imm Gran Pct Auto 0.3 % (0.0-0.4); Lymphocytes Percent Auto 17.3 % (20-40); Mean Corpuscular Hemoglobin 28.3 pg (27.0-33.0); Mean Corpuscular Volume 85.5 fL (80.0-98.0); Mean Platelet Volume 9.4 fL (9.4-12.4); Monocytes Absolute Auto 0.4 X10*3/uL (0.1-1.2); Monocytes Percent Auto 7.2 % (2-11); Neutrophils Absolute Auto 4.2 x10*3/uL (2.0-8.3); Platelet Count 267 X10*3/uL (160-400); Red Blood Count 4.07 X10*6/uL (4.60-5.80); Red Cell Distribution Width 14.1 % (11.0-16.0)
[2022-10-25 05:58] LABS: Anion Gap 14 (12-20); Blood Urea Nitrogen 21 mg/dL (9-16); Calcium 9.4 mg/dL (8.4-10.2); Carbon Dioxide 22 mmol/L (22-29); Chloride 108 mmol/L (96-108); Creatinine Clr Calc Pharmacy 38.3; Estimated Glomerular Filt Rate 46; Glucose Random 93 mg/dL (60-115); Potassium 4.9 mmol/L (3.3-5.1); Sodium 139 mmol/L (135-145)
[2022-10-25 06:19] VITALS: BP 105/69; PULSE 59; TEMP 36.4; O2SAT 97
[2022-10-25 07:22] LABS: Glucose, Whole Blood 90 mg/dL (60-115)
--- NOTE | 2022-10-25 08:04 | PM.CNGS ---
History of Present Illness Consult details Consult date: 10/25/22 Narrative: 71-year-old male, dementia, chronic kidney disease, history of toe amputations, admitted because of a left foot ulcer. He states that he has had this for several months. However, he has dementia and I am uncertain as to how reliable he is with regards to his history. Review of Systems Review of Systems: Patient with dementia - may be and rail with regards to review of systems Constitutional: Constitutional: Denies chills and Denies fever(s) Cardiovascular: Cardiovascular: Denies chest pain Respiratory: Respiratory: Denies cough Gastrointestinal: Gastrointestinal: Denies abdominal pain Genitourinary: Genitourinary: Denies difficulty urinating PMFSH Past Medical History Medical History BPH (benign prostatic hyperplasia) CKD stage G3b/A1, GFR 30-44 and albumin creatinine ratio <30 mg/g Dementia Diabetes Dog bite History of amputation of toe Hypertension Plantar ulcer of left foot Rhabdomyolysis Stage 3b chronic kidney disease (CKD) Family History Family History Other Diabetes HTN (hypertension) Social History Social History Household Members: Spouse Housing: Apartment Do you presently have visiting nurse or other home services: Yes Alcohol intake: never Patient Tobacco Use Status: Former Tobacco user Quit Date: 1999 Smoked in Last 30 Days: No Use of substances other than those prescribed or required for medical reasons: No Currently Displaying Signs/Symptoms of Drug Intoxication Withdrawal: No Have you been hit, kicked, punched, or otherwise hurt by someone within the past year? If so, by whom?: No Do you feel safe in your current relationship?: Yes Is there a partner from a previous relationship who is making you feel unsafe now?: No Are you made to feel afraid or neglected: No Advance Directives: Yes Advance Directives on File: Yes Advance Directives Date on File: 01/25/21 Do you have thoughts of harming others: None Do you have a plan to hurt others: No Plan Recently lost weight without trying: Yes How much weight loss: Unsure Eating poorly because of decreased appetite: No Nutrition screen score: 4 Nutrition Risks: No Nutritional Risk Poor oral hygiene: No service: No Current occupational status: retired Meds Allergies Allergy/AdvReac Type Severity Reaction Status Date / Time oxycodone [From PERCOCET] Allergy Unknown CAN'T Verified 10/24/22 12:38 BREATH/VOMITING simvastatin [SIMVASTATIN] Allergy Unknown UNKNOWN Verified 10/24/22 12:38 peas AdvReac Unknown VOMITING/FA Verified 10/24/22 12:38 INTING SALMON [id number] AdvReac Unknown VOMITING/FA Uncoded 10/24/22 12:38 INT Active Medications: Current Medications Acetaminophen (Acetaminophen 325 Mg Tablet) 650 mg PO Q6H PRN PRN Reason: Fever Or Pain Amlodipine Besylate (Amlodipine Besylate 10 Mg Tablet) 10 mg PO DAILY [facility]; Protocol Aspirin (Aspirin Enteric Coated 81 Mg Tablet.Dr) 81 mg PO DAILY [facility] Clopidogrel Bisulfate (Clopidogrel Bisulfate 75 Mg Tablet) 75 mg PO DAILY [facility] Donepezil HCl (Donepezil Hcl 10 Mg Tablet) 10 mg PO BEDTIME [facility] Last Admin: 10/24/22 21:02 Dose: 10 mg Empagliflozin (Empagliflozin 10 Mg Tablet) 10 mg PO DAILY [facility] Escitalopram Oxalate (Escitalopram Oxalate 5 Mg Tablet) 5 mg PO DAILY [facility] Finasteride (Finasteride 5 Mg Tablet) 5 mg PO DAILY [facility] Heparin Sodium (Porcine) (Heparin Sodium,Porcine 5,000 Unit/Ml Vial) 5,000 unit SUBCUT Q12H [facility] Last Admin: 10/24/22 21:02 Dose: 5,000 unit Vancomycin HCl 1,000 mg/ (Sodium Chloride) 270 mls @ 270 mls/hr IV Q24H [facility] Insulin Glargine (Insulin Glargine,Hum.Rec.Anlog 100 Unit/Ml 10 Ml Vial) 3 unit SUBCUT BEDTIME [facility] Last Admin: 10/24/22 21:03 Dose: 3 unit Pharmacy Consult (Consult Rx Perform Med Rec) 1 each MISCELLANE ONCE PRN PRN Reason: Consult order Pharmacy Consult (Consult Rx Vancomycin Dosing) 1 each MISCELLANE DAILY PRN PRN Reason: Consult order Sodium Chloride (0.9 % Sodium Chloride Flush 3 Ml Syringe) 3 ml IVFLUSH QSHIFT [facility] Last Admin: 10/25/22 00:14 Dose: Not Given Tamsulosin HCl (Tamsulosin Hcl 0.4 Mg Capsule) 0.4 mg PO DAILY [facility] Home Medications Medication Instructions Recorded Confirmed Last Taken Type amlodipine 10 mg tablet 1 tab PO DAILY 01/24/21 10/24/22 10/24/22 09:00 History aspirin 81 mg tablet,delayed 1 tab PO DAILY 01/24/21 10/24/22 10/24/22 09:00 History release citalopram 10 mg tablet 1 tab PO DAILY 01/24/21 10/24/22 10/24/22 09:00 History clopidogrel 75 mg tablet 1 tab PO DAILY 01/24/21 10/24/22 10/24/22 09:00 History donepezil 10 mg tablet 1 tab PO BEDTIME 01/24/21 10/24/22 10/23/22 History finasteride 5 mg tablet 1 tab PO DAILY 01/24/21 10/24/22 10/24/22 09:00 History insulin glargine 100 unit/mL 3 unit subcut BEDTIME 01/24/21 10/24/22 10/23/22 History subcutaneous solution (Lantus U-100 Insulin) tamsulosin 0.4 mg capsule 1 cap PO DAILY 01/24/21 10/24/22 10/24/22 09:00 History dapagliflozin propanediol 10 mg 1 tab PO DAILY 02/12/22 10/24/22 10/24/22 09:00 History tablet (Farxiga) acetaminophen 500 mg tablet 1,000 mg PO Q6H PRN Fever Or Pain 10/24/22 10/24/22 Unknown History Physical Exam Vital Signs: Vital Signs: Last Vital Signs Temp 97.6 F 10/25/22 06:19 Pulse 59 10/25/22 06:19 Resp 18 10/24/22 20:28 BP 105/69 10/25/22 06:19 Pulse Ox 97 10/25/22 06:19 O2 Del Method Room Air 10/25/22 06:19 BMI result Body Mass Index 23.2 Const: General: comfortable; No no acute distress Resp: Effort & Inspection: normal respiratory effort Cardio: Rate: regular rate GI: Palpation (GI): Soft to palpation, not firm and nontender Extrem: Other: Left foot with old amputation site on the big toe, plantar ulcer, about 1 cm, forefoot at the approximate area of the 2nd metatarsal head, appears to be tunneling, with some scanty serosanguineous discharge Results Labs 10/25/22 05:27 10/25/22 05:27 Labs: Abnormal lab results 10/24/22 10/24/22 10/24/22 Range/Units 12:50 12:51 12:51 RBC 4.21 L (4.60-5.80) X10*6/uL Hgb 11.8 L (14.0-18.0) g/dl Hct 35.9 L (42.0-52.0) % MPV 9.3 L (9.4-12.4) fL Neut % (Auto) 84.6 H (45-73) % Lymph % (Auto) 7.7 L (20-40) % Eos % (Auto) (0-4) % Lymph # (Auto) 0.8 L (1.2-4.9) X10*3/uL ESR 73 H (0-15) MM/HR BUN 31 H (9-16) mg/dL Creatinine 1.85 H (0.5-1.4) mg/dL Random Glucose 162 H (60-115) mg/dL C-Reactive Protein 13.56 H (< or = 0.50) mg/dL 10/25/22 10/25/22 Range/Units 05:27 05:27 RBC 4.07 L (4.60-5.80) X10*6/uL Hgb 11.5 L (14.0-18.0) g/dl Hct 34.8 L (42.0-52.0) % MPV (9.4-12.4) fL Neut % (Auto) (45-73) % Lymph % (Auto) 17.3 L (20-40) % Eos % (Auto) 4.5 H (0-4) % Lymph # (Auto) 1.0 L (1.2-4.9) X10*3/uL ESR (0-15) MM/HR BUN 21 H (9-16) mg/dL Creatinine 1.50 H (0.5-1.4) mg/dL Random Glucose (60-115) mg/dL C-Reactive Protein (< or = 0.50) mg/dL Short CBC 10/24/22 10/25/22 Range/Units 12:50 05:27 WBC 9.7 6.0 (4.8-10.8) X10*3/uL Hgb 11.8 L 11.5 L (14.0-18.0) g/dl Hct 35.9 L 34.8 L (42.0-52.0) % Plt Count 287 D 267 (160-400) X10*3/uL BMP 10/24/22 10/25/22 12:51 05:27 Sodium 136 139 Potassium 4.7 4.9 Chloride 104 108 Carbon Dioxide 22 22 BUN 31 H 21 H Creatinine 1.85 H 1.50 H Calcium 10.2 D 9.4 D Liver Function 10/24/22 Range/Units 12:51 Total Bilirubin 0.9 (0.0-1.0) mg/dL AST 17 (5-37) U/L ALT 13 (0-40) U/L Alkaline Phosphatase 98 (39-117) U/L Albumin 3.8 (3.5-5.0) g/dL All other labs normal. Laboratory Results WBC 6.0 X10*3/uL (4.8-10.8) 10/25/22 05:27 RBC 4.07 X10*6/uL (4.60-5.80) L 10/25/22 05:27 Hgb 11.5 g/dl (14.0-18.0) L 10/25/22 05:27 Hct 34.8 % (42.0-52.0) L 10/25/22 05:27 MCV 85.5 fL (80.0-98.0) 10/25/22 05:27 MCH 28.3 pg (27.0-33.0) 10/25/22 05:27 MCHC 33.0 g/dl (31.0-36.0) 10/25/22 05:27 RDW 14.1 % (11.0-16.0) 10/25/22 05:27 Plt Count 267 X10*3/uL (160-400) 10/25/22 05:27 MPV 9.4 fL (9.4-12.4) 10/25/22 05:27 Immature Gran % (Auto) 0.3 % (0.0-0.4) 10/25/22 05:27 Neut % (Auto) 70.0 % (45-73) 10/25/22 05:27 Lymph % (Auto) 17.3 % (20-40) L 10/25/22 05:27 [place] % (Auto) 7.2 % (2-11) 10/25/22 05:27 Eos % (Auto) 4.5 % (0-4) H 10/25/22 05:27 Baso % (Auto) 0.7 % (0-2) 10/25/22 05:27 Lymph # (Auto) 1.0 X10*3/uL (1.2-4.9) L 10/25/22 05:27 [place] # (Auto) 0.4 X10*3/uL (0.1-1.2) 10/25/22 05:27 Eos # (Auto) 0.3 X10*3/uL (0.0-0.4) 10/25/22 05:27 Baso # (Auto) 0.0 X10*3/uL (0.0-0.2) 10/25/22 05:27 Abs Immat Gran (auto) 0.02 X10*3/uL (0.00-0.03) 10/25/22 05:27 Absolute Neuts (auto) 4.2 x10*3/uL (2.0-8.3) 10/25/22 05:27 Absolute Nucleated RBC 0.000 X10*3/uL (0.0-0.012) 10/25/22 05:27 Nucleated RBC % (auto) 0.0 /100WBC (0.0-0.2) 10/25/22 05:27 ESR 73 MM/HR (0-15) H 10/24/22 12:51 Sodium 139 mmol/L (135-145) 10/25/22 05:27 Potassium 4.9 mmol/L (3.3-5.1) 10/25/22 05:27 Chloride 108 mmol/L (96-108) 10/25/22 05:27 Carbon Dioxide 22 mmol/L (22-29) 10/25/22 05:27 Anion Gap 14 (12-20) 10/25/22 05:27 BUN 21 mg/dL (9-16) H 10/25/22 05:27 Creatinine 1.50 mg/dL (0.5-1.4) H 10/25/22 05:27 Estim Creat Clear Calc 38.3 10/25/22 05:27 Estimated GFR 46 10/25/22 05:27 POC Glucose 90 mg/dL (60-115) 10/25/22 07:17 Random Glucose 93 mg/dL (60-115) 10/25/22 05:27 Lactic Acid 1.1 mmol/L (0.5-2.0) 10/24/22 16:09 Calcium 9.4 mg/dL (8.4-10.2) D 10/25/22 05:27 Magnesium 2.4 mg/dL (1.6-2.6) 10/24/22 12:51 Total Bilirubin 0.9 mg/dL (0.0-1.0) 10/24/22 12:51 AST 17 U/L (5-37) 10/24/22 12:51 ALT 13 U/L (0-40) 10/24/22 12:51 Alkaline Phosphatase 98 U/L (39-117) 10/24/22 12:51 C-Reactive Protein 13.56 mg/dL (< or = 0.50) H 10/24/22 12:51 Total Protein 7.4 g/dL (6.5-8.0) 10/24/22 12:51 Albumin 3.8 g/dL (3.5-5.0) 10/24/22 12:51 COVID-19 (SHEILA) Negative (Negative) 10/24/22 16:27 COVID-19 Clin Com See Note 10/24/22 16:27 Impressions Foot X-Ray 10/24/22 12:40 IMPRESSION: 1. Interval amputation of the great toe and the head and distal shaft of the first metatarsal. 2. Question of amputation of the head of the second metatarsal versus bony destruction. Assessment and Plan (1) Plantar ulcer of left foot: Status: Acute He has a plantar ulcer on the left foot as described above. His x-ray shows what appears to be bony erosion on the distal metatarsal head. Overall clinical findings suspicious for osteomyelitis. Recommend proceeding with an MRI. Consult with Dr. Monroy of Infectious Disease has been requested as well. He otherwise does not appear to be toxic and he looks comfortable. I will follow along while he is in the hospital. He does not require I and D or debridement at this time. Time Spent With Patient Time: Total time managing care of this patient today ____ minutes. Procedures Date of Service Date of Service: 10/30/22
[2022-10-25] MEDS: Heparin Sodium,Porcine 5,000 UNIT/ML VIAL 5000 UNIT SUBCUT ×2 (09:17→22:39)
[2022-10-25] MEDS: Finasteride 5 MG TABLET PO (09:18)
[2022-10-25] MEDS: 0.9 % Sodium Chloride Flush 3 ML SYRINGE IVFLUSH ×3 (09:18→22:41)
[2022-10-25] MEDS: Aspirin Enteric Coated 81 MG TABLET.DR PO (09:18)
[2022-10-25] MEDS: Tamsulosin HCL 0.4 MG CAPSULE PO (09:18)
[2022-10-25] MEDS: amLODIPine Besylate 10 MG TABLET PO (09:18)
[2022-10-25] MEDS: Escitalopram Oxalate 5 MG TABLET PO (09:18)
[2022-10-25] MEDS: Clopidogrel Bisulfate 75 MG TABLET PO (09:18)
--- NOTE | 2022-10-25 10:33 | MHC.CM.PN ---
Addendum entered by Dolores Rodriguez 10/25/22 11:03: IMM explained and signed at patient's bedside with daughter, Raffaele. Original Note: Patient currently in ER overflow. Received telephone call from Chris [facility] stating patient is active with their agency. Referral made via [facility] so they can follow for d/c needs. Patient was changed to inpatient and will need IMM. Continue to monitor for d/c needs.
--- NOTE | 2022-10-25 10:50 | PC.NURSE ---
patient daughter Raffaele phone # [phone], if any updates with patient care she would like to be notified.
[2022-10-25 11:45] LABS: Glucose, Whole Blood 157 mg/dL (60-115)
[2022-10-25 14:22] VITALS: BP 133/70; PULSE 69; RESP 18; TEMP 37; O2SAT 94
--- NOTE | 2022-10-25 15:35 | P.PNIM_ITS ---
Subjective Subjective Date of Service: 10/25/22 Interval History: foot ulcer Review of Systems Foot area looks similar to yesterday, Denies any fever or chills or and pain. Physical Exam Vital Signs: Vital Signs: Last Vital Signs Temp 98.6 F 10/25/22 14:22 Pulse 69 10/25/22 14:22 Resp 18 10/25/22 14:22 BP 133/70 10/25/22 14:22 Pulse Ox 94 10/25/22 14:22 O2 Del Method Room Air 10/25/22 14:22 BMI result Body Mass Index 23.2 Appearance: Alert.? Oriented X3.? not in distress.? cvs: rrr, [id number] . res: clear to auscultation ,no rhonchii or wheezing abd: no rebound or guarding ,nt, bs present. ext pulses present , no cyanosis left foot plantar area ulcer- mild erythema of forefoot otherwise no discharge from the ulcer site, has old big toe amputation scar, also on the right side 4th toe is amputated. neuro: axo3 , nonfocal. Objective Data Active Medications Acetaminophen (Acetaminophen 325 Mg Tablet) 650 mg PO Q6H PRN PRN Reason: Fever Or Pain Amlodipine Besylate (Amlodipine Besylate 10 Mg Tablet) 10 mg PO DAILY [facility]; Prot ocol Last Admin: 10/25/22 09:18 Dose: 10 mg Documented By: RUFUS Aspirin (Aspirin Enteric Coated 81 Mg Tablet.) 81 mg PO DAILY [facility] Last Admin: 10/25/22 09:18 Dose: 81 mg Documented By: RUFUS Clopidogrel Bisulfate (Clopidogrel Bisulfate 75 Mg Tablet) 75 mg PO DAILY [facility] Last Admin: 10/25/22 09:18 Dose: 75 mg Documented By: RUFUS Donepezil HCl (Donepezil Hcl 10 Mg Tablet) 10 mg PO BEDTIME [facility] Last Admin: 10/24/22 21:02 Dose: 10 mg Documented By: ROQUE Empagliflozin (Empagliflozin 10 Mg Tablet) 10 mg PO DAILY [facility] Last Admin: 10/25/22 10:26 Dose: Not Given Documented By: RUFUS Non-Admin Reason: Med Not Available Escitalopram Oxalate (Escitalopram Oxalate 5 Mg Tablet) 5 mg PO DAILY [facility] Last Admin: 10/25/22 09:18 Dose: 5 mg Documented By: RUFUS Finasteride (Finasteride 5 Mg Tablet) 5 mg PO DAILY [facility] Last Admin: 10/25/22 09:18 Dose: 5 mg Documented By: RUFUS Heparin Sodium (Porcine) (Heparin Sodium,Porcine 5,000 Unit/Ml Vial) 5,000 unit SUBCUT Q12H [facility] Last Admin: 10/25/22 09:17 Dose: 5,000 unit Documented By: RUFUS Vancomycin HCl 1,000 mg/ (Sodium Chloride) 270 mls @ 270 mls/hr IV Q24H [facility] Insulin Glargine (Insulin Glargine,Hum.Rec.Anlog 100 Unit/Ml 10 Ml Vial) 3 unit SUBCUT BEDTIME [facility] Last Admin: 10/24/22 21:03 Dose: 3 unit Documented By: ROQUE Pharmacy Consult (Consult Rx Perform Med Rec) 1 each MISCELLANE ONCE PRN PRN Reason: Consult order Pharmacy Consult (Consult Rx Vancomycin Dosing) 1 each MISCELLANE DAILY PRN PRN Reason: Consult order Sodium Chloride (0.9 % Sodium Chloride Flush 3 Ml Syringe) 3 ml IVFLUSH QSHIFT [facility] Last Admin: 10/25/22 09:18 Dose: 3 ml Documented By: RUFUS Tamsulosin HCl (Tamsulosin Hcl 0.4 Mg Capsule) 0.4 mg PO DAILY [facility] Last Admin: 10/25/22 09:18 Dose: 0.4 mg Documented By: RUFUS Labs 10/25/22 05:27 10/25/22 05:27 Labs: Laboratory Results - last 24 hr 10/24/22 10/24/22 10/24/22 16:09 16:27 20:25 MCV MCH MCHC RDW Plt Count MPV Immature Gran % (Auto) Neut % (Auto) Lymph % (Auto) [place] % (Auto) Eos % (Auto) Baso % (Auto) Lymph # (Auto) [place] # (Auto) Eos # (Auto) Baso # (Auto) Abs Immat Gran (auto) Absolute Neuts (auto) Absolute Nucleated RBC Nucleated RBC % (auto) Anion Gap Estim Creat Clear Calc Estimated GFR POC Glucose 99 Random Glucose Lactic Acid 1.1 Calcium COVID-19 ([facility]HEILA) Negative COVID-19 Clin Com See Note 10/25/22 10/25/22 10/25/22 05:27 05:27 07:17 MCV 85.5 MCH 28.3 MCHC 33.0 RDW 14.1 Plt Count 267 MPV 9.4 Immature Gran % (Auto) 0.3 Neut % (Auto) 70.0 Lymph % (Auto) 17.3 L [place] % (Auto) 7.2 Eos % (Auto) 4.5 H Baso % (Auto) 0.7 Lymph # (Auto) 1.0 L [place] # (Auto) 0.4 Eos # (Auto) 0.3 Baso # (Auto) 0.0 Abs Immat Gran (auto) 0.02 Absolute Neuts (auto) 4.2 Absolute Nucleated RBC 0.000 Nucleated RBC % (auto) 0.0 Anion Gap 14 Estim Creat Clear Calc 38.3 Estimated GFR 46 POC Glucose 90 Random Glucose 93 Lactic Acid Calcium 9.4 D COVID-19 ([facility]HEILA) COVID-19 Clin Com 10/25/22 11:30 MCV MCH MCHC RDW Plt Count MPV Immature Gran % (Auto) Neut % (Auto) Lymph % (Auto) [place] % (Auto) Eos % (Auto) Baso % (Auto) Lymph # (Auto) [place] # (Auto) Eos # (Auto) Baso # (Auto) Abs Immat Gran (auto) Absolute Neuts (auto) Absolute Nucleated RBC Nucleated RBC % (auto) Anion Gap Estim Creat Clear Calc Estimated GFR POC Glucose 157 H Random Glucose Lactic Acid Calcium COVID-19 (SHEILA) COVID-19 Clin Com Assessment and Plan (1) Plantar ulcer of left foot: Status: Acute (2) Cellulitis of foot: Status: Acute Plan 71-year-old Egyptian-speaking male with history (obtained with the help of [facility] [employer]) history of diabetes, hypertension, BPH, dementia, CKD-came to the hospital because of left foot ulcer.? Patient was sent from the wound care emergency department with question of worsening infection and other concerns the patient needs IV antibiotics. ?Diabetic foot infection/cellulitis: ?? Concern of osteomyelitis WBC normal, no tachycardia, lactic acid normal Blood culture pending Started on vanco Zosyn Surgery evaluation Id eval-added mri. ?Diabetes continue home regimen (lantus, SSI) hold Faxiga,, diabetic diet ?CKD3: hold lisniopril,moniter renal function . HTN-controlled, continue Norvasc ?BPH-Flomax, finesteride ?Dementia--Aricept ?DVT prophylaxis--Heparin inaptient need- diabetic foot cellulitis,?? Concern of osteomyelitis:? Need IV antibiotics, workup for osteomyelitis,surgery evaluation and ID input. Time Spent With Patient Time: Total time managing care of this patient today ____ minutes. Quality Stroke Does the patient have a stroke diagnosis?: No VTE Prior VTE?: No VTE Risk Level:: Medical - moderate - high VTE Device Contraindication: N/A - Device Ordered VTE Drug Contraindication: N/A - Med Ordered
[2022-10-25 16:52] LABS: Glucose, Whole Blood 155 mg/dL (60-115)
[2022-10-25] MEDS: vancomycin HCL 1,000 MG in 0.9 % Sodium Chloride 250 ML 270 MG IV (18:34)
[2022-10-25 20:22] VITALS: BP 129/78; PULSE 54; RESP 16; TEMP 36.4; O2SAT 98
[2022-10-25 21:07] VITALS: BP 159/78; PULSE 67; RESP 18; TEMP 36.5; O2SAT 95
[2022-10-25 21:27] LABS: Glucose, Whole Blood 142 mg/dL (60-115)
[2022-10-25 22:38] VITALS: BMI 22.0
--- NOTE | 2022-10-25 22:38 | W.PM.IDCN ---
History of Present Illness Data of Consult Service Date: 10/25/22 (diabetic foot infection) Requesting physician: Tejinder Thomas Primary Care Provider: Penny Camarena MD HPI Reason for consult: diabetic foot infection He presents with left foot swelling and redness with purulent area nonhealing under left plantar area near metatarsals. He has had ulcer for 3-4 months. He has MRI pending. He was started on Vancomycin/Piperacillin/Tazobactam. Review of Systems Review of Systems: Yes all other systems are reviewed and are negative [facility] Past Medical History Medical History BPH (benign prostatic hyperplasia) CKD stage G3b/A1, GFR 30-44 and albumin creatinine ratio <30 mg/g Dementia Diabetes Dog bite History of amputation of toe Hypertension Plantar ulcer of left foot Rhabdomyolysis Stage 3b chronic kidney disease (CKD) Family History Family History Other Diabetes HTN (hypertension) Family history: reviewed and not pertinent Social History Social History Household Members: Spouse Housing: Apartment Do you presently have visiting nurse or other home services: Yes Alcohol intake: never Patient Tobacco Use Status: Former Tobacco user Quit Date: 1999 Smoked in Last 30 Days: No Use of substances other than those prescribed or required for medical reasons: No Have you been hit, kicked, punched, or otherwise hurt by someone within the past year? If so, by whom?: No Do you feel safe in your current relationship?: Yes Is there a partner from a previous relationship who is making you feel unsafe now?: No Are you made to feel afraid or neglected: No Advance Directives: Yes Advance Directives on File: Yes Advance Directives Date on File: 01/25/21 Do you have thoughts of harming others: None Do you have a plan to hurt others: No Plan Recently lost weight without trying: Yes How much weight loss: Unsure Eating poorly because of decreased appetite: No Nutrition screen score: 4 Nutrition Risks: No Nutritional Risk Poor oral hygiene: No service: No Current occupational status: retired Meds Allergies Allergy/AdvReac Type Severity Reaction Status Date / Time oxycodone [From PERCOCET] Allergy Unknown CAN'T Verified 10/24/22 12:38 BREATH/VOMITING simvastatin [SIMVASTATIN] Allergy Unknown UNKNOWN Verified 10/24/22 12:38 peas AdvReac Unknown VOMITING/FA Verified 10/24/22 12:38 INTING SALMON [id number] AdvReac Unknown VOMITING/FA Uncoded 10/24/22 12:38 INT Active Medications: Current Medications Acetaminophen (Acetaminophen 325 Mg Tablet) 650 mg PO Q6H PRN PRN Reason: Fever Or Pain Amlodipine Besylate (Amlodipine Besylate 10 Mg Tablet) 10 mg PO DAILY [facility]; Protocol Last Admin: 10/25/22 09:18 Dose: 10 mg Aspirin (Aspirin Enteric Coated 81 Mg Tablet.Dr) 81 mg PO DAILY [facility] Last Admin: 10/25/22 09:18 Dose: 81 mg Clopidogrel Bisulfate (Clopidogrel Bisulfate 75 Mg Tablet) 75 mg PO DAILY [facility] Last Admin: 10/25/22 09:18 Dose: 75 mg Donepezil HCl (Donepezil Hcl 10 Mg Tablet) 10 mg PO BEDTIME [facility] Last Admin: 10/24/22 21:02 Dose: 10 mg Empagliflozin (Empagliflozin 10 Mg Tablet) 10 mg PO DAILY [facility] Last Admin: 10/25/22 10:26 Dose: Not Given Escitalopram Oxalate (Escitalopram Oxalate 5 Mg Tablet) 5 mg PO DAILY [facility] Last Admin: 10/25/22 09:18 Dose: 5 mg Finasteride (Finasteride 5 Mg Tablet) 5 mg PO DAILY [facility] Last Admin: 10/25/22 09:18 Dose: 5 mg Heparin Sodium (Porcine) (Heparin Sodium,Porcine 5,000 Unit/Ml Vial) 5,000 unit SUBCUT Q12H [facility] Last Admin: 10/25/22 09:17 Dose: 5,000 unit Vancomycin HCl 1,000 mg/ (Sodium Chloride) 270 mls @ 270 mls/hr IV Q24H [facility] Last Infusion: 10/25/22 19:59 Dose: Infused Insulin Glargine (Insulin Glargine,Hum.Rec.Anlog 100 Unit/Ml 10 Ml Vial) 3 unit SUBCUT BEDTIME [facility] Last Admin: 10/24/22 21:03 Dose: 3 unit Pharmacy Consult (Consult Rx Perform Med Rec) 1 each MISCELLANE ONCE PRN PRN Reason: Consult order Pharmacy Consult (Consult Rx Vancomycin Dosing) 1 each MISCELLANE DAILY PRN PRN Reason: Consult order Sodium Chloride (0.9 % Sodium Chloride Flush 3 Ml Syringe) 3 ml IVFLUSH QSHIFT [facility] Last Admin: 10/25/22 16:09 Dose: 3 ml Tamsulosin HCl (Tamsulosin Hcl 0.4 Mg Capsule) 0.4 mg PO DAILY [facility] Last Admin: 10/25/22 09:18 Dose: 0.4 mg Home Medications Medication Instructions Recorded Confirmed Last Taken Type amlodipine 10 mg tablet 1 tab PO DAILY 01/24/21 10/24/22 10/24/22 09:00 History aspirin 81 mg tablet,delayed 1 tab PO DAILY 01/24/21 10/24/22 10/24/22 09:00 History release citalopram 10 mg tablet 1 tab PO DAILY 01/24/21 10/24/22 10/24/22 09:00 History clopidogrel 75 mg tablet 1 tab PO DAILY 01/24/21 10/24/22 10/24/22 09:00 History donepezil 10 mg tablet 1 tab PO BEDTIME 01/24/21 10/24/22 10/23/22 History finasteride 5 mg tablet 1 tab PO DAILY 01/24/21 10/24/22 10/24/22 09:00 History insulin glargine 100 unit/mL 3 unit subcut BEDTIME 01/24/21 10/24/22 10/23/22 History subcutaneous solution (Lantus U-100 Insulin) tamsulosin 0.4 mg capsule 1 cap PO DAILY 01/24/21 10/24/22 10/24/22 09:00 History dapagliflozin propanediol 10 mg 1 tab PO DAILY 02/12/22 10/24/22 10/24/22 09:00 History tablet (Farxiga) acetaminophen 500 mg tablet 1,000 mg PO Q6H PRN Fever Or Pain 10/24/22 10/24/22 Unknown History lisinopril 10 mg tablet 10 mg PO BEDTIME 10/24/22 10/24/22 10/23/22 History Physical Exam Vital Signs: Vital Signs: Last Vital Signs Temp 97.7 F 10/25/22 21:07 Pulse 67 10/25/22 21:07 Resp 18 10/25/22 21:07 BP 159/78 H 10/25/22 21:07 Pulse Ox 95 10/25/22 21:07 O2 Del Method Room Air 10/25/22 21:07 BMI result Body Mass Index 23.2 Const: General: cooperative HEENT: Head: Yes normal to inspection Face and sinus: Yes normal facial exam Mouth: Normal oral and palatal mucosa present Teeth and gingiva: dentition normal Eyes: General: appearance normal, both eyes and all related structures Pupils: Equal, round and reactive pupils present Resp: Effort & Inspection: normal respiratory effort Cardio: Rate: regular rate Rhythm: regular rhythm GI: Palpation (GI): Soft to palpation and nontender : General: Yes no CVA tenderness Back/Spine/Pelvis: Back: no CVA tenderness Skin: General skin exam: no rashes or lesions noted Neuro: General: moves all extremities Cranial nerves: Yes Equal, round and reactive pupils present Extrem: Other: neuropathy yellow purulence from foot ulcer left Psych: Appearance: grossly normal Results Labs 10/25/22 05:27 10/25/22 05:27 Labs: Short CBC 10/25/22 Range/Units 05:27 WBC 6.0 (4.8-10.8) X10*3/uL Hgb 11.5 L (14.0-18.0) g/dl Hct 34.8 L (42.0-52.0) % Plt Count 267 (160-400) X10*3/uL BMP 10/25/22 05:27 Sodium 139 Potassium 4.9 Chloride 108 Carbon Dioxide 22 BUN 21 H Creatinine 1.50 H Calcium 9.4 D Microbiology Microbiology Results: Microbiology 10/24/22 16:27 Blood - Venous Blood Culture - Preliminary No growth after 24 hours. 10/24/22 16:09 Blood - Venous Blood Culture - Preliminary No growth after 24 hours. Assessment and Plan (1) Plantar ulcer of left foot: Status: Acute She has possible osteomyelitis. There may be staph aureus Plan Would check MRI He may need six weeks IV antibiotics,depends on culture2. Time Spent With Patient Time: Total time managing care of this patient today ____ minutes.
[2022-10-25] MEDS: Donepezil HCl 10 MG TABLET PO (22:40)
[2022-10-25] MEDS: Insulin Glargine,Hum.rec.anlog 100 UNIT/ML 10 ML VIAL SUBCUT (22:40)
[2022-10-25 23:40] VITALS: BP 147/73; PULSE 67; RESP 16; TEMP 36.1; O2SAT 95
[2022-10-26 04:00] VITALS: BP 169/81; PULSE 64; RESP 16; TEMP 36; O2SAT 98
[2022-10-26 07:20] LABS: Creatinine Clr Calc Pharmacy 44.2; Estimated Glomerular Filt Rate 56
[2022-10-26 07:38] VITALS: BP 168/87; PULSE 60; RESP 16; TEMP 36.4; O2SAT 99
[2022-10-26 07:42] LABS: Glucose, Whole Blood 108 mg/dL (60-115)
[2022-10-26] MEDS: 0.9 % Sodium Chloride Flush 3 ML SYRINGE IVFLUSH ×3 (08:20→22:27)
[2022-10-26] MEDS: Escitalopram Oxalate 5 MG TABLET PO (08:20)
[2022-10-26] MEDS: Heparin Sodium,Porcine 5,000 UNIT/ML VIAL 5000 UNIT SUBCUT ×2 (08:20→22:28)
[2022-10-26] MEDS: Tamsulosin HCL 0.4 MG CAPSULE PO (08:20)
[2022-10-26] MEDS: Aspirin Enteric Coated 81 MG TABLET.DR PO (08:20)
[2022-10-26] MEDS: Finasteride 5 MG TABLET PO (08:21)
[2022-10-26] MEDS: Empagliflozin 10 MG TABLET PO (08:21)
[2022-10-26] MEDS: Clopidogrel Bisulfate 75 MG TABLET PO (08:21)
[2022-10-26] MEDS: amLODIPine Besylate 10 MG TABLET PO (08:21)
--- NOTE | 2022-10-26 08:36 | PM.PNGS ---
Subjective Subjective Date of Service: 10/26/22 Interval history: Denies pain Says he feels well No events reported Physical Exam Vital Signs: Vital Signs: Last Vital Signs Temp 97.6 F 10/26/22 07:38 Pulse 60 10/26/22 07:38 Resp 16 10/26/22 07:38 BP 168/87 H 10/26/22 07:38 Pulse Ox 99 10/26/22 07:38 O2 Del Method Room Air 10/26/22 07:38 BMI result Body Mass Index 22.0 Const: General: comfortable and no acute distress Resp: Effort & Inspection: normal respiratory effort Cardio: Rate: regular rate Extrem: Other: Left foot plantar ulcer on the forefoot, minimal drainage, serosanguineous, cellulitis much in Objective Data Active Medications Acetaminophen (Acetaminophen 325 Mg Tablet) 650 mg PO Q6H PRN PRN Reason: Fever Or Pain Amlodipine Besylate (Amlodipine Besylate 10 Mg Tablet) 10 mg PO DAILY [facility]; Protocol Last Admin: 10/26/22 08:21 Dose: 10 mg Documented By: DEYA Aspirin (Aspirin Enteric Coated 81 Mg Tablet.) 81 mg PO DAILY [facility] Last Admin: 10/26/22 08:20 Dose: 81 mg Documented By: DEYA Clopidogrel Bisulfate (Clopidogrel Bisulfate 75 Mg Tablet) 75 mg PO DAILY [facility] Last Admin: 10/26/22 08:21 Dose: 75 mg Documented By: DEYA Donepezil HCl (Donepezil Hcl 10 Mg Tablet) 10 mg PO BEDTIME [facility] Last Admin: 10/25/22 22:40 Dose: 10 mg Documented By: LUIS FERNANDO Empagliflozin (Empagliflozin 10 Mg Tablet) 10 mg PO DAILY [facility] Last Admin: 10/26/22 08:21 Dose: 10 mg Documented By: DEYA Escitalopram Oxalate (Escitalopram Oxalate 5 Mg Tablet) 5 mg PO DAILY [facility] Last Admin: 10/26/22 08:20 Dose: 5 mg Documented By: DEYA Finasteride (Finasteride 5 Mg Tablet) 5 mg PO DAILY [facility] Last Admin: 10/26/22 08:21 Dose: 5 mg Documented By: DEYA Heparin Sodium (Porcine) (Heparin Sodium,Porcine 5,000 Unit/Ml Vial) 5,000 unit SUBCUT Q12H [facility] Last Admin: 10/26/22 08:20 Dose: 5,000 unit Documented By: DEYA Vancomycin HCl 1,000 mg/ (Sodium Chloride) 270 mls @ 270 mls/hr IV Q24H [facility] Last Infusion: 10/25/22 19:59 Dose: 0 mls/hr Documented By: FAMILIA Insulin Glargine (Insulin Glargine,Hum.Rec.Anlog 100 Unit/Ml 10 Ml Vial) 3 unit SUBCUT BEDTIME [facility] Last Admin: 10/25/22 22:40 Dose: 3 unit Documented By: LUIS FERNANDO Lisinopril (Lisinopril 5 Mg Tablet) 5 mg PO BEDTIME [facility]; Protocol Pharmacy Consult (Consult Rx Perform Med Rec) 1 each MISCELLANE ONCE PRN PRN Reason: Consult order Pharmacy Consult (Consult Rx Vancomycin Dosing) 1 each MISCELLANE DAILY PRN PRN Reason: Consult order Sodium Chloride (0.9 % Sodium Chloride Flush 3 Ml Syringe) 3 ml IVFLUSH QSHIFT [facility] Last Admin: 10/26/22 08:20 Dose: 3 ml Documented By: DEYA Tamsulosin HCl (Tamsulosin Hcl 0.4 Mg Capsule) 0.4 mg PO DAILY [facility] Last Admin: 10/26/22 08:20 Dose: 0.4 mg Documented By: DEYA Labs 10/25/22 05:27 10/26/22 05:27 Labs: Laboratory Results - last 24 hr 10/25/22 10/25/22 10/25/22 11:30 16:46 21:23 Estim Creat Clear Calc Estimated GFR POC Glucose 157 H 155 H 142 H 10/26/22 10/26/22 05:27 07:13 Estim Creat Clear Calc 44.2 Estimated GFR 56 POC Glucose 108 Microbiology Microbiology Results: Microbiology 10/24/22 16:27 Blood Culture - Preliminary Blood - Venous No growth after 24 hours. 10/24/22 16:09 Blood Culture - Preliminary Blood - Venous No growth after 24 hours. Procedures Date of Service Date of Service: 10/26/22 Progress Note: A&P Assessment and plan (1) Plantar ulcer of left foot: Status: Acute Assessment and Plan: Likely with osteomyelitis Awaiting MRI If osteomyelitis confirmed, IV antibiotics as per ID Amputation if with no response down the line Time Spent With Patient Time: Total time managing care of this patient today ____ minutes. Quality Stroke Does the patient have a stroke diagnosis?: No VTE Prior VTE?: No VTE Risk Level:: Medical - moderate - high VTE Device Contraindication: N/A - Device Ordered VTE Drug Contraindication: N/A - Med Ordered
--- NOTE | 2022-10-26 10:50 | MHC.CM.PN ---
PER MD ROUNDS, PT NOT READY TO DC MRI PENDING DCP TBD PENDING MRI FINDINGS
[2022-10-26 11:41] LABS: Glucose, Whole Blood 153 mg/dL (60-115)
[2022-10-26 11:46] VITALS: BP 170/86; PULSE 68; RESP 16; TEMP 36.4; O2SAT 96
--- NOTE | 2022-10-26 12:00 | P.PNIM_ITS ---
Subjective Subjective Date of Service: 10/26/22 Interval History: foot ulcer Review of Systems Foot area looks improving Denies any fever or chills or and pain Physical Exam Vital Signs: Vital Signs: Last Vital Signs Temp 97.6 F 10/26/22 11:46 Pulse 68 10/26/22 11:46 Resp 16 10/26/22 11:46 BP 170/86 H 10/26/22 11:46 Pulse Ox 96 10/26/22 11:46 O2 Del Method Room Air 10/26/22 11:46 BMI result Body Mass Index 22.0 Appearance: Alert.? Oriented X3.? not in distress.? cvs: rrr, [id number] . res: clear to auscultation ,no rhonchii or wheezing abd: no rebound or guarding ,nt, bs present. ext pulses present , no cyanosis left foot plantar area ulcer- mild erythema of forefoot otherwise no discharge from the ulcer site, has old big toe amputation scar, also on the right side 4th toe is amputated. neuro: axo3 , nonfocal. Objective Data Active Medications Acetaminophen (Acetaminophen 325 Mg Tablet) 650 mg PO Q6H PRN PRN Reason: Fever Or Pain Amlodipine Besylate (Amlodipine Besylate 10 Mg Tablet) 10 mg PO DAILY [facility]; Protocol Last Admin: 10/26/22 08:21 Dose: 10 mg Documented By: DEYA Aspirin (Aspirin Enteric Coated 81 Mg Tablet.) 81 mg PO DAILY [facility] [place] Last Admin: 10/26/22 08:20 Dose: 81 mg Documented By: DYEA Clopidogrel Bisulfate (Clopidogrel Bisulfate 75 Mg Tablet) 75 mg PO DAILY [facility] [place] Last Admin: 10/26/22 08:21 Dose: 75 mg Documented By: DEYA Donepezil HCl (Donepezil Hcl 10 Mg Tablet) 10 mg PO BEDTIME [facility] [place] Last Admin: 10/25/22 22:40 Dose: 10 mg Documented By: LUIS FERNANDO Empagliflozin (Empagliflozin 10 Mg Tablet) 10 mg PO DAILY [facility] [place] Last Admin: 10/26/22 08:21 Dose: 10 mg Documented By: DEYA Escitalopram Oxalate (Escitalopram Oxalate 5 Mg Tablet) 5 mg PO DAILY [facility] [place] Last Admin: 10/26/22 08:20 Dose: 5 mg Documented By: DEYA Finasteride (Finasteride 5 Mg Tablet) 5 mg PO DAILY [facility] [place] Last Admin: 10/26/22 08:21 Dose: 5 mg Documented By: DEYA Heparin Sodium (Porcine) (Heparin Sodium,Porcine 5,000 Unit/Ml Vial) 5,000 unit SUBCUT Q12H [facility] [place] Last Admin: 10/26/22 08:20 Dose: 5,000 unit Documented By: DEYA Vancomycin HCl 1,000 mg/ (Sodium Chloride) 270 mls @ 270 mls/hr IV Q24H [facility] [place] Last Infusion: 10/25/22 19:59 Dose: 0 mls/hr Documented By: CHAY-PORKELLEN Insulin Glargine (Insulin Glargine,Hum.Rec.Anlog 100 Unit/Ml 10 Ml Vial) 3 unit SUBCUT BEDTIME [facility] [place] Last Admin: 10/25/22 22:40 Dose: 3 unit Documented By: LUIS FERNANDO Lisinopril (Lisinopril 5 Mg Tablet) 5 mg PO BEDTIME [facility] [place]; Protocol Pharmacy Consult (Consult Rx Perform Med Rec) 1 each MISCELLANE ONCE PRN PRN Reason: Consult order Pharmacy Consult (Consult Rx Vancomycin Dosing) 1 each MISCELLANE DAILY PRN PRN Reason: Consult order Sodium Chloride (0.9 % Sodium Chloride Flush 3 Ml Syringe) 3 ml IVFLUSH QSHIFT [facility] [place] Last Admin: 10/26/22 08:20 Dose: 3 ml Documented By: DEYA Tamsulosin HCl (Tamsulosin Hcl 0.4 Mg Capsule) 0.4 mg PO DAILY [facility] [place] Last Admin: 10/26/22 08:20 Dose: 0.4 mg Documented By: DEYA Labs 10/25/22 05:27 10/26/22 05:27 Labs: Laboratory Results - last 24 hr 10/25/22 10/25/22 10/26/22 16:46 21:23 05:27 Estim Creat Clear Calc 44.2 Estimated GFR 56 POC Glucose 155 H 142 H 10/26/22 10/26/22 07:13 11:16 Estim Creat Clear Calc Estimated GFR POC Glucose 108 153 H Microbiology Microbiology Results: Microbiology 10/24/22 16:27 Blood Culture - Preliminary Blood - Venous No growth after 24 hours. 10/24/22 16:09 Blood Culture - Preliminary Blood - Venous No growth after 24 hours. Assessment and Plan (1) Plantar ulcer of left foot: Status: Acute (2) Cellulitis of foot: Status: Acute Plan 71-year-old Emirati-speaking male with history (obtained with the help of certified certified court interpreter) history of diabetes, hypertension, BPH, dementia, CKD- came to the hospital because of left foot ulcer.? Patient was sent from the wound care emergency department with question of worsening infection and other concerns the patient needs IV antibiotics. ?Diabetic foot infection/cellulitis: ?? Concern of osteomyelitis WBC normal, no tachycardia, lactic acid normal Blood culture pending Started on vanco Zosyn Surgery evaluation Id eval-added mri. ?Diabetes continue home regimen (lantus, SSI) hold Faxiga,, diabetic diet ?CKD3:seems near baseline. start lisniopril,moniter renal function . HTN-elevated , continue Norvasc,added back lisinopril. ?BPH-Flomax, finesteride ?Dementia--Aricept ?DVT prophylaxis--Heparin inaptient need- diabetic foot cellulitis,?? Concern of osteomyelitis:? Need IV antibiotics, workup for osteomyelitis,surgery evaluation and ID input. Time Spent With Patient Time: Total time managing care of this patient today ____ minutes. Quality Stroke Does the patient have a stroke diagnosis?: No VTE Prior VTE?: No VTE Risk Level:: Medical - moderate - high VTE Device Contraindication: N/A - Device Ordered VTE Drug Contraindication: N/A - Med Ordered
[2022-10-26 15:40] VITALS: BP 131/70; PULSE 67; RESP 20; TEMP 36; O2SAT 98
[2022-10-26 16:02] LABS: Glucose, Whole Blood 194 mg/dL (60-115)
[2022-10-26 16:53] LABS: Vancomycin Random 12.8 mcg/mL (15-20)
[2022-10-26] MEDS: vancomycin HCL 1,000 MG in 0.9 % Sodium Chloride 250 ML 270 MG IV (17:52)
[2022-10-26 20:00] VITALS: BP 145/76; PULSE 67; RESP 20; TEMP 36.5; O2SAT 98
[2022-10-26 21:05] LABS: Glucose, Whole Blood 172 mg/dL (60-115)
[2022-10-26] MEDS: Insulin Glargine,Hum.rec.anlog 100 UNIT/ML 10 ML VIAL SUBCUT (22:28)
[2022-10-26] MEDS: Donepezil HCl 10 MG TABLET PO (22:28)
[2022-10-26] MEDS: lisinopriL 5 MG TABLET PO (22:28)
[2022-10-26 23:36] VITALS: BP 159/81; PULSE 68; RESP 16; TEMP 36.3; O2SAT 95
[2022-10-27] VITALS (7 sets, daily range): BP systolic 118–140; BP diastolic 60–72; PULSE 58–92; RESP 16–20; TEMP 36–36.6; O2SAT 93–99
[2022-10-27 07:12] LABS: Creatinine Clr Calc Pharmacy 37.7; Estimated Glomerular Filt Rate 46
[2022-10-27 07:47] LABS: Glucose, Whole Blood 126 mg/dL (60-115)
[2022-10-27 09:13] LABS: Hematocrit 35.3 % (42.0-52.0); Hemoglobin 11.8 g/dl (14.0-18.0)
[2022-10-27 09:14] LABS: Prothrombin Time 11.7 SEC (10.0-13.1)
--- NOTE | 2022-10-27 09:51 | P.CONNP_ITS ---
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 He was initially sent from the wound care emergency department with question of worsening infection and other concerns the patient needs IV antibiotics. At the time of the consultation he denies fever, chills, chest pain, shortness of breath, nausea, vomiting or diarrhea. Review of Systems Review of Systems 10 points ROS negative except for pertinent in [facility] Past Medical History Medical History BPH (benign prostatic hyperplasia) CKD stage G3b/A1, GFR 30-44 and albumin creatinine ratio <30 mg/g Dementia Diabetes Dog bite History of amputation of toe Hypertension Plantar ulcer of left foot Rhabdomyolysis Stage 3b chronic kidney disease (CKD) Family History Family History Other Diabetes HTN (hypertension) Family history: reviewed and not pertinent Social History Social History Household Members: Spouse Housing: Apartment Do you presently have visiting nurse or other home services: Yes Alcohol intake: never Patient Tobacco Use Status: Former Tobacco user Quit Date: 1999 Smoked in Last 30 Days: No Use of substances other than those prescribed or required for medical reasons: No Currently Displaying Signs/Symptoms of Drug Intoxication Withdrawal: No Have you been hit, kicked, punched, or otherwise hurt by someone within the past year? If so, by whom?: No Do you feel safe in your current relationship?: Yes Is there a partner from a previous relationship who is making you feel unsafe now?: No Are you made to feel afraid or neglected: No Advance Directives: Yes Advance Directives on File: Yes Advance Directives Date on File: 01/25/21 Do you have thoughts of harming others: None Do you have a plan to hurt others: No Plan Recently lost weight without trying: Yes How much weight loss: Unsure Eating poorly because of decreased appetite: No Nutrition screen score: 4 Nutrition Risks: No Nutritional Risk Poor oral hygiene: No service: No Current occupational status: retired Meds Allergies Allergy/AdvReac Type Severity Reaction Status Date / Time oxycodone [From PERCOCET] Allergy Unknown CAN'T Verified 10/24/22 12:38 BREATH/VOMITING simvastatin [SIMVASTATIN] Allergy Unknown UNKNOWN Verified 10/24/22 12:38 peas AdvReac Unknown VOMITING/FA Verified 10/24/22 12:38 INTING SALMON [id number] AdvReac Unknown VOMITING/FA Uncoded 10/24/22 12:38 INT Active Medications: Current Medications Acetaminophen (Acetaminophen 325 Mg Tablet) 650 mg PO Q6H PRN PRN Reason: Fever Or Pain Amlodipine Besylate (Amlodipine Besylate 10 Mg Tablet) 10 mg PO DAILY [facility]; Protocol Last Admin: 10/26/22 08:21 Dose: 10 mg Aspirin (Aspirin Enteric Coated 81 Mg Tablet.Dr) 81 mg PO DAILY [facility] Last Admin: 10/26/22 08:20 Dose: 81 mg Clopidogrel Bisulfate (Clopidogrel Bisulfate 75 Mg Tablet) 75 mg PO DAILY [facility] Last Admin: 10/26/22 08:21 Dose: 75 mg Donepezil HCl (Donepezil Hcl 10 Mg Tablet) 10 mg PO BEDTIME [facility] Last Admin: 10/26/22 22:28 Dose: 10 mg Empagliflozin (Empagliflozin 10 Mg Tablet) 10 mg PO DAILY [facility] Last Admin: 10/26/22 08:21 Dose: 10 mg Escitalopram Oxalate (Escitalopram Oxalate 5 Mg Tablet) 5 mg PO DAILY [facility] Last Admin: 10/26/22 08:20 Dose: 5 mg Finasteride (Finasteride 5 Mg Tablet) 5 mg PO DAILY [facility] Last Admin: 10/26/22 08:21 Dose: 5 mg Heparin Sodium (Porcine) (Heparin Sodium,Porcine 5,000 Unit/Ml Vial) 5,000 unit SUBCUT Q12H [facility] Last Admin: 10/26/22 22:28 Dose: 5,000 unit Vancomycin HCl 1,000 mg/ (Sodium Chloride) 270 mls @ 270 mls/hr IV Q24H [facility] Last Infusion: 10/26/22 19:01 Dose: Infused Insulin Glargine (Insulin Glargine,Hum.Rec.Anlog 100 Unit/Ml 10 Ml Vial) 3 unit SUBCUT BEDTIME [facility] Last Admin: 10/26/22 22:28 Dose: 3 unit Lisinopril (Lisinopril 5 Mg Tablet) 5 mg PO BEDTIME [facility]; Protocol Last Admin: 10/26/22 22:28 Dose: 5 mg Pharmacy Consult (Consult Rx Perform Med Rec) 1 each MISCELLANE ONCE PRN PRN Reason: Consult order Pharmacy Consult (Consult Rx Vancomycin Dosing) 1 each MISCELLANE DAILY PRN PRN Reason: Consult order Sodium Chloride (0.9 % Sodium Chloride Flush 3 Ml Syringe) 3 ml IVFLUSH QSHIFT [facility] Last Admin: 10/26/22 22:27 Dose: 3 ml Tamsulosin HCl (Tamsulosin Hcl 0.4 Mg Capsule) 0.4 mg PO DAILY [facility] Last Admin: 10/26/22 08:20 Dose: 0.4 mg Home Medications Medication Instructions Recorded Confirmed Last Taken Type amlodipine 10 mg tablet 1 tab PO DAILY 01/24/21 10/24/22 10/24/22 09:00 History aspirin 81 mg tablet,delayed 1 tab PO DAILY 01/24/21 10/24/22 10/24/22 09:00 History release citalopram 10 mg tablet 1 tab PO DAILY 01/24/21 10/24/22 10/24/22 09:00 History clopidogrel 75 mg tablet 1 tab PO DAILY 01/24/21 10/24/22 10/24/22 09:00 History donepezil 10 mg tablet 1 tab PO BEDTIME 01/24/21 10/24/22 10/23/22 History finasteride 5 mg tablet 1 tab PO DAILY 01/24/21 10/24/22 10/24/22 09:00 History insulin glargine 100 unit/mL 3 unit subcut BEDTIME 01/24/21 10/24/22 10/23/22 History subcutaneous solution (Lantus U-100 Insulin) tamsulosin 0.4 mg capsule 1 cap PO DAILY 01/24/21 10/24/22 10/24/22 09:00 History dapagliflozin propanediol 10 mg 1 tab PO DAILY 02/12/22 10/24/22 10/24/22 09:00 History tablet (Farxiga) acetaminophen 500 mg tablet 1,000 mg PO Q6H PRN Fever Or Pain 10/24/22 10/24/22 Unknown History lisinopril 10 mg tablet 10 mg PO BEDTIME 10/24/22 10/24/22 10/23/22 History Physical Exam Vital Signs: Last Vital Signs Temp 97.9 F 10/27/22 07:28 Pulse 58 10/27/22 09:37 Resp 16 10/27/22 07:28 BP 118/63 10/27/22 09:37 Pulse Ox 97 10/27/22 09:37 O2 Del Method Room Air 10/27/22 07:28 BMI result Body Mass Index 22.0 Const General: alert and awake HEENT Head: Yes normocephalic and Yes atraumatic Neck Neck: Yes supple Resp Auscultation: clear to auscultation bilaterally Cardio Heart sounds: S1 normal heart sound present and S2 normal heart sound present GI Palpation (GI): Soft to palpation and nontender Extrem Right upper extremity: no edema Results Lab Results 10/27/22 08:48 10/27/22 05:30 Lab results: Chemistry 10/24/22 10/25/22 10/26/22 12:51 05:27 05:27 Sodium 136 139 Potassium 4.7 4.9 Carbon Dioxide 22 22 BUN 31 H 21 H Creatinine 1.85 H 1.50 H 1.28 Calcium 10.2 D 9.4 D 10/27/22 05:30 Sodium Potassium Carbon Dioxide BUN Creatinine 1.50 H Calcium Hematology 10/24/22 10/25/22 10/27/22 12:50 05:27 08:48 WBC 9.7 6.0 Hgb 11.8 L 11.5 L 11.8 L Plt Count 287 D 267 Assessment and Plan (1) CKD (chronic kidney disease) stage 3, GFR 30-59 ml/min: Status: Acute Plan known moderate CKD due to: -diabetic and hypertensive nephrosclerosis -nephron loss due to aging being treated for cellulitis and ? osteomylelitis REC OK to have PICC line follow kidney function and electrolytes Time Spent With Patient Time: Total time managing care of this patient today ____ minutes. Procedures Date of Service Date of Service: 10/27/22
[2022-10-27] MEDS: Escitalopram Oxalate 5 MG TABLET PO (10:00)
[2022-10-27] MEDS: Clopidogrel Bisulfate 75 MG TABLET PO (10:01)
[2022-10-27] MEDS: Tamsulosin HCL 0.4 MG CAPSULE PO (10:01)
[2022-10-27] MEDS: Empagliflozin 10 MG TABLET PO (10:01)
[2022-10-27] MEDS: amLODIPine Besylate 10 MG TABLET PO (10:01)
[2022-10-27] MEDS: Aspirin Enteric Coated 81 MG TABLET.DR PO (10:01)
[2022-10-27] MEDS: Heparin Sodium,Porcine 5,000 UNIT/ML VIAL 5000 UNIT SUBCUT ×2 (10:02→20:04)
[2022-10-27] MEDS: Finasteride 5 MG TABLET PO (10:02)
[2022-10-27] MEDS: 0.9 % Sodium Chloride Flush 3 ML SYRINGE IVFLUSH ×3 (10:02→20:05)
--- NOTE | 2022-10-27 11:18 | P.PNIM_ITS ---
Subjective Subjective Date of Service: 10/28/22 Interval History: foot ulcer Review of Systems Foot area looks improving Denies any fever or chills or and pain Physical Exam Vital Signs: Vital Signs: Last Vital Signs Temp 97.9 F 10/27/22 07:28 Pulse 58 10/27/22 09:37 Resp 16 10/27/22 07:28 BP 118/63 10/27/22 09:37 Pulse Ox 97 10/27/22 09:37 O2 Del Method Room Air 10/27/22 07:28 BMI result Body Mass Index 22.0 Appearance: Alert.? Oriented X3.? not in distress.? cvs: rrr, [id number] . res: clear to auscultation ,no rhonchii or wheezing abd: no rebound or guarding ,nt, bs present. ext pulses present , no cyanosis left foot plantar area ulcer- mild erythema of forefoot otherwise no discharge from the ulcer site, has old big toe amputation scar, also on the right side 4th toe is amputated. neuro: axo3 , nonfocal. Objective Data Active Medications Acetaminophen (Acetaminophen 325 Mg Tablet) 650 mg PO Q6H PRN PRN Reason: Fever Or Pain Amlodipine Besylate (Amlodipine Besylate 10 Mg Tablet) 10 mg PO DAILY [facility]; Protocol Last Admin: 10/27/22 10:01 Dose: 10 mg Documented By: DOUG Aspirin (Aspirin Enteric Coated 81 Mg Tablet.Dr) 81 mg PO DAILY [facility] Last Admin: 10/27/22 10:01 Dose: 81 mg Documented By: DOUG Clopidogrel Bisulfate (Clopidogrel Bisulfate 75 Mg Tablet) 75 mg PO DAILY [facility] Last Admin: 10/27/22 10:01 Dose: 75 mg Documented By: DOUG Donepezil HCl (Donepezil Hcl 10 Mg Tablet) 10 mg PO BEDTIME [facility] Last Admin: 10/26/22 22:28 Dose: 10 mg Documented By: LUIS FERNANDO Empagliflozin (Empagliflozin 10 Mg Tablet) 10 mg PO DAILY [facility] Last Admin: 10/27/22 10:01 Dose: 10 mg Documented By: DOUG Escitalopram Oxalate (Escitalopram Oxalate 5 Mg Tablet) 5 mg PO DAILY [facility] Last Admin: 10/27/22 10:00 Dose: 5 mg Documented By: DOUG Finasteride (Finasteride 5 Mg Tablet) 5 mg PO DAILY [facility] Last Admin: 10/27/22 10:02 Dose: 5 mg Documented By: DOUG Heparin Sodium (Porcine) (Heparin Sodium,Porcine 5,000 Unit/Ml Vial) 5,000 unit SUBCUT Q12H [facility] Last Admin: 10/27/22 10:02 Dose: 5,000 unit Documented By: DOUG Vancomycin HCl 1,000 mg/ (Sodium Chloride) 270 mls @ 270 mls/hr IV Q24H [facility] Last Infusion: 10/26/22 19:01 Dose: 0 mls/hr Documented By: DEYA Insulin Glargine (Insulin Glargine,Hum.Rec.Anlog 100 Unit/Ml 10 Ml Vial) 3 unit SUBCUT BEDTIME [facility] Last Admin: 10/26/22 22:28 Dose: 3 unit Documented By: LUIS FERNANDO Lisinopril (Lisinopril 5 Mg Tablet) 5 mg PO BEDTIME [facility]; Protocol Last Admin: 10/26/22 22:28 Dose: 5 mg Documented By: LUIS FERNADNO Pharmacy Consult (Consult Rx Perform Med Rec) 1 each MISCELLANE ONCE PRN PRN Reason: Consult order Pharmacy Consult (Consult Rx Vancomycin Dosing) 1 each MISCELLANE DAILY PRN PRN Reason: Consult order Sodium Chloride (0.9 % Sodium Chloride Flush 3 Ml Syringe) 3 ml IVFLUSH QSHIFT [facility] Last Admin: 10/27/22 10:02 Dose: 3 ml Documented By: DOUG Tamsulosin HCl (Tamsulosin Hcl 0.4 Mg Capsule) 0.4 mg PO DAILY [facility] Last Admin: 10/27/22 10:01 Dose: 0.4 mg Documented By: DOUG Labs 10/27/22 08:48 10/27/22 05:30 Labs: Laboratory Results - last 24 hr 10/26/22 10/26/22 10/26/22 11:16 15:46 16:16 PT INR Estim Creat Clear Calc Estimated GFR POC Glucose 153 H 194 H Random Vancomycin 12.8 L 10/26/22 10/27/22 10/27/22 20:38 05:30 07:31 PT INR Estim Creat Clear Calc 37.7 Estimated GFR 46 POC Glucose 172 H 126 H Random Vancomycin 10/27/22 08:48 PT 11.7 INR 1.0 Estim Creat Clear Calc Estimated GFR POC Glucose Random Vancomycin Microbiology Microbiology Results: Microbiology 10/24/22 16:27 Blood Culture - Preliminary Blood - Venous No growth after 48 hours. 10/24/22 16:09 Blood Culture - Preliminary Blood - Venous No growth after 48 hours. Assessment and Plan (1) Plantar ulcer of left foot: Status: Acute (2) Cellulitis of foot: Status: Acute Plan 71-year-old [place]er-speaking male with history (obtained with the help of certified human factors advisor lead) history of diabetes, hypertension, BPH, dementia, CKD- came to the hospital because of left foot ulcer.? Patient was sent from the wound care emergency department with question of worsening infection and other concerns the patient needs IV antibiotics. ?Diabetic foot infection/cellulitis: ?? Concern of osteomyelitis WBC normal, no tachycardia, lactic acid normal Blood culture repeat neg@48hrs MRI:: Stable postsurgical changes also seen on prior radiographs with amputation at the level of the proximal 1st metatarsal. ? 2ND DIGIT: Probable resection of the distal end of the metatarsal, although this needs to be confirmed with surgical history. Erosive changes of the distal end of the bone cannot be excluded. The abnormal signal and enhancement within the 2nd metatarsal along with the overlying sinus tract and ulceration is most compatible with osteomyelitis ,cellulitis, with a communicating sinus tract. The additional abnormality of the 2nd proximal phalanx is nonspecific but suspicious for osteomyelitis given the adjacent abnormalities. It is possible this could reflect reactive edema or be related to the dorsal displacement and postsurgical change. No definite bony destruction. ? 3RD DIGIT: Suspect a combination of edema and cellulitis in the soft tissues overlying the digit. Marrow abnormality nonspecific. This could reflect stress reaction, bone contusion or osteomyelitis of the distal metatarsal and proximal phalanx. No MRI evidence for bone erosion or destruction. ? Generalized abnormality in the subcutaneous soft tissues compatible with a combination of edema and cellulitis. ? Generalized muscle abnormality compatible with myositis - either denervation myositis or infectious myositis. Started on vanco Zosyn s/p picc line blood culture [id number] picc line orders placed. Surgery and Id eval-recomended 6 weeks antbiotics ?Diabetes continue home regimen (lantus, SSI) hold Faxiga,, diabetic diet ?CKD3:seems near baseline. hold lisniopril,moniter renal function . HTN-elevated continue Norvasc,hold lisinopril. ?BPH-Flomax, finesteride ?Dementia--Aricept ?DVT prophylaxis--Heparin inaptient need- diabetic foot cellulitis,?? Concern of osteomyelitis:? Need IV antibiotics, workup for osteomyelitis,surgery evaluation and ID input. Time Spent With Patient Time: Total time managing care of this patient today ____ minutes. Quality Stroke Does the patient have a stroke diagnosis?: No VTE Prior VTE?: No VTE Risk Level:: Medical - moderate - high VTE Device Contraindication: N/A - Device Ordered VTE Drug Contraindication: N/A - Med Ordered
[2022-10-27 11:21] LABS: Glucose, Whole Blood 158 mg/dL (60-115)
[2022-10-27] MEDS: Piperacillin Sodium/Tazobactam 3.375 GM in 0.9 % Sodium Chloride 50 ML IV ×3 (12:39→23:58)
--- NOTE | 2022-10-27 15:34 | PM.PNGS ---
Subjective Subjective Date of Service: 10/27/22 Interval history: Denies any pain denies any new complaints appears comfortable Physical Exam Vital Signs: Vital Signs: Last Vital Signs Temp 97.9 F 10/27/22 07:28 Pulse 58 10/27/22 09:37 Resp 18 10/27/22 12:00 BP 118/63 10/27/22 09:37 Pulse Ox 97 10/27/22 09:37 O2 Del Method Room Air 10/27/22 07:28 BMI result Body Mass Index 22.0 Const: General: comfortable and no acute distress Resp: Effort & Inspection: normal respiratory effort GI: Palpation (GI): Soft to palpation Extrem: Other: plantar ulcer, left foot, currently dry with no significant cellulitis Objective Data Active Medications Acetaminophen (Acetaminophen 325 Mg Tablet) 650 mg PO Q6H PRN PRN Reason: Fever Or Pain Amlodipine Besylate (Amlodipine Besylate 10 Mg Tablet) 10 mg PO DAILY [facility]; Protocol Last Admin: 10/27/22 10:01 Dose: 10 mg Documented By: DOUG Aspirin (Aspirin Enteric Coated 81 Mg Tablet.) 81 mg PO DAILY [facility] Last Admin: 10/27/22 10:01 Dose: 81 mg Documented By: DOUG Clopidogrel Bisulfate (Clopidogrel Bisulfate 75 Mg Tablet) 75 mg PO DAILY [facility] Last Admin: 10/27/22 10:01 Dose: 75 mg Documented By: DOUG Donepezil HCl (Donepezil Hcl 10 Mg Tablet) 10 mg PO BEDTIME [facility] Last Admin: 10/26/22 22:28 Dose: 10 mg Documented By: LUIS FERNANDO Empagliflozin (Empagliflozin 10 Mg Tablet) 10 mg PO DAILY [facility] Last Admin: 10/27/22 10:01 Dose: 10 mg Documented By: DOUG Escitalopram Oxalate (Escitalopram Oxalate 5 Mg Tablet) 5 mg PO DAILY [facility] Last Admin: 10/27/22 10:00 Dose: 5 mg Documented By: DOUG Finasteride (Finasteride 5 Mg Tablet) 5 mg PO DAILY [facility] Last Admin: 10/27/22 10:02 Dose: 5 mg Documented By: DOUG Heparin Sodium (Porcine) (Heparin Sodium,Porcine 5,000 Unit/Ml Vial) 5,000 unit SUBCUT Q12H [facility] Last Admin: 10/27/22 10:02 Dose: 5,000 unit Documented By: DOUG Piperacillin Sod/Tazobactam (Sod 3.375 gm/ Sodium Chloride) 50 mls @ 100 mls/hr IV Q6H [facility] Last Infusion: 10/27/22 13:09 Dose: 0 mls/hr Documented By: NICKI Daptomycin 465 mg/ Sodium (Chloride) 59.3 mls @ 100 mls/hr IV Q24H [facility] Insulin Glargine (Insulin Glargine,Hum.Rec.Anlog 100 Unit/Ml 10 Ml Vial) 3 unit SUBCUT BEDTIME [facility] Last Admin: 10/26/22 22:28 Dose: 3 unit Documented By: LUIS FERNANDO Lisinopril (Lisinopril 5 Mg Tablet) 5 mg PO BEDTIME [facility]; Protocol Last Admin: 10/26/22 22:28 Dose: 5 mg Documented By: LUIS FERNANDO Pharmacy Consult (Consult Rx Perform Med Rec) 1 each MISCELLANE ONCE PRN PRN Reason: Consult order Pharmacy Consult (Consult Rx Vancomycin Dosing) 1 each MISCELLANE DAILY PRN PRN Reason: Consult order Sodium Chloride (0.9 % Sodium Chloride Flush 3 Ml Syringe) 3 ml IVFLUSH QSHIFT [facility] Last Admin: 10/27/22 10:02 Dose: 3 ml Documented By: DOUG Tamsulosin HCl (Tamsulosin Hcl 0.4 Mg Capsule) 0.4 mg PO DAILY [facility] Last Admin: 10/27/22 10:01 Dose: 0.4 mg Documented By: DOUG Labs 10/27/22 08:48 10/27/22 05:30 Labs: Laboratory Results - last 24 hr 10/26/22 10/26/22 10/26/22 15:46 16:16 20:38 PT INR Estim Creat Clear Calc Estimated GFR POC Glucose 194 H 172 H Random Vancomycin 12.8 L 10/27/22 10/27/22 10/27/22 05:30 07:31 08:48 PT 11.7 INR 1.0 Estim Creat Clear Calc 37.7 Estimated GFR 46 POC Glucose 126 H Random Vancomycin 10/27/22 11:08 PT INR Estim Creat Clear Calc Estimated GFR POC Glucose 158 H Random Vancomycin Microbiology Microbiology Results: Microbiology 10/24/22 16:27 Blood Culture - Preliminary Blood - Venous No growth after 48 hours. 07/11/23 16:09 Blood Culture - Preliminary Blood - Venous No growth after 48 hours. Procedures Date of Service Date of Service: 10/27/22 Progress Note: A&P Assessment and plan (1) Plantar ulcer of left foot: Status: Acute Assessment and Plan: his MRI does reveal changes on the 2nd distal metatarsal suggestive of osteomyelitis the sinus tract to the ulcer itself there is no abscess that needs to be drained I would agree with long-term IV antibiotics with good wound care for now I can see him in the office down the line follow-up for possible amputation if with no significant response to long-term IV antibiotic treatment (2) Osteomyelitis: Status: Acute Time Spent With Patient Time: Total time managing care of this patient today ____ minutes. Quality Stroke Does the patient have a stroke diagnosis?: No VTE Prior VTE?: No VTE Risk Level:: Medical - moderate - high VTE Device Contraindication: N/A - Device Ordered VTE Drug Contraindication: N/A - Med Ordered
--- NOTE | 2022-10-27 15:53 | MHC.CM.PN ---
CURRENT PLAN IS TO DC PT ON 10/28/22 AFTER HIS DOSE OF DAPTO [facility] IS AWARE OF THE PENDING DC AND CURRENTLY AWAITING THE ORDERS AND PICC REPORT [facility] IS ALSO AWARE OF PLAN TO DC TOMORROW
--- NOTE | 2022-10-27 16:10 | P.PICC_ITS ---
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 Following completion of [place] Protocol the skin and soft tissues were anesthetized with 1% Lidocaine plain. Using ultrasound guidance, right basilic vein access was obtained. Over an 0.018 wire through peel-away sheath, a 4FR single lumen PICC line was positioned. Catheter length is 37 CM internal length, at the 0 CM ray--external length, for a total trimmed length of 37 CM. The procedure was performed in S272. Tip verification was performed by Tim Chapman with Tevin 3CG. Tip located in SVC. Ultrasound was used to document vein patency and for needle entry. A formal ultrasound picture and cardiac rhythm strip was recorded. Vascular Account Manager [employer] has released the line for use and it is currently dressed with a StatLock, Tegaderm, and CHG disc. Verification has been performed for blood return and line patency. Arm Circumference: 25.5 CM Equipment: Phytel PowerPICC SOLO Catheter Type: 4FR Single lumen PASV PICC Lot #: [id number]
[2022-10-27 16:29] LABS: Glucose, Whole Blood 130 mg/dL (60-115)
[2022-10-27 19:58] LABS: Glucose, Whole Blood 191 mg/dL (60-115)
[2022-10-27] MEDS: Donepezil HCl 10 MG TABLET PO (20:03)
[2022-10-27] MEDS: Insulin Glargine,Hum.rec.anlog 100 UNIT/ML 10 ML VIAL SUBCUT (20:03)
[2022-10-28 04:00] VITALS: BP 134/65; PULSE 76; RESP 14; TEMP 36.1; O2SAT 97
[2022-10-28 05:57] LABS: Anion Gap 13 (12-20); Blood Urea Nitrogen 32 mg/dL (9-16); C Reactive Protein 1.67 mg/dL (< or = 0.50); Calcium 9.5 mg/dL (8.4-10.2); Carbon Dioxide 23 mmol/L (22-29); Chloride 107 mmol/L (96-108); Creatinine Clr Calc Pharmacy 32.1; Estimated Glomerular Filt Rate 38; Glucose Random 123 mg/dL (60-115); Sodium 139 mmol/L (135-145)
[2022-10-28 06:22] LABS: Erythrocyte Sedimentation Rate 46 MM/HR (0-15)
[2022-10-28] MEDS: Piperacillin Sodium/Tazobactam 3.375 GM in 0.9 % Sodium Chloride 50 ML IV (06:45)
[2022-10-28 07:15] VITALS: BP 119/58; PULSE 69; RESP 16; TEMP 36.3; O2SAT 97
[2022-10-28 07:28] LABS: Glucose, Whole Blood 126 mg/dL (60-115)
--- NOTE | 2022-10-28 08:17 | PM.PNNEP ---
Subjective Subjective Date of Service: 10/28/22 Interval history: seen and examined d/w medical attending no complaints Physical Exam Vital Signs: Vital Signs: Last Vital Signs Temp 97.4 F 10/28/22 07:15 Pulse 69 10/28/22 07:15 Resp 16 10/28/22 07:15 BP 119/58 L 10/28/22 07:15 Pulse Ox 97 10/28/22 07:15 O2 Del Method Room Air 10/28/22 07:15 BMI result Body Mass Index 22.0 Const: General: alert and awake HEENT: Head: Yes normocephalic and Yes atraumatic Neck: Neck: Yes supple Resp: Auscultation: clear to auscultation bilaterally Cardio: Heart sounds: S1 normal heart sound present and S2 normal heart sound present GI: Palpation (GI): Soft to palpation and nontender Extrem: Right upper extremity: no edema Objective Data Labs 10/27/22 08:48 10/28/22 05:01 Labs: Laboratory Results - last 24 hr 10/27/22 10/27/22 10/27/22 05:30 08:48 08:48 Hgb 11.8 L Hct 35.3 L ESR PT 11.7 INR 1.0 Sodium Potassium Chloride Carbon Dioxide Anion Gap BUN Creatinine Estim Creat Clear Calc Estimated GFR POC Glucose Random Glucose Calcium Total Creatine Kinase Cancelled C-Reactive Protein 10/27/22 10/27/22 10/27/22 11:08 15:18 16:19 Hgb Hct ESR PT INR Sodium Potassium Chloride Carbon Dioxide Anion Gap BUN Creatinine Estim Creat Clear Calc Estimated GFR POC Glucose 158 H 130 H Random Glucose Calcium Total Creatine Kinase 69 C-Reactive Protein 10/27/22 10/28/22 10/28/22 19:51 05:01 05:01 Hgb Hct ESR 46 H PT INR Sodium 139 Potassium 4.0 Chloride 107 Carbon Dioxide 23 Anion Gap 13 BUN 32 H Creatinine 1.76 H Estim Creat Clear Calc 32.1 Estimated GFR 38 POC Glucose 191 H Random Glucose 123 H Calcium 9.5 Total Creatine Kinase C-Reactive Protein 1.67 H 10/28/22 07:20 Hgb Hct ESR PT INR Sodium Potassium Chloride Carbon Dioxide Anion Gap BUN Creatinine Estim Creat Clear Calc Estimated GFR POC Glucose 126 H Random Glucose Calcium Total Creatine Kinase C-Reactive Protein Microbiology Microbiology Results: Microbiology 10/24/22 16:27 Blood - Venous Blood Culture - Preliminary No growth after 48 hours. 10/24/22 16:09 Blood - Venous Blood Culture - Preliminary No growth after 48 hours. Procedures Date of Service Date of Service: 10/28/22 Assessment & Plan Assessment and plan (1) CKD (chronic kidney disease) stage 3, GFR 30-59 ml/min: Status: Acute Plan known moderate CKD due to: -diabetic and hypertensive nephrosclerosis -nephron loss due to aging being treated for cellulitis and ? osteomylelitis in need for residential antibiotic can have PICC line REC avoid nephrotoxins follow kidney function and electrolytes Time Spent With Patient Time: Total time managing care of this patient today ____ minutes. Progress Note: Quality Stroke Does the patient have a stroke diagnosis?: No
[2022-10-28] MEDS: Tamsulosin HCL 0.4 MG CAPSULE PO (09:27)
[2022-10-28] MEDS: Clopidogrel Bisulfate 75 MG TABLET PO (09:27)
[2022-10-28] MEDS: Escitalopram Oxalate 5 MG TABLET PO (09:27)
[2022-10-28] MEDS: Empagliflozin 10 MG TABLET PO (09:27)
[2022-10-28] MEDS: Heparin Sodium,Porcine 5,000 UNIT/ML VIAL 5000 UNIT SUBCUT ×2 (09:27→21:35)
[2022-10-28] MEDS: Aspirin Enteric Coated 81 MG TABLET.DR PO (09:28)
[2022-10-28] MEDS: amLODIPine Besylate 10 MG TABLET PO (09:28)
[2022-10-28] MEDS: 0.9 % Sodium Chloride Flush 3 ML SYRINGE IVFLUSH ×3 (09:28→23:48)
[2022-10-28] MEDS: 0.9 % Sodium Chloride Flush 10 ML SYRINGE 5 ML IVFLUSH ×3 (09:28→21:35)
[2022-10-28] MEDS: Finasteride 5 MG TABLET PO (09:28)
--- NOTE | 2022-10-28 10:05 | P.DS_ITS ---
DS: Providers Provider Date of Service: 10/28/22 Date of admission: 10/25/22 09:33 Date of discharge: 10/28/22 Primary care physician: Penny Camarena MD Consults: 10/24/22 17:58 Consult to General Surgery Routine Consulting Provider: [facility] [place] General Surgeons Reason for consultation: dm foot infection Has provider been notified: No 10/24/22 18:20 Consult to Infectious Diseases Routine Consulting Provider: [facility] [place] Infectious Disease Reason for consultation: dmfoot ulcer Has provider been notified: No 10/27/22 08:56 Consult to Nephrology Routine Consulting Provider: Cale Vilchis Reason for consultation: Need Picc line Attending physician on discharge: Tejinder Thomas Discharging clinician: Tejinder Thomas DS: Diagnosis Discharge Diagnosis (1) CKD (chronic kidney disease) stage 3, GFR 30-59 ml/min: Status: Acute (2) Osteomyelitis: Status: Acute (3) Plantar ulcer of left foot: Status: Acute DS: Summary Hospital Course Hospital Course: 71-year-old Latvian-speaking male with 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 Patient was sent from the wound care emergency department with worsening infection and other concerns the patient needs IV antibiotics.? Patient says that he has foot wound from at least 3-4 months-he said he had callus initially and then it was cut down and subsequently he developed foot ulcer.? Wound Care sent for further evaluation:? In ED patient does not have any leukocytosis, fever, found to have elevated ESR and CRP.? Foot x-ray shows question of previous surgery on the 2nd toe versus bony erosion. Patient was given vanco and Zosyn and requested admission for foot cellulitis and wound ?Denies any new complaint of chest pain or shortness of breath or abdominal pain or fever or chills or nausea or vomiting Denies any cough Denies any weakness or numbness. WBC:? 9.7, H&H 11.8/35.9, platelets 287. BMP:? Sodium 136, BUN 31 creatinine 1.85, lactic acid 1.1, blood cultures sent. ?XR/XR foot LT 2V IMPRESSION: 1.? Interval amputation of the great toe and the head and distal shaft of the first metatarsal. 2.? Question of amputation of the head of the second metatarsal versus bony destruction. Hospital course: 71-year-old male Diabetic foot infection/cellulitis: Has diabetic foot ulcer: Started on IV antibiotics, blood cultures and wound culture sent: Blood culture seems negative, foot wound culture growing Staph aureus/Enterococcus: Discussed with the infectious disease and surgery: Currently no surgical intervention recommended and MRI foot was done-likely foot for osteomyelitis : Recommended 6 weeks of antibiotics, currently recommended daptomycin considering underlying ckd. Considering Monitor CBC, BMP, LFTs, CPK,ESR, CRP Q weekly while on antibiotics,continue current dressing changes. Patient will go home with services.continue current dressing chnages . Patient was strongly advised to follow up outpatient with surgery. Plan: Complete course of daptomycin-end date is 12/08/22. Considering Monitor CBC, BMP, LFTs, CPK,ESR, CRP Q weekly while on antibiotics, continue current dressing changes. Adjusted lisinopril 5 mg due to fluctuating renal function, monitor BMP out patiently and consider further adjustment of lisinopril if needed as per BMP. Patient was strongly advised to follow up outpatient with surgery. Above management discussed with the patient and his daughter in detail length, they both understand and in agreement with the above plan, time spent 50 minute. Time Spent with Patient Time attestation: Total time managing care of this patient today ____ minutes. Discharge coordination time: Greater than 30 minutes Quality: Safe Use of Opioids Does Pt have an Active Cancer Diagnosis on the Problem List?: No Quality: Stroke Does the patient have a stroke diagnosis?: No Physical Exam Vital Signs: Vital Signs: Last Vital Signs Temp 97.4 F 10/28/22 07:15 Pulse 69 10/28/22 07:15 Resp 16 10/28/22 07:15 BP 119/58 L 10/28/22 07:15 Pulse Ox 97 10/28/22 07:15 O2 Del Method Room Air 10/28/22 07:15 BMI result Body Mass Index 22.0 Appearance: Alert.? Oriented X3.? not in distress.? cvs: [id number], [id number] . res: clear to auscultation ,no rhonchii or wheezing abd: no rebound or guarding ,nt, bs present. ext pulses present , no cyanosis left foot plantar area ulcer- mild erythema of forefoot otherwise no discharge from the ulcer site, has old big toe amputation scar, also on the right side 4th toe is amputated. neuro: axo3 , nonfocal. DS: Data Data Completed and Pending Completed studies during hospitalization [Text1]: Procedures Drainage of Left Hand Skin, External Approach (02/12/22) Drainage of Left Hand Subcutaneous Tissue and Fascia, Open Approach (02/12/22) Fluoroscopy of Superior Vena Cava, Guidance (02/12/22) Insertion of Infusion Device into Superior Vena Cava, Percutaneous Approach (02/12/22) Labs on day of discharge: Laboratory Results - last 24 hr 10/27/22 10/27/22 10/27/22 05:30 11:08 15:18 ESR Sodium Potassium Chloride Carbon Dioxide Anion Gap BUN Creatinine Estim Creat Clear Calc Estimated GFR POC Glucose 158 H Random Glucose Calcium Total Creatine Kinase Cancelled 69 C-Reactive Protein 10/27/22 10/27/22 10/28/22 16:19 19:51 05:01 ESR 46 H Sodium Potassium Chloride Carbon Dioxide Anion Gap BUN Creatinine Estim Creat Clear Calc Estimated GFR POC Glucose 130 H 191 H Random Glucose Calcium Total Creatine Kinase C-Reactive Protein 10/28/22 10/28/22 05:01 07:20 ESR Sodium 139 Potassium 4.0 Chloride 107 Carbon Dioxide 23 Anion Gap 13 BUN 32 H Creatinine 1.76 H Estim Creat Clear Calc 32.1 Estimated GFR 38 POC Glucose 126 H Random Glucose 123 H Calcium 9.5 Total Creatine Kinase C-Reactive Protein 1.67 H Preliminary micro results at discharge 10/24/22 16:27 Blood Culture - Preliminary Blood - Venous No growth after 48 hours. 10/24/22 16:09 Blood Culture - Preliminary Blood - Venous No growth after 48 hours. Imaging Chest x-ray: Radiologist's impression: ITS Impressions Foot X-Ray 10/24/22 12:40 IMPRESSION: 1. Interval amputation of the great toe and the head and distal shaft of the first metatarsal. 2. Question of amputation of the head of the second metatarsal versus bony destruction. Foot MRI 10/26/22 13:45 IMPRESSION: Stable postsurgical changes also seen on prior radiographs with amputation at the level of the proximal 1st metatarsal. 2ND DIGIT: Probable resection of the distal end of the metatarsal, although this needs to be confirmed with surgical history. Erosive changes of the distal end of the bone cannot be excluded. The abnormal signal and enhancement within the 2nd metatarsal along with the overlying sinus tract and ulceration is most compatible with osteomyelitis ,cellulitis, with a communicating sinus tract. The additional abnormality of the 2nd proximal phalanx is nonspecific but suspicious for osteomyelitis given the adjacent abnormalities. It is possible this could reflect reactive edema or be related to the dorsal displacement and postsurgical change. No definite bony destruction. 3RD DIGIT: Suspect a combination of edema and cellulitis in the soft tissues overlying the digit. Marrow abnormality nonspecific. This could reflect stress reaction, bone contusion or osteomyelitis of the distal metatarsal and proximal phalanx. No MRI evidence for bone erosion or destruction. Generalized abnormality in the subcutaneous soft tissues compatible with a combination of edema and cellulitis. Generalized muscle abnormality compatible with myositis - either denervation myositis or infectious myositis. Discharge Plan Discharge Anticipated Discharge Date/Time: 10/27/22 13:50 Patient Disposition: Home Health Service Discharge Diagnosis: Foot osteomyelitis Referrals: [facility] [Other] - 1 Week Chris YODER [Outside] - 1 Week Alex Mora MD [Physician] - 1 Week Penny Camarena MD [Primary Care Provider] - 1 Week Discharge Medications: New daptomycin 500 mg Recon Soln 465 mg IV Q24H Qty: 41 0RF Rx Instructions: end date is 12/08/22 Continued citalopram 10 mg tablet 1 tab PO DAILY donepezil 10 mg tablet 1 tab PO BEDTIME clopidogrel 75 mg tablet 1 tab PO DAILY aspirin 81 mg tablet,delayed release (DR/EC) 1 tab PO DAILY tamsulosin 0.4 mg capsule 1 cap PO DAILY amlodipine 10 mg tablet 1 tab PO DAILY finasteride 5 mg tablet 1 tab PO DAILY insulin glargine [Lantus U-100 Insulin] 100 unit/mL solution 3 unit subcut BEDTIME Farxiga 10 mg tablet 1 tab PO DAILY acetaminophen 500 mg Tablet 1,000 mg PO Q6H PRN (Reason: Fever Or Pain) lisinopril 10 mg tablet 10 mg PO BEDTIME Discharge Orders: Discharge Order (Routine); Ordered 10/27/22 Ordered By: Tejinder Thomas Diet: Advance to usual diet Activity on Discharge: As tolerated Stand Alone Forms: Patient Portal Discharge page Care Plan Goals: 71-year-old male Diabetic foot infection/cellulitis: Has diabetic foot ulcer: Started on IV antibiotics, blood cultures and wound culture sent: Blood culture seems negative, foot wound culture growing Staph aureus/Enterococcus: Discussed with the infectious disease and surgery: Currently no surgical intervention recommended and MRI foot was done-likely foot for osteomyelitis : Recommended 6 weeks of antibiotics, currently recommended daptomycin considering underlying ckd. Considering Monitor CBC, BMP, LFTs, CPK,ESR, CRP Q weekly while on antibiotics, dressing changes. Patient will go home with services.continue current dressing chnages . Patient was strongly advised to follow up outpatient with surgery. Health Concerns: As above. Plan of Treatment: As above. Assessment: As above.
[2022-10-28 11:14] VITALS: BP 113/61; PULSE 63; RESP 16; TEMP 36.4; O2SAT 95
[2022-10-28 11:23] LABS: Glucose, Whole Blood 208 mg/dL (60-115)
--- NOTE | 2022-10-28 12:51 | HO.PM.IMPN ---
Subjective Subjective Date of Service: 10/28/22 Interval History: foot ulcer Review of Systems Foot ulcer area looks improving Denies any fever or chills or and pain Physical Exam Vital Signs: Vital Signs: Last Vital Signs Temp 97.6 F 10/28/22 11:14 Pulse 63 10/28/22 11:14 Resp 16 10/28/22 11:14 BP 113/61 10/28/22 11:14 Pulse Ox 95 10/28/22 11:14 O2 Del Method Room Air 10/28/22 11:14 BMI result Body Mass Index 22.0 Appearance: Alert.? Oriented X3.? not in distress.? cvs: rrr, [id number] . res: clear to auscultation ,no rhonchii or wheezing abd: no rebound or guarding ,nt, bs present. ext pulses present , no cyanosis left foot plantar area ulcer- mild erythema of forefoot otherwise no discharge from the ulcer site, has old big toe amputation scar, also on the right side 4th toe is amputated. neuro: axo3 , nonfocal. Objective Data Active Medications Acetaminophen (Acetaminophen 325 Mg Tablet) 650 mg PO Q6H PRN PRN Reason: Fever Or Pain Amlodipine Besylate (Amlodipine Besylate 10 Mg Tablet) 10 mg PO DAILY [facility]; Protocol Last Admin: 10/28/22 09:28 Dose: 10 mg Documented By: NICKI Aspirin (Aspirin Enteric Coated 81 Mg Tablet.) 81 mg PO DAILY [facility] Last Admin: 10/28/22 09:28 Dose: 81 mg Documented By: NICKI Clopidogrel Bisulfate (Clopidogrel Bisulfate 75 Mg Tablet) 75 mg PO DAILY [facility] Last Admin: 10/28/22 09:27 Dose: 75 mg Documented By: NICKI Donepezil HCl (Donepezil Hcl 10 Mg Tablet) 10 mg PO BEDTIME [facility] Last Admin: 10/27/22 20:03 Dose: 10 mg Documented By: BOBBI Empagliflozin (Empagliflozin 10 Mg Tablet) 10 mg PO DAILY [facility] Last Admin: 10/28/22 09:27 Dose: 10 mg Documented By: NICKI Escitalopram Oxalate (Escitalopram Oxalate 5 Mg Tablet) 5 mg PO DAILY [facility] Last Admin: 10/28/22 09:27 Dose: 5 mg Documented By: NICKI Finasteride (Finasteride 5 Mg Tablet) 5 mg PO DAILY [facility] Last Admin: 10/28/22 09:28 Dose: 5 mg Documented By: NICKI Heparin Sodium (Porcine) (Heparin Sodium,Porcine 5,000 Unit/Ml Vial) 5,000 unit SUBCUT Q12H [facility] Last Admin: 10/28/22 09:27 Dose: 5,000 unit Documented By: NICKI Daptomycin 465 mg/ Sodium (Chloride) 59.3 mls @ 100 mls/hr IV Q24H [facility] Last Infusion: 10/27/22 17:10 Dose: 0 mls/hr Documented By: BOBBI Insulin Glargine (Insulin Glargine,Hum.Rec.Anlog 100 Unit/Ml 10 Ml Vial) 3 unit SUBCUT BEDTIME [facility] Last Admin: 10/27/22 20:03 Dose: 3 unit Documented By: BOBBI Lisinopril (Lisinopril 5 Mg Tablet) 5 mg PO BEDTIME [facility]; Protocol Last Admin: 10/26/22 22:28 Dose: 5 mg Documented By: LUIS FERNANDO Pharmacy Consult (Consult Rx Perform Med Rec) 1 each MISCELLANE ONCE PRN PRN Reason: Consult order Pharmacy Consult (Consult Rx Vancomycin Dosing) 1 each MISCELLANE DAILY PRN PRN Reason: Consult order Sodium Chloride (0.9 % Sodium Chloride Flush 3 Ml Syringe) 3 ml IVFLUSH QSHIFT [facility] Last Admin: 10/28/22 09:28 Dose: 3 ml Documented By: NICKI Sodium Chloride (0.9 % Sodium Chloride Flush 10 Ml Syringe) 5 ml IVFLUSH TID [facility] Last Admin: 10/28/22 09:28 Dose: 5 ml Documented By: NICKI Tamsulosin HCl (Tamsulosin Hcl 0.4 Mg Capsule) 0.4 mg PO DAILY [facility] Last Admin: 10/28/22 09:27 Dose: 0.4 mg Documented By: NICKI Labs 10/27/22 08:48 10/28/22 05:01 Labs: Laboratory Results - last 24 hr 10/27/22 10/27/22 10/27/22 05:30 15:18 16:19 ESR Anion Gap Estim Creat Clear Calc Estimated GFR POC Glucose 130 H Random Glucose Calcium Total Creatine Kinase Cancelled 69 C-Reactive Protein 10/27/22 10/28/22 10/28/22 19:51 05:01 05:01 ESR 46 H Anion Gap 13 Estim Creat Clear Calc 32.1 Estimated GFR 38 POC Glucose 191 H Random Glucose 123 H Calcium 9.5 Total Creatine Kinase C-Reactive Protein 1.67 H 10/28/22 10/28/22 07:20 11:16 ESR Anion Gap Estim Creat Clear Calc Estimated GFR POC Glucose 126 H 208 H Random Glucose Calcium Total Creatine Kinase C-Reactive Protein Assessment and Plan (1) Plantar ulcer of left foot: Status: Acute (2) CKD (chronic kidney disease) stage 3, GFR 30-59 ml/min: Status: Acute Plan 71-year-old Sinhala-speaking male with history (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 Patient was sent from the wound care emergency department with question of worsening infection and other concerns the patient needs IV antibiotics. ?Diabetic foot infection/cellulitis: ?? Concern of osteomyelitis WBC normal, no tachycardia, lactic acid normal Blood culture repeat neg@48hrs MRI:: Stable postsurgical changes also seen on prior radiographs with amputation at the level of the proximal 1st metatarsal. ? 2ND DIGIT: Probable resection of the distal end of the metatarsal, although this needs to be confirmed with surgical history. Erosive changes of the distal end of the bone cannot be excluded. The abnormal signal and enhancement within the 2nd metatarsal along with the overlying sinus tract and ulceration is most compatible with osteomyelitis ,cellulitis, with a communicating sinus tract. The additional abnormality of the 2nd proximal phalanx is nonspecific but suspicious for osteomyelitis given the adjacent abnormalities. It is possible this could reflect reactive edema or be related to the dorsal displacement and postsurgical change. No definite bony destruction. ? 3RD DIGIT: Suspect a combination of edema and cellulitis in the soft tissues overlying the digit. Marrow abnormality nonspecific. This could reflect stress reaction, bone contusion or osteomyelitis of the distal metatarsal and proximal phalanx. No MRI evidence for bone erosion or destruction. ? Generalized abnormality in the subcutaneous soft tissues compatible with a combination of edema and cellulitis. ? Generalized muscle abnormality compatible with myositis - either denervation myositis or infectious myositis. Started on vanco Zosyn s/p picc line blood culture [id number] picc line orders placed. Surgery and Id eval-recomended 6 weeks antbiotics ?Diabetes continue home regimen (lantus, SSI) hold Faxiga,, diabetic diet ?CKD3:seems near? baseline. hold ? lisniopril,moniter renal function . HTN-elevated continue Norvasc,hold? lisinopril. ?BPH-Flomax, finesteride ?Dementia--Aricept ?DVT prophylaxis--Heparin inaptient need- foot osteomyelitis:? awaiting arrangement for home iv antibiotics /vna . Time Spent With Patient Time: Total time managing care of this patient today ____ minutes. Quality Stroke Does the patient have a stroke diagnosis?: No VTE Prior VTE?: No VTE Risk Level:: Medical - moderate - high VTE Device Contraindication: N/A - Device Ordered VTE Drug Contraindication: N/A - Med Ordered
--- NOTE | 2022-10-28 12:54 | MHC.CM.PN ---
PLAN IS NOW FOR DC SUNDAY AFTER DAPTO DOSING. [facility] CAN START 10/30/22. [facility] DENIED SERVICES FLUSH FORM UPLOADED TO [facility] PHARMACIST, [place] [phone] AWARE OF PLAN
[2022-10-28 15:09] VITALS: BP 132/63; PULSE 63; RESP 16; TEMP 36.2; O2SAT 97
--- NOTE | 2022-10-28 16:16 | PC.NURSE ---
Daptomycin dose not given on previous shift,per DREW Jimenes pervious dose was given late
[2022-10-28 16:17] LABS: Glucose, Whole Blood 95 mg/dL (60-115)
[2022-10-28 16:59] LABS: Vancomycin Random 9.8 mcg/mL (15-20)
[2022-10-28 19:13] VITALS: BP 140/73; PULSE 66; RESP 14; TEMP 36.4; O2SAT 96
[2022-10-28 20:38] LABS: Glucose, Whole Blood 147 mg/dL (60-115)
[2022-10-28] MEDS: Donepezil HCl 10 MG TABLET PO (21:36)
[2022-10-28] MEDS: Insulin Glargine,Hum.rec.anlog 100 UNIT/ML 10 ML VIAL SUBCUT (21:36)
[2022-10-28 23:13] VITALS: BP 150/63; PULSE 86; RESP 16; TEMP 36.6; O2SAT 96
[2022-10-29 04:00] VITALS: BP 127/62; PULSE 71; RESP 16; TEMP 36.1; O2SAT 97
[2022-10-29 06:49] LABS: Estimated Glomerular Filt Rate 41
[2022-10-29 06:55] VITALS: BP 138/65; PULSE 73; RESP 16; TEMP 36.4; O2SAT 96
[2022-10-29 07:15] LABS: Glucose, Whole Blood 113 mg/dL (60-115)
[2022-10-29] MEDS: Tamsulosin HCL 0.4 MG CAPSULE PO (07:49)
[2022-10-29] MEDS: Finasteride 5 MG TABLET PO (07:49)
[2022-10-29] MEDS: Heparin Sodium,Porcine 5,000 UNIT/ML VIAL 5000 UNIT SUBCUT ×2 (07:49→20:39)
[2022-10-29] MEDS: Aspirin Enteric Coated 81 MG TABLET.DR PO (07:49)
[2022-10-29] MEDS: Escitalopram Oxalate 5 MG TABLET PO (07:50)
[2022-10-29] MEDS: amLODIPine Besylate 10 MG TABLET PO (07:50)
[2022-10-29] MEDS: Empagliflozin 10 MG TABLET PO (07:50)
[2022-10-29] MEDS: 0.9 % Sodium Chloride Flush 3 ML SYRINGE IVFLUSH (07:50)
[2022-10-29] MEDS: 0.9 % Sodium Chloride Flush 10 ML SYRINGE 5 ML IVFLUSH ×3 (07:50→20:43)
--- NOTE | 2022-10-29 07:52 | P.PNNP_ITS ---
Subjective Subjective Date of Service: 10/29/22 Interval history: seen and examined no complaints Physical Exam Vital Signs: Vital Signs: Last Vital Signs Temp 97.5 F 10/29/22 06:55 Pulse 73 10/29/22 06:55 Resp 16 10/29/22 06:55 BP 138/65 10/29/22 06:55 Pulse Ox 96 10/29/22 06:55 O2 Del Method Room Air 10/29/22 06:55 BMI result Body Mass Index 22.0 Const: General: alert and awake HEENT: Head: Yes normocephalic and Yes atraumatic Neck: Neck: Yes supple Resp: Auscultation: clear to auscultation bilaterally Cardio: Heart sounds: S1 normal heart sound present and S2 normal heart sound present GI: Palpation (GI): Soft to palpation and nontender Extrem: Right upper extremity: no edema Objective Data Labs 10/27/22 08:48 10/29/22 05:17 Labs: Laboratory Results - last 24 hr 10/28/22 10/28/22 10/28/22 11:16 15:59 16:07 Creatinine Estim Creat Clear Calc Estimated GFR POC Glucose 208 H 95 Random Vancomycin 9.8 L 10/28/22 10/29/22 10/29/22 20:11 05:17 07:00 Creatinine 1.66 H Estim Creat Clear Calc 34.0 Estimated GFR 41 POC Glucose 147 H 113 Random Vancomycin Microbiology Microbiology Results: Microbiology 10/24/22 16:27 Blood - Venous Blood Culture - Preliminary No growth after 48 hours. 10/24/22 16:09 Blood - Venous Blood Culture - Preliminary No growth after 48 hours. Procedures Date of Service Date of Service: 10/29/22 Assessment & Plan Assessment and plan (1) CKD (chronic kidney disease) stage 3, GFR 30-59 ml/min: Status: Acute Plan kidney function at baseline known moderate CKD due to: -diabetic and hypertensive nephrosclerosis -nephron loss due to aging being treated for cellulitis and ? osteomylelitis in need for long term care phlebotomist antibiotic REC avoid nephrotoxins follow kidney function and electrolytes Time Spent With Patient Time: Total time managing care of this patient today ____ minutes. Progress Note: Quality Stroke Does the patient have a stroke diagnosis?: No
[2022-10-29] MEDS: Clopidogrel Bisulfate 75 MG TABLET PO (07:56)
--- NOTE | 2022-10-29 08:47 | HO.PM.IMPN ---
Subjective Subjective Date of Service: 10/29/22 Interval History: foot ulcer Review of Systems Foot ulcer? area looks improving Denies any fever or chills or and pain Physical Exam Vital Signs: Vital Signs: Last Vital Signs Temp 97.5 F 10/29/22 06:55 Pulse 73 10/29/22 06:55 Resp 16 10/29/22 06:55 BP 138/65 10/29/22 06:55 Pulse Ox 96 10/29/22 06:55 O2 Del Method Room Air 10/29/22 06:55 BMI result Body Mass Index 22.0 Appearance: Alert.? Oriented X3.? not in distress.? cvs: rrr, [id number] . res: clear to auscultation ,no rhonchii or wheezing abd: no rebound or guarding ,nt, bs present. ext pulses present , no cyanosis left foot plantar ulcer, left foot, currently dry with no significant cellulitis neuro: axo3 , nonfocal. Objective Data Active Medications Acetaminophen (Acetaminophen 325 Mg Tablet) 650 mg PO Q6H PRN PRN Reason: Fever Or Pain Amlodipine Besylate (Amlodipine Besylate 10 Mg Tablet) 10 mg PO DAILY [facility]; Protocol Last Admin: 10/29/22 07:50 Dose: 10 mg Documented By: NICKI Aspirin (Aspirin Enteric Coated 81 Mg Tablet.) 81 mg PO DAILY [facility] Last Admin: 10/29/22 07:49 Dose: 81 mg Documented By: NICKI Clopidogrel Bisulfate (Clopidogrel Bisulfate 75 Mg Tablet) 75 mg PO DAILY [facility] Last Admin: 10/29/22 07:56 Dose: 75 mg Documented By: NICKI Donepezil HCl (Donepezil Hcl 10 Mg Tablet) 10 mg PO BEDTIME [facility] Last Admin: 10/28/22 21:36 Dose: 10 mg Documented By: PARAS Empagliflozin (Empagliflozin 10 Mg Tablet) 10 mg PO DAILY [facility] Last Admin: 10/29/22 07:50 Dose: 10 mg Documented By: NICKI Escitalopram Oxalate (Escitalopram Oxalate 5 Mg Tablet) 5 mg PO DAILY [facility] Last Admin: 10/29/22 07:50 Dose: 5 mg Documented By: NICKI Finasteride (Finasteride 5 Mg Tablet) 5 mg PO DAILY [facility] Last Admin: 10/29/22 07:49 Dose: 5 mg Documented By: NICKI Heparin Sodium (Porcine) (Heparin Sodium,Porcine 5,000 Unit/Ml Vial) 5,000 unit SUBCUT Q12H [facility] Last Admin: 10/29/22 07:49 Dose: 5,000 unit Documented By: NICKI Daptomycin 465 mg/ Sodium (Chloride) 59.3 mls @ 100 mls/hr IV Q24H [facility] Last Infusion: 10/28/22 17:10 Dose: 0 mls/hr Documented By: PARAS Insulin Glargine (Insulin Glargine,Hum.Rec.Anlog 100 Unit/Ml 10 Ml Vial) 3 unit SUBCUT BEDTIME [facility] Last Admin: 10/28/22 21:36 Dose: 3 unit Documented By: PARAS Lisinopril (Lisinopril 5 Mg Tablet) 5 mg PO BEDTIME [facility]; Protocol Last Admin: 10/26/22 22:28 Dose: 5 mg Documented By: LUIS FERNANDO Pharmacy Consult (Consult Rx Perform Med Rec) 1 each MISCELLANE ONCE PRN PRN Reason: Consult order Sodium Chloride (0.9 % Sodium Chloride Flush 3 Ml Syringe) 3 ml IVFLUSH QSHIFT [facility] Last Admin: 10/29/22 07:50 Dose: 3 ml Documented By: NICKI Sodium Chloride (0.9 % Sodium Chloride Flush 10 Ml Syringe) 5 ml IVFLUSH TID [facility] Last Admin: 10/29/22 07:50 Dose: 5 ml Documented By: NICKI Tamsulosin HCl (Tamsulosin Hcl 0.4 Mg Capsule) 0.4 mg PO DAILY [facility] Last Admin: 10/29/22 07:49 Dose: 0.4 mg Documented By: NICKI Labs 10/27/22 08:48 10/29/22 05:17 Labs: Laboratory Results - last 24 hr 10/28/22 10/28/22 10/28/22 11:16 15:59 16:07 Estim Creat Clear Calc Estimated GFR POC Glucose 208 H 95 Random Vancomycin 9.8 L 10/28/22 10/29/22 10/29/22 20:11 05:17 07:00 Estim Creat Clear Calc 34.0 Estimated GFR 41 POC Glucose 147 H 113 Random Vancomycin Assessment and Plan (1) Plantar ulcer of left foot: Status: Acute (2) CKD (chronic kidney disease) stage 3, GFR 30-59 ml/min: Status: Acute Plan 71-year-old Green[place]ic-speaking male with history (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 Patient was sent from the wound care emergency department with question of worsening infection and other concerns the patient needs IV antibiotics. ?Diabetic foot infection/cellulitis: ?? Concern of osteomyelitis WBC normal, no tachycardia, lactic acid normal Blood culture repeat neg@48hrs MRI:: Stable postsurgical changes also seen on prior radiographs with amputation at the level of the proximal 1st metatarsal. ? 2ND DIGIT: Probable resection of the distal end of the metatarsal, although this needs to be confirmed with surgical history. Erosive changes of the distal end of the bone cannot be excluded. The abnormal signal and enhancement within the 2nd metatarsal along with the overlying sinus tract and ulceration is most compatible with osteomyelitis ,cellulitis, with a communicating sinus tract. The additional abnormality of the 2nd proximal phalanx is nonspecific but suspicious for osteomyelitis given the adjacent abnormalities. It is possible this could reflect reactive edema or be related to the dorsal displacement and postsurgical change. No definite bony destruction. ? 3RD DIGIT: Suspect a combination of edema and cellulitis in the soft tissues overlying the digit. Marrow abnormality nonspecific. This could reflect stress reaction, bone contusion or osteomyelitis of the distal metatarsal and proximal phalanx. No MRI evidence for bone erosion or destruction. ? Generalized abnormality in the subcutaneous soft tissues compatible with a combination of edema and cellulitis. ? Generalized muscle abnormality compatible with myositis - either denervation myositis or infectious myositis. Started on vanco Zosyn s/p picc line blood culture [id number] picc line orders placed. Surgery and Id eval-recomended 6 weeks antbiotics ?Diabetes continue home regimen (lantus, SSI) hold Faxiga,, diabetic diet ?CKD3:seems near? baseline. hold ? lisniopril,moniter renal function . HTN-elevated continue Norvasc,hold? lisinopril. ?BPH-Flomax, finesteride ?Dementia--Aricept ?DVT prophylaxis--Heparin inaptient need- foot osteomyelitis:? awaiting arrangement for home iv antibiotics /vna . Time Spent With Patient Time: Total time managing care of this patient today ____ minutes. Quality Stroke Does the patient have a stroke diagnosis?: No VTE Prior VTE?: No VTE Risk Level:: Medical - moderate - high VTE Device Contraindication: N/A - Device Ordered VTE Drug Contraindication: N/A - Med Ordered
--- NOTE | 2022-10-29 08:58 | MHC.CM.PN ---
Reached out to [facility] via [employer] RE any further outstanding requirements needed prior to Pt's D/C to home for today. Pending response. CM to follow.
[2022-10-29 11:47] LABS: Glucose, Whole Blood 149 mg/dL (60-115)
[2022-10-29 12:00] VITALS: BP 115/59; PULSE 66; RESP 16; TEMP 36.4; O2SAT 98
--- NOTE | 2022-10-29 13:46 | MHC.CM.PN ---
Still no response from [facility] RE confirmation that everything is in place for safe and complete D/C to home. notified and in agreement to hold off D/C until verification has been given. CM to follow.
[2022-10-29 15:51] VITALS: BP 128/64; PULSE 69; RESP 18; TEMP 36.4; O2SAT 98
[2022-10-29 16:11] LABS: Glucose, Whole Blood 149 mg/dL (60-115)
[2022-10-29 19:30] VITALS: BP 125/69; PULSE 69; RESP 20; TEMP 36.8; O2SAT 98
[2022-10-29] MEDS: Donepezil HCl 10 MG TABLET PO (20:40)
[2022-10-29 20:44] LABS: Glucose, Whole Blood 168 mg/dL (60-115)
[2022-10-29] MEDS: Insulin Glargine,Hum.rec.anlog 100 UNIT/ML 10 ML VIAL SUBCUT (20:46)
[2022-10-29 23:56] VITALS: BP 145/70; PULSE 84; RESP 16; TEMP 36.3; O2SAT 94
[2022-10-30 03:09] VITALS: BP 145/76; PULSE 68; RESP 18; TEMP 36.7; O2SAT 97
[2022-10-30 07:23] LABS: Creatinine Clr Calc Pharmacy 35.5; Estimated Glomerular Filt Rate 43
[2022-10-30 07:35] LABS: Glucose, Whole Blood 86 mg/dL (60-115)
[2022-10-30 07:40] VITALS: BP 125/62; PULSE 60; RESP 16; TEMP 36.2; O2SAT 95
[2022-10-30] MEDS: 0.9 % Sodium Chloride Flush 3 ML SYRINGE IVFLUSH (09:20)
[2022-10-30] MEDS: Clopidogrel Bisulfate 75 MG TABLET PO (09:20)
[2022-10-30] MEDS: amLODIPine Besylate 10 MG TABLET PO (09:20)
[2022-10-30] MEDS: Heparin Sodium,Porcine 5,000 UNIT/ML VIAL 5000 UNIT SUBCUT (09:20)
[2022-10-30] MEDS: Finasteride 5 MG TABLET PO (09:20)
[2022-10-30] MEDS: 0.9 % Sodium Chloride Flush 10 ML SYRINGE 5 ML IVFLUSH (09:21)
[2022-10-30] MEDS: Empagliflozin 10 MG TABLET PO (09:21)
[2022-10-30] MEDS: Escitalopram Oxalate 5 MG TABLET PO (09:21)
[2022-10-30] MEDS: Tamsulosin HCL 0.4 MG CAPSULE PO (09:21)
[2022-10-30] MEDS: Aspirin Enteric Coated 81 MG TABLET.DR PO (09:21)
[2022-10-30 11:02] VITALS: BP 118/59; PULSE 64; RESP 16; TEMP 36.6; O2SAT 96
[2022-10-30 11:18] LABS: Glucose, Whole Blood 130 mg/dL (60-115)
--- NOTE | 2022-10-30 11:40 | PM.PNNEP ---
Subjective Subjective Date of Service: 10/30/22 Interval history: seen and examined when can I go home? no complaints Physical Exam Vital Signs: Vital Signs: Last Vital Signs Temp 97.9 F 10/30/22 11:02 Pulse 64 10/30/22 11:02 Resp 16 10/30/22 11:02 BP 118/59 L 10/30/22 11:02 Pulse Ox 96 10/30/22 11:02 O2 Del Method Room Air 10/30/22 11:02 BMI result Body Mass Index 22.0 Const: General: alert and awake HEENT: Head: Yes normocephalic and Yes atraumatic Neck: Neck: Yes supple Resp: Auscultation: clear to auscultation bilaterally Cardio: Heart sounds: S1 normal heart sound present and S2 normal heart sound present GI: Palpation (GI): Soft to palpation and nontender Extrem: Right upper extremity: no edema Objective Data Labs 10/27/22 08:48 10/30/22 05:23 Labs: Laboratory Results - last 24 hr 10/29/22 10/29/22 10/29/22 11:24 15:55 20:41 Creatinine Estim Creat Clear Calc Estimated GFR POC Glucose 149 H 149 H 168 H 10/30/22 10/30/22 10/30/22 05:23 07:31 11:05 Creatinine 1.59 H Estim Creat Clear Calc 35.5 Estimated GFR 43 POC Glucose 86 130 H Microbiology Microbiology Results: Microbiology 10/24/22 16:27 Blood - Venous Blood Culture - Final No growth after 5 days. 10/24/22 16:09 Blood - Venous Blood Culture - Final No growth after 5 days. Procedures Date of Service Date of Service: 10/30/22 Assessment & Plan Assessment and plan (1) CKD (chronic kidney disease) stage 3, GFR 30-59 ml/min: Status: Acute Plan kidney function stable at baseline known moderate CKD due to: -diabetic and hypertensive nephrosclerosis -nephron loss due to aging being treated for cellulitis and ? osteomylelitis in need for senior living antibiotic REC low dose ACEi c/w tamsulosin follow kidney function and electrolytes Time Spent With Patient Time: Total time managing care of this patient today ____ minutes. Progress Note: Quality Stroke Does the patient have a stroke diagnosis?: No
--- NOTE | 2022-10-30 12:19 | MHC.CM.PN ---
DP: PT HAS BEEN MEDICALLY CLEARED FOR DC HOME AFTER DOSE OF DAPTOMYCIN. [facility] NOTIFIED AND WILL DO soc 10/31. [facility] MADE AWARE. MD AND RN AWARE. FAMILY WILL TRANSPORT
--- NOTE | 2022-10-30 13:12 | PM.DS ---
DS: Providers Provider Date of Service: 10/30/22 Date of admission: 10/25/22 09:33 Date of discharge: 10/30/22 Primary care physician: Penny Camarena MD Consults: 10/24/22 17:58 Consult to General Surgery Routine Consulting Provider: [facility] General Surgeons Reason for consultation: dm foot infection Has provider been notified: No 10/24/22 18:20 Consult to Infectious Diseases Routine Consulting Provider: [facility] Infectious Disease Reason for consultation: dmfoot ulcer Has provider been notified: No 10/27/22 08:56 Consult to Nephrology Routine Consulting Provider: Cale Vilchis Reason for consultation: Need Picc line Attending physician on discharge: Tejinder Thomas Discharging clinician: Tejinder Thomas DS: Diagnosis Discharge Diagnosis (1) CKD (chronic kidney disease) stage 3, GFR 30-59 ml/min: Status: Acute (2) Osteomyelitis: Status: Acute DS: Summary Hospital Course Hospital Course: 71-year-old German-speaking male with history (obtained with the help of certified 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 Patient was sent from the wound care emergency department with worsening infection and other concerns the patient needs IV antibiotics.? Patient says that he has foot wound from at least 3-4 months-he said he had callus initially and then it was cut down and subsequently he developed foot ulcer.? Wound Care sent for further evaluation:? In ED patient does not have any leukocytosis, fever, found to have elevated ESR and CRP.? Foot x-ray shows question of previous surgery on the 2nd toe versus bony erosion. Patient was given vanco and Zosyn and requested admission for foot cellulitis and wound ?Denies any new complaint of chest pain or shortness of breath or abdominal pain or fever or chills or nausea or vomiting Denies any cough Denies any weakness or numbness. WBC:? 9.7, H&H 11.8/35.9, platelets 287. BMP:? Sodium 136, BUN 31 creatinine 1.85, lactic acid 1.1, blood cultures sent. ?XR/XR foot LT 2V IMPRESSION: 1.? Interval amputation of the great toe and the head and distal shaft of the first metatarsal. 2.? Question of amputation of the head of the second metatarsal versus bony destruction. Hospital course: 71-year-old male Diabetic foot infection/cellulitis: Has diabetic foot ulcer: Started on IV antibiotics, blood cultures and wound culture sent: Blood culture seems negative, foot wound culture growing Staph aureus/Enterococcus: Discussed with the infectious disease and surgery: Currently no surgical intervention recommended and MRI foot was done-likely foot for osteomyelitis : Recommended 6 weeks of antibiotics, currently recommended daptomycin considering underlying ckd. Considering Monitor CBC, BMP, LFTs, CPK,ESR, CRP Q weekly while on antibiotics,continue current dressing changes. Patient will go home with services.continue current dressing chnages . Patient was strongly advised to follow up outpatient with surgery. Plan: Complete course of daptomycin-end date is 12/08/22. Considering Monitor CBC, BMP, LFTs, CPK,ESR, CRP Q weekly while on antibiotics, continue current dressing changes. Adjusted lisinopril 5 mg due to fluctuating renal function, monitor BMP out patiently and consider further adjustment of lisinopril if needed as per BMP. Patient was strongly advised to follow up outpatient with surgery. Above management discussed with the patient and his daughter in detail length, they both understand and in agreement with the above plan, time spent 50 minute. Time Spent with Patient Time attestation: Total time managing care of this patient today ____ minutes. Physical Exam Vital Signs: Vital Signs: Last Vital Signs Temp 97.9 F 10/30/22 11:02 Pulse 64 10/30/22 11:02 Resp 16 10/30/22 11:02 BP 118/59 L 10/30/22 11:02 Pulse Ox 96 10/30/22 11:02 O2 Del Method Room Air 10/30/22 11:02 BMI result Body Mass Index 22.0 DS: Data Data Completed and Pending Completed studies during hospitalization [Text1]: Procedures Drainage of Left Hand Skin, External Approach (02/12/22) Drainage of Left Hand Subcutaneous Tissue and Fascia, Open Approach (02/12/22) Fluoroscopy of Superior Vena Cava, Guidance (02/12/22) Insertion of Infusion Device into Superior Vena Cava, Percutaneous Approach (02/12/22) Labs on day of discharge: Laboratory Results - last 24 hr 10/29/22 10/29/22 10/30/22 15:55 20:41 05:23 Creatinine 1.59 H Estim Creat Clear Calc 35.5 Estimated GFR 43 POC Glucose 149 H 168 H 10/30/22 10/30/22 07:31 11:05 Creatinine Estim Creat Clear Calc Estimated GFR POC Glucose 86 130 H Discharge Plan Discharge Anticipated Discharge Date/Time: 10/27/22 13:50 Patient Disposition: Home Health Service Discharge Diagnosis: Foot osteomyelitis Referrals: [facility] [Other] - 1 Week Chris YODER [Outside] - 1 Week Alex Mora MD [Physician] - 1 Week Penny Camarena MD [Primary Care Provider] - 1 Week Discharge Medications: New daptomycin 500 mg Recon Soln 465 mg IV Q24H Qty: 41 0RF Rx Instructions: end date is 12/08/22 Continued citalopram 10 mg tablet 1 tab PO DAILY donepezil 10 mg tablet 1 tab PO BEDTIME clopidogrel 75 mg tablet 1 tab PO DAILY aspirin 81 mg tablet,delayed release (DR/EC) 1 tab PO DAILY tamsulosin 0.4 mg capsule 1 cap PO DAILY amlodipine 10 mg tablet 1 tab PO DAILY finasteride 5 mg tablet 1 tab PO DAILY insulin glargine [Lantus U-100 Insulin] 100 unit/mL solution 3 unit subcut BEDTIME Farxiga 10 mg tablet 1 tab PO DAILY acetaminophen 500 mg Tablet 1,000 mg PO Q6H PRN (Reason: Fever Or Pain) Changed lisinopril 10 mg tablet 5 mg PO BEDTIME Qty: 30 0RF Rx Instructions: start on 10/31/22 after repeating bmp Discharge Orders: Discharge Order (Routine); Ordered 10/27/22 Ordered By: Tejinder Thomas Diet: Advance to usual diet Activity on Discharge: As tolerated Stand Alone Forms: Patient Portal Discharge page Care Plan Goals: 71-year-old male Diabetic foot infection/cellulitis: Has diabetic foot ulcer: Started on IV antibiotics, blood cultures and wound culture sent: Blood culture seems negative, foot wound culture growing Staph aureus/Enterococcus: Discussed with the infectious disease and surgery: Currently no surgical intervention recommended and MRI foot was done-likely foot for osteomyelitis : Recommended 6 weeks of antibiotics, currently recommended daptomycin considering underlying ckd. Considering Monitor CBC, BMP, LFTs, CPK,ESR, CRP Q weekly while on antibiotics, dressing changes. Patient will go home with services.continue current dressing chnages . Patient was strongly advised to follow up outpatient with surgery. Health Concerns: As above. Plan of Treatment: As above. Assessment: As above.
[2022-10-30 15:43] VITALS: BP 143/71; PULSE 68; RESP 20; TEMP 36; O2SAT 98
--- NOTE | 2022-10-30 15:56 | P.CDIM_ITS ---
PROVIDER RESPONSE TEXT: To clarify, the appropriate diagnosis supported by the clinical indicators: Acute osteomyelitis QUERY TEXT: PHYSICIAN'S DOCUMENTATION REQUEST Date of Query: 10/30/2022 02:36 PM EDT Patient Name: Reg Sheets Admit Date: 10/25/2022 Dear Tejinder Thomas, A review of the medical record indicates additional documentation may be needed. Please review below and update the documentation accordingly. Documentation on 10/29/22 indicates ? concern for Osteomyelitis. left foot ulcer Diabetic foot infection/cellulitis Clinical Indicators: Started on Vanco Zosyn s/p PICC line blood culture neg 48hrs Based on the above, please clarify in the Progress Notes further specificity regarding the type of Os teomyelitis. Acute osteomyelitis Acute hematogenous osteomyelitis Subacute osteomyelitis Chronic osteomyelitis Chronic hemotogenous osteomyelitis Chronic multifocal osteomyelitis Other (explain)Clinically unable to determine (explain)Thank you, Pau Rosario RN Use of terms such as suspected, likely, concern for, or probable (associated with a specific diagnosi s that is being evaluated, monitored, or treated as if it exists) are acceptable and can be coded in the inpatient se tting, when documented at the time of discharge. Please use your independent medical judgment in providing your response. THIS QUERY IS PART OF THE PERMANENT MEDICAL RECORD
[2022-10-30 16:16] LABS: Glucose, Whole Blood 165 mg/dL (60-115)
== END 2022-10-30 17:00 | disposition home health service (06) | DRG 638 ==
LOC: HO.ED 15:57 → HO.EDOVER 18:05 → HO.S3 10-25 18:43
PROVIDERS: Physician Assistant; Admitting Provider Internal Medicine; Emergency Provider Student in an Organized Health Care Education/Training Program; PCP Internal Medicine; Visit Provider Internal Medicine
DX: E11.69 Type 2 diabetes mellitus with other specified complication (principal); L97.429 Non-pressure chronic ulcer of left heel and midfoot with unspecified severity; M86.172 Other acute osteomyelitis, left ankle and foot; E11.621 Type 2 diabetes mellitus with foot ulcer; I12.9 Hypertensive chronic kidney disease with stage 1 through stage 4 chronic kidney disease, or unspecified chronic kidney disease; N18.32 Chronic kidney disease, stage 3b; E11.22 Type 2 diabetes mellitus with diabetic chronic kidney disease; F03.90 Unspecified dementia, unspecified severity, without behavioral disturbance, psychotic disturbance, mood disturbance, and anxiety; L03.032 Cellulitis of left toe; N40.0 Benign prostatic hyperplasia without lower urinary tract symptoms; Z20.822 Contact with and (suspected) exposure to COVID-19; Z87.891 Personal history of nicotine dependence; Z79.4 Long term (current) use of insulin; Z79.02 Long term (current) use of antithrombotics/antiplatelets; Z79.82 Long term (current) use of aspirin; Z79.84 Long term (current) use of oral hypoglycemic drugs; Z79.899 Other long term (current) drug therapy
CPT/HCPCS: 36415; 36573; 73620; 73720; 80048; 80053; 80202; 82550; 82565; 82947; 83605; 83735; 85014; 85018; 85025; 85610; 85652; 86140; 87040; 87635; 88304; 88305; 88311; 97162; 99285; A9585; C1751; J0878; J1643; J2543; J3370; J3371

== ENCOUNTER → 2022-10-24 17:51 | Outpatient (BNV) | payer OTHER, SELFPAY | PROVIDERS: Admitting Provider Internal Medicine; Emergency Provider Student in an Organized Health Care Education/Training Program; PCP Internal Medicine; Visit Provider Internal Medicine | DX: N18.30 Chronic kidney disease, stage 3 unspecified (principal); M86.9 Osteomyelitis, unspecified; L97.529 Non-pressure chronic ulcer of other part of left foot with unspecified severity; L03.116 Cellulitis of left lower limb | CPT/HCPCS: 99222; 99231; 99232; 99239 ==

== ENCOUNTER → 2022-10-25 09:33 | Outpatient (BNV) | payer OTHER, SELFPAY | PROVIDERS: Admitting Provider Internal Medicine; Emergency Provider Student in an Organized Health Care Education/Training Program; PCP Internal Medicine; Visit Provider Surgery | DX: L97.529 Non-pressure chronic ulcer of other part of left foot with unspecified severity (principal) | CPT/HCPCS: 99222; 99232 ==

== ENCOUNTER → 2022-10-25 09:33 | Outpatient (BNV) | payer OTHER, SELFPAY | PROVIDERS: Admitting Provider Internal Medicine; Emergency Provider Student in an Organized Health Care Education/Training Program; PCP Internal Medicine; Visit Provider Internal Medicine | DX: L97.529 Non-pressure chronic ulcer of other part of left foot with unspecified severity (principal) | CPT/HCPCS: 99222 ==

== ENCOUNTER 2022-10-31 12:02 | Outpatient (REF) | payer OTHER, SELFPAY ==
[2022-10-31 12:08] LABS: MANUAL DIFF FLAG NO
[2022-10-31 12:22] LABS: Basophils Absolute Auto 0.1 X10*3/uL (0.0-0.2); Basophils Percent Auto 0.6 % (0-2); Eosinophils Absolute Auto 0.2 X10*3/uL (0.0-0.4); Eosinophils Percent Auto 2.3 % (0-4); Hemoglobin 11.5 g/dl (14.0-18.0); Imm Gran Abs Auto 0.02 X10*3/uL (0.00-0.03); Imm Gran Pct Auto 0.3 % (0.0-0.4); Lymphocytes Absolute Auto 0.7 X10*3/uL (1.2-4.9); Lymphocytes Percent Auto 9.4 % (20-40); Mean Corpuscular HGB Conc 32.9 g/dl (31.0-36.0); Mean Corpuscular Hemoglobin 28.6 pg (27.0-33.0); Mean Corpuscular Volume 87.1 fL (80.0-98.0); Mean Platelet Volume 9.7 fL (9.4-12.4); Monocytes Absolute Auto 0.5 X10*3/uL (0.1-1.2); Monocytes Percent Auto 5.8 % (2-11); Neutrophils Absolute Auto 6.3 x10*3/uL (2.0-8.3); Neutrophils Percent Auto 81.6 % (45-73); Platelet Count 333 X10*3/uL (160-400); Red Blood Count 4.02 X10*6/uL (4.60-5.80); Red Cell Distribution Width 13.7 % (11.0-16.0); White Blood Count 7.7 X10*3/uL (4.8-10.8)
[2022-10-31 13:36] LABS: Blood Urea Nitrogen 33 mg/dL (9-16); Estimated Glomerular Filt Rate 42
== END 2022-10-31 12:03 | disposition home or self-care (01) ==
LOC: HO.HVNA 12:02
PROVIDERS: Visit Provider Internal Medicine
DX: M86.9 Osteomyelitis, unspecified (principal); E11.621 Type 2 diabetes mellitus with foot ulcer
CPT/HCPCS: 82550; 82565; 84520; 85025

== ENCOUNTER 2022-11-08 09:55 | Outpatient (REF) | payer OTHER, SELFPAY ==
[2022-11-08 10:01] LABS: MANUAL DIFF FLAG NO
[2022-11-08 10:06] LABS: Basophils Absolute Auto 0.1 X10*3/uL (0.0-0.2); Basophils Percent Auto 1.1 % (0-2); Eosinophils Absolute Auto 0.2 X10*3/uL (0.0-0.4); Eosinophils Percent Auto 2.9 % (0-4); Hematocrit 36.2 % (42.0-52.0); Hemoglobin 11.8 g/dl (14.0-18.0); Imm Gran Abs Auto 0.02 X10*3/uL (0.00-0.03); Imm Gran Pct Auto 0.4 % (0.0-0.4); Lymphocytes Absolute Auto 0.9 X10*3/uL (1.2-4.9); Lymphocytes Percent Auto 17.2 % (20-40); Mean Corpuscular HGB Conc 32.6 g/dl (31.0-36.0); Mean Corpuscular Hemoglobin 28.1 pg (27.0-33.0); Mean Corpuscular Volume 86.2 fL (80.0-98.0); Mean Platelet Volume 9.5 fL (9.4-12.4); Monocytes Absolute Auto 0.2 X10*3/uL (0.1-1.2); Monocytes Percent Auto 4.4 % (2-11); Platelet Count 308 X10*3/uL (160-400); Red Cell Distribution Width 13.3 % (11.0-16.0); White Blood Count 5.5 X10*3/uL (4.8-10.8)
[2022-11-08 10:21] LABS: Anion Gap 13 (12-20); Blood Urea Nitrogen 36 mg/dL (9-16); Calcium 8.8 mg/dL (8.4-10.2); Carbon Dioxide 25 mmol/L (22-29); Chloride 104 mmol/L (96-108); Estimated Glomerular Filt Rate 33; Glucose Random 238 mg/dL (60-115); Potassium 4.4 mmol/L (3.3-5.1); Sodium 138 mmol/L (135-145)
== END 2022-11-08 09:56 | disposition home or self-care (01) ==
LOC: HO.LNP 09:55
PROVIDERS: Visit Provider Surgery
DX: E11.621 Type 2 diabetes mellitus with foot ulcer (principal); E11.51 Type 2 diabetes mellitus with diabetic peripheral angiopathy without gangrene; L97.522 Non-pressure chronic ulcer of other part of left foot with fat layer exposed
CPT/HCPCS: 80048; 82550; 85025

== ENCOUNTER 2022-11-14 11:34 | Outpatient (REF) | payer OTHER, SELFPAY ==
[2022-11-14 11:37] LABS: MANUAL DIFF FLAG NO
[2022-11-14 11:45] LABS: Basophils Percent Auto 0.7 % (0-2); Eosinophils Absolute Auto 0.2 X10*3/uL (0.0-0.4); Eosinophils Percent Auto 3.8 % (0-4); Hematocrit 38.2 % (42.0-52.0); Hemoglobin 12.4 g/dl (14.0-18.0); Imm Gran Abs Auto 0.02 X10*3/uL (0.00-0.03); Imm Gran Pct Auto 0.4 % (0.0-0.4); Lymphocytes Absolute Auto 0.9 X10*3/uL (1.2-4.9); Lymphocytes Percent Auto 16.1 % (20-40); Mean Corpuscular HGB Conc 32.5 g/dl (31.0-36.0); Mean Corpuscular Hemoglobin 27.9 pg (27.0-33.0); Mean Platelet Volume 9.7 fL (9.4-12.4); Monocytes Absolute Auto 0.3 X10*3/uL (0.1-1.2); Monocytes Percent Auto 6.1 % (2-11); Neutrophils Absolute Auto 4.1 x10*3/uL (2.0-8.3); Neutrophils Percent Auto 72.9 % (45-73); Platelet Count 250 X10*3/uL (160-400); Red Blood Count 4.44 X10*6/uL (4.60-5.80); Red Cell Distribution Width 13.5 % (11.0-16.0); White Blood Count 5.6 X10*3/uL (4.8-10.8)
[2022-11-14 12:26] LABS: Blood Urea Nitrogen 32 mg/dL (9-16)
== END 2022-11-14 11:35 | disposition home or self-care (01) ==
LOC: HO.HVNA 11:34
PROVIDERS: Visit Provider Internal Medicine
DX: M86.172 Other acute osteomyelitis, left ankle and foot (principal)
CPT/HCPCS: 82550; 84520; 85025

== ENCOUNTER 2022-11-20 09:53 | Emergency (ER) | payer OTHER, SELFPAY ==
[2022-11-20 09:55] VITALS: BP 125/71; PULSE 81; RESP 16; TEMP 36.1; O2SAT 99; BMI 21.3
[2022-11-20 10:06] LABS: MANUAL DIFF FLAG NO
[2022-11-20 10:08] LABS: Basophils Percent Auto 0.4 % (0-2); Eosinophils Absolute Auto 0.1 X10*3/uL (0.0-0.4); Eosinophils Percent Auto 0.7 % (0-4); Hematocrit 37.9 % (42.0-52.0); Hemoglobin 12.1 g/dl (14.0-18.0); Imm Gran Abs Auto 0.02 X10*3/uL (0.00-0.03); Imm Gran Pct Auto 0.2 % (0.0-0.4); Lymphocytes Absolute Auto 0.6 X10*3/uL (1.2-4.9); Lymphocytes Percent Auto 6.2 % (20-40); Mean Corpuscular HGB Conc 31.9 g/dl (31.0-36.0); Mean Corpuscular Hemoglobin 28.2 pg (27.0-33.0); Mean Corpuscular Volume 88.3 fL (80.0-98.0); Mean Platelet Volume 10.4 fL (9.4-12.4); Monocytes Absolute Auto 0.4 X10*3/uL (0.1-1.2); Monocytes Percent Auto 4.5 % (2-11); Neutrophils Absolute Auto 8.2 x10*3/uL (2.0-8.3); Platelet Count 231 X10*3/uL (160-400); Red Blood Count 4.29 X10*6/uL (4.60-5.80); Red Cell Distribution Width 13.7 % (11.0-16.0); White Blood Count 9.4 X10*3/uL (4.8-10.8)
--- NOTE | 2022-11-20 10:08 | MHC.EDTECH ---
Labs collected and sent
[2022-11-20 10:22] LABS: Anion Gap 18 (12-20); Blood Urea Nitrogen 38 mg/dL (9-16); Calcium 9.5 mg/dL (8.4-10.2); Carbon Dioxide 19 mmol/L (22-29); Chloride 102 mmol/L (96-108); Creatinine Clr Calc Pharmacy 23.3; Estimated Glomerular Filt Rate 28; Glucose Random 345 mg/dL (60-115); Potassium 4.4 mmol/L (3.3-5.1); Sodium 135 mmol/L (135-145)
[2022-11-20 10:23] LABS: Appearance Urine Turbid; Color Urine Yellow; Glucose Urine UA >=1000 mg/dL (Negative); Leukocyte Esterase Urine Large (3+) (Negative); Nitrite Urine Negative (Negative); PH 7.5 (5.0-9.0); Specific Gravity - Urine 1.025 (1.005-1.025); UMIC TRIGGER UACC YES; Urine Blood Moderate (2+) (Negative); Urine Ketones Trace mg/dL (Negative); Urine Protein 300 (3+) mg/dL (Neg-Trace)
[2022-11-20 10:33] LABS: Bacteria Urine 4+ (None Seen); RBC Urine >20 /HPF (0-2); Squamous Epithelial Cell Urine 0-2 /HPF (0-2); UACC Culture Trigger YES; WBC Urine >50 /HPF (0-5)
--- NOTE | 2022-11-20 11:35 | ED.MALEGU ---
HPI - Male Genitourinary General Chief complaint: Urogenital-Male Stated complaint: Trouble urinating/Weakness Time Seen by Provider: 11/20/22 11:31 Source: patient and family (daughter) Mode of arrival: ambulatory Limitations: language barrier History of Present Illness HPI Narrative: Patient is a 71-year-old male with history of CKD stage 3, currently being treated for osteomyelitis with daptomycin via PICC line presenting to the emergency department with suprapubic pressure and burning sensation with urination. Daughter who is also patient's [employer] PATTERNMAKER reports that patient began to complain of symptoms on Sunday. He also complained of constipation but she states he was able to have a normal bowel movement yesterday. Eyes pain at rest and complains only of suprapubic pressure. Daughter denies fevers. Patient denies hematuria. Deneis nausea, vomiting, diarrhea, constipation. MD Complaint: other (dysuria, suprapubic pressure) Onset (ago): day(s) Duration: constant Location: abdomen Quality: other (pressure) Relieving factors: rest Exacerbating factors: urination Context: new medication Associated symptoms: Reports denies other symptoms Related Data Home Medications Medication Instructions Recorded Confirmed amlodipine 10 mg tablet 1 tab PO DAILY 01/24/21 11/20/22 aspirin 81 mg tablet,delayed 1 tab PO DAILY 01/24/21 11/20/22 release citalopram 10 mg tablet 1 tab PO DAILY 01/24/21 11/20/22 clopidogrel 75 mg tablet 1 tab PO DAILY 01/24/21 11/20/22 donepezil 10 mg tablet 1 tab PO BEDTIME 01/24/21 11/20/22 finasteride 5 mg tablet 1 tab PO DAILY 01/24/21 11/20/22 insulin glargine 100 unit/mL 3 unit subcut BEDTIME 01/24/21 11/20/22 subcutaneous solution (Lantus U-100 Insulin) tamsulosin 0.4 mg capsule 1 cap PO DAILY 01/24/21 11/20/22 dapagliflozin propanediol 10 mg 1 tab PO DAILY 02/12/22 11/20/22 tablet (Farxiga) acetaminophen 500 mg tablet 1,000 mg PO Q6H PRN Fever Or Pain 10/24/22 11/20/22 Previous Rx's Medication Instructions Recorded daptomycin 500 mg intravenous 465 mg IV Q24H #41 ea 10/28/22 solution lisinopril 10 mg tablet 5 mg PO BEDTIME #30 tabs 10/28/22 cefdinir 300 mg capsule 300 mg PO Q12H #14 caps 11/20/22 Allergies Allergy/AdvReac Type Severity Reaction Status Date / Time oxycodone [From PERCOCET] Allergy Unknown CAN'T Verified 10/24/22 12:38 BREATH/VOMITING simvastatin [SIMVASTATIN] Allergy Unknown UNKNOWN Verified 10/24/22 12:38 peas AdvReac Unknown VOMITING/FA Verified 10/24/22 12:38 INTING SALMON [id number] AdvReac Unknown VOMITING/FA Uncoded 10/24/22 12:38 INT PMFSH Past Medical History Medical History BPH (benign prostatic hyperplasia) CKD stage G3b/A1, GFR 30-44 and albumin creatinine ratio <30 mg/g Dementia Diabetes Dog bite History of amputation of toe Hypertension Plantar ulcer of left foot Rhabdomyolysis Stage 3b chronic kidney disease (CKD) Family History Family History Other Diabetes HTN (hypertension) Social History Social History Household Members: Spouse Housing: Apartment Do you presently have visiting nurse or other home services: Yes Alcohol intake: never Patient Tobacco Use Status: Former Tobacco user Quit Date: 1999 Smoked in Last 30 Days: No Use of substances other than those prescribed or required for medical reasons: No Advance Directives: Yes Advance Directives on File: Yes Advance Directives Date on File: 01/25/21 service: No Current occupational status: retired Physical Exam Vital Signs: Vital Signs: Last Vital Signs Temp 98.6 F 11/20/22 11:51 Pulse 68 11/20/22 11:51 Resp 16 11/20/22 11:51 BP 132/66 11/20/22 11:51 Pulse Ox 98 11/20/22 11:51 O2 Del Method Room Air 11/20/22 11:51 BMI result Body Mass Index 21.3 Medical Decision Making Medical Decision Making MDM Narrative: Patient is a 71-year-old male with history of CKD stage 3, currently being treated for osteomyelitis with daptomycin via PICC line presenting to the emergency department with suprapubic pressure and burning sensation with urination. On exam patient is awake, A+Ox3, VS WNL, afebrile, normal neurological exam without focal deficits, abdomen is soft, mildly tender to palpation suprapubic, no CVA tenderness. Given reported symptoms and physical exam findings, initial differential includes UTI/pyelo, urinary retention, obstruction, TONY. Do not suspect sepsis. Labs notable for worsening kidney function, no leukocytosis, UA positive for 3+ leukocytes, >20 WBCs, 4+ bacteria. 13:[address] Toro who agrees patient would likely benefit from admission given that he has developed a UTI while on daptomycin. Daptomycin ordered as patient's daughter states he usually receives this at home at 10am, and did not receive today's dose. Dawson text to Anabelle Mejias NP, also discussed with GUILLE Milan. Patient not receiving gram negative coverage on daptomycin and renal function fairly consistent with baseline. They feel patient is stable for discharge home with gram negative coverage. Discussed with patient's daughter and she is agreeable to this. Strict return precautions discussed. Differential Diagnosis Differential Diagnoses: The differential diagnosis associated with the presentation includes As per MDM. Admission/Observation Consideration of admission/observation: Escalation of care including admission/observation considered Consult Healthcare Provider Management of the patient was discussed with: Hospitalist and Cafeteria Cashier (Dr. Toro) Lab Data [facility] Lab Attestation statement: I reviewed the patient's lab results. As per MDM. 11/20/22 10:01 11/20/22 10:01 Labs: Lab Results 11/20/22 11/20/22 11/20/22 Range/Units 10:01 10:01 10:13 WBC 9.4 (4.8-10.8) X10*3/uL RBC 4.29 L (4.60-5.80) X10*6/uL Hgb 12.1 L (14.0-18.0) g/dl Hct 37.9 L (42.0-52.0) % MCV 88.3 (80.0-98.0) fL MCH 28.2 (27.0-33.0) pg MCHC 31.9 (31.0-36.0) g/dl RDW 13.7 (11.0-16.0) % Plt Count 231 (160-400) X10*3/uL MPV 10.4 (9.4-12.4) fL Immature Gran % (Auto) 0.2 (0.0-0.4) % Neut % (Auto) 88.0 H (45-73) % Lymph % (Auto) 6.2 L (20-40) % [place] % (Auto) 4.5 (2-11) % Eos % (Auto) 0.7 (0-4) % Baso % (Auto) 0.4 (0-2) % Lymph # (Auto) 0.6 L (1.2-4.9) X10*3/uL [place] # (Auto) 0.4 (0.1-1.2) X10*3/uL Eos # (Auto) 0.1 (0.0-0.4) X10*3/uL Baso # (Auto) 0.0 (0.0-0.2) X10*3/uL Abs Immat Gran (auto) 0.02 (0.00-0.03) X10*3/uL Absolute Neuts (auto) 8.2 (2.0-8.3) x10*3/uL Absolute Nucleated RBC 0.000 (0.0-0.012) X10*3/uL Nucleated RBC % (auto) 0.0 (0.0-0.2) /100WBC Sodium 135 (135-145) mmol/L Potassium 4.4 (3.3-5.1) mmol/L Chloride 102 (96-108) mmol/L Carbon Dioxide 19 L (22-29) mmol/L Anion Gap 18 (12-20) BUN 38 H (9-16) mg/dL Creatinine 2.34 H (0.5-1.4) mg/dL Estim Creat Clear Calc 23.3 Estimated GFR 28 Random Glucose 345 H (60-115) mg/dL Calcium 9.5 D (8.4-10.2) mg/dL Urine Color Yellow Urine Appearance Turbid Urine pH 7.5 (5.0-9.0) Ur Specific [place] 1.025 (1.005-1.025) Urine Protein 300 (3+) H (Neg-Trace) mg/dL Urine Glucose (UA) >=1000 H (Negative) mg/dL Urine Ketones Trace (Negative) mg/dL Urine Blood Moderate (2+) H (Negative) Urine Nitrite Negative (Negative) Ur Leukocyte Esterase Large (3+) H (Negative) Urine RBC >20 H (0-2) /HPF Urine WBC >50 H (0-5) /HPF Ur Squamous Epith Cells 0-2 (0-2) /HPF Urine Bacteria 4+ (None Seen) Hyaline Casts 6-10 (0-2) /LPF Independent Historian Clinical information obtained from an independent historian. History obtained from or confirmed by: Other (daughter, she is also patient's [employer] PATTERN[employer]KER) External Record Review External record reviewed: Inpatient record, Office record and Outpatient record Prescription Management I considered prescription management with: Antibiotic (cefdinir) Chronic Conditions Patient?s care impacted by: Other (CKD) Discharge Plan Discharge Clinical Impression: Urinary tract infection Patient Disposition: Home, Self-Care Instructions: Urinary Tract Infection in Men (DC) Additional Instructions: You have been evaluated in the emergency department today for your urinary symptoms. Your evaluation, including urinalysis, suggests that your symptoms are due to urinary tract infection. Please take your prescribed antibiotics for the full course of medication as directed. You should also continue with your other IV antibiotics which are for your bone infection. Please follow-up with your primary care provider within 2 days. Return to the emergency department if you experience fevers 100.4? F or greater, worsening or uncontrolled pain, vomiting, flank pain, difficulty urinating or for any other concerning symptoms. Prescriptions: New cefdinir 300 mg capsule 300 mg PO Q12H Qty: 14 0RF No Action citalopram 10 mg tablet 1 tab PO DAILY donepezil 10 mg tablet 1 tab PO BEDTIME clopidogrel 75 mg tablet 1 tab PO DAILY aspirin 81 mg tablet,delayed release (DR/EC) 1 tab PO DAILY tamsulosin 0.4 mg capsule 1 cap PO DAILY amlodipine 10 mg tablet 1 tab PO DAILY finasteride 5 mg tablet 1 tab PO DAILY insulin glargine [Lantus U-100 Insulin] 100 unit/mL solution 3 unit subcut BEDTIME Farxiga 10 mg tablet 1 tab PO DAILY acetaminophen 500 mg Tablet 1,000 mg PO Q6H PRN (Reason: Fever Or Pain) daptomycin 500 mg Recon Soln 465 mg IV Q24H Qty: 41 0RF Rx Instructions: end date is 12/08/22 lisinopril 10 mg tablet 5 mg PO BEDTIME Qty: 30 0RF Rx Instructions: start on 10/31/22 after repeating bmp
--- NOTE | 2022-11-20 11:40 | MHC.CM.ED ---
Received notification from Chris [facility]ODER that patient is active with their agency. Referral sent in [facility] so they can follow for d/c needs.
[2022-11-20 11:51] VITALS: BP 132/66; PULSE 68; RESP 16; TEMP 37; O2SAT 98
--- NOTE | 2022-11-20 13:48 | PHA.MEDREC ---
Pharmacy Consult ? Medication Reconciliation Pharmacy has completed the medication reconciliation.
--- NOTE | 2022-11-20 14:38 | PC.NURSE ---
delay of antibiotic admin d/t waiting for pharmacy to bring the med to the ED.
== END 2022-11-24 08:13 | disposition home or self-care (01) ==
PROVIDERS: Emergency Provider Emergency Medicine; PCP Internal Medicine
DX: N39.0 Urinary tract infection, site not specified (principal); B96.4 Proteus (mirabilis) (morganii) as the cause of diseases classified elsewhere; E11.22 Type 2 diabetes mellitus with diabetic chronic kidney disease; I12.9 Hypertensive chronic kidney disease with stage 1 through stage 4 chronic kidney disease, or unspecified chronic kidney disease; N18.32 Chronic kidney disease, stage 3b; Z87.891 Personal history of nicotine dependence
CPT/HCPCS: 36415; 80048; 81001; 85025; 87086; 87088; 87186; 96365; 99284; J0878

== ENCOUNTER 2022-11-24 12:24 | Outpatient (REF) | payer OTHER, SELFPAY ==
[2022-11-24 14:54] LABS: Blood Urea Nitrogen 36 mg/dL (9-16)
== END 2022-11-24 12:25 | disposition home or self-care (01) ==
LOC: HO.HVNA 12:24
PROVIDERS: Visit Provider Internal Medicine
DX: T14.8XXD Other injury of unspecified body region, subsequent encounter (principal)
CPT/HCPCS: 82550; 84520

== ENCOUNTER 2022-11-27 13:22 | Outpatient (AMB) | payer OTHER, SELFPAY ==
[2022-11-27 13:31] VITALS: BP 110/64; PULSE 67; O2SAT 98; BMI 21.5
--- NOTE | 2022-11-27 13:31 | MHC.OFFVIS ---
Intake Vital Signs 11/27/22 13:31 Height 5 ft 4 in Weight 125 lb BMI 21.5 BP 110/64 Pulse 67 Pulse Source Pulse Oximeter Pulse Oximetry (%) 98 Intake Visit Reasons: F/U,Hospital Visit,Foot Infection Regional Coordinator Required: Yes Regional Coordinator Name: Lauren Mejias CMA Allergies oxycodone [From PERCOCET] Allergy (Unknown, Verified 11/27/22 13:53) CAN'T BREATH/VOMITING simvastatin [SIMVASTATIN] Allergy (Unknown, Verified 11/27/22 13:53) UNKNOWN peas Adverse Reaction (Unknown, Verified 11/27/22 13:53) VOMITING/FAINTING SALMON [id number] Adverse Reaction (Unknown, Uncoded 10/24/22 12:38) VOMITING/FAINT HPI F/U,Hospital Visit,Foot Infection HPI Details He is here with daughter Arsh. He is taking Daptomycin as well as Cefdinir 8/7 for 7 days,concern over UTI. He has no complaints. [facility] Medical History BPH (benign prostatic hyperplasia) CKD stage G3b/A1, GFR 30-44 and albumin creatinine ratio <30 mg/g Dementia Diabetes Dog bite History of amputation of toe Hypertension Plantar ulcer of left foot Rhabdomyolysis Stage 3b chronic kidney disease (CKD) Family History Other Diabetes HTN (hypertension) Social History Household Members: Spouse Housing: Apartment Do you presently have visiting nurse or other home services: Yes Alcohol intake: never Patient Tobacco Use Status: Former Tobacco user Quit Date: 1999 Advance Directives Date on File: 01/25/21 service: No Current occupational status: retired Review of Systems Const All systems reviewed & are unremarkable except as noted in HPI and below Physical Exam Vital Signs: Last Vital Signs Pulse 67 11/27/22 13:31 BP 110/64 11/27/22 13:31 Pulse Ox 98 11/27/22 13:31 BMI result Body Mass Index 21.5 Const Other: General: cooperative Orientation/consciousness: patient oriented x3 HEENT Head: Yes normal to inspection Mouth: Normal oral and palatal mucosa present Eyes General: appearance normal, both eyes and all related structures Pupils: Equal, round and reactive pupils present Resp Effort & Inspection: normal respiratory effort Cardio Rate: regular rate Rhythm: regular rhythm GI Palpation (GI): Soft to palpation and nontender General: Yes no CVA tenderness Back/Spine/Pelvis Back: no CVA tenderness Skin General skin exam: no rashes or lesions noted Neuro General: patient oriented x3 Cranial nerves: Yes CN's II-XII intact bilaterally and Yes Equal, round and reactive pupils present Extrem General: Yes normal to inspection Psych Appearance: grossly normal Assessment & Plan Assessment & Plan (1) Plantar ulcer of left foot: Comment: He is tolerating antibiotics Code(s): L97.529 - Non-pressure chronic ulcer of other part of left foot with unspecified severity Plan: Finish six weeks IV Daptomycin. See as scheduled. Follow Wound Clinic. Orders: Orders IR cvc remove any age 0811/27/22 M86.9 - Osteomyelitis, unspecified Medications: New doxycycline hyclate 100 mg PO BID 30 days 60 caps 1RF Coding Level of Care Code Est Pt Level 3 (56276) Diagnoses Plantar ulcer of left foot L97.529
== END 2022-11-27 14:18 | disposition home or self-care (01) ==
LOC: HO.HID 13:22
PROVIDERS: PCP Internal Medicine; Visit Provider Internal Medicine
DX: L97.529 Non-pressure chronic ulcer of other part of left foot with unspecified severity (principal)
CPT/HCPCS: 99213

== ENCOUNTER → 2022-11-27 13:22 | Outpatient (BNVA) | payer OTHER, SELFPAY | PROVIDERS: PCP Internal Medicine; Visit Provider Internal Medicine | DX: Z45.2 Encounter for adjustment and management of vascular access device (principal); E11.69 Type 2 diabetes mellitus with other specified complication; M86.9 Osteomyelitis, unspecified; E11.65 Type 2 diabetes mellitus with hyperglycemia; E11.22 Type 2 diabetes mellitus with diabetic chronic kidney disease; E11.621 Type 2 diabetes mellitus with foot ulcer; L97.529 Non-pressure chronic ulcer of other part of left foot with unspecified severity; I12.9 Hypertensive chronic kidney disease with stage 1 through stage 4 chronic kidney disease, or unspecified chronic kidney disease; N18.32 Chronic kidney disease, stage 3b; Z87.891 Personal history of nicotine dependence | CPT/HCPCS: 99212 ==

== ENCOUNTER 2022-11-28 10:26 | Outpatient (REF) | payer OTHER, SELFPAY ==
[2022-11-28 10:34] LABS: MANUAL DIFF FLAG NO
[2022-11-28 10:38] LABS: Basophils Absolute Auto 0.1 X10*3/uL (0.0-0.2); Basophils Percent Auto 0.8 % (0-2); Eosinophils Absolute Auto 0.2 X10*3/uL (0.0-0.4); Eosinophils Percent Auto 2.9 % (0-4); Hematocrit 39.1 % (42.0-52.0); Hemoglobin 12.8 g/dl (14.0-18.0); Imm Gran Abs Auto 0.06 X10*3/uL (0.00-0.03); Lymphocytes Absolute Auto 1.1 X10*3/uL (1.2-4.9); Lymphocytes Percent Auto 17.6 % (20-40); Mean Corpuscular HGB Conc 32.7 g/dl (31.0-36.0); Mean Corpuscular Hemoglobin 27.9 pg (27.0-33.0); Mean Corpuscular Volume 85.2 fL (80.0-98.0); Mean Platelet Volume 9.9 fL (9.4-12.4); Monocytes Absolute Auto 0.3 X10*3/uL (0.1-1.2); Monocytes Percent Auto 5.3 % (2-11); Neutrophils Absolute Auto 4.5 x10*3/uL (2.0-8.3); Neutrophils Percent Auto 72.4 % (45-73); Platelet Count 312 X10*3/uL (160-400); Red Blood Count 4.59 X10*6/uL (4.60-5.80); Red Cell Distribution Width 13.2 % (11.0-16.0); White Blood Count 6.3 X10*3/uL (4.8-10.8)
[2022-11-28 11:18] LABS: Blood Urea Nitrogen 32 mg/dL (9-16)
== END 2022-11-28 10:27 | disposition home or self-care (01) ==
LOC: HO.HVNA 10:26
PROVIDERS: Visit Provider Internal Medicine
DX: M86.172 Other acute osteomyelitis, left ankle and foot (principal)
CPT/HCPCS: 36415; 82550; 84520; 85025

== ENCOUNTER 2022-12-06 12:56 | Outpatient (REF) | payer OTHER, SELFPAY ==
[2022-12-06 13:02] LABS: MANUAL DIFF FLAG NO
[2022-12-06 13:10] LABS: Basophils Absolute Auto 0.1 X10*3/uL (0.0-0.2); Basophils Percent Auto 0.7 % (0-2); Eosinophils Absolute Auto 0.1 X10*3/uL (0.0-0.4); Eosinophils Percent Auto 0.9 % (0-4); Hematocrit 36.5 % (42.0-52.0); Hemoglobin 11.8 g/dl (14.0-18.0); Imm Gran Abs Auto 0.02 X10*3/uL (0.00-0.03); Imm Gran Pct Auto 0.3 % (0.0-0.4); Lymphocytes Percent Auto 14.1 % (20-40); Mean Corpuscular HGB Conc 32.3 g/dl (31.0-36.0); Mean Corpuscular Volume 86.7 fL (80.0-98.0); Mean Platelet Volume 10.2 fL (9.4-12.4); Monocytes Absolute Auto 0.5 X10*3/uL (0.1-1.2); Monocytes Percent Auto 6.4 % (2-11); Neutrophils Absolute Auto 5.7 x10*3/uL (2.0-8.3); Neutrophils Percent Auto 77.6 % (45-73); Platelet Count 266 X10*3/uL (160-400); Red Blood Count 4.21 X10*6/uL (4.60-5.80); Red Cell Distribution Width 13.3 % (11.0-16.0); White Blood Count 7.4 X10*3/uL (4.8-10.8)
[2022-12-06 14:28] LABS: Blood Urea Nitrogen 43 mg/dL (9-16)
== END 2022-12-06 12:57 | disposition home or self-care (01) ==
LOC: HO.HVNA 12:56
PROVIDERS: Visit Provider Internal Medicine
DX: L03.115 Cellulitis of right lower limb (principal)
CPT/HCPCS: 36415; 82550; 84520; 85025

== ENCOUNTER 2022-12-27 10:12 | Outpatient (REF) | payer OTHER, SELFPAY ==
[2022-12-27 10:34] LABS: MANUAL DIFF FLAG NO
[2022-12-27 10:45] LABS: Basophils Percent Auto 0.5 % (0-2); Eosinophils Absolute Auto 0.1 X10*3/uL (0.0-0.4); Eosinophils Percent Auto 0.9 % (0-4); Hematocrit 38.6 % (42.0-52.0); Hemoglobin 12.9 g/dl (14.0-18.0); Lymphocytes Absolute Auto 0.9 X10*3/uL (1.2-4.9); Lymphocytes Percent Auto 15.7 % (20-40); Mean Corpuscular HGB Conc 33.4 g/dl (31.0-36.0); Mean Corpuscular Hemoglobin 28.3 pg (27.0-33.0); Mean Corpuscular Volume 84.6 fL (80.0-98.0); Mean Platelet Volume 9.7 fL (9.4-12.4); Monocytes Absolute Auto 0.4 X10*3/uL (0.1-1.2); Monocytes Percent Auto 6.5 % (2-11); Neutrophils Absolute Auto 4.5 x10*3/uL (2.0-8.3); Neutrophils Percent Auto 76.4 % (45-73); Platelet Count 206 X10*3/uL (160-400); Red Blood Count 4.56 X10*6/uL (4.60-5.80); Red Cell Distribution Width 13.4 % (11.0-16.0); White Blood Count 5.9 X10*3/uL (4.8-10.8)
[2022-12-27 11:10] LABS: Appearance Urine Clear; Color Urine Yellow; Glucose Urine UA >=1000 mg/dL (Negative); Leukocyte Esterase Urine Moderate (2+) (Negative); Nitrite Urine Negative (Negative); PH 5.5 (5.0-9.0); UMIC TRIGGER UA YES; Urine Blood Negative (Negative); Urine Ketones Negative (Negative); Urine Protein 30 (1+) mg/dL (Neg-Trace)
[2022-12-27 11:16] LABS: Bacteria Urine None Seen (None Seen); Hyaline Casts Urine 0-2 /LPF (0-2); RBC Urine 0-2 /HPF (0-2); Squamous Epithelial Cell Urine 0-2 /HPF (0-2); WBC Urine >50 /HPF (0-5)
[2022-12-27 11:17] LABS: Albumin Level 3.9 g/dL (3.5-5.0); Anion Gap 11 (12-20); Blood Urea Nitrogen 37 mg/dL (9-16); Calcium 9.5 mg/dL (8.4-10.2); Carbon Dioxide 25 mmol/L (22-29); Chloride 106 mmol/L (96-108); Estimated Glomerular Filt Rate 34; Phosphorus 3.5 mg/dL (2.7-4.5); Potassium 4.7 mmol/L (3.3-5.1); Sodium 137 mmol/L (135-145)
[2022-12-27 11:30] LABS: Creatinine Urine 74.41 mg/dL; Microalbum/Creatinine Ratio Ur 403.1 ug/mg cr (<30); Protein/Creatinine Ratio, Ur 0.65 (<0.2); Total Protein Urine Random 48 mg/dL (<12)
[2022-12-27 11:34] LABS: Vitamin D 25-OH Total 31.9 ng/mL (>30)
[2022-12-29 23:58] LABS: Calcium (PTHI) 9.3 mg/dL (8.6-10.3); PTHI 84 pg/mL (16-77)
== END 2022-12-27 10:13 | disposition home or self-care (01) ==
LOC: HO.LAB 10:12
PROVIDERS: PCP Internal Medicine; Visit Provider Internal Medicine Nephrology
DX: E11.22 Type 2 diabetes mellitus with diabetic chronic kidney disease (principal); E11.21 Type 2 diabetes mellitus with diabetic nephropathy; E11.621 Type 2 diabetes mellitus with foot ulcer; L97.529 Non-pressure chronic ulcer of other part of left foot with unspecified severity; I12.9 Hypertensive chronic kidney disease with stage 1 through stage 4 chronic kidney disease, or unspecified chronic kidney disease; N18.32 Chronic kidney disease, stage 3b
CPT/HCPCS: 36415; 80051; 81001; 82040; 82043; 82306; 82310; 82565; 82570; 83735; 83970; 84100; 84156; 84520; 85025; 99212

== ENCOUNTER 2022-12-27 10:50 | Outpatient (AMB) | payer OTHER, SELFPAY ==
--- NOTE | 2022-12-27 10:52 | MHC.OFFVIS ---
Intake Vital Signs 12/27/22 11:03 Height 5 ft 4 in Weight 123 lb BMI 21.1 BP 108/56 L Blood Pressure Location Rt brachial Position Sitting Pulse 63 Pulse Source Pulse Oximeter Pulse Oximetry (%) 98 Intake Visit Reasons: F/U 1 mth. Senior Payroll Administrator Required: Yes Senior Payroll Administrator Name: Lauren Mejias CMA Allergies oxycodone [From PERCOCET] Allergy (Unknown, Verified 11/27/22 13:53) CAN'T BREATH/VOMITING simvastatin [SIMVASTATIN] Allergy (Unknown, Verified 11/27/22 13:53) UNKNOWN peas Adverse Reaction (Unknown, Verified 11/27/22 13:53) VOMITING/FAINTING SALMON [id number] Adverse Reaction (Unknown, Uncoded 10/24/22 12:38) VOMITING/FAINT HPI F/U 1 mth. HPI Details He has no complaints. He is doing well. REPLACED BY [facility] Medical History Plantar ulcer of left foot Stage 3b chronic kidney disease (CKD) History of amputation of toe CKD stage G3b/A1, GFR 30-44 and albumin creatinine ratio <30 mg/g Dementia BPH (benign prostatic hyperplasia) Hypertension Dog bite Rhabdomyolysis Diabetes Family History Other Diabetes HTN (hypertension) Social History Household Members: Spouse Housing: Apartment Do you presently have visiting nurse or other home services: Yes Alcohol intake: never Patient Tobacco Use Status: Former Tobacco user Quit Date: 1999 Advance Directives Date on File: 01/25/21 service: No Current occupational status: retired Review of Systems Const All systems reviewed & are unremarkable except as noted in HPI and below Physical Exam Vital Signs: Last Vital Signs Pulse 63 12/27/22 11:03 BP 108/56 L 12/27/22 11:03 Pulse Ox 98 12/27/22 11:03 BMI result Body Mass Index 21.1 Const Other: General: cooperative Orientation/consciousness: patient oriented x3 HEENT Head: Yes normal to inspection Mouth: Normal oral and palatal mucosa present Eyes General: appearance normal, both eyes and all related structures Pupils: Equal, round and reactive pupils present Resp Effort & Inspection: normal respiratory effort Cardio Rate: regular rate Rhythm: regular rhythm GI Palpation (GI): Soft to palpation and nontender General: Yes no CVA tenderness Back/Spine/Pelvis Back: no CVA tenderness Skin General skin exam: no rashes or lesions noted Neuro General: patient oriented x3 Cranial nerves: Yes CN's II-XII intact bilaterally and Yes Equal, round and reactive pupils present Extrem Other: foot improving General: Yes normal to inspection Psych Appearance: grossly normal Assessment & Plan Assessment & Plan (1) Plantar ulcer of left foot: Comment: He is tolerating antibiotics Code(s): L97.529 - Non-pressure chronic ulcer of other part of left foot with unspecified severity Plan No further IV antibiotics Po Doxycycline one to two months. See as needed. Coding Level of Care Code Est Pt Level 3 (09985) Diagnoses Plantar ulcer of left foot L97.529
[2022-12-27 11:03] VITALS: BP 108/56; PULSE 63; O2SAT 98; BMI 21.1
== END 2022-12-27 11:35 | disposition home or self-care (01) ==
LOC: HO.HID 10:50
PROVIDERS: PCP Internal Medicine; Visit Provider Internal Medicine
DX: L97.529 Non-pressure chronic ulcer of other part of left foot with unspecified severity (principal)
CPT/HCPCS: 99213

== ENCOUNTER 2024-01-12 15:04 | Inpatient (IN) | payer OTHER, SELFPAY ==
--- NOTE | ~2024-01-12 | XR_ITS ---
EXAMINATION: XR FOOT, RIGHT CLINICAL INFORMATION: second toe infx COMPARISON: None available. TECHNIQUE: AP, lateral, and oblique views of the right foot. FINDINGS: Subcutaneous emphysema noted throughout the second toe. The second digit is swollen. There is foreshortening osseous erosion of the distal aspect of the second digit distal phalanx. No acute fracture. Status post remote amputation at the fourth digit metatarsal head. Alignment of the osseous structures remains anatomic with joint space is maintained. Vascular calcifications throughout the foot noted. XR/XR foot RT min 3V IMPRESSION: Soft tissue swelling of the second toe with subcutaneous emphysema and osseous erosion of the distal aspect of the second digit distal phalanx. Findings are concerning for osteomyelitis. Electronically signed by: Shayna Burciaga DO 01/12/2024 04:24 PM EDT
--- NOTE | ~2024-01-12 | US_ITS ---
EXAMINATION: NONINVASIVE ASSESSMENT OF THE ARTERIES OF THE RIGHT LOWER EXTREMITY INTERPRETING VASCULAR & INTERVENTIONAL RADIOLOGIST: Cleveland Benítez MD CLINICAL INFORMATION: Reason for Exam right dfu/om TECHNIQUE: Right lower extremity duplex ultrasound was performed with velocity measurements and waveform analysis in the common femoral arteries, profunda femoris arteries, proximal mid and distal superficial femoral arteries, popliteal arteries and tibial vessels. This study was performed only at rest. COMPARISON: None FINDINGS: Velocities in cm/sec and phasicity as well as the presence of plaque are reported below. RIGHT LEG: Mild plaque is seen. Triphasic flow is noted in the common femoral artery with biphasic flow noted in the SFA and profunda femoris. In the proximal popliteal artery there is biphasic flow. In the distal popliteal artery and all visualized tibial vessels there is monophasic flow with the exception of the peroneal demonstrates biphasic flow. No focal areas of velocity acceleration are seen to suggest a single focal stenosis. Common Femoral: 97 Profunda Femoris: 52 Proximal SFA: 99 Mid SFA: 106 Distal SFA: 88 Popliteal: 131 Posterior tibial: 125 Peroneal: 73 anterior tibial artery: 70 Dorsalis pedis: 96 US/US arterial duplex LE RT IMPRESSION: No evidence of a focal hemodynamically significant stenosis is seen. There is evidence of tibial disease with monophasic flow in the distal popliteal artery and all visualized tibial vessels. Electronically signed by: Cleveland Benítez MD 01/12/2024 08:17 PM EDT
[2024-01-12 15:08] VITALS: BP 135/61; PULSE 87; RESP 16; TEMP 36.9; O2SAT 96; BMI 21.5
--- NOTE | 2024-01-12 15:12 | ED.GENADULT ---
HPI - General Adult General Chief complaint: Skin/Abscess/Foreign Body Stated complaint: rt foot 2nd toe black/infected Time Seen by Provider: 01/12/24 16:20 Source: family Limitations: language barrier History of Present Illness ED Provider: Becki Vegas PA-C HPI narrative: 73 y/o male with a history of diabetes with neuropathy, chronic kidney disease, hypertension presents with right foot infection. Per the patient's daughter who acts as card tape converter operator, the patient was unaware that he had an infection developing of the right foot. Over the past 3 days the patient has had fevers at home, without any associated symptoms. He noticed in the shower today that his right 2nd toe was infected. Patient is unaware how long the toe has been infected. Related Data Home Medications ?Medication ?Instructions ?Recorded ?Confirmed aspirin 81 mg tablet,delayed 1 tab PO DAILY 01/24/21 11/20/22 release citalopram 10 mg tablet 1 tab PO DAILY 01/24/21 11/20/22 clopidogrel 75 mg tablet 1 tab PO DAILY 01/24/21 11/20/22 donepezil 10 mg tablet 1 tab PO BEDTIME 01/24/21 11/20/22 finasteride 5 mg tablet 1 tab PO DAILY 01/24/21 11/20/22 insulin glargine 100 unit/mL 3 unit subcut BEDTIME 01/24/21 11/20/22 subcutaneous solution (Lantus U-100 Insulin) tamsulosin 0.4 mg capsule 1 cap PO DAILY 01/24/21 11/20/22 acetaminophen 500 mg tablet 1,000 mg PO Q6H PRN Fever Or Pain 10/24/22 11/20/22 Previous Rx's ?Medication ?Instructions ?Recorded daptomycin 500 mg intravenous 465 mg IV Q24H #41 ea 10/28/22 solution lisinopril 10 mg tablet 5 mg (1/2 x 10 mg) PO BEDTIME #30 10/28/22 tabs doxycycline hyclate 100 mg capsule 100 mg PO BID 30 days #60 caps 11/27/22 Allergies Allergy/AdvReac Type Severity Reaction Status Date / Time oxycodone [From PERCOCET] Allergy Unknown CAN'T Verified 01/12/24 15:15 BREATH/VOMITING simvastatin [SIMVASTATIN] Allergy Unknown UNKNOWN Verified 01/12/24 15:15 peas AdvReac Unknown VOMITING/FA Verified 01/12/24 15:15 INTING SALMON [id number] AdvReac Unknown VOMITING/FA Uncoded 10/24/22 12:38 INT Review of Systems Review of Systems: Yes all other systems are reviewed and are negative Constitutional: Constitutional: Denies fatigue and Reports fever(s) Cardiovascular: Cardiovascular: Denies chest pain and Denies dyspnea Respiratory: Respiratory: Denies cough and Denies dyspnea Gastrointestinal: Gastrointestinal: Denies diarrhea and Denies vomiting Endocrine: Endocrine: Denies fatigue PMFSH Past Medical History Attestation statement: The following information was validated with the patient. Medical History Plantar ulcer of left foot Stage 3b chronic kidney disease (CKD) History of amputation of toe CKD stage G3b/A1, GFR 30-44 and albumin creatinine ratio <30 mg/g Dementia BPH (benign prostatic hyperplasia) Hypertension Dog bite Rhabdomyolysis Diabetes Surgical History History of amputation of toe Family History Family History Other Diabetes HTN (hypertension) Social History Social History Household Members: Spouse Housing: Apartment Do you presently have visiting nurse or other home services: Yes Alcohol intake: never Patient Tobacco Use Status: Former Tobacco user Smoked in Last 30 Days: No Use of substances other than those prescribed or required for medical reasons: No Advance Directives: Yes Advance Directives on File: Yes Advance Directives Date on File: 01/25/21 service: No Current occupational status: retired Physical Exam ED Vital Signs: Vital Signs - 24 hr 01/12/24 15:08 Temperature 98.5 F Pulse Rate 87 Respiratory Rate 16 Blood Pressure 135/61 Pulse Oximetry 96 Oxygen Delivery Method Room Air BMI result Body Mass Index 21.5 Const Other: Alert, well in appearance Orientation/consciousness: patient oriented x3 Resp Effort & Inspection: normal respiratory effort Cardio Other: Normal peripheral perfusion Skin Other: Warm dry no rash Neuro General: patient oriented x3, no focal motor deficits and CN's II-XI intact bilaterally Extrem Other: The right 2nd toe is necrotic, with the associated foul smell, there is overlying erythema this spans over the dorsum of the right foot Psych Other: Calm cooperative Course Course Course Narrative: This is an RME: Additional HPI, ROS, PE not included below will be deferred to primary provider. RME assessment and note performed by: Elma Pratt PA-C This is a 89-[id number]-[place]ian-speaking male, with a hx of diabetes, CKD, and osteomyelitis, who presents to the ER accompanied by his daughter, with a complaint of right second toe pain/redness. Daughter reports that patient has been having fevers and body aches for the last several days and daughter attributed to possible flu > pt did not disclose that his toe was changing colors until today. Pt recently seen by podiatry this past month where they trimmed his nails > normal exam. Right 2nd toe with wet gangrenous appearance. Strong DP pulse. Surrounding warmth and erythema noted. Plan: Labs, xray, lactic and cultures Medications Administered Generic Name Dose Route Start Last Admin Trade Name Freq PRN Reason Stop Dose Admin Vancomycin HCl 1,500 mg/ 500 mls @ 333.333 mls/hr 01/12/24 16:55 01/12/24 17:26 Sodium Chloride IV 01/12/24 18:24 333.33 mls/hr ONCE ONE Administration Sodium Chloride 1,000 mls @ 999 mls/hr 01/12/24 17:00 01/12/24 17:32 Ns IV 01/12/24 18:00 999 mls/hr .Q1H1M [id number] Administration Discontinued Medications Generic Name Dose Route Start Last Admin Trade Name Freq PRN Reason Stop Dose Admin Piperacillin Sod/Tazobactam 50 mls @ 100 mls/hr 01/12/24 16:55 01/12/24 17:27 Sod 3.375 gm/ Sodium Chloride IV 01/12/24 17:24 100 mls/hr ONCE ONE Administration Medical Decision Making Medical Decision Making MDM Narrative: 73 y/o male with a history of diabetes with neuropathy, chronic kidney disease, hypertension presents with right foot infection. Per the patient's daughter who acts as card tape converter operator, the patient was unaware that he had an infection developing of the right foot. Over the past 3 days the patient has had fevers at home, without any associated symptoms. He noticed in the shower today that his right 2nd toe was infected. Patient is unaware how long the toe has been infected. Problem: Diabetes and chronic kidney disease History: Per patient's daughter who acts as in turn I have considered the following differential diagnoses: Gangrene, dry gangrene, cellulitis, purulent cellulitis, osteomyelitis, sepsis Plan: The patient is assessment began inRME, screening labs including blood cultures, lactic acid and xray obtained. The patient requires admission. Lactate suddenly bumped at 2.2 we will be starting a 1 L of IV fluid, vanco and Zosyn. We will repeat the lactate at the 2 hour ray. At this point, the patient has some SIRS criteria, but is not septic. He is normotensive, he is not tachycardic, he is afebrile at this time. I have independently reviewed the following tests: Labs: No overall leukocytosis, however the patient does have a left shift, not anemic, no electrolyte abnormality, his creatinine is at baseline, 1st lactate is 2.2 xray right foot: P, lateral, and oblique views of the right foot. FINDINGS: Subcutaneous emphysema noted throughout the second toe. The second digit is swollen. There is foreshortening osseous erosion of the distal aspect of the second digit distal phalanx. No acute fracture. Status post remote amputation at the fourth digit metatarsal head. Alignment of the osseous structures remains anatomic with joint space is maintained. Vascular calcifications throughout the foot noted. XR/XR foot RT min 3V IMPRESSION: Soft tissue swelling of the second toe with subcutaneous emphysema and osseous erosion of the distal aspect of the second digit distal phalanx. Findings are concerning for osteomyelitis. Electronically signed by: Shayna Burciaga DO 01/12/2024 04:24 PM EDT Lab Data 01/12/24 15:46 01/12/24 15:46 Labs: Lab Results 01/12/24 Range/Units 15:46 WBC 9.2 (4.8-10.8) X10*3/uL RBC 4.93 (4.60-5.80) X10*6/uL Hgb 13.4 L (14.0-18.0) g/dl Hct 40.8 L (42.0-52.0) % MCV 82.8 (80.0-98.0) fL MCH 27.2 (27.0-33.0) pg MCHC 32.8 (31.0-36.0) g/dl RDW 14.6 (11.0-16.0) % Plt Count 282 D (160-400) X10*3/uL MPV 9.2 L (9.4-12.4) fL Immature Gran % (Auto) 0.4 (0.0-0.4) % Neut % (Auto) 86.4 H (45-73) % Lymph % (Auto) 6.9 L (20-40) % [place] % (Auto) 5.2 (2-11) % Eos % (Auto) 0.7 (0-4) % Baso % (Auto) 0.4 (0-2) % Lymph # (Auto) 0.6 L (1.2-4.9) X10*3/uL [place] # (Auto) 0.5 (0.1-1.2) X10*3/uL Eos # (Auto) 0.1 (0.0-0.4) X10*3/uL Baso # (Auto) 0.0 (0.0-0.2) X10*3/uL Abs Immat Gran (auto) 0.04 H (0.00-0.03) X10*3/uL Absolute Neuts (auto) 7.9 (2.0-8.3) x10*3/uL Absolute Nucleated RBC 0.000 (0.0-0.012) X10*3/uL Nucleated RBC % (auto) 0.0 (0.0-0.2) /100WBC Sodium 135 (135-145) mmol/L Potassium 4.1 (3.3-5.1) mmol/L Chloride 101 (96-108) mmol/L Carbon Dioxide 23 (22-29) mmol/L Anion Gap 15 (12-20) BUN 25 H (9-16) mg/dL Creatinine 1.96 H (0.5-1.4) mg/dL Estim Creat Clear Calc 27.3 Estimated GFR 34 Random Glucose 299 H (60-115) mg/dL Lactic Acid 2.2 H* (0.5-2.0) mmol/L Calcium 9.9 (8.4-10.2) mg/dL Total Bilirubin 0.9 (0.0-1.0) mg/dL Direct Bilirubin 0.4 (0.0-0.5) mg/dL AST 13 (5-37) U/L ALT 10 (0-40) U/L Alkaline Phosphatase 105 (39-117) U/L Total Protein 8.2 H (6.5-8.0) g/dL Albumin 4.1 (3.5-5.0) g/dL Discharge Plan Discharge Clinical Impression: Osteomyelitis Patient Disposition: Admitted As Inpatient
[2024-01-12 15:52] LABS: MANUAL DIFF FLAG NO
[2024-01-12 15:54] LABS: Basophils Percent Auto 0.4 % (0-2); Eosinophils Absolute Auto 0.1 X10*3/uL (0.0-0.4); Eosinophils Percent Auto 0.7 % (0-4); Hematocrit 40.8 % (42.0-52.0); Hemoglobin 13.4 g/dl (14.0-18.0); Imm Gran Abs Auto 0.04 X10*3/uL (0.00-0.03); Imm Gran Pct Auto 0.4 % (0.0-0.4); Lymphocytes Absolute Auto 0.6 X10*3/uL (1.2-4.9); Lymphocytes Percent Auto 6.9 % (20-40); Mean Corpuscular HGB Conc 32.8 g/dl (31.0-36.0); Mean Corpuscular Hemoglobin 27.2 pg (27.0-33.0); Mean Corpuscular Volume 82.8 fL (80.0-98.0); Mean Platelet Volume 9.2 fL (9.4-12.4); Monocytes Absolute Auto 0.5 X10*3/uL (0.1-1.2); Monocytes Percent Auto 5.2 % (2-11); Neutrophils Absolute Auto 7.9 x10*3/uL (2.0-8.3); Neutrophils Percent Auto 86.4 % (45-73); Platelet Count 282 X10*3/uL (160-400); Red Blood Count 4.93 X10*6/uL (4.60-5.80); Red Cell Distribution Width 14.6 % (11.0-16.0); White Blood Count 9.2 X10*3/uL (4.8-10.8)
[2024-01-12 16:10] LABS: Alanine Aminotransferase 10 U/L (0-40); Albumin Level 4.1 g/dL (3.5-5.0); Alkaline Phosphatase 105 U/L (39-117); Anion Gap 15 (12-20); Aspartate Amino Transferase 13 U/L (5-37); Bilirubin Direct 0.4 mg/dL (0.0-0.5); Bilirubin Total 0.9 mg/dL (0.0-1.0); Blood Urea Nitrogen 25 mg/dL (9-16); Calcium 9.9 mg/dL (8.4-10.2); Carbon Dioxide 23 mmol/L (22-29); Chloride 101 mmol/L (96-108); Creatinine Clr Calc Pharmacy 27.3; Estimated Glomerular Filt Rate 34; Glucose Random 299 mg/dL (60-115); Potassium 4.1 mmol/L (3.3-5.1); Sodium 135 mmol/L (135-145); Total Protein 8.2 g/dL (6.5-8.0)
[2024-01-12 16:14] LABS: Lactic Acid 2.2 mmol/L (0.5-2.0)
--- NOTE | 2024-01-12 16:36 | PC.NURSE ---
patient arrives through external triage from home, daughter states for the last week or so he has been feeling unwell, thought he may have the flu since the grandadughter had the flu recently, afebrile at home, patient would not let daughter see foot and would not take off shoes, daughter states she went to look at his toe and his right middle toe is necrotic and foul smelling. has hx of DM, has had prior toe amputations in the past. patient denies any pain to the foot, states he has neuropathy and doesnt have much sensation in his toes to start. 18g PIV placed in LAC, 20g IV placed in left forearm. patient placed on teletypesetter monitor, VSS at this time. denies nausea or vomiting or fevers at home.
[2024-01-12] MEDS: vancomycin HCL 1,500 MG in 0.9 % Sodium Chloride 500 ML 333.33 MG IV (17:26)
[2024-01-12] MEDS: Piperacillin Sodium/Tazobactam 3.375 GM in 0.9 % Sodium Chloride 50 ML IV (17:27)
[2024-01-12] MEDS: 0.9 % Sodium Chloride 1,000 ML 999 ML IV (17:32)
--- NOTE | 2024-01-12 17:45 | HO.SKINPHOTO ---
Location:Right 2nd toe Category: Stage: Length: Width: Depth: cm Location: Category: Stage: Length: Width: Depth: cm Location: Category: Stage: Length: Width: Depth: cm Location: Category: Stage: Length: Width: Depth: cm Location: Category: Stage: Length: Width: Depth: cm Location: Category: Stage: Length: Width: Depth: cm
--- NOTE | 2024-01-12 17:49 | P.HPHOSP_ITS ---
History of Present Illness Date of Service: 01/12/24 Chief Complaint: fever, chills, black toe 73M PMH Alzheimer dementia, diabetes, CKD 4, history of osteomyelitis, pvd, BPH presented with fevers and chills and found to have right 2nd toe necrosis. Patient has been having fever and chills for about 3 days prior to presentation, thought to be due to flu as they were sick contacts at home, spent most of time in bed. Then on day of presentation when to take a bath and took off sock and noted to have erythema on dorsum of the right foot and black 2nd toe with foul odor. In ED, x-ray with osteomyelitis, patient afebrile white blood cell count 9.2. Review of Systems 2 Review of Systems: Yes all other systems are reviewed and are negative [facility] Medical History Plantar ulcer of left foot Stage 3b chronic kidney disease (CKD) CKD stage G3b/A1, GFR 30-44 and albumin creatinine ratio <30 mg/g Dementia BPH (benign prostatic hyperplasia) Hypertension Dog bite Rhabdomyolysis Diabetes Family History Other Diabetes HTN (hypertension) Surgical History History of amputation of toe Social History Household Members: Spouse Housing: Apartment Do you presently have visiting nurse or other home services: Yes Alcohol intake: never Patient Tobacco Use Status: Former Tobacco user Smoked in Last 30 Days: No Use of substances other than those prescribed or required for medical reasons: No Advance Directives: Yes Advance Directives on File: Yes Advance Directives Date on File: 01/25/21 service: No Current occupational status: retired Meds Allergies Allergy/AdvReac Type Severity Reaction Status Date / Time oxycodone [From PERCOCET] Allergy Unknown CAN'T Verified 01/12/24 15:15 BREATH/VOMITING simvastatin [SIMVASTATIN] Allergy Unknown UNKNOWN Verified 01/12/24 15:15 peas AdvReac Unknown VOMITING/FA Verified 01/12/24 15:15 INTING SALMON [id number] AdvReac Unknown VOMITING/FA Uncoded 10/24/22 12:38 INT Active Medications: Current Medications Glucose (Glucose Gel 15 Gm Gel..Gram.) 15 gm PO Q15M PRN; Protocol PRN Reason: per Hypoglycemia Standing Ord. Vancomycin HCl 1,500 mg/ (Sodium Chloride) 500 mls @ 333.333 mls/hr IV ONCE ONE Stop: 01/12/24 18:24 Last Admin: 01/12/24 17:26 Dose: 333.33 mls/hr Sodium Chloride (Ns) 1,000 mls @ 999 mls/hr IV .Q1H1M АЛЕКСАНДР Stop: 01/12/24 18:00 Last Admin: 01/12/24 17:32 Dose: 999 mls/hr Dextrose (D10) 250 mls @ 750 mls/hr IV Q15M PRN; Protocol PRN Reason: per Hypoglycemia Standing Ord. Vancomycin HCl 1,000 mg/ (Sodium Chloride) 270 mls @ 270 mls/hr IV Q12H АЛЕКСАНДР Piperacillin Sod/Tazobactam (Sod 3.375 gm/ Sodium Chloride) 50 mls @ 100 mls/hr IV Q8H АЛЕКСАНДР Insulin Human Lispro (Insulin Lispro 100 Unit/Ml 3 Ml Vial) 0 unit SUBCUT QIDACHS [facility]; Protocol Pharmacy Consult (Consult Rx Vancomycin Dosing) 1 each MISCELLANE DAILY PRN PRN Reason: Consult order Home Medications ?Medication ?Instructions ?Recorded ?Confirmed ?Last Taken ?Type aspirin 81 mg tablet,delayed 1 tab PO DAILY 01/24/21 11/20/22 10/24/22 09:00 History release citalopram 10 mg tablet 1 tab PO DAILY 01/24/21 11/20/22 10/24/22 09:00 History clopidogrel 75 mg tablet 1 tab PO DAILY 01/24/21 11/20/22 10/24/22 09:00 History donepezil 10 mg tablet 1 tab PO BEDTIME 01/24/21 11/20/22 10/23/22 History finasteride 5 mg tablet 1 tab PO DAILY 01/24/21 11/20/22 10/24/22 09:00 History insulin glargine 100 unit/mL 3 unit subcut BEDTIME 01/24/21 11/20/22 10/23/22 History subcutaneous solution (Lantus U-100 Insulin) tamsulosin 0.4 mg capsule 1 cap PO DAILY 01/24/21 11/20/22 10/24/22 09:00 History acetaminophen 500 mg tablet 1,000 mg PO Q6H PRN Fever Or Pain 10/24/22 11/20/22 Unknown History Physical Exam 2 Vital Signs and Narrative: Vital Signs: Last Vital Signs Temp 98.5 F 01/12/24 15:08 Pulse 87 01/12/24 15:08 Resp 16 01/12/24 15:08 BP 135/61 01/12/24 15:08 Pulse Ox 96 01/12/24 15:08 O2 Del Method Room Air 01/12/24 15:08 BMI result Body Mass Index 21.5 alert, no acute distress, lungs clear Results Labs 01/12/24 15:46 01/12/24 15:46 Labs: Laboratory Results - last 24 hr 01/12/24 15:46 MCV 82.8 MCH 27.2 MCHC 32.8 RDW 14.6 Plt Count 282 D MPV 9.2 L Immature Gran % (Auto) 0.4 Neut % (Auto) 86.4 H Lymph % (Auto) 6.9 L [place] % (Auto) 5.2 Eos % (Auto) 0.7 Baso % (Auto) 0.4 Lymph # (Auto) 0.6 L [place] # (Auto) 0.5 Eos # (Auto) 0.1 Baso # (Auto) 0.0 Abs Immat Gran (auto) 0.04 H Absolute Neuts (auto) 7.9 Absolute Nucleated RBC 0.000 Nucleated RBC % (auto) 0.0 Anion Gap 15 Estim Creat Clear Calc 27.3 Estimated GFR 34 Random Glucose 299 H Lactic Acid 2.2 H* Calcium 9.9 Total Bilirubin 0.9 Direct Bilirubin 0.4 AST 13 ALT 10 Alkaline Phosphatase 105 Total Protein 8.2 H Albumin 4.1 Imaging Radiologist's Impressions: Impressions Foot X-Ray 01/12/24 15:13 IMPRESSION: Soft tissue swelling of the second toe with subcutaneous emphysema and osseous erosion of the distal aspect of the second digit distal phalanx. Findings are concerning for osteomyelitis. Electronically signed by: Shayna Burciaga DO 01/12/2024 04:24 PM EDT RP Assessment and Plan (1) Cellulitis of foot: Status: Acute Plan 73M PMH Alzheimer dementia, diabetes, CKD 4, history of osteomyelitis, pvd, BPH presented with fevers and chills and found to have right 2nd toe necrosis Cellulitis of the right foot and osteomyelitis of the right 2nd toe due to diabetes and peripheral vascular disease IV vancomycin and Zosyn, follow up cultures, vascular eval, arterial duplex Alzheimer's dementia Continue Aricept Diabetes Insulin sliding scale CKD 4 Stable, monitor htn lisinopril bph finasteride DVT prophylaxis with heparin subQ Full code Patient with significant infection requiring IV antibiotics and possible surgical intervention therefore expected require at least 2 midnights inpatient Quality Stroke Does the patient have a stroke diagnosis?: No VTE Prior VTE?: No VTE Risk Level:: Medical - moderate - high VTE Device Contraindication: Treatment Not Indicated VTE Drug Contraindication: N/A - Med Ordered
[2024-01-12 17:51] LABS: Reflex Lactate? Lactic Acid Added
[2024-01-12 18:19] LABS: ~Lactic Acid-LAB USE ONLY 1.4 mmol/L (0.5-2.0)
--- NOTE | 2024-01-12 18:21 | PHA.MEDREC ---
Pharmacy Consult ? Medication Reconciliation Pharmacy has completed the medication reconciliation. Spoke with patients daughter at bedside. She brought in his medications. He has not had refills or has taken baby aspirin for about 2 months, she is unsure if the doctor DC'ed but confirmed he has not been taking it. She confirmed he is not on any antibiotics right now. She said he has not used his lantus for 2 months but has it at home. She confirmed it is supposed to be 10 units at bedtime.
[2024-01-12] MEDS: Heparin Sodium,Porcine 5,000 UNIT/ML VIAL 5000 UNIT SUBCUT (18:22)
--- NOTE | 2024-01-12 18:33 | PC.NURSE ---
kitchen called for dinner tray
[2024-01-12 18:50] VITALS: BP 134/73; PULSE 78; RESP 20; TEMP 37.6; O2SAT 99
[2024-01-12 20:47] LABS: Glucose, Whole Blood 230 mg/dL (60-115)
[2024-01-12] MEDS: lisinopriL 10 MG TABLET PO (21:02)
[2024-01-12] MEDS: Donepezil HCl 10 MG TABLET PO (21:02)
[2024-01-12] MEDS: Insulin Lispro 100 UNIT/ML 3 ML VIAL SUBCUT (21:03)
[2024-01-12 21:04] VITALS: BP 146/67; PULSE 75; RESP 20; TEMP 36.9; O2SAT 96
[2024-01-12] MEDS: 0.9 % Sodium Chloride Flush 3 ML SYRINGE IVFLUSH (21:04)
[2024-01-13 00:51] VITALS: BMI 22.1
[2024-01-13] MEDS: Piperacillin Sodium/Tazobactam 3.375 GM in 0.9 % Sodium Chloride 50 ML IV ×3 (01:45→17:25)
[2024-01-13] MEDS: Heparin Sodium,Porcine 5,000 UNIT/ML VIAL 5000 UNIT SUBCUT ×3 (01:47→17:26)
[2024-01-13 03:31] VITALS: BP 132/71; PULSE 66; RESP 16; TEMP 36.3; O2SAT 98
[2024-01-13 06:46] LABS: Anion Gap 13 (12-20); Blood Urea Nitrogen 19 mg/dL (9-16); Calcium 8.7 mg/dL (8.4-10.2); Carbon Dioxide 20 mmol/L (22-29); Chloride 108 mmol/L (96-108); Creatinine Clr Calc Pharmacy 37.8; Estimated Glomerular Filt Rate 47; Glucose Fasting 93 mg/dL (60-99); Potassium 3.5 mmol/L (3.3-5.1); Sodium 137 mmol/L (135-145)
[2024-01-13 06:54] LABS: Hematocrit 33.7 % (42.0-52.0); Hemoglobin 10.8 g/dl (14.0-18.0); Mean Corpuscular Hemoglobin 26.7 pg (27.0-33.0); Mean Corpuscular Volume 83.2 fL (80.0-98.0); Mean Platelet Volume 9.9 fL (9.4-12.4); Platelet Count 255 X10*3/uL (160-400); Red Blood Count 4.05 X10*6/uL (4.60-5.80); Red Cell Distribution Width 14.5 % (11.0-16.0); White Blood Count 5.9 X10*3/uL (4.8-10.8)
[2024-01-13 07:29] VITALS: BP 124/65; PULSE 62; RESP 17; TEMP 36.2; O2SAT 95
[2024-01-13 07:54] LABS: Glucose, Whole Blood 120 mg/dL (60-115)
[2024-01-13] MEDS: 0.9 % Sodium Chloride Flush 3 ML SYRINGE IVFLUSH ×3 (08:16→20:11)
[2024-01-13] MEDS: Finasteride 5 MG TABLET PO (08:17)
[2024-01-13] MEDS: Tamsulosin HCL 0.4 MG CAPSULE PO (08:17)
[2024-01-13] MEDS: Escitalopram Oxalate 5 MG TABLET PO (08:17)
--- NOTE | 2024-01-13 09:49 | P.PNIM_ITS ---
Subjective Subjective Date of Service: 01/13/24 Interval History: feeling better, erythema on dorsum improved, toe necrotic Physical Exam 2 Vital Signs: Vital Signs: Last Vital Signs Temp 97.2 F 01/13/24 07:29 Pulse 62 01/13/24 07:29 Resp 17 01/13/24 07:29 BP 124/65 01/13/24 07:29 Pulse Ox 95 01/13/24 07:29 O2 Del Method Room Air 01/13/24 07:29 BMI result Body Mass Index 22.1 less erythema on dorsum, necrotic 2nd toe of right foot Objective Data Active Medications Acetaminophen (Acetaminophen 325 Mg Tablet) 650 mg PO Q6H PRN PRN Reason: Pain, Mild (Pain Scale 1-3), fever or headache Calcium Carbonate (Calcium Carbonate 750 Mg Tab.Chew) 750 mg PO Q4H PRN PRN Reason: Heartburn Donepezil HCl (Donepezil Hcl 10 Mg Tablet) 10 mg PO BEDTIME [facility] Last Admin: 01/12/24 21:02 Dose: 10 mg Documented By: GILDARDO Escitalopram Oxalate (Escitalopram Oxalate 5 Mg Tablet) 5 mg PO DAILY [facility] Last Admin: 01/13/24 08:17 Dose: 5 mg Documented By: DEYA Finasteride (Finasteride 5 Mg Tablet) 5 mg PO DAILY [facility] Last Admin: 01/13/24 08:17 Dose: 5 mg Documented By: DEYA Glucose (Glucose Gel 15 Gm Gel..Gram.) 15 gm PO Q15M PRN; Protocol PRN Reason: per Hypoglycemia Standing Ord. Heparin Sodium (Porcine) (Heparin Sodium,Porcine 5,000 Unit/Ml Vial) 5,000 unit SUBCUT Q8H [facility] Last Admin: 01/13/24 01:47 Dose: 5,000 unit Documented By: GILDARDO Dextrose (D10) 250 mls @ 750 mls/hr IV Q15M PRN; Protocol PRN Reason: per Hypoglycemia Standing Ord. Piperacillin Sod/Tazobactam (Sod 3.375 gm/ Sodium Chloride) 50 mls @ 100 mls/hr IV Q8H [facility] Last Infusion: 01/13/24 02:25 Dose: Infused Documented By: GILDARDO Vancomycin HCl 750 mg/ Sodium (Chloride) 265 mls @ 265 mls/hr IV Q24H [facility] Insulin Human Lispro (Insulin Lispro 100 Unit/Ml 3 Ml Vial) 0 unit SUBCUT QIDACHS [facility]; Protocol Last Admin: 01/13/24 08:14 Dose: Not Given Documented By: DEYA Non-Admin Reason: No Insulin Coverage Lisinopril (Lisinopril 10 Mg Tablet) 10 mg PO BEDTIME [facility]; Protocol Last Admin: 01/12/24 21:02 Dose: 10 mg Documented By: GILDARDO Magnesium Hydroxide (Milk Of Magnesia 30 Ml Oral.Susp) 30 ml PO DAILY PRN PRN Reason: Constipation Melatonin (Melatonin 3 Mg Tablet) 6 mg PO BEDTIME PRN PRN Reason: Insomnia Pharmacy Consult (Consult Rx Vancomycin Dosing) 1 each MISCELLANE DAILY PRN PRN Reason: Consult order Sodium Chloride (0.9 % Sodium Chloride Flush 3 Ml Syringe) 3 ml IVFLUSH QSHIFT [facility] Last Admin: 01/13/24 08:16 Dose: 3 ml Documented By: DEYA Tamsulosin HCl (Tamsulosin Hcl 0.4 Mg Capsule) 0.4 mg PO DAILY [facility] Last Admin: 01/13/24 08:17 Dose: 0.4 mg Documented By: DEYA Labs 01/13/24 05:02 01/13/24 05:02 Labs: Laboratory Results - last 24 hr 01/12/24 01/12/24 01/12/24 15:46 18:00 20:43 MCV 82.8 MCH 27.2 MCHC 32.8 RDW 14.6 Plt Count 282 D MPV 9.2 L Immature Gran % (Auto) 0.4 Neut % (Auto) 86.4 H Lymph % (Auto) 6.9 L [place] % (Auto) 5.2 Eos % (Auto) 0.7 Baso % (Auto) 0.4 Lymph # (Auto) 0.6 L [place] # (Auto) 0.5 Eos # (Auto) 0.1 Baso # (Auto) 0.0 Abs Immat Gran (auto) 0.04 H Absolute Neuts (auto) 7.9 Absolute Nucleated RBC 0.000 Nucleated RBC % (auto) 0.0 Anion Gap 15 Estim Creat Clear Calc 27.3 Estimated GFR 34 POC Glucose 230 H Random Glucose 299 H Fasting Glucose Lactic Acid 2.2 H* Lactic Acid F/U @ 2Hr 1.4 Calcium 9.9 Total Bilirubin 0.9 Direct Bilirubin 0.4 AST 13 ALT 10 Alkaline Phosphatase 105 Total Protein 8.2 H Albumin 4.1 01/13/24 01/13/24 05:02 07:36 MCV 83.2 MCH 26.7 L MCHC 32.0 RDW 14.5 Plt Count 255 MPV 9.9 Immature Gran % (Auto) Neut % (Auto) Lymph % (Auto) [place] % (Auto) Eos % (Auto) Baso % (Auto) Lymph # (Auto) [place] # (Auto) Eos # (Auto) Baso # (Auto) Abs Immat Gran (auto) Absolute Neuts (auto) Absolute Nucleated RBC 0.000 Nucleated RBC % (auto) 0.0 Anion Gap 13 Estim Creat Clear Calc 37.8 Estimated GFR 47 POC Glucose 120 H Random Glucose Fasting Glucose 93 Lactic Acid Lactic Acid F/U @ 2Hr Calcium 8.7 D Total Bilirubin Direct Bilirubin AST ALT Alkaline Phosphatase Total Protein Albumin Assessment and Plan (1) Cellulitis of foot: Status: Acute Plan 73M PMH Alzheimer dementia, diabetes, CKD 4, history of osteomyelitis, pvd, BPH presented with fevers and chills and found to have right 2nd toe necrosis Cellulitis of the right foot and osteomyelitis of the right 2nd toe due to diabetes and peripheral vascular disease continue IV vancomycin and Zosyn, follow up cultures, vascular eval, arterial duplex - with good flow Alzheimer's dementia Continue Aricept Diabetes Insulin sliding scale CKD 4 Stable, monitor htn lisinopril bph finasteride, flomax DVT prophylaxis with heparin subQ Full code reason for continued hospitalization: iv abx, ?surgery Quality Stroke Does the patient have a stroke diagnosis?: No VTE Prior VTE?: No VTE Risk Level:: Medical - moderate - high VTE Device Contraindication: Treatment Not Indicated VTE Drug Contraindication: N/A - Med Ordered
[2024-01-13 11:19] LABS: Glucose, Whole Blood 311 mg/dL (60-115)
[2024-01-13] MEDS: Insulin Lispro 100 UNIT/ML 3 ML VIAL SUBCUT ×3 (11:35→20:08)
--- NOTE | 2024-01-13 12:30 | MHC.CM.PN ---
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
[2024-01-13 15:46] VITALS: BP 149/71; PULSE 63; RESP 16; TEMP 36.7; O2SAT 96
[2024-01-13 16:32] LABS: Glucose, Whole Blood 173 mg/dL (60-115)
[2024-01-13] MEDS: vancomycin HCL 750 MG in 0.9 % Sodium Chloride 250 ML 265 MG IV (17:59)
[2024-01-13 19:49] LABS: Glucose, Whole Blood 205 mg/dL (60-115)
[2024-01-13 20:00] VITALS: BP 142/62; PULSE 63; RESP 20; TEMP 36.5; O2SAT 94
[2024-01-13] MEDS: lisinopriL 10 MG TABLET PO (20:08)
[2024-01-13] MEDS: Donepezil HCl 10 MG TABLET PO (20:08)
[2024-01-14] MEDS: Heparin Sodium,Porcine 5,000 UNIT/ML VIAL 5000 UNIT SUBCUT ×3 (02:35→18:09)
[2024-01-14] MEDS: Piperacillin Sodium/Tazobactam 3.375 GM in 0.9 % Sodium Chloride 50 ML IV ×3 (02:35→18:11)
[2024-01-14 03:24] VITALS: BP 159/74; PULSE 67; RESP 18; TEMP 36.6; O2SAT 97
[2024-01-14 06:21] LABS: Hematocrit 33.7 % (42.0-52.0); Hemoglobin 10.9 g/dl (14.0-18.0); Mean Corpuscular HGB Conc 32.3 g/dl (31.0-36.0); Mean Corpuscular Hemoglobin 26.9 pg (27.0-33.0); Mean Corpuscular Volume 83.2 fL (80.0-98.0); Mean Platelet Volume 9.1 fL (9.4-12.4); Platelet Count 254 X10*3/uL (160-400); Red Blood Count 4.05 X10*6/uL (4.60-5.80); Red Cell Distribution Width 14.3 % (11.0-16.0); White Blood Count 5.9 X10*3/uL (4.8-10.8)
[2024-01-14 07:03] LABS: Anion Gap 12 (12-20); Blood Urea Nitrogen 18 mg/dL (9-16); Calcium 8.8 mg/dL (8.4-10.2); Carbon Dioxide 21 mmol/L (22-29); Chloride 108 mmol/L (96-108); Creatinine Clr Calc Pharmacy 34.7; Estimated Glomerular Filt Rate 43; Glucose Fasting 97 mg/dL (60-99); Potassium 3.7 mmol/L (3.3-5.1); Sodium 137 mmol/L (135-145)
[2024-01-14 07:25] VITALS: BP 155/73; PULSE 66; RESP 17; TEMP 37.1; O2SAT 97
[2024-01-14 07:46] LABS: Glucose, Whole Blood 101 mg/dL (60-115)
--- NOTE | 2024-01-14 08:37 | P.PNIM_ITS ---
Subjective Subjective Date of Service: 01/14/24 Interval History: feeling better, erythema on dorsum improved, toe necrotic Physical Exam 2 Vital Signs: Vital Signs: Last Vital Signs Temp 98.8 F 01/14/24 07:25 Pulse 66 01/14/24 07:25 Resp 17 01/14/24 07:25 BP 155/73 H 01/14/24 07:25 Pulse Ox 97 01/14/24 07:25 O2 Del Method Room Air 01/14/24 07:25 BMI result Body Mass Index 22.1 less erythema on dorsum, necrotic 2nd toe of right foot Objective Data Active Medications Acetaminophen (Acetaminophen 325 Mg Tablet) 650 mg PO Q6H PRN PRN Reason: Pain, Mild (Pain Scale 1-3), fever or headache Calcium Carbonate (Calcium Carbonate 750 Mg Tab.Chew) 750 mg PO Q4H PRN PRN Reason: Heartburn Donepezil HCl (Donepezil Hcl 10 Mg Tablet) 10 mg PO BEDTIME [facility] Last Admin: 01/13/24 20:08 Dose: 10 mg Documented By: GILDARDO Escitalopram Oxalate (Escitalopram Oxalate 5 Mg Tablet) 5 mg PO DAILY [facility] Last Admin: 01/13/24 08:17 Dose: 5 mg Documented By: DEYA Finasteride (Finasteride 5 Mg Tablet) 5 mg PO DAILY [facility] Last Admin: 01/13/24 08:17 Dose: 5 mg Documented By: DEYA Glucose (Glucose Gel 15 Gm Gel..Gram.) 15 gm PO Q15M PRN; Protocol PRN Reason: per Hypoglycemia Standing Ord. Heparin Sodium (Porcine) (Heparin Sodium,Porcine 5,000 Unit/Ml Vial) 5,000 unit SUBCUT Q8H [facility] Last Admin: 01/14/24 02:35 Dose: 5,000 unit Documented By: GILDARDO Dextrose (D10) 250 mls @ 750 mls/hr IV Q15M PRN; Protocol PRN Reason: per Hypoglycemia Standing Ord. Piperacillin Sod/Tazobactam (Sod 3.375 gm/ Sodium Chloride) 50 mls @ 100 mls/hr IV Q8H [facility] Last Infusion: 01/14/24 03:07 Dose: Infused Documented By: GILDARDO Vancomycin HCl 750 mg/ Sodium (Chloride) 265 mls @ 265 mls/hr IV Q24H [facility] Last Infusion: 01/13/24 19:30 Dose: Infused Documented By: GILDARDO Insulin Human Lispro (Insulin Lispro 100 Unit/Ml 3 Ml Vial) 0 unit SUBCUT QIDACHS [facility]; Protocol Last Admin: 01/14/24 07:51 Dose: Not Given Documented By: SAMI Non-Admin Reason: No Insulin Coverage Lisinopril (Lisinopril 10 Mg Tablet) 10 mg PO BEDTIME [facility]; Protocol Last Admin: 01/13/24 20:08 Dose: 10 mg Documented By: GILDARDO Magnesium Hydroxide (Milk Of Magnesia 30 Ml Oral.Susp) 30 ml PO DAILY PRN PRN Reason: Constipation Melatonin (Melatonin 3 Mg Tablet) 6 mg PO BEDTIME PRN PRN Reason: Insomnia Pharmacy Consult (Consult Rx Vancomycin Dosing) 1 each MISCELLANE DAILY PRN PRN Reason: Consult order Sodium Chloride (0.9 % Sodium Chloride Flush 3 Ml Syringe) 3 ml IVFLUSH QSHIFT [facility] Last Admin: 01/13/24 20:11 Dose: 3 ml Documented By: GILDARDO Tamsulosin HCl (Tamsulosin Hcl 0.4 Mg Capsule) 0.4 mg PO DAILY [facility] Last Admin: 01/13/24 08:17 Dose: 0.4 mg Documented By: GRAZIC Labs 01/14/24 05:54 01/14/24 05:54 Labs: Laboratory Results - last 24 hr 01/13/24 01/13/24 01/13/24 11:10 16:24 19:46 MCV MCH MCHC RDW Plt Count MPV Absolute Nucleated RBC Nucleated RBC % (auto) Anion Gap Estim Creat Clear Calc Estimated GFR POC Glucose 311 H 173 H 205 H Fasting Glucose Calcium 01/14/24 01/14/24 05:54 07:30 MCV 83.2 MCH 26.9 L MCHC 32.3 RDW 14.3 Plt Count 254 MPV 9.1 L Absolute Nucleated RBC 0.000 Nucleated RBC % (auto) 0.0 Anion Gap 12 Estim Creat Clear Calc 34.7 Estimated GFR 43 POC Glucose 101 Fasting Glucose 97 Calcium 8.8 Microbiology Microbiology Results: Microbiology 01/12/24 15:46 Blood Culture - Preliminary Blood - Venous No growth after 24 hours. 01/12/24 15:46 Blood Culture - Preliminary Blood - Venous No growth after 24 hours. Assessment and Plan (1) Cellulitis of foot: Status: Acute Plan 73M PMH Alzheimer dementia, diabetes, CKD 4, history of osteomyelitis, pvd, BPH presented with fevers and chills and found to have right 2nd toe necrosis Cellulitis of the right foot and osteomyelitis of the right 2nd toe due to diabetes and peripheral vascular disease continue IV vancomycin and Zosyn, follow up cultures - no growth to date, vascular eval, arterial duplex - with good flow Alzheimer's dementia Continue Aricept Diabetes Insulin sliding scale CKD 4 Stable, monitor htn lisinopril bph finasteride, flomax DVT prophylaxis with heparin subQ Full code reason for continued hospitalization: iv abx, ?surgery Quality Stroke Does the patient have a stroke diagnosis?: No VTE Prior VTE?: No VTE Risk Level:: Medical - moderate - high VTE Device Contraindication: Treatment Not Indicated VTE Drug Contraindication: N/A - Med Ordered
[2024-01-14] MEDS: Tamsulosin HCL 0.4 MG CAPSULE PO (09:05)
[2024-01-14] MEDS: Escitalopram Oxalate 5 MG TABLET PO (09:05)
[2024-01-14] MEDS: Finasteride 5 MG TABLET PO (09:05)
[2024-01-14] MEDS: 0.9 % Sodium Chloride Flush 3 ML SYRINGE IVFLUSH ×3 (09:06→23:18)
--- NOTE | 2024-01-14 10:49 | MHC.CM.PN ---
Per MD rounds patient not medically cleared for dc. Awaiting vascular consult. 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 CM will continue to follow.
[2024-01-14 11:17] LABS: Glucose, Whole Blood 219 mg/dL (60-115)
[2024-01-14] MEDS: Insulin Lispro 100 UNIT/ML 3 ML VIAL SUBCUT ×3 (11:51→20:33)
--- NOTE | 2024-01-14 13:01 | PM.CNGS ---
History of Present Illness Consult details Consult date: 01/14/24 Reason for consult: wound care Narrative: Very pleasant 73-year-old gentleman with a history of diabetes a prior history of osteomyelitis presented to the hospital with a nonhealing right 2nd toe. Upon workup and evaluation and was noted to be gangrenous. X-ray was concerning for osteomyelitis and at that time had a white count 9.2. He was subsequently admitted and has been currently on antibiotic therapy of vancomycin and Zosyn. Of note he has had a prior toe amputation on the right side as well. Review of Systems Review of Systems: Yes all other systems are reviewed and are negative Constitutional: Constitutional: Reports no additional constitutional complaints ENT: Reports Normal hearing present Cardiovascular: Cardiovascular: Denies chest pain, Denies chest pain at rest, Denies chest pain with activity and Denies pedal edema Respiratory: Respiratory: Denies cough Gastrointestinal: Gastrointestinal: Denies abdominal pain Musculoskeletal: Musculoskeletal: Denies abnormal gait, Denies muscle cramps and Denies radiating pain into limb Integumentary/Breasts: Skin/Breast: Denies skin ulcer and Denies wounds Neurologic: Reports Normal hearing present and Denies abnormal gait Psychiatric: Psychiatric: Reports no additional psychiatric complaints PMFSH Past Medical History Medical History Plantar ulcer of left foot Stage 3b chronic kidney disease (CKD) CKD stage G3b/A1, GFR 30-44 and albumin creatinine ratio <30 mg/g Dementia BPH (benign prostatic hyperplasia) Hypertension Dog bite Rhabdomyolysis Diabetes Family History Family History Other Diabetes HTN (hypertension) Surgical History Surgical History History of amputation of toe Social History Social History Household Members: Family Housing: House Do you presently have visiting nurse or other home services: Yes Alcohol intake: never Patient Tobacco Use Status: Former Tobacco user Advance Directives Date on File: 01/25/21 service: No Current occupational status: retired Meds Allergies Allergy/AdvReac Type Severity Reaction Status Date / Time oxycodone [From PERCOCET] Allergy Unknown CAN'T Verified 01/12/24 15:15 BREATH/VOMITING simvastatin [SIMVASTATIN] Allergy Unknown UNKNOWN Verified 01/12/24 15:15 peas AdvReac Unknown VOMITING/FA Verified 01/12/24 15:15 INTING BRIJESH [id number] AdvReac Unknown VOMITING/FA Uncoded 10/24/22 12:38 INT Active Medications: Current Medications Acetaminophen (Acetaminophen 325 Mg Tablet) 650 mg PO Q6H PRN PRN Reason: Pain, Mild (Pain Scale 1-3), fever or headache Calcium Carbonate (Calcium Carbonate 750 Mg Tab.Chew) 750 mg PO Q4H PRN PRN Reason: Heartburn Donepezil HCl (Donepezil Hcl 10 Mg Tablet) 10 mg PO BEDTIME [facility] Last Admin: 01/13/24 20:08 Dose: 10 mg Escitalopram Oxalate (Escitalopram Oxalate 5 Mg Tablet) 5 mg PO DAILY [facility] Last Admin: 01/14/24 09:05 Dose: 5 mg Finasteride (Finasteride 5 Mg Tablet) 5 mg PO DAILY [facility] Last Admin: 01/14/24 09:05 Dose: 5 mg Glucose (Glucose Gel 15 Gm Gel..Gram.) 15 gm PO Q15M PRN; Protocol PRN Reason: per Hypoglycemia Standing Ord. Heparin Sodium (Porcine) (Heparin Sodium,Porcine 5,000 Unit/Ml Vial) 5,000 unit SUBCUT Q8H [facility] Last Admin: 01/14/24 09:05 Dose: 5,000 unit Dextrose (D10) 250 mls @ 750 mls/hr IV Q15M PRN; Protocol PRN Reason: per Hypoglycemia Standing Ord. Piperacillin Sod/Tazobactam (Sod 3.375 gm/ Sodium Chloride) 50 mls @ 100 mls/hr IV Q8H [facility] Last Infusion: 01/14/24 09:43 Dose: Infused Vancomycin HCl 750 mg/ Sodium (Chloride) 265 mls @ 265 mls/hr IV Q24H [facility] Last Infusion: 01/13/24 19:30 Dose: Infused Insulin Human Lispro (Insulin Lispro 100 Unit/Ml 3 Ml Vial) 0 unit SUBCUT QIDACHS [facility]; Protocol Last Admin: 01/14/24 11:51 Dose: 4 unit Lisinopril (Lisinopril 10 Mg Tablet) 10 mg PO BEDTIME [facility]; Protocol Last Admin: 01/13/24 20:08 Dose: 10 mg Magnesium Hydroxide (Milk Of Magnesia 30 Ml Oral.Susp) 30 ml PO DAILY PRN PRN Reason: Constipation Melatonin (Melatonin 3 Mg Tablet) 6 mg PO BEDTIME PRN PRN Reason: Insomnia Pharmacy Consult (Consult Rx Vancomycin Dosing) 1 each MISCELLANE DAILY PRN PRN Reason: Consult order Sodium Chloride (0.9 % Sodium Chloride Flush 3 Ml Syringe) 3 ml IVFLUSH QSHIFT [facility] Last Admin: 01/14/24 09:06 Dose: 3 ml Tamsulosin HCl (Tamsulosin Hcl 0.4 Mg Capsule) 0.4 mg PO DAILY [facility] Last Admin: 01/14/24 09:05 Dose: 0.4 mg Home Medications ?Medication ?Instructions ?Recorded ?Confirmed ?Last Taken ?Type citalopram 10 mg tablet 1 tab PO DAILY 01/24/21 01/12/24 01/12/24 History donepezil 10 mg tablet 1 tab PO BEDTIME 01/24/21 01/12/24 10/23/22 History finasteride 5 mg tablet 1 tab PO DAILY 01/24/21 01/12/24 01/12/24 History insulin glargine 100 unit/mL 10 unit subcut BEDTIME 01/24/21 01/12/24 10/23/22 History subcutaneous solution (Lantus U-100 Insulin) tamsulosin 0.4 mg capsule 1 cap PO DAILY 01/24/21 01/12/24 01/12/24 History acetaminophen 650 mg 650 mg PO Q8H PRN pain 01/12/24 01/12/24 Unknown History tablet,extended release dapagliflozin propanediol 10 mg 10 mg PO DAILY 01/12/24 01/12/24 01/12/24 History tablet (Farxiga) diclofenac sodium 1 % topical gel 2 g topical BID PRN knee pain 01/12/24 01/12/24 Unknown History lisinopril 10 mg tablet 10 mg PO BEDTIME 01/12/24 01/12/24 Unknown History Physical Exam Vital Signs: Vital Signs: Last Vital Signs Temp 98.8 F 01/14/24 07:25 Pulse 66 01/14/24 07:25 Resp 17 01/14/24 07:25 BP 155/73 H 01/14/24 07:25 Pulse Ox 97 01/14/24 07:25 O2 Del Method Room Air 01/14/24 07:25 BMI result Body Mass Index 22.1 Const: General: cooperative, healthy appearing and comfortable Orientation/consciousness: oriented to person, oriented to place and oriented to time HEENT: Head: Yes normal to inspection Neck: Neck: Yes normal visual inspection Carotids: no bruits Chest: Chest palpation & inspection: normal inspection of the chest Resp: Effort & Inspection: normal respiratory effort and able to speak in complete sentences Auscultation: clear to auscultation bilaterally, no crackles, no rales, no rhonchi and no wheezes Cardio: Other: Palpable dorsalis pedis and posterior tibial pulses Rate: regular rate Rhythm: regular rhythm Heart sounds: S1 normal heart sound present and S2 normal heart sound present Bruits: no carotid bruits Peripheral pulses: Peripheral pulses 2+ throughout GI: Inspection: Yes normal to inspection Skin: Other: Right 2nd toe gangrene Wounds: wounds noted Hair: normal Neuro: General: oriented to person, oriented to place and oriented to time Cranial nerves: Yes CN's II-XII intact bilaterally and Yes Normal hearing present Cognition (Neuro): normal cognition Motor exam (neuro): 5/5 motor strength present throughout Extrem: Other: venous exam: No significant superficial varicosities or spider telangiectasias, minimal edema General: No clubbing, No cyanosis and No edema Psych: Appearance: grossly normal Mental Status: mental status grossly normal Speech and movement: Normal speech and movement present Results Labs 01/14/24 05:54 01/14/24 05:54 Labs: Abnormal lab results 01/13/24 01/13/24 01/14/24 Range/Units 16:24 19:46 05:54 RBC 4.05 L (4.60-5.80) X10*6/uL Hgb 10.9 L (14.0-18.0) g/dl Hct 33.7 L (42.0-52.0) % MCH 26.9 L (27.0-33.0) pg MPV 9.1 L (9.4-12.4) fL Carbon Dioxide 21 L (22-29) mmol/L BUN 18 H (9-16) mg/dL Creatinine 1.59 H (0.5-1.4) mg/dL POC Glucose 173 H 205 H (60-115) mg/dL 01/14/24 Range/Units 11:05 RBC (4.60-5.80) X10*6/uL Hgb (14.0-18.0) g/dl Hct (42.0-52.0) % MCH (27.0-33.0) pg MPV (9.4-12.4) fL Carbon Dioxide (22-29) mmol/L BUN (9-16) mg/dL Creatinine (0.5-1.4) mg/dL POC Glucose 219 H (60-115) mg/dL Short CBC 01/14/24 Range/Units 05:54 WBC 5.9 (4.8-10.8) X10*3/uL Hgb 10.9 L (14.0-18.0) g/dl Hct 33.7 L (42.0-52.0) % Plt Count 254 (160-400) X10*3/uL BMP 01/14/24 05:54 Sodium 137 Potassium 3.7 Chloride 108 Carbon Dioxide 21 L BUN 18 H Creatinine 1.59 H Calcium 8.8 All other labs normal. Imaging Additional studies: Arterial testing within normal limits Assessment and Plan (1) Osteomyelitis: Qualifiers: Osteomyelitis type: other Osteomyelitis location: foot Laterality: right Qualified Code(s): M86.8X7 - Other osteomyelitis, ankle and foot Status: Acute Plan In short patient has a gangrenous right 2nd toe. He will require amputation of this. At the current time his arterial status is within normal limits and does have palpable dorsalis pedis and posterior tibial pulses. I did also have an opportunity to review his noninvasive testing which did seem within normal limits. Patient will require right 2nd toe amputation. Risks benefits complications were discussed in detail with the patient. We will schedule for tomorrow. Procedures Date of Service Date of Service: 01/14/24
--- NOTE | 2024-01-14 13:48 | P.CDIM_ITS ---
PROVIDER RESPONSE TEXT: To clarify, the appropriate diagnosis supported by the clinical indicators: Acute QUERY TEXT: PHYSICIAN'S DOCUMENTATION REQUEST Date of Query: 01/14/2024 01:29 PM EDT Patient Name: Reg Sheets Admit Date: 01/12/2024 Dear Afshin Rivera MD, A review of the medical record indicates additional documentation may be needed. Please review below and update the documentation accordingly. Clinical Indicators: history of Osteomyelitis Per Hospitalist Progress Note 01/14/24: Cellulitis of the right foot and osteomyelitis of the right 2n d toe due to diabetes and peripheral vascular disease continue IV vancomycin and Zosyn Clarify which of the following accurately represents the acuity of the Osteomyelitis. Possible options might include: Acute Acute on chronic Compensated Chronic stable condition Remission Other (explain) Clinically unable to determine (explain) Thank you, Pau Rosario RN Use of terms such as suspected, likely, concern for, or probable (associated with a specific diagnosi s that is being evaluated, monitored, or treated as if it exists) are acceptable and can be coded in the inpatient se tting, when documented at the time of discharge. Please use your independent medical judgment in providing your response. THIS QUERY IS PART OF THE PERMANENT MEDICAL RECORD
[2024-01-14 15:07] VITALS: BP 149/73; PULSE 71; RESP 16; TEMP 36.8; O2SAT 97
[2024-01-14 16:10] LABS: Glucose, Whole Blood 209 mg/dL (60-115)
[2024-01-14 17:15] LABS: Vancomycin Random 11.6 mcg/mL (15-20)
[2024-01-14] MEDS: vancomycin HCL 750 MG in 0.9 % Sodium Chloride 250 ML 265 MG IV (18:44)
[2024-01-14 19:02] VITALS: BP 142/76; PULSE 64; RESP 16; TEMP 36.2; O2SAT 96
[2024-01-14 19:46] LABS: Glucose, Whole Blood 178 mg/dL (60-115)
[2024-01-14 20:34] VITALS: BP 144/72
[2024-01-14] MEDS: Donepezil HCl 10 MG TABLET PO (20:34)
[2024-01-14] MEDS: lisinopriL 10 MG TABLET PO (20:34)
[2024-01-15] VITALS (10 sets, daily range): BP systolic 104–156; BP diastolic 62–82; PULSE 61–82; RESP 15–20; TEMP 36–36.7; O2SAT 95–99
--- NOTE | 2024-01-15 00:39 | W.PM.IDCN ---
History of Present Illness Data of Consult Service Date: 01/14/24 Requesting physician: Afshin Rivera Primary Care Provider: Penny Camarena MD HPI Reason for consult: right second toe gangrene and OM He presents with worsening right second toe worsening darkness and swelling. He has had fourth toe amputation in past and I had seen him before with left plantar ulcer. He is going to get amputation of the toe. He has no fever or chills Review of Systems Review of Systems: Yes all other systems are reviewed and are negative Musculoskeletal: Comments: foot discomfort,numbness,redness PMFSH Past Medical History Medical History (Updated 01/15/24 @ 00:52 by Tania Monroy MD) Osteomyelitis of second toe of right foot Plantar ulcer of left foot Stage 3b chronic kidney disease (CKD) CKD stage G3b/A1, GFR 30-44 and albumin creatinine ratio <30 mg/g Dementia BPH (benign prostatic hyperplasia) Hypertension Dog bite Rhabdomyolysis Diabetes Family History Family History Other Diabetes HTN (hypertension) Surgical History Surgical History History of amputation of toe Social History Social History Household Members: Family Housing: House Do you presently have visiting nurse or other home services: Yes Alcohol intake: never Patient Tobacco Use Status: Former Tobacco user Advance Directives Date on File: 01/25/21 service: No Current occupational status: retired Meds Allergies Allergy/AdvReac Type Severity Reaction Status Date / Time oxycodone [From PERCOCET] Allergy Unknown CAN'T Verified 01/12/24 15:15 BREATH/VOMITING simvastatin [SIMVASTATIN] Allergy Unknown UNKNOWN Verified 01/12/24 15:15 peas AdvReac Unknown VOMITING/FA Verified 01/12/24 15:15 INTING SALMON [id number] AdvReac Unknown VOMITING/FA Uncoded 10/24/22 12:38 INT Active Medications: Current Medications Acetaminophen (Acetaminophen 325 Mg Tablet) 650 mg PO Q6H PRN PRN Reason: Pain, Mild (Pain Scale 1-3), fever or headache Calcium Carbonate (Calcium Carbonate 750 Mg Tab.Chew) 750 mg PO Q4H PRN PRN Reason: Heartburn Donepezil HCl (Donepezil Hcl 10 Mg Tablet) 10 mg PO BEDTIME [facility] Last Admin: 01/14/24 20:34 Dose: 10 mg Escitalopram Oxalate (Escitalopram Oxalate 5 Mg Tablet) 5 mg PO DAILY [facility] Last Admin: 01/14/24 09:05 Dose: 5 mg Finasteride (Finasteride 5 Mg Tablet) 5 mg PO DAILY [facility] Last Admin: 01/14/24 09:05 Dose: 5 mg Glucose (Glucose Gel 15 Gm Gel..Gram.) 15 gm PO Q15M PRN; Protocol PRN Reason: per Hypoglycemia Standing Ord. Heparin Sodium (Porcine) (Heparin Sodium,Porcine 5,000 Unit/Ml Vial) 5,000 unit SUBCUT Q8H [facility] Last Admin: 01/14/24 18:09 Dose: 5,000 unit Dextrose (D10) 250 mls @ 750 mls/hr IV Q15M PRN; Protocol PRN Reason: per Hypoglycemia Standing Ord. Piperacillin Sod/Tazobactam (Sod 3.375 gm/ Sodium Chloride) 50 mls @ 100 mls/hr IV Q8H [facility] Last Infusion: 01/14/24 18:45 Dose: Infused Vancomycin HCl 750 mg/ Sodium (Chloride) 265 mls @ 265 mls/hr IV Q24H [facility] Last Infusion: 01/14/24 19:45 Dose: Infused Insulin Human Lispro (Insulin Lispro 100 Unit/Ml 3 Ml Vial) 0 unit SUBCUT QIDACHS [facility]; Protocol Last Admin: 01/14/24 20:33 Dose: 2 unit Lisinopril (Lisinopril 10 Mg Tablet) 10 mg PO BEDTIME [facility]; Protocol Last Admin: 01/14/24 20:34 Dose: 10 mg Magnesium Hydroxide (Milk Of Magnesia 30 Ml Oral.Susp) 30 ml PO DAILY PRN PRN Reason: Constipation Melatonin (Melatonin 3 Mg Tablet) 6 mg PO BEDTIME PRN PRN Reason: Insomnia Pharmacy Consult (Consult Rx Vancomycin Dosing) 1 each MISCELLANE DAILY PRN PRN Reason: Consult order Sodium Chloride (0.9 % Sodium Chloride Flush 3 Ml Syringe) 3 ml IVFLUSH QSHIFT [facility] Last Admin: 01/14/24 23:18 Dose: 3 ml Tamsulosin HCl (Tamsulosin Hcl 0.4 Mg Capsule) 0.4 mg PO DAILY [facility] Last Admin: 01/14/24 09:05 Dose: 0.4 mg Home Medications ?Medication ?Instructions ?Recorded ?Confirmed ?Last Taken ?Type citalopram 10 mg tablet 1 tab PO DAILY 01/24/21 01/12/24 01/12/24 History donepezil 10 mg tablet 1 tab PO BEDTIME 01/24/21 01/12/24 10/23/22 History finasteride 5 mg tablet 1 tab PO DAILY 01/24/21 01/12/24 01/12/24 History insulin glargine 100 unit/mL 10 unit subcut BEDTIME 01/24/21 01/12/24 10/23/22 History subcutaneous solution (Lantus U-100 Insulin) tamsulosin 0.4 mg capsule 1 cap PO DAILY 01/24/21 01/12/24 01/12/24 History acetaminophen 650 mg 650 mg PO Q8H PRN pain 01/12/24 01/12/24 Unknown History tablet,extended release dapagliflozin propanediol 10 mg 10 mg PO DAILY 01/12/24 01/12/24 01/12/24 History tablet (Farxiga) diclofenac sodium 1 % topical gel 2 g topical BID PRN knee pain 01/12/24 01/12/24 Unknown History lisinopril 10 mg tablet 10 mg PO BEDTIME 01/12/24 01/12/24 Unknown History Physical Exam Vital Signs: Vital Signs: Last Vital Signs Temp 97.2 F 01/14/24 19:02 Pulse 64 01/14/24 19:02 Resp 16 01/14/24 19:02 BP 144/72 H 01/14/24 20:34 Pulse Ox 96 01/14/24 19:02 O2 Del Method Room Air 01/14/24 19:02 BMI result Body Mass Index 22.1 Const: General: cooperative HEENT: Head: Yes normal to inspection Face and sinus: Yes normal facial exam Mouth: Normal oral and palatal mucosa present Teeth and gingiva: dentition normal Eyes: General: appearance normal, both eyes and all related structures Pupils: Equal, round and reactive pupils present Resp: Effort & Inspection: normal respiratory effort Cardio: Rate: regular rate Rhythm: regular rhythm GI: Palpation (GI): Soft to palpation and nontender : General: Yes no CVA tenderness Back/Spine/Pelvis: Back: no CVA tenderness Skin: General skin exam: no rashes or lesions noted Neuro: General: moves all extremities Cranial nerves: Yes Equal, round and reactive pupils present Extrem: Other: darkened right second toe General: Yes normal to inspection Psych: Appearance: grossly normal Results Labs 01/14/24 05:54 01/14/24 05:54 Labs: Short CBC 01/14/24 Range/Units 05:54 WBC 5.9 (4.8-10.8) X10*3/uL Hgb 10.9 L (14.0-18.0) g/dl Hct 33.7 L (42.0-52.0) % Plt Count 254 (160-400) X10*3/uL BMP 01/14/24 05:54 Sodium 137 Potassium 3.7 Chloride 108 Carbon Dioxide 21 L BUN 18 H Creatinine 1.59 H Calcium 8.8 Microbiology Microbiology Results: Microbiology 01/12/24 15:46 Blood - Venous Blood Culture - Preliminary No growth after 48 hours. 01/12/24 15:46 Blood - Venous Blood Culture - Preliminary No growth after 48 hours. Assessment and Plan (1) CKD (chronic kidney disease) stage 3, GFR 30-59 ml/min: Status: Acute (2) Osteomyelitis of second toe of right foot: Status: Acute Plan As long as affected osteomyelitic bone removed would just give amputation and no mcfp IV antibiotics.
[2024-01-15] MEDS: Piperacillin Sodium/Tazobactam 3.375 GM in 0.9 % Sodium Chloride 50 ML IV ×2 (02:38→09:34)
[2024-01-15 07:02] LABS: Creatinine Clr Calc Pharmacy 34.9; Estimated Glomerular Filt Rate 43
[2024-01-15 07:36] LABS: Glucose, Whole Blood 126 mg/dL (60-115)
[2024-01-15] MEDS: Escitalopram Oxalate 5 MG TABLET PO (07:49)
[2024-01-15] MEDS: Tamsulosin HCL 0.4 MG CAPSULE PO (07:49)
[2024-01-15] MEDS: 0.9 % Sodium Chloride Flush 3 ML SYRINGE IVFLUSH ×3 (07:49→20:12)
[2024-01-15] MEDS: Finasteride 5 MG TABLET PO (07:49)
--- NOTE | 2024-01-15 09:11 | HO.PM.IMPN ---
Subjective Subjective Date of Service: 01/15/24 Interval History: no new complaints Physical Exam Vital Signs: Vital Signs: Last Vital Signs Temp 97.3 F 01/15/24 07:27 Pulse 61 01/15/24 07:27 Resp 16 01/15/24 07:27 BP 130/76 01/15/24 07:27 Pulse Ox 97 01/15/24 07:27 O2 Del Method Room Air 01/15/24 07:27 BMI result Body Mass Index 22.1 Const: General: cooperative HEENT: Head: Yes normal to inspection Face and sinus: Yes normal facial exam Mouth: Normal oral and palatal mucosa present Teeth and gingiva: dentition normal Eyes: General: appearance normal, both eyes and all related structures Pupils: Equal, round and reactive pupils present Resp: Effort & Inspection: normal respiratory effort Cardio: Rate: regular rate Rhythm: regular rhythm GI: Palpation (GI): Soft to palpation and nontender : General: Yes no CVA tenderness Back/Spine/Pelvis: Back: no CVA tenderness Skin: General skin exam: no rashes or lesions noted Neuro: General: moves all extremities Cranial nerves: Yes Equal, round and reactive pupils present Extrem: Other: darkened right second toe General: Yes normal to inspection Psych: Appearance: grossly normal Objective Data Active Medications Acetaminophen (Acetaminophen 325 Mg Tablet) 650 mg PO Q6H PRN PRN Reason: Pain, Mild (Pain Scale 1-3), fever or headache Calcium Carbonate (Calcium Carbonate 750 Mg Tab.Chew) 750 mg PO Q4H PRN PRN Reason: Heartburn Donepezil HCl (Donepezil Hcl 10 Mg Tablet) 10 mg PO BEDTIME [facility] Last Admin: 01/14/24 20:34 Dose: 10 mg Documented By: ELEANOR Escitalopram Oxalate (Escitalopram Oxalate 5 Mg Tablet) 5 mg PO DAILY [facility] Last Admin: 01/15/24 07:49 Dose: 5 mg Documented By: SAMI Finasteride (Finasteride 5 Mg Tablet) 5 mg PO DAILY [facility] Last Admin: 01/15/24 07:49 Dose: 5 mg Documented By: SAMI Glucose (Glucose Gel 15 Gm Gel..Gram.) 15 gm PO Q15M PRN; Protocol PRN Reason: per Hypoglycemia Standing Ord. Heparin Sodium (Porcine) (Heparin Sodium,Porcine 5,000 Unit/Ml Vial) 5,000 unit SUBCUT Q8H [facility] Last Admin: 01/15/24 02:39 Dose: Not Given Documented By: ELEANOR Non-Admin Reason: surgery in am Dextrose (D10) 250 mls @ 750 mls/hr IV Q15M PRN; Protocol PRN Reason: per Hypoglycemia Standing Ord. Piperacillin Sod/Tazobactam (Sod 3.375 gm/ Sodium Chloride) 50 mls @ 100 mls/hr IV Q8H [facility] Last Infusion: 01/15/24 03:10 Dose: Infused Documented By: ELEANOR Vancomycin HCl 750 mg/ Sodium (Chloride) 265 mls @ 265 mls/hr IV Q24H [facility] Last Infusion: 01/14/24 19:45 Dose: Infused Documented By: ELEANOR Insulin Human Lispro (Insulin Lispro 100 Unit/Ml 3 Ml Vial) 0 unit SUBCUT QIDACHS [facility]; Protocol Last Admin: 01/15/24 07:33 Dose: Not Given Documented By: SAMI Non-Admin Reason: No Insulin Coverage Lisinopril (Lisinopril 10 Mg Tablet) 10 mg PO BEDTIME [facility]; Protocol Last Admin: 01/14/24 20:34 Dose: 10 mg Documented By: ELEANOR Magnesium Hydroxide (Milk Of Magnesia 30 Ml Oral.Susp) 30 ml PO DAILY PRN PRN Reason: Constipation Melatonin (Melatonin 3 Mg Tablet) 6 mg PO BEDTIME PRN PRN Reason: Insomnia Pharmacy Consult (Consult Rx Vancomycin Dosing) 1 each MISCELLANE DAILY PRN PRN Reason: Consult order Sodium Chloride (0.9 % Sodium Chloride Flush 3 Ml Syringe) 3 ml IVFLUSH QSHIFT [facility] Last Admin: 01/15/24 07:49 Dose: 3 ml Documented By: SAMI Tamsulosin HCl (Tamsulosin Hcl 0.4 Mg Capsule) 0.4 mg PO DAILY [facility] Last Admin: 01/15/24 07:49 Dose: 0.4 mg Documented By: SAMI Labs 01/14/24 05:54 01/15/24 05:38 Labs: Laboratory Results - last 24 hr 01/14/24 01/14/24 01/14/24 11:05 15:56 16:45 Estim Creat Clear Calc Estimated GFR POC Glucose 219 H 209 H Random Vancomycin 11.6 L 09/01/15/24 01/15/24 19:38 05:38 07:31 Estim Creat Clear Calc 34.9 Estimated GFR 43 POC Glucose 178 H 126 H Random Vancomycin Microbiology Microbiology Results: Microbiology 01/12/24 15:46 Blood Culture - Preliminary Blood - Venous No growth after 48 hours. 01/12/24 15:46 Blood Culture - Preliminary Blood - Venous No growth after 48 hours. Assessment and Plan (1) Cellulitis of foot: Status: Acute Plan 73M PMH Alzheimer dementia, diabetes, CKD 4, history of osteomyelitis, pvd, BPH presented with fevers and chills and found to have right 2nd toe necrosis Cellulitis of the right foot and osteomyelitis of the right 2nd toe due to diabetes and peripheral vascular disease continue IV vancomycin and Zosyn, follow up cultures - no growth to date plan for amputation today unlikely to need iv abx on discharge Alzheimer's dementia Continue Aricept Diabetes Insulin sliding scale CKD 4 Stable, monitor htn lisinopril bph finasteride, flomax DVT prophylaxis with heparin subQ Full code reason for continued hospitalization: surgery Quality Stroke Does the patient have a stroke diagnosis?: No VTE Prior VTE?: No VTE Risk Level:: Medical - moderate - high VTE Device Contraindication: Treatment Not Indicated VTE Drug Contraindication: N/A - Med Ordered
[2024-01-15 11:25] LABS: Glucose, Whole Blood 98 mg/dL (60-115)
--- NOTE | 2024-01-15 11:50 | HO.WOUND ---
Wound Consult: Initial 73yr old? male admitted to [facility] on 01/12/24 - See progress notes and H&P for detailed history.? Wound consult placed for Right 2nd toe wound POA.? Patient agreeable to assessment and photo documentation.? Per staff and patient statement patient is scheduled for OR this afternoon for right 2nd toe amputation by Dr. Pineda. No topical treatment orders needed at this time will defer topical needs to Dr. Pineda post surgery. At bedside applied betadine and dry gauze dressing.
--- NOTE | 2024-01-15 13:08 | PC.NURSE ---
22g left forearm. patent iv. no leaking. no pain. asymptomatic.
--- NOTE | 2024-01-15 13:39 | MHC.SHP ---
Pre-Procedural Eval Section A - 24 Hr Update-Section A only Date of Service: 01/15/24 The patient is an INPATIENT: Yes Changes since office visit: Yes Patient answered all questions The patient has been examined within 24 hours of the surgical procedure. The History & Physical has been completed within 30 days and I have reviewed it.: Yes Section B - Complete if H&P > 30 days Chief Complaint: dfu/om Allergies: Allergies Allergy/AdvReac Type Severity Reaction Status Date / Time oxycodone [From PERCOCET] Allergy Unknown CAN'T Verified 01/12/24 15:15 BREATH/VOMITING simvastatin [SIMVASTATIN] Allergy Unknown UNKNOWN Verified 01/12/24 15:15 peas AdvReac Unknown VOMITING/FA Verified 01/12/24 15:15 INTING SALMON [id number] AdvReac Unknown VOMITING/FA Uncoded 10/24/22 12:38 INT Plan I have reviewed the history and physical and performed a pertinent physical examination on my patient. No changes have occurred unless specified. Time Spent With Patient Time: Total time managing care of this patient today ____ minutes.
--- NOTE | 2024-01-15 13:58 | HO.ANESPROP2 ---
HPI - Anesthesia Eval Consult details Narrative: right second toe amputation PMFSH Active Problems Active Problems: All Active Problems Osteomyelitis of second toe of right foot (Acute) CKD (chronic kidney disease) stage 3, GFR 30-59 ml/min (Acute) Plantar ulcer of left foot (Acute) Cellulitis of foot (Acute) Cellulitis of skin with lymphangitis (Acute) Fracture of distal phalanx of finger of right hand (Acute) Fracture of distal phalanx of finger of left hand (Acute) Osteomyelitis (Acute) Past Medical History Medical History Osteomyelitis of second toe of right foot Plantar ulcer of left foot Stage 3b chronic kidney disease (CKD) CKD stage G3b/A1, GFR 30-44 and albumin creatinine ratio <30 mg/g Dementia BPH (benign prostatic hyperplasia) Hypertension Dog bite Rhabdomyolysis Diabetes Family History Family History Other Diabetes HTN (hypertension) Family history of problems with anesthesia: No Surgical History Surgical History History of amputation of toe History of Problems with Anesthesia: No Social History Social History Household Members: Family Housing: House Do you presently have visiting nurse or other home services: Yes Alcohol intake: never Patient Tobacco Use Status: Former Tobacco user Advance Directives Date on File: 01/25/21 service: No Current occupational status: retired Meds Allergies Allergy/AdvReac Type Severity Reaction Status Date / Time oxycodone [From PERCOCET] Allergy Unknown CAN'T Verified 01/12/24 15:15 BREATH/VOMITING simvastatin [SIMVASTATIN] Allergy Unknown UNKNOWN Verified 01/12/24 15:15 peas AdvReac Unknown VOMITING/FA Verified 01/12/24 15:15 INTING SALMON [id number] AdvReac Unknown VOMITING/FA Uncoded 10/24/22 12:38 INT Active Medications: Current Medications Acetaminophen (Acetaminophen 325 Mg Tablet) 650 mg PO Q6H PRN PRN Reason: Pain, Mild (Pain Scale 1-3), fever or headache Calcium Carbonate (Calcium Carbonate 750 Mg Tab.Chew) 750 mg PO Q4H PRN PRN Reason: Heartburn Donepezil HCl (Donepezil Hcl 10 Mg Tablet) 10 mg PO BEDTIME [facility] Last Admin: 01/14/24 20:34 Dose: 10 mg Escitalopram Oxalate (Escitalopram Oxalate 5 Mg Tablet) 5 mg PO DAILY [facility] Last Admin: 01/15/24 07:49 Dose: 5 mg Finasteride (Finasteride 5 Mg Tablet) 5 mg PO DAILY [facility] Last Admin: 01/15/24 07:49 Dose: 5 mg Glucose (Glucose Gel 15 Gm Gel..Gram.) 15 gm PO Q15M PRN; Protocol PRN Reason: per Hypoglycemia Standing Ord. Heparin Sodium (Porcine) (Heparin Sodium,Porcine 5,000 Unit/Ml Vial) 5,000 unit SUBCUT Q8H [facility] Last Admin: 01/15/24 09:38 Dose: Not Given Dextrose (D10) 250 mls @ 750 mls/hr IV Q15M PRN; Protocol PRN Reason: per Hypoglycemia Standing Ord. Vancomycin HCl 750 mg/ Sodium (Chloride) 265 mls @ 265 mls/hr IV Q24H [facility] Last Infusion: 01/14/24 19:45 Dose: Infused Piperacillin Sod/Tazobactam (Sod 2.25 gm/ Sodium Chloride) 50 mls @ 100 mls/hr IV Q6H [facility] Insulin Human Lispro (Insulin Lispro 100 Unit/Ml 3 Ml Vial) 0 unit SUBCUT QIDACHS [facility]; Protocol Last Admin: 01/15/24 11:26 Dose: Not Given Lisinopril (Lisinopril 10 Mg Tablet) 10 mg PO BEDTIME [facility]; Protocol Last Admin: 01/14/24 20:34 Dose: 10 mg Magnesium Hydroxide (Milk Of Magnesia 30 Ml Oral.Susp) 30 ml PO DAILY PRN PRN Reason: Constipation Melatonin (Melatonin 3 Mg Tablet) 6 mg PO BEDTIME PRN PRN Reason: Insomnia Pharmacy Consult (Consult Rx Vancomycin Dosing) 1 each MISCELLANE DAILY PRN PRN Reason: Consult order Sodium Chloride (0.9 % Sodium Chloride Flush 3 Ml Syringe) 3 ml IVFLUSH QSHIFT [facility] Last Admin: 01/15/24 07:49 Dose: 3 ml Tamsulosin HCl (Tamsulosin Hcl 0.4 Mg Capsule) 0.4 mg PO DAILY [facility] Last Admin: 01/15/24 07:49 Dose: 0.4 mg Home Medications ?Medication ?Instructions ?Recorded ?Confirmed ?Last Taken ?Type citalopram 10 mg tablet 1 tab PO DAILY 01/24/21 01/12/24 01/12/24 History donepezil 10 mg tablet 1 tab PO BEDTIME 01/24/21 01/12/24 10/23/22 History finasteride 5 mg tablet 1 tab PO DAILY 01/24/21 01/12/24 01/12/24 History insulin glargine 100 unit/mL 10 unit subcut BEDTIME 01/24/21 01/12/24 10/23/22 History subcutaneous solution (Lantus U-100 Insulin) tamsulosin 0.4 mg capsule 1 cap PO DAILY 01/24/21 01/12/24 01/12/24 History acetaminophen 650 mg 650 mg PO Q8H PRN pain 01/12/24 01/12/24 Unknown History tablet,extended release dapagliflozin propanediol 10 mg 10 mg PO DAILY 01/12/24 01/12/24 01/12/24 History tablet (Farxiga) diclofenac sodium 1 % topical gel 2 g topical BID PRN knee pain 01/12/24 01/12/24 Unknown History lisinopril 10 mg tablet 10 mg PO BEDTIME 01/12/24 01/12/24 Unknown History Exam Height,Weight and Vital Signs: Height 5 ft 4 in Weight 58.5 kg Last Vital Signs Temp 97.9 F 01/15/24 13:02 Pulse 63 01/15/24 13:02 Resp 16 01/15/24 13:02 BP 132/71 01/15/24 13:02 Pulse Ox 96 01/15/24 13:02 O2 Del Method Room Air 01/15/24 13:02 Pertinent Lab Results Pertinent Lab Results: Laboratory Tests 01/12/24 01/12/24 01/12/24 15:46 18:00 20:43 WBC 9.2 RBC 4.93 Hgb 13.4 L Hct 40.8 L MCV 82.8 MCH 27.2 MCHC 32.8 RDW 14.6 Plt Count 282 D MPV 9.2 L Immature Gran % (Auto) 0.4 Neut % (Auto) 86.4 H Lymph % (Auto) 6.9 L [place] % (Auto) 5.2 Eos % (Auto) 0.7 Baso % (Auto) 0.4 Lymph # (Auto) 0.6 L [place] # (Auto) 0.5 Eos # (Auto) 0.1 Baso # (Auto) 0.0 Abs Immat Gran (auto) 0.04 H Absolute Neuts (auto) 7.9 Absolute Nucleated RBC 0.000 Nucleated RBC % (auto) 0.0 Sodium 135 Potassium 4.1 Chloride 101 Carbon Dioxide 23 Anion Gap 15 BUN 25 H Creatinine 1.96 H Estim Creat Clear Calc 27.3 Estimated GFR 34 POC Glucose 230 H Random Glucose 299 H Fasting Glucose Lactic Acid 2.2 H* Lactic Acid F/U @ 2Hr 1.4 Calcium 9.9 Total Bilirubin 0.9 Direct Bilirubin 0.4 AST 13 ALT 10 Alkaline Phosphatase 105 Total Protein 8.2 H Albumin 4.1 Random Vancomycin 01/13/24 01/13/24 01/13/24 05:02 07:36 11:10 WBC 5.9 RBC 4.05 L Hgb 10.8 L Hct 33.7 L MCV 83.2 MCH 26.7 L MCHC 32.0 RDW 14.5 Plt Count 255 MPV 9.9 Immature Gran % (Auto) Neut % (Auto) Lymph % (Auto) [place] % (Auto) Eos % (Auto) Baso % (Auto) Lymph # (Auto) [place] # (Auto) Eos # (Auto) Baso # (Auto) Abs Immat Gran (auto) Absolute Neuts (auto) Absolute Nucleated RBC 0.000 Nucleated RBC % (auto) 0.0 Sodium 137 Potassium 3.5 Chloride 108 Carbon Dioxide 20 L Anion Gap 13 BUN 19 H Creatinine 1.46 H Estim Creat Clear Calc 37.8 Estimated GFR 47 POC Glucose 120 H 311 H Random Glucose Fasting Glucose 93 Lactic Acid Lactic Acid F/U @ 2Hr Calcium 8.7 D Total Bilirubin Direct Bilirubin AST ALT Alkaline Phosphatase Total Protein Albumin Random Vancomycin 01/13/24 01/13/24 01/14/24 16:24 19:46 05:54 WBC 5.9 RBC 4.05 L Hgb 10.9 L Hct 33.7 L MCV 83.2 MCH 26.9 L MCHC 32.3 RDW 14.3 Plt Count 254 MPV 9.1 L Immature Gran % (Auto) Neut % (Auto) Lymph % (Auto) [place] % (Auto) Eos % (Auto) Baso % (Auto) Lymph # (Auto) [place] # (Auto) Eos # (Auto) Baso # (Auto) Abs Immat Gran (auto) Absolute Neuts (auto) Absolute Nucleated RBC 0.000 Nucleated RBC % (auto) 0.0 Sodium 137 Potassium 3.7 Chloride 108 Carbon Dioxide 21 L Anion Gap 12 BUN 18 H Creatinine 1.59 H Estim Creat Clear Calc 34.7 Estimated GFR 43 POC Glucose 173 H 205 H Random Glucose Fasting Glucose 97 Lactic Acid Lactic Acid F/U @ 2Hr Calcium 8.8 Total Bilirubin Direct Bilirubin AST ALT Alkaline Phosphatase Total Protein Albumin Random Vancomycin 01/14/24 01/14/24 01/14/24 07:30 11:05 15:56 WBC RBC Hgb Hct MCV MCH MCHC RDW Plt Count MPV Immature Gran % (Auto) Neut % (Auto) Lymph % (Auto) [place] % (Auto) Eos % (Auto) Baso % (Auto) Lymph # (Auto) [place] # (Auto) Eos # (Auto) Baso # (Auto) Abs Immat Gran (auto) Absolute Neuts (auto) Absolute Nucleated RBC Nucleated RBC % (auto) Sodium Potassium Chloride Carbon Dioxide Anion Gap BUN Creatinine Estim Creat Clear Calc Estimated GFR POC Glucose 101 219 H 209 H Random Glucose Fasting Glucose Lactic Acid Lactic Acid F/U @ 2Hr Calcium Total Bilirubin Direct Bilirubin AST ALT Alkaline Phosphatase Total Protein Albumin Random Vancomycin 01/14/24 01/14/24 01/15/24 16:45 19:38 05:38 WBC RBC Hgb Hct MCV MCH MCHC RDW Plt Count MPV Immature Gran % (Auto) Neut % (Auto) Lymph % (Auto) [place] % (Auto) Eos % (Auto) Baso % (Auto) Lymph # (Auto) [place] # (Auto) Eos # (Auto) Baso # (Auto) Abs Immat Gran (auto) Absolute Neuts (auto) Absolute Nucleated RBC Nucleated RBC % (auto) Sodium Potassium Chloride Carbon Dioxide Anion Gap BUN Creatinine 1.58 H Estim Creat Clear Calc 34.9 Estimated GFR 43 POC Glucose 178 H Random Glucose Fasting Glucose Lactic Acid Lactic Acid F/U @ 2Hr Calcium Total Bilirubin Direct Bilirubin AST ALT Alkaline Phosphatase Total Protein Albumin Random Vancomycin 11.6 L 01/15/24 01/15/24 07:31 11:16 WBC RBC Hgb Hct MCV MCH MCHC RDW Plt Count MPV Immature Gran % (Auto) Neut % (Auto) Lymph % (Auto) [place] % (Auto) Eos % (Auto) Baso % (Auto) Lymph # (Auto) [place] # (Auto) Eos # (Auto) Baso # (Auto) Abs Immat Gran (auto) Absolute Neuts (auto) Absolute Nucleated RBC Nucleated RBC % (auto) Sodium Potassium Chloride Carbon Dioxide Anion Gap BUN Creatinine Estim Creat Clear Calc Estimated GFR POC Glucose 126 H 98 Random Glucose Fasting Glucose Lactic Acid Lactic Acid F/U @ 2Hr Calcium Total Bilirubin Direct Bilirubin AST ALT Alkaline Phosphatase Total Protein Albumin Random Vancomycin Airway Mallampati Class: II TM Dist: >3cm Neck ROM: Limited Heart: rrr Lungs: cta Assessment and Plan Assessment Anesthesia Assessment: Anesthesia Plan Discussed Final Anesthetic Review Family History of Problems with Anesthesia: No History of Problems with Anesthesia: No NPO: Yes ASA Class: III Final Preanesthetic Review: No Changes in Pt Med Stat, Meds/Allgs Chart Reviewed, Consent Obtained/Reviewed and Anes Risks/Benef Reviewed Patient Risk: Intermediate Procedure Risk: Low Anesthetic Plan Anesthetic Plan: GA Disposition: Standard PACU
--- NOTE | 2024-01-15 15:02 | P.OP_ITS ---
Operative Note Operative Note Date of Service: 01/15/24 Narrative: Operative note by [facility] Preoperative diagnosis: Right 2nd toe gangrene Postoperative diagnosis: Same Procedure: Right 2nd toe amputation Surgeon:Case Pineda M.D. Horticultural Farm Manager: Mer HAN Anesthesia: General Specimens: 1 Drains: None Estimated blood loss: Minimal Indications: Very pleasant 73-year-old gentleman who had a gangrenous right 2nd toe now presents for amputation. Consent was obtained via healthcare proxy The patient has signed the informed consent after reviewing risks, complications, benefits, and alternatives previously discussed with the patient. The patient was given the opportunity to ask any additional questions or voice any concerns. All questions were answered to the patient's satisfaction. Procedure in detail: Patient was brought to the operating room prior to which a time-out was called for patient identification site verification. Curvilinear fishmouth incision was carried out over the 2nd toe. This was taken down to the metatarsal head. Electrocautery was used to obtain hemostasis. We were able to remove the toe in its entirety. It appeared to be a clean bed with good bleeding. Once hemostasis was achieved the wound was thoroughly irrigated out. We then proceeded to close the incision in multiple layers. We did a deep layer 2-0 Polysorb with a superficial layer of once again 2-0 Polysorb. Finally we closed skin with a 3-0 nylon in a mattress fashion along with skin clips. Xeroform and a sterile dressing were applied. At the end the case sponge instrument counts were correct. Patient tolerated the procedure well. Returned to recovery with stable vitals. This note is constructed using voice recognition software. While every effort has been made to ensure accuracy, naval aircrewman mechanical errors may have been included. Thank you for allowing me to participate in the care of your patient. Yours sincerely, Case Pineda MD, FACS, R.P.V.I.
[2024-01-15] MEDS: Piperacillin Sodium/Tazobactam 2.25 GM in 0.9 % Sodium Chloride 50 ML IV ×2 (15:37→21:27)
[2024-01-15 16:09] LABS: Vancomycin Random 11.6 mcg/mL (15-20)
[2024-01-15 16:14] LABS: Glucose, Whole Blood 104 mg/dL (60-115)
[2024-01-15] MEDS: Heparin Sodium,Porcine 5,000 UNIT/ML VIAL 5000 UNIT SUBCUT (17:30)
[2024-01-15] MEDS: vancomycin HCL 750 MG in 0.9 % Sodium Chloride 250 ML 265 MG IV (17:35)
[2024-01-15 20:10] LABS: Glucose, Whole Blood 291 mg/dL (60-115)
[2024-01-15] MEDS: Donepezil HCl 10 MG TABLET PO (20:12)
[2024-01-15] MEDS: Insulin Lispro 100 UNIT/ML 3 ML VIAL SUBCUT (20:12)
[2024-01-15] MEDS: lisinopriL 10 MG TABLET PO (20:12)
[2024-01-16 03:04] VITALS: BP 161/85; PULSE 71; RESP 16; TEMP 36.1; O2SAT 97
[2024-01-16] MEDS: Piperacillin Sodium/Tazobactam 2.25 GM in 0.9 % Sodium Chloride 50 ML IV ×4 (03:07→21:49)
[2024-01-16] MEDS: Heparin Sodium,Porcine 5,000 UNIT/ML VIAL 5000 UNIT SUBCUT ×3 (03:08→17:31)
[2024-01-16 06:43] VITALS: BP 170/90; PULSE 67; RESP 16; TEMP 36.6; O2SAT 94
[2024-01-16 07:00] LABS: Glucose, Whole Blood 210 mg/dL (60-115)
[2024-01-16 07:18] LABS: Hematocrit 38.6 % (42.0-52.0); Hemoglobin 12.8 g/dl (14.0-18.0); Mean Corpuscular HGB Conc 33.2 g/dl (31.0-36.0); Mean Corpuscular Hemoglobin 27.1 pg (27.0-33.0); Mean Corpuscular Volume 81.6 fL (80.0-98.0); Mean Platelet Volume 9.4 fL (9.4-12.4); Platelet Count 327 X10*3/uL (160-400); Red Blood Count 4.73 X10*6/uL (4.60-5.80); Red Cell Distribution Width 14.2 % (11.0-16.0)
[2024-01-16 07:33] LABS: Anion Gap 17 (12-20); Blood Urea Nitrogen 29 mg/dL (9-16); Calcium 9.2 mg/dL (8.4-10.2); Carbon Dioxide 22 mmol/L (22-29); Chloride 104 mmol/L (96-108); Creatinine Clr Calc Pharmacy 31.3; Estimated Glomerular Filt Rate 38; Glucose Fasting 216 mg/dL (60-99); Sodium 138 mmol/L (135-145)
[2024-01-16] MEDS: Insulin Lispro 100 UNIT/ML 3 ML VIAL SUBCUT ×4 (07:51→20:42)
[2024-01-16] MEDS: Escitalopram Oxalate 5 MG TABLET PO (07:54)
[2024-01-16] MEDS: 0.9 % Sodium Chloride Flush 3 ML SYRINGE IVFLUSH ×3 (07:54→21:50)
[2024-01-16] MEDS: Finasteride 5 MG TABLET PO (07:54)
[2024-01-16] MEDS: Tamsulosin HCL 0.4 MG CAPSULE PO (07:54)
--- NOTE | 2024-01-16 09:09 | HO.POSTANES ---
Post Anesthesia Evaluation Post Anesthesia Evaluation Date of Service: 01/15/24 Vital Signs: Vital Signs Temp Pulse Resp BP Pulse Ox O2 Del Method 01/16/24 06:43 98 F 67 16 170/90 H 94 Room Air 01/16/24 03:04 97.0 F 71 16 161/85 H 97 Room Air 01/15/24 23:26 97.3 F 63 16 154/81 H 95 Room Air Anesthesia: General Mental Status: Awake Pain Control: Satisfactory Nausea/Vomiting: None Hydration: Adequate Anesthesia-Related Issues: No Anes. Related Issues
--- NOTE | 2024-01-16 09:51 | HO.VASCPN ---
Subjective Subjective Date of Service: 01/16/24 Patient reports: feels better, tolerating a regular diet, voiding w/o difficulty and afebrile Interval history: Pt has no complaints this morning. He denies any pain. Pt states he slept well last night and had no pain. He has been afebrile and voiding without difficulty. supervisor trust accounts through hospital utilized. Physical Exam Vital Signs: Vital Signs: Last Vital Signs Temp 98 F 01/16/24 06:43 Pulse 67 01/16/24 06:43 Resp 16 01/16/24 06:43 BP 170/90 H 01/16/24 06:43 Pulse Ox 94 01/16/24 06:43 O2 Del Method Room Air 01/16/24 06:43 O2 Flow Rate 6 01/15/24 14:41 BMI result Body Mass Index 22.1 Const: Other: Pt is sitting up in bed awake and alert, Amharic speaking only. Orientation/consciousness: patient oriented x3 Resp: Effort & Inspection: normal respiratory effort and able to speak in complete sentences Cardio: Rate: regular rate Rhythm: regular rhythm Peripheral pulses: posterior tibial pulses present and dorsalis pedis present Skin: Other: Right foot with kerlix wrap. Chip bandage removed. No blood or discharge noted on Kerlix. Neuro: General: patient oriented x3 Progress Note: A&P Assessment and plan (1) Osteomyelitis of second toe of right foot: Status: Acute Plan Chip wrap taken down today. Will leave Kerlix wrap and dressing on until tomorrow, when we will do a full dressing change. The Kerlix is in place and there is no discharge or blood noted on the bandages. We will be doing a dressing change tomorrow. If the pt continues to be stable, he could likely be discharged home tomorrow with follow up in the office. Time Spent With Patient Time: Total time managing care of this patient today ___20 minutes. Procedures Date of Service Date of Service: 01/16/24 Quality Stroke Does the patient have a stroke diagnosis?: No VTE Prior VTE?: No VTE Risk Level:: Medical - moderate - high VTE Device Contraindication: Treatment Not Indicated VTE Drug Contraindication: N/A - Med Ordered
[2024-01-16 10:57] LABS: Glucose, Whole Blood 323 mg/dL (60-115)
--- NOTE | 2024-01-16 12:58 | HO.PM.IMPN ---
Subjective Subjective Date of Service: 01/16/24 Interval History: seen and evaluated feels better pain under good control no overnight events Review of Systems Review of Systems: Yes all other systems are reviewed and are negative Physical Exam Vital Signs: Vital Signs: Last Vital Signs Temp 98 F 01/16/24 06:43 Pulse 67 01/16/24 06:43 Resp 16 01/16/24 06:43 BP 170/90 H 01/16/24 06:43 Pulse Ox 94 01/16/24 06:43 O2 Del Method Room Air 01/16/24 06:43 O2 Flow Rate 6 01/15/24 14:41 BMI result Body Mass Index 22.1 Const: Other: Constitutional : interactive, not in distress Cardiovascular : no JVP, no lower extremity edema Respiratory : bilateral chest movement, not in resp distress Gastrointestinal: soft, lax, Non tender Skin : Warm, Dry, right foot in dressing with no bleeding or drainage Neurological : Alert & oriented , No focal deficit Objective Data Active Medications Acetaminophen (Acetaminophen 325 Mg Tablet) 650 mg PO Q6H PRN PRN Reason: Pain, Mild (Pain Scale 1-3), fever or headache Calcium Carbonate (Calcium Carbonate 750 Mg Tab.Chew) 750 mg PO Q4H PRN PRN Reason: Heartburn Donepezil HCl (Donepezil Hcl 10 Mg Tablet) 10 mg PO BEDTIME [facility] Last Admin: 01/15/24 20:12 Dose: 10 mg Documented By: ANKIT Escitalopram Oxalate (Escitalopram Oxalate 5 Mg Tablet) 5 mg PO DAILY [facility] Last Admin: 01/16/24 07:54 Dose: 5 mg Documented By: TIGRE Finasteride (Finasteride 5 Mg Tablet) 5 mg PO DAILY [facility] Last Admin: 01/16/24 07:54 Dose: 5 mg Documented By: TIGRE Glucose (Glucose Gel 15 Gm Gel..Gram.) 15 gm PO Q15M PRN; Protocol PRN Reason: per Hypoglycemia Standing Ord. Heparin Sodium (Porcine) (Heparin Sodium,Porcine 5,000 Unit/Ml Vial) 5,000 unit SUBCUT Q8H [facility] Last Admin: 01/16/24 09:32 Dose: 5,000 unit Documented By: TIGRE Dextrose (D10) 250 mls @ 750 mls/hr IV Q15M PRN; Protocol PRN Reason: per Hypoglycemia Standing Ord. Vancomycin HCl 750 mg/ Sodium (Chloride) 265 mls @ 265 mls/hr IV Q24H [facility] Last Infusion: 01/15/24 18:37 Dose: Infused Documented By: SAMI Piperacillin Sod/Tazobactam (Sod 2.25 gm/ Sodium Chloride) 50 mls @ 100 mls/hr IV Q6H [facility] Last Infusion: 01/16/24 10:16 Dose: Infused Documented By: TIGRE Insulin Human Lispro (Insulin Lispro 100 Unit/Ml 3 Ml Vial) 0 unit SUBCUT QIDACHS [facility]; Protocol Last Admin: 01/16/24 11:33 Dose: 8 unit Documented By: TIGRE Lisinopril (Lisinopril 10 Mg Tablet) 10 mg PO BEDTIME [facility]; Protocol Last Admin: 01/15/24 20:12 Dose: 10 mg Documented By: ANKIT Magnesium Hydroxide (Milk Of Magnesia 30 Ml Oral.Susp) 30 ml PO DAILY PRN PRN Reason: Constipation Melatonin (Melatonin 3 Mg Tablet) 6 mg PO BEDTIME PRN PRN Reason: Insomnia Naloxone HCl (Naloxone Hcl 0.4 Mg/Ml Vial) 0.04 mg IVPUSH Q5M PRN PRN Reason: Excessive sedation or RR < 8 Pharmacy Consult (Consult Rx Vancomycin Dosing) 1 each MISCELLANE DAILY PRN PRN Reason: Consult order Sodium Chloride (0.9 % Sodium Chloride Flush 3 Ml Syringe) 3 ml IVFLUSH QSHIFT [facility] Last Admin: 01/16/24 07:54 Dose: 3 ml Documented By: TIGRE Tamsulosin HCl (Tamsulosin Hcl 0.4 Mg Capsule) 0.4 mg PO DAILY [facility] Last Admin: 01/16/24 07:54 Dose: 0.4 mg Documented By: TIGRE Labs 01/16/24 05:48 01/16/24 05:48 Labs: Laboratory Results - last 24 hr 01/15/24 01/15/24 01/15/24 15:46 16:07 20:04 MCV MCH MCHC RDW Plt Count MPV Absolute Nucleated RBC Nucleated RBC % (auto) Anion Gap Estim Creat Clear Calc Estimated GFR POC Glucose 104 291 H Fasting Glucose Calcium Random Vancomycin 11.6 L 01/16/24 01/16/24 01/16/24 05:48 06:44 10:53 MCV 81.6 MCH 27.1 MCHC 33.2 RDW 14.2 Plt Count 327 D MPV 9.4 Absolute Nucleated RBC 0.000 Nucleated RBC % (auto) 0.0 Anion Gap 17 Estim Creat Clear Calc 31.3 Estimated GFR 38 POC Glucose 210 H 323 H Fasting Glucose 216 H Calcium 9.2 Random Vancomycin Assessment and Plan (1) Osteomyelitis of second toe of right foot: Status: Acute (2) CKD (chronic kidney disease) stage 3, GFR 30-59 ml/min: Status: Acute Plan 73M PMH Alzheimer dementia, diabetes, CKD 4, history of osteomyelitis, pvd, BPH presented with fevers and chills and found to have right 2nd toe necrosis Cellulitis of the right foot and osteomyelitis of the right 2nd toe due to diabetes and peripheral vascular disease S\P Rt 2nd toe amputation IV vancomycin and Zosyn follow up cultures - no growth to date VAscular surgery following follow Vanco trough Alzheimer's dementia Continue Aricept Diabetes Insulin sliding scale CKD 4 Stable, monitor htn lisinopril bph finasteride, flomax DVT prophylaxis with heparin subQ Full code reason for continued hospitalization: post surgical care pending vascular surgery clearance to discharge Quality Stroke Does the patient have a stroke diagnosis?: No VTE Prior VTE?: No VTE Risk Level:: Medical - moderate - high VTE Device Contraindication: Treatment Not Indicated VTE Drug Contraindication: N/A - Med Ordered
--- NOTE | 2024-01-16 13:04 | MHC.CM.PN ---
Per MD rounds, patient not medically cleared for dc. CM will continue to follow.
[2024-01-16 15:23] VITALS: BP 145/82; PULSE 61; RESP 20; TEMP 36.9; O2SAT 94
[2024-01-16 16:15] LABS: Glucose, Whole Blood 252 mg/dL (60-115)
[2024-01-16] MEDS: vancomycin HCL 750 MG in 0.9 % Sodium Chloride 250 ML 265 MG IV (17:45)
[2024-01-16 19:32] VITALS: BP 143/78; PULSE 62; RESP 20; TEMP 36.4; O2SAT 95
[2024-01-16 20:09] LABS: Glucose, Whole Blood 235 mg/dL (60-115)
[2024-01-16] MEDS: lisinopriL 10 MG TABLET PO (20:42)
[2024-01-16] MEDS: Donepezil HCl 10 MG TABLET PO (20:42)
[2024-01-16 23:34] VITALS: BP 161/77; PULSE 59; RESP 16; TEMP 36.7; O2SAT 94
[2024-01-17] MEDS: Heparin Sodium,Porcine 5,000 UNIT/ML VIAL 5000 UNIT SUBCUT ×2 (03:11→09:08)
[2024-01-17] MEDS: Piperacillin Sodium/Tazobactam 2.25 GM in 0.9 % Sodium Chloride 50 ML IV ×2 (03:12→09:08)
[2024-01-17 03:16] VITALS: BP 162/78; PULSE 54; RESP 16; TEMP 36.3; O2SAT 93
[2024-01-17 07:07] LABS: Hematocrit 36.5 % (42.0-52.0); Hemoglobin 11.7 g/dl (14.0-18.0); Mean Corpuscular HGB Conc 32.1 g/dl (31.0-36.0); Mean Corpuscular Hemoglobin 26.8 pg (27.0-33.0); Mean Corpuscular Volume 83.5 fL (80.0-98.0); Mean Platelet Volume 9.5 fL (9.4-12.4); Platelet Count 310 X10*3/uL (160-400); Red Blood Count 4.37 X10*6/uL (4.60-5.80); Red Cell Distribution Width 14.3 % (11.0-16.0); White Blood Count 7.4 X10*3/uL (4.8-10.8)
[2024-01-17 07:14] LABS: Anion Gap 13 (12-20); Blood Urea Nitrogen 32 mg/dL (9-16); Calcium 9.1 mg/dL (8.4-10.2); Carbon Dioxide 23 mmol/L (22-29); Chloride 107 mmol/L (96-108); Creatinine Clr Calc Pharmacy 33.6; Estimated Glomerular Filt Rate 42; Glucose Random 169 mg/dL (60-115); Potassium 3.9 mmol/L (3.3-5.1); Sodium 139 mmol/L (135-145)
[2024-01-17 07:41] LABS: Glucose, Whole Blood 154 mg/dL (60-115)
[2024-01-17] MEDS: Insulin Lispro 100 UNIT/ML 3 ML VIAL SUBCUT ×2 (07:51→11:55)
[2024-01-17 08:00] VITALS: BP 166/73; PULSE 61; RESP 16; TEMP 36.3; O2SAT 95
[2024-01-17] MEDS: Escitalopram Oxalate 5 MG TABLET PO (09:08)
[2024-01-17] MEDS: Finasteride 5 MG TABLET PO (09:08)
[2024-01-17] MEDS: Tamsulosin HCL 0.4 MG CAPSULE PO (09:08)
[2024-01-17] MEDS: 0.9 % Sodium Chloride Flush 3 ML SYRINGE IVFLUSH (09:14)
--- NOTE | 2024-01-17 09:21 | HO.VASCPN ---
Subjective Subjective Date of Service: 01/17/24 Patient reports: feels better, tolerating a regular diet and afebrile Interval history: Reg is doing well this morning. He has been sleeping well and eating well. He continues to deny pain. He denies any fever or chills. Physical Exam Vital Signs: Vital Signs: Last Vital Signs Temp 97.4 F 01/17/24 08:00 Pulse 61 01/17/24 08:00 Resp 16 01/17/24 08:00 BP 166/73 H 01/17/24 08:00 Pulse Ox 95 01/17/24 08:00 O2 Del Method Room Air 01/17/24 08:00 O2 Flow Rate 6 01/15/24 14:41 BMI result Body Mass Index 22.1 Const: Other: Reg is sitting up in bed, awake and alert, talking with his daughter. He denies fever/chills. He denies any pain. He denies any weakness. Resp: Effort & Inspection: normal respiratory effort and able to speak in complete sentences Cardio: Rate: regular rate Rhythm: regular rhythm Peripheral pulses: posterior tibial pulses present and dorsalis pedis present Skin: Other: Right foot: dressing took down this morning. R2 toe area is C/D/I. Minimal discharge noted on bandage. No bleeding or erythema noted throughout. [place] and sutures intact. No pain at the site. +DP/PT pulses. Progress Note: A&P Assessment and plan (1) Osteomyelitis of second toe of right foot: Status: Acute Plan Reg is doing well today. The dressing was taken down and the R2 toe amputation site is C/D/I. All ivan and sutures are intact. There was minimal discharge noted on the dressing. We will continue with daily dressing changes with Xeroform, 4x4, and Kerlix wrap. We believe he is ready for discharge today. He has remained febrile and denies any pain; the site is doing well and there is no signs of infection. His daughter is concerned about possible infection, the last amputation he had to return to the hospital due to infection. Because of this, we will send him home with Keflex 500mg bid for 10d. We will also have him follow up with us in 2 weeks in the office. If there is any concerns of infection including redness, warmth, or fever, he should call our office immediately. We will also be ordering him an off-loading shoe to assist with ambulation. We did discuss this with his daughter, and she was in agreement with the treatment/discharge plan. Time Spent With Patient Time: Total time managing care of this patient today ___30_ minutes. Procedures Date of Service Date of Service: 01/17/24 Quality Stroke Does the patient have a stroke diagnosis?: No VTE Prior VTE?: No VTE Risk Level:: Medical - moderate - high VTE Device Contraindication: Treatment Not Indicated VTE Drug Contraindication: N/A - Med Ordered
--- NOTE | 2024-01-17 11:22 | MHC.CM.PN ---
Per MD patient medically cleared for dc home w/ family and new SN via [facility]. Daughter will provide transport home at 2pm. RN aware. IMM delivered.
--- NOTE | 2024-01-17 11:22 | W.MHC.F2F ---
Service Date Service Date: 01/17/24 Encounter Date of encounter: 01/17/24 Reasons for Services Signs and symptoms assessed: 2nd Toe Osteomyelitis post amputation Reason for mcfp: wound care ( xeroform, 4x4 and Kerlix wrap to be changed daily. ) Homebound: Leaving the home is medically contraindicated at this time without the asist of a device and/or another person due th the listed conditions above and below. Reason homebound: unsteady gait / fall risk Certification: Based on the above findings, I certify that this patient is confined to the home and needs intermittent mcfp care, physical therapy and/or speech therapy, or continues to need occupational therapy. The patient is under my care, and I have initiated the establishment of the plan of care. The patient will be followed by a physician who will periodically review the plan of care. Time Spent With Patient Time: Total time managing care of this patient today ____ minutes.
--- NOTE | 2024-01-17 11:23 | PM.DS ---
DS: Providers Provider Date of Service: 01/17/24 Date of admission: 01/12/24 17:49 Date of discharge: 01/17/24 Primary care physician: Penny Camarena MD Consults: 01/12/24 17:45 Consult to Infectious Diseases Routine Consulting Provider: [facility] Reason for consultation: right second toe om Consult to Vascular Surgery Routine Consulting Provider: [facility] Reason for consultation: right 2nd toe om 01/14/24 10:54 Consult to Wound Care Routine Reason for consultation: right 2nd toe necrosis DS: Diagnosis Discharge Diagnosis (1) Osteomyelitis of second toe of right foot: Status: Acute (2) CKD (chronic kidney disease) stage 3, GFR 30-59 ml/min: Status: Acute DS: Summary Hospital Course Hospital Course: Admission note HPI 73M PMH Alzheimer dementia, diabetes, CKD 4, history of osteomyelitis, pvd, BPH presented with fevers and chills and found to have right 2nd toe necrosis. Patient has been having fever and chills for about 3 days prior to presentation, thought to be due to flu as they were sick contacts at home, spent most of time in bed. Then on day of presentation when to take a bath and took off sock and noted to have erythema on dorsum of the right foot and black 2nd toe with foul odor. In ED, x-ray with osteomyelitis, patient afebrile white blood cell count 9.2. Hospital course The patient was admitted for treatment of Cellulitis of the right foot and osteomyelitis of the right 2nd toe due to diabetes and peripheral vascular disease as reported on images. evaluated by infectious disease specialist and vascular surgeon adriana went for right 2nd toe amputation on 01/14 with fair response as the patient was kept during inpatient time on IV vancomycin and Zosyn. His blood cultures had no growth to date. To be dsicharged home on 10 days of KEflex with a plan for [facility] to follow at home for wound care and to see dr Pineda in 2 weeks in office for wound check and ivan removal. Discharge plan Continue Keflex for 10 more days Daily dressing per surgery recommendations Tylenol for pain Follow with dr Pineda in 2 weeks Time Attestation Discharge Coordination Time (in mins): 41 Quality: Safe Use of Opioids Does Pt have an Active Cancer Diagnosis on the Problem List?: No Quality: Stroke Does the patient have a stroke diagnosis?: No Physical Exam Vital Signs: Vital Signs: Last Vital Signs Temp 97.4 F 01/17/24 08:00 Pulse 61 01/17/24 08:00 Resp 16 01/17/24 08:00 BP 166/73 H 01/17/24 08:00 Pulse Ox 95 01/17/24 08:00 O2 Del Method Room Air 01/17/24 08:00 O2 Flow Rate 6 01/15/24 14:41 BMI result Body Mass Index 22.1 Const: Other: Constitutional : interactive, not in distress Cardiovascular : no JVP, no lower extremity edema Respiratory : bilateral chest movement, not in resp distress Gastrointestinal: soft, lax, Non tender Skin : Warm, Dry, right foot in dressing with no bleeding or drainage Neurological : Alert & oriented , No focal deficit DS: Data Data Completed and Pending Completed studies during hospitalization [Text1]: Procedures Drainage of Left Hand Skin, External Approach (02/12/22) Drainage of Left Hand Subcutaneous Tissue and Fascia, Open Approach (02/12/22) Fluoroscopy of Superior Vena Cava, Guidance (02/12/22) Insertion of Infusion Device into Superior Vena Cava, Percutaneous Approach (10/25/22) Ultrasonography of Superior Vena Cava, Guidance (10/25/22) Pending studies at discharge: Pending at discharge 01/15/24 14:07 Surgical [PTH] Routine Labs on day of discharge: Laboratory Results - last 24 hr 01/16/24 01/16/24 01/17/24 16:00 20:00 05:24 WBC 7.4 RBC 4.37 L Hgb 11.7 L Hct 36.5 L MCV 83.5 MCH 26.8 L MCHC 32.1 RDW 14.3 Plt Count 310 MPV 9.5 Absolute Nucleated RBC 0.000 Nucleated RBC % (auto) 0.0 Sodium 139 Potassium 3.9 D Chloride 107 Carbon Dioxide 23 Anion Gap 13 BUN 32 H Creatinine 1.64 H Estim Creat Clear Calc 33.6 Estimated GFR 42 POC Glucose 252 H 235 H Random Glucose 169 H Calcium 9.1 01/17/24 07:29 WBC RBC Hgb Hct MCV MCH MCHC RDW Plt Count MPV Absolute Nucleated RBC Nucleated RBC % (auto) Sodium Potassium Chloride Carbon Dioxide Anion Gap BUN Creatinine Estim Creat Clear Calc Estimated GFR POC Glucose 154 H Random Glucose Calcium Preliminary micro results at discharge 01/12/24 15:46 Blood Culture - Preliminary Blood - Venous No growth after 48 hours. 01/12/24 15:46 Blood Culture - Preliminary Blood - Venous No growth after 48 hours. Imaging Chest x-ray: Radiologist's impression: ITS Impressions Foot X-Ray 01/12/24 15:13 IMPRESSION: Soft tissue swelling of the second toe with subcutaneous emphysema and osseous erosion of the distal aspect of the second digit distal phalanx. Findings are concerning for osteomyelitis. Electronically signed by: Shayna Burciaga DO 01/12/2024 04:24 PM EDT RP Duplex Scan Lower Extremity Artery 01/12/24 18:35 IMPRESSION: No evidence of a focal hemodynamically significant stenosis is seen. There is evidence of tibial disease with monophasic flow in the distal popliteal artery and all visualized tibial vessels. Electronically signed by: Cleveland Benítez MD 01/12/2024 08:17 PM EDT RP Discharge Plan Discharge Anticipated Discharge Date/Time: 01/17/24 11:18 Patient Disposition: Home Health Service Discharge Diagnosis: 2nd Toe Osteomyelitis Referrals: [facility] [Outside] - 3-5 Days Penny Camarena MD [Primary Care Provider] - 1 Week Discharge Medications: New cephalexin 500 mg capsule 500 mg PO BID Qty: 20 0RF Continued citalopram 10 mg tablet 1 tab PO DAILY donepezil 10 mg tablet 1 tab PO BEDTIME tamsulosin 0.4 mg capsule 1 cap PO DAILY finasteride 5 mg tablet 1 tab PO DAILY insulin glargine [Lantus U-100 Insulin] 100 unit/mL solution 10 unit subcut BEDTIME Patient Comments: 01/11: daughter says patient has not used in 2 months. acetaminophen 650 mg tablet extended release 650 mg PO Q8H PRN (Reason: pain) diclofenac sodium 1 % gel 2 g topical BID PRN (Reason: knee pain) dapagliflozin propanediol [Farxiga] 10 mg tablet 10 mg PO DAILY lisinopril 10 mg tablet 10 mg PO BEDTIME Discharge Orders: Discharge Order (Routine); Ordered 01/17/24 Ordered By: Serena Sadler Diet: Diabetic diet Activity on Discharge: As tolerated Stand Alone Forms: Patient Portal Discharge page Print Language: Bulgarian Activity Restrictions/Additional Instructions: Wound care upon discharge: xeroform, 4x4 and Kerlix wrap to be changed daily. Please call Dr. Pineda at [phone] for 2 week follow up for suture and staple removal Care Plan Goals: Continue Keflex for 10 more days Daily dressing per surgery recommendations Tylenol for pain Follow with dr Pineda in 2 weeks Health Concerns: Read below Plan of Treatment: Read below Assessment: Read below
[2024-01-17 11:39] LABS: Glucose, Whole Blood 209 mg/dL (60-115)
== END 2024-01-17 13:35 | disposition home health service (06) | DRG 256 ==
LOC: HO.ED 17:22 → HO.EDOVER 17:51 → HO.S3 19:48
PROVIDERS: Physician Assistant Medical; Surgery Vascular Surgery; Admitting Provider Internal Medicine; Emergency Provider Emergency Medicine Emergency Medical Services; PCP Internal Medicine; Visit Provider Student in an Organized Health Care Education/Training Program
PROC: 0Y6R0Z0 Detachment at Right 2nd Toe, Complete, Open Approach (ICD-10-PCS; principal; 2024-01-15 13:30)
DX: E11.52 Type 2 diabetes mellitus with diabetic peripheral angiopathy with gangrene (principal); L03.115 Cellulitis of right lower limb; M86.171 Other acute osteomyelitis, right ankle and foot; N18.4 Chronic kidney disease, stage 4 (severe); E11.628 Type 2 diabetes mellitus with other skin complications; I12.9 Hypertensive chronic kidney disease with stage 1 through stage 4 chronic kidney disease, or unspecified chronic kidney disease; E11.40 Type 2 diabetes mellitus with diabetic neuropathy, unspecified; E11.69 Type 2 diabetes mellitus with other specified complication; E11.22 Type 2 diabetes mellitus with diabetic chronic kidney disease; N40.0 Benign prostatic hyperplasia without lower urinary tract symptoms; G30.9 Alzheimer's disease, unspecified; F02.80 Dementia in other diseases classified elsewhere, unspecified severity, without behavioral disturbance, psychotic disturbance, mood disturbance, and anxiety; Z87.891 Personal history of nicotine dependence; Z79.4 Long term (current) use of insulin; Z79.899 Other long term (current) drug therapy
CPT/HCPCS: 36415; 73630; 80048; 80076; 80202; 82565; 82947; 83605; 85025; 85027; 87040; 88305; 88311; 93926; 99285; J1100; J1644; J2371; J2405; J2543; J2704; J2795; J3010; J3370; J3371

== ENCOUNTER → 2024-01-12 17:49 | Outpatient (BNV) | payer OTHER, SELFPAY | PROVIDERS: Admitting Provider Internal Medicine; Emergency Provider Emergency Medicine Emergency Medical Services; PCP Internal Medicine; Visit Provider Internal Medicine | DX: M86.8X7 Other osteomyelitis, ankle and foot (principal); N18.30 Chronic kidney disease, stage 3 unspecified; E11.621 Type 2 diabetes mellitus with foot ulcer | CPT/HCPCS: 99223; 99232; 99239; G0180 ==

== ENCOUNTER → 2024-01-12 17:49 | Outpatient (BNV) | payer OTHER, SELFPAY | PROVIDERS: Admitting Provider Internal Medicine; Emergency Provider Emergency Medicine Emergency Medical Services; PCP Internal Medicine; Visit Provider Internal Medicine | DX: N18.30 Chronic kidney disease, stage 3 unspecified (principal); M86.9 Osteomyelitis, unspecified | CPT/HCPCS: 99222 ==

== ENCOUNTER → 2024-01-12 17:49 | Outpatient (BNV) | payer OTHER, SELFPAY | PROVIDERS: Admitting Provider Internal Medicine; Emergency Provider Emergency Medicine Emergency Medical Services; PCP Internal Medicine; Visit Provider Surgery Vascular Surgery | DX: M86.9 Osteomyelitis, unspecified (principal) | CPT/HCPCS: 28810; 99024; 99222 ==

== ENCOUNTER 2024-01-24 10:48 | Outpatient (AMB) | payer OTHER, SELFPAY ==
--- NOTE | 2024-01-24 10:55 | A.OFFVIS_ITS ---
Intake Visit Reasons: S/p toe amp Intake Note: Patient presents for follow up toe amp. Chris YODER is changing his dressings daily. He is complaining of drainage and redness on great toe. Patient's daughter states his foot is swelling more and more each day. Accompanied by: Child Allergies oxycodone [From PERCOCET] Allergy (Unknown, Verified 01/24/24 11:02) CAN'T BREATH/VOMITING simvastatin [SIMVASTATIN] Allergy (Unknown, Verified 01/24/24 11:02) UNKNOWN peas Adverse Reaction (Unknown, Verified 01/24/24 11:02) VOMITING/FAINTING SALMON [id number] Adverse Reaction (Unknown, Uncoded 10/24/22 12:38) VOMITING/FAINT HPI HPI S/p toe amp: Details: Reg is presenting today with his daughter for concerns of possible infection and draining from the site. The nurses have been coming daily to his house for dressing changes. We initially sent him home with dressing changes daily with Xeroform, 4x4, and Kerlex. The daughter called the other day due to the drainage and his dressings were changed to alginate daily. The daughter states the drainage has decreased significantly. She states the site looks very red and swollen to her and she is worried about infection. He has been taking his abx bid, the daughter states she is making sure he is taking it. He denies fever/chills/body aches. He denies any pain at the site of the amputated toe; however, his daughter states he does not have much feeling in his feet. There has been no bleeding noted. All ivan are in place. [facility] Medical History Osteomyelitis of second toe of right foot Plantar ulcer of left foot Stage 3b chronic kidney disease (CKD) CKD stage G3b/A1, GFR 30-44 and albumin creatinine ratio <30 mg/g Dementia BPH (benign prostatic hyperplasia) Hypertension Dog bite Rhabdomyolysis Diabetes Surgical History History of amputation of toe Family History Other Diabetes HTN (hypertension) Social History Household Members: Family Housing: House Do you presently have visiting nurse or other home services: Yes Alcohol intake: never Patient Tobacco Use Status: Former Tobacco user Advance Directives Date on File: 01/25/21 service: No Current occupational status: retired Review of Systems Const Reports as per HPI and Denies weakness ENT Reports Normal hearing present and Denies dizziness Card Reports as per HPI, Denies chest pain, Denies chest pain at rest, Denies chest pain with activity, Denies dyspnea and Denies dyspnea on exertion Resp Reports as per HPI, Denies cough, Denies dyspnea and Denies dyspnea on exertion GI Reports as per HPI, Denies abdominal pain, Denies nausea and Denies vomiting Musc Denies numbness Skin/Breast Reports as per HPI, Denies erythema and Denies wounds Neuro Reports Normal hearing present, Denies dizziness, Denies numbness, Denies Sensory deficit (Neuro) and Denies weakness Psych Reports no additional complaints Endo Reports no additional complaints Physical Exam Const General: healthy appearing and no acute distress Orientation/consciousness: patient oriented x3 HEENT Head: Yes normal to inspection Ears: hearing grossly normal bilaterally Mouth: Normal oral and palatal mucosa present Resp Effort & Inspection: normal respiratory effort and able to speak in complete sentences Auscultation: clear to auscultation bilaterally Cardio Jugular venous distension: no JVD Rate: regular rate Rhythm: regular rhythm Heart sounds: S1 normal heart sound present and S2 normal heart sound present Bruits: no abdominal aortic bruits, no carotid bruits, no femoral bruits and no renal bruits Peripheral pulses: Peripheral pulses 2+ throughout GI Inspection: Yes normal to inspection Palpation (GI): No Abdominal aortic bruit present Skin Other: R2 toe amputation site: C/D/I. ivan in place. No erythema/drainage noted. Some slight skin discoloration noted all throughout the foot/lower leg but no erythema. +DP and PT pulses. Dried eschar noted around ivan. General skin exam: no rashes or lesions noted Wounds: no wounds Hair: normal Neuro General: patient oriented x3 Cranial nerves: Yes Normal hearing present Cognition (Neuro): normal cognition Gait exam (Neuro): Normal gait present Motor exam (neuro): 5/5 motor strength present throughout Sensory Exam: No Sensory deficit (Neuro) Extrem General: Yes normal to inspection, Yes full ROM, Yes capillary refill normal and Yes normal gait Assessment & Plan Assessment & Plan (1) Cellulitis of foot: Code(s): L03.119 - Cellulitis of unspecified part of limb Category: Medical Plan: Concern of infection. Continue with Keflex. Will recheck on follow up on 01/05. Discussed s/s of infection with pt and daughter. Plan Reg is presenting with his daughter today for possible infection/increased drainage from the R2 toe amputation site. The pt continues on bid Keflex. The pt's daughter states that the nursing staff, coming in daily to change the dressings, also have concerns about the site. The site does not look infected. There is some dry eschar but no erythema noted. There is no swelling noted. The site is C/D/I. We will change the dressing back to Xeroform/4x4/Kerlix daily. We will be sending these orders to [facility]. I reassured the pt and his daughter that we do not think it is infected but to keep a close eye on it and if he develops redness, increased swelling, fever/chills, etc, then to reach back out to the office. I also discussed completing the full course of abx as well. We will have him follow back with us on 01/05 for his scheduled follow up, where we will remove the ivan. Coding Level of Care Code Est Pt Level 3 (82632) Complex EM visit Add On G2211 Diagnoses Cellulitis of foot L03.119
== END 2024-01-24 11:24 | disposition home or self-care (01) ==
PROVIDERS: PCP Internal Medicine; Visit Provider Physician Assistant Surgical
DX: Z89.421 Acquired absence of other right toe(s) (principal); L03.119 Cellulitis of unspecified part of limb
CPT/HCPCS: 99024

== ENCOUNTER → 2024-01-24 10:48 | Outpatient (BNVA) | payer OTHER, SELFPAY | PROVIDERS: PCP Internal Medicine; Visit Provider Physician Assistant Surgical | DX: Z89.421 Acquired absence of other right toe(s) (principal); Z79.2 Long term (current) use of antibiotics | CPT/HCPCS: 99212 ==

== ENCOUNTER 2024-02-05 11:13 | Outpatient (AMB) | payer OTHER, SELFPAY ==
--- NOTE | 2024-02-05 11:22 | A.OFFVIS_ITS ---
Intake Visit Reasons: 2w follow up s/p toe amp Intake Note: follow up Right 2nd toe amp 01/15/24, last seen 01/24/24. Pt states VNA sunday, sun and Sunday, daughter changes dressing other days. States he does have ivan and some drainage. PCP gave Abx. Accompanied by: Daughter Allergies oxycodone [From PERCOCET] Allergy (Unknown, Verified 02/05/24 11:29) CAN'T BREATH/VOMITING simvastatin [SIMVASTATIN] Allergy (Unknown, Verified 02/05/24 11:29) UNKNOWN peas Adverse Reaction (Unknown, Verified 02/05/24 11:29) VOMITING/FAINTING SALMON [id number] Adverse Reaction (Unknown, Uncoded 02/05/24 11:29) VOMITING/FAINT HPI HPI 2w follow up s/p toe amp: Details: Reg is a pleasant 73 yo male patient presenting with his daughter today for a 2w wound care check of R2 toe amp. His daughter is interpreting for him. His daughter has been changing his dressings daily when VNA is not there. She states that she thinks it is getting better. His PCP placed him on Keflex last week due to thinking the site was infected; the daughter gave him a couple day's worth of the abx but is not sure the pt needs them. He does not have any pain; he states he does not feel pain in his feet. He denies any drainage. The ivan and sutures are still in place, we will be removing them today. He denies any other concerns today. [facility] Medical History CKD (chronic kidney disease) stage 3, GFR 30-59 ml/min Osteomyelitis of second toe of right foot Plantar ulcer of left foot Stage 3b chronic kidney disease (CKD) CKD stage G3b/A1, GFR 30-44 and albumin creatinine ratio <30 mg/g Dementia BPH (benign prostatic hyperplasia) Hypertension Dog bite Rhabdomyolysis Diabetes Surgical History History of amputation of toe Family History Other Diabetes HTN (hypertension) Social History Household Members: Family Housing: House Do you presently have visiting nurse or other home services: Yes Alcohol intake: never Patient Tobacco Use Status: Former Tobacco user Advance Directives Date on File: 01/25/21 service: No Current occupational status: retired Review of Systems Const Reports as per HPI and Denies weakness ENT Reports Normal hearing present and Denies dizziness Card Reports as per HPI, Denies chest pain, Denies chest pain at rest, Denies chest pain with activity, Denies dyspnea and Denies dyspnea on exertion Resp Reports as per HPI, Denies cough, Denies dyspnea and Denies dyspnea on exertion GI Reports as per HPI, Denies abdominal pain, Denies nausea and Denies vomiting Musc Denies numbness Skin/Breast Reports as per HPI, Denies erythema and Denies wounds Neuro Reports Normal hearing present, Denies dizziness, Denies numbness, Denies Sensory deficit (Neuro) and Denies weakness Psych Reports no additional complaints Endo Reports no additional complaints Physical Exam Const General: healthy appearing and no acute distress Orientation/consciousness: patient oriented x3 HEENT Head: Yes normal to inspection Ears: hearing grossly normal bilaterally Mouth: Normal oral and palatal mucosa present Resp Effort & Inspection: normal respiratory effort and able to speak in complete sentences Auscultation: clear to auscultation bilaterally Cardio Jugular venous distension: no JVD Rate: regular rate Rhythm: regular rhythm Heart sounds: S1 normal heart sound present and S2 normal heart sound present Bruits: no abdominal aortic bruits, no carotid bruits, no femoral bruits and no renal bruits Peripheral pulses: Peripheral pulses 2+ throughout GI Inspection: Yes normal to inspection Palpation (GI): No Abdominal aortic bruit present Skin Other: R2 toe amp: some dry eschar noted between the R1 and R4. There is a small open area at the base of R2. wound base is pink, slight light yellow discharge noted on dressing. Ivan removed and 3 sutures removed. No bleeding noted. Not painful to palpation. +DP/PT pulses. General skin exam: no rashes or lesions noted Wounds: no wounds Hair: normal Neuro General: patient oriented x3 Cranial nerves: Yes Normal hearing present Cognition (Neuro): normal cognition Gait exam (Neuro): Normal gait present Motor exam (neuro): 5/5 motor strength present throughout Sensory Exam: No Sensory deficit (Neuro) Extrem General: Yes normal to inspection, Yes full ROM, Yes capillary refill normal and Yes normal gait Assessment & Plan Assessment & Plan (1) Status post amputation of lesser toe of right foot: Code(s): Z89.421 - Acquired absence of other right toe(s) Category: Surgical Plan: Reg is presenting today with his daughter for a 2w wound care check and removal of ivan and sutures. He has VNA services doing dressing changes MWF and his daughter is doing dressing changes the other days. He is currently using Xeroform and 4x4 with Kerlix. The ivan and sutures were removed without difficulty. The pt tolerated the removal; he has no pain sensation in his feet. There was no bleeding noted. There was a small amount of light yellow discharge on the dressing. We will change his dressing to Aquacel once daily with 4x4 and Kerlix wrap. I discussed with the pt's daughter to cut the dressing to the size of the wound bed. We discussed that the site did not look infected and the daughter did not either; she states that the visiting nurses thought it was and had the daughter call the PCP office to get abx for possible infection. I did discuss with the daughter that we placed him on that abx upon discharge to prevent any infection. The site does not look infected at all but discussed with her to complete the abx if she wanted to; at this point there is no infection and no need for abx. We will follow up with him in 2w for another wound check. Coding Level of Care Code Global (11049) Diagnoses Status post amputation of lesser toe of right foot Z89.421
== END 2024-02-05 12:04 | disposition home or self-care (01) ==
PROVIDERS: PCP Internal Medicine; Visit Provider Physician Assistant Surgical
DX: Z89.421 Acquired absence of other right toe(s) (principal)
CPT/HCPCS: 99024

== ENCOUNTER → 2024-02-05 11:13 | Outpatient (BNVA) | payer OTHER, SELFPAY | PROVIDERS: PCP Internal Medicine; Visit Provider Physician Assistant Surgical | DX: Z47.81 Encounter for orthopedic aftercare following surgical amputation (principal); Z89.421 Acquired absence of other right toe(s) | CPT/HCPCS: 99212 ==

== ENCOUNTER 2024-02-19 10:50 | Outpatient (AMB) | payer OTHER, SELFPAY ==
--- NOTE | 2024-02-19 10:57 | MHC.OFFVIS ---
Intake Visit Reasons: 2 week wound check Intake Note: Visiting nurses do patient's dressing changes on Sunday , Sunday and Fridays. Patient's daughter does Sunday , and s. States it looks good per visiting nurses. He has a little redness on the top of his foot. Dime sized amount of drainage upon removing bandages. Allergies oxycodone [From PERCOCET] Allergy (Unknown, Verified 02/19/24 10:59) CAN'T BREATH/VOMITING simvastatin [SIMVASTATIN] Allergy (Unknown, Verified 02/19/24 10:59) UNKNOWN peas Adverse Reaction (Unknown, Verified 02/19/24 10:59) VOMITING/FAINTING SALMON [id number] Adverse Reaction (Unknown, Uncoded 02/05/24 11:29) VOMITING/FAINT HPI HPI 2 week wound check: Details: Reg, a pleasant 73-year-old Erit[place]an-speaking only male patient, presenting with his daughter today for 2 week wound check status post R2 toe amputation. He has been doing well at home. He will be starting PT soon; he does know that he can not place any weight on that toe at this point. He has VNA services that continue to come in and do dressing changes. He continues to not have any pain at the site. He denies any fevers, chills, or body aches. There is minimal discharge coming from the site. [facility] Medical History CKD (chronic kidney disease) stage 3, GFR 30-59 ml/min Osteomyelitis of second toe of right foot Plantar ulcer of left foot Stage 3b chronic kidney disease (CKD) CKD stage G3b/A1, GFR 30-44 and albumin creatinine ratio <30 mg/g Dementia BPH (benign prostatic hyperplasia) Hypertension Dog bite Rhabdomyolysis Diabetes Surgical History History of amputation of toe Family History Other Diabetes HTN (hypertension) Social History Household Members: Family Housing: House Do you presently have visiting nurse or other home services: Yes Alcohol intake: never Patient Tobacco Use Status: Former Tobacco user Advance Directives Date on File: 01/25/21 service: No Current occupational status: retired Review of Systems Const Reports as per HPI and Denies weakness ENT Reports Normal hearing present and Denies dizziness Card Reports as per HPI, Denies chest pain, Denies chest pain at rest, Denies chest pain with activity, Denies dyspnea and Denies dyspnea on exertion Resp Reports as per HPI, Denies cough, Denies dyspnea and Denies dyspnea on exertion GI Reports as per HPI, Denies abdominal pain, Denies nausea and Denies vomiting Musc Denies numbness Skin/Breast Reports as per HPI, Denies erythema and Denies wounds Neuro Reports Normal hearing present, Denies dizziness, Denies numbness, Denies Sensory deficit (Neuro) and Denies weakness Psych Reports no additional complaints Endo Reports no additional complaints Physical Exam Const General: healthy appearing and no acute distress Orientation/consciousness: patient oriented x3 HEENT Head: Yes normal to inspection Ears: hearing grossly normal bilaterally Mouth: Normal oral and palatal mucosa present Resp Effort & Inspection: normal respiratory effort and able to speak in complete sentences Auscultation: clear to auscultation bilaterally Cardio Jugular venous distension: no JVD Rate: regular rate Rhythm: regular rhythm Heart sounds: S1 normal heart sound present and S2 normal heart sound present Bruits: no abdominal aortic bruits, no carotid bruits, no femoral bruits and no renal bruits Peripheral pulses: Peripheral pulses 2+ throughout GI Inspection: Yes normal to inspection Palpation (GI): No Abdominal aortic bruit present Skin General skin exam: no rashes or lesions noted Wounds: no wounds Hair: normal Neuro General: patient oriented x3 Cranial nerves: Yes Normal hearing present Cognition (Neuro): normal cognition Gait exam (Neuro): Normal gait present Motor exam (neuro): 5/5 motor strength present throughout Sensory Exam: No Sensory deficit (Neuro) Extrem Other: R2 toe amp site: Minimal discharge noted on dressing. No erythema noted surrounding the wound. Wound bed is pink granulation tissue. The right foot has significant dry skin. No pain upon palpation. Palpable DP pulses. General: Yes normal to inspection, Yes full ROM, Yes capillary refill normal and Yes normal gait Assessment & Plan Assessment & Plan (1) Status post amputation of lesser toe of right foot: Code(s): Z89.421 - Acquired absence of other right toe(s) Category: Medical Plan Reg is presenting today with his daughter for 2 week follow-up for wound check. He has been doing well and VNA services have been changing his dressings home. On the days that they are not there, his daughter changes them. We will continue with calcium alginate dressing due to continued minimal drainage noted. Likely we will change back to Xeroform at next check in 2 weeks. We discussed with the daughter to call our office if there are any changes or if there are any questions from the VNA services. We discussed skin care with Aquaphor, Vaseline, or a thick lotion for the dry skin. We discussed not to apply onto the wound itself. We will have him follow up in 2 weeks. If there are any changes or concerns, please do not hesitate to reach out to the office. We discussed if there is any concerns fever, chills, or redness around the site, to reach out to our office as well. Coding Level of Care Code Global (25228) Diagnoses Status post amputation of lesser toe of right foot Z89.421
== END 2024-02-19 11:13 | disposition home or self-care (01) ==
LOC: HO.HVS 10:51
PROVIDERS: PCP Internal Medicine; Visit Provider Physician Assistant Surgical
DX: Z89.421 Acquired absence of other right toe(s) (principal)
CPT/HCPCS: 99024

== ENCOUNTER → 2024-02-19 10:50 | Outpatient (BNVA) | payer OTHER, SELFPAY | PROVIDERS: PCP Internal Medicine; Visit Provider Physician Assistant Surgical | DX: Z47.81 Encounter for orthopedic aftercare following surgical amputation (principal); Z89.421 Acquired absence of other right toe(s) | CPT/HCPCS: 99212 ==

== ENCOUNTER 2024-03-04 10:51 | Outpatient (AMB) | payer OTHER, SELFPAY ==
--- NOTE | 2024-03-04 11:01 | MHC.OFFVIS ---
Intake Visit Reasons: 2 week wound check Intake Note: 2 week wound check Right 2nd toe amp 01/15/24, VNA 3 times per week. Wound is much smaller and draining less, started using collagen matrix dressing in wound bed. Athletic Shoe Designer Required: No Accompanied by: Daughter Allergies oxycodone [From PERCOCET] Allergy (Unknown, Verified 03/04/24 11:10) CAN'T BREATH/VOMITING simvastatin [SIMVASTATIN] Allergy (Unknown, Verified 03/04/24 11:10) UNKNOWN peas Adverse Reaction (Unknown, Verified 03/04/24 11:10) VOMITING/FAINTING SALMON [id number] Adverse Reaction (Unknown, Uncoded 03/04/24 11:10) VOMITING/FAINT HPI HPI 2 week wound check: Details: Reg is doing well. He is presenting today with his daughter; he is Bruneian speaking only and she is translating for him. He is happy with how the wound is healing. He continues with MWF VNA dressing changes and his daughter changes them the other days. He has started PT but has not been doing much. He continues to endorse no pain at the site. He denies any drainage or bleeding from the site. [facility] Medical History CKD (chronic kidney disease) stage 3, GFR 30-59 ml/min Osteomyelitis of second toe of right foot Plantar ulcer of left foot Stage 3b chronic kidney disease (CKD) CKD stage G3b/A1, GFR 30-44 and albumin creatinine ratio <30 mg/g Dementia BPH (benign prostatic hyperplasia) Hypertension Dog bite Rhabdomyolysis Diabetes Surgical History History of amputation of toe Family History Other Diabetes HTN (hypertension) Social History Household Members: Family Housing: House Do you presently have visiting nurse or other home services: Yes Alcohol intake: never Patient Tobacco Use Status: Former Tobacco user Advance Directives Date on File: 01/25/21 service: No Current occupational status: retired Review of Systems Const Reports as per HPI and Denies weakness ENT Reports Normal hearing present and Denies dizziness Card Reports as per HPI, Denies chest pain, Denies chest pain at rest, Denies chest pain with activity, Denies dyspnea and Denies dyspnea on exertion Resp Reports as per HPI, Denies cough, Denies dyspnea and Denies dyspnea on exertion GI Reports as per HPI, Denies abdominal pain, Denies nausea and Denies vomiting Musc Denies numbness Skin/Breast Reports as per HPI, Denies erythema and Denies wounds Neuro Reports Normal hearing present, Denies dizziness, Denies numbness, Denies Sensory deficit (Neuro) and Denies weakness Psych Reports no additional complaints Endo Reports no additional complaints Physical Exam Const General: healthy appearing and no acute distress Orientation/consciousness: patient oriented x3 HEENT Head: Yes normal to inspection Ears: hearing grossly normal bilaterally Mouth: Normal oral and palatal mucosa present Resp Effort & Inspection: normal respiratory effort and able to speak in complete sentences Auscultation: clear to auscultation bilaterally Cardio Jugular venous distension: no JVD Rate: regular rate Rhythm: regular rhythm Heart sounds: S1 normal heart sound present and S2 normal heart sound present Bruits: no abdominal aortic bruits, no carotid bruits, no femoral bruits and no renal bruits Peripheral pulses: Peripheral pulses 2+ throughout GI Inspection: Yes normal to inspection Palpation (GI): No Abdominal aortic bruit present Skin General skin exam: no rashes or lesions noted Wounds: no wounds Hair: normal Neuro General: patient oriented x3 Cranial nerves: Yes Normal hearing present Cognition (Neuro): normal cognition Gait exam (Neuro): Normal gait present Motor exam (neuro): 5/5 motor strength present throughout Sensory Exam: No Sensory deficit (Neuro) Extrem Other: Right 2 toe amp site: wound is 1cmx0.5cm total. Wound bed is dry with pink granulation tissue. There is no discharge noted. There is no erythema surrounding the wound/wound bed. The skin of his foot is very dry and flaking. Palpable DP pulses. General: Yes normal to inspection, Yes full ROM, Yes capillary refill normal and Yes normal gait Assessment & Plan Assessment & Plan (1) Status post amputation of lesser toe of right foot: Code(s): Z89.421 - Acquired absence of other right toe(s) Category: Medical Plan: Reg is doing well. He has been having VNA services perform dressing changes on MWF and his daughter is changing them the other days. She states the site is much smaller. The pt is happy with how it is progressing. Due to the site healing and no drainage/weeping noted, we will change his dressing to Xeroform daily, only in the wound bed, with 4x4 and Kerlix. We will have him heel touch with PT, with the possibility of partial weight bearing at the next visit, depending on how the site is healing. We discussed with the daughter to call our office with any questions or concerns. We discussed to continue with a thick lotion to help with the dry skin; the pt's daughter states she is doing it daily. We will have him follow up in 2 weeks. If there are any questions or concerns, please do not hesitate to reach out. Coding Level of Care Code Global (73897) Diagnoses Status post amputation of lesser toe of right foot Z89.421
== END 2024-03-04 11:33 | disposition home or self-care (01) ==
PROVIDERS: PCP Internal Medicine; Visit Provider Physician Assistant Surgical
DX: Z89.421 Acquired absence of other right toe(s) (principal)
CPT/HCPCS: 99024

== ENCOUNTER → 2024-03-04 10:51 | Outpatient (BNVA) | payer OTHER, SELFPAY | PROVIDERS: PCP Internal Medicine; Visit Provider Physician Assistant Surgical | DX: Z47.81 Encounter for orthopedic aftercare following surgical amputation (principal); Z89.421 Acquired absence of other right toe(s) | CPT/HCPCS: 99212 ==

== ENCOUNTER 2024-03-27 13:36 | Outpatient (AMB) | payer OTHER, SELFPAY ==
--- NOTE | 2024-03-27 13:57 | A.OFFVIS_ITS ---
Intake Visit Reasons: 3 week wound check Intake Note: Patient presents for 3 week wound check. VNA seeing patient 3 times a week. Dressing last changed on 03/26. Patient's daughter states his foot was normal yesterday . Patient's foot is red and swollen upon removing bandages. Accompanied by: Daughter Allergies oxycodone [From PERCOCET] Allergy (Unknown, Verified 03/27/24 14:03) CAN'T BREATH/VOMITING simvastatin [SIMVASTATIN] Allergy (Unknown, Verified 03/27/24 14:03) UNKNOWN peas Adverse Reaction (Unknown, Verified 03/27/24 14:03) VOMITING/FAINTING SALMON [id number] Adverse Reaction (Unknown, Uncoded 03/04/24 11:10) VOMITING/FAINT HPI HPI 3 week wound check: Details: Reg, a pleasant 73-year-old Amharic-speaking male, is presenting with his yessi olena today, who is his product design manager for 3 week follow-up for wound care check. He is status post right 2nd toe amp from 01/15/2024. He continues to get VNA services several times a week. His daughter states the wound is looking much better and is starting to scab over. She has concerns that they might be wrapping the site too tight, she states that his foot looks a little more redder than it did yesterday. The patient continues to endorse no pain at the site. 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 Plantar ulcer of left foot Stage 3b chronic kidney disease (CKD) CKD stage G3b/A1, GFR 30-44 and albumin creatinine ratio <30 mg/g Dementia BPH (benign prostatic hyperplasia) Hypertension Dog bite Rhabdomyolysis Diabetes Surgical History History of amputation of toe Family History Other Diabetes HTN (hypertension) Social History Household Members: Family Housing: House Do you presently have visiting nurse or other home services: Yes Alcohol intake: never Patient Tobacco Use Status: Former Tobacco user Advance Directives Date on File: 10/12/21 service: No Current occupational status: retired Review of Systems Const Reports as per HPI and Denies weakness ENT Reports Normal hearing present and Denies dizziness Card Reports as per HPI, Denies chest pain, Denies chest pain at rest, Denies chest pain with activity, Denies dyspnea and Denies dyspnea on exertion Resp Reports as per HPI, Denies cough, Denies dyspnea and Denies dyspnea on exertion GI Reports as per HPI, Denies abdominal pain, Denies nausea and Denies vomiting Musc Denies numbness Skin/Breast Reports as per HPI, Denies erythema and Denies wounds Neuro Reports Normal hearing present, Denies dizziness, Denies numbness, Denies Sensory deficit (Neuro) and Denies weakness Psych Reports no additional complaints Endo Reports no additional complaints Physical Exam Const General: healthy appearing and no acute distress Orientation/consciousness: patient oriented x3 HEENT Head: Yes normal to inspection Ears: hearing grossly normal bilaterally Mouth: Normal oral and palatal mucosa present Resp Effort & Inspection: normal respiratory effort and able to speak in complete sentences Auscultation: clear to auscultation bilaterally Cardio Jugular venous distension: no JVD Rate: regular rate Rhythm: regular rhythm Heart sounds: S1 normal heart sound present and S2 normal heart sound present Bruits: no abdominal aortic bruits, no carotid bruits, no femoral bruits and no renal bruits Peripheral pulses: Peripheral pulses 2+ throughout GI Inspection: Yes normal to inspection Palpation (GI): No Abdominal aortic bruit present Skin General skin exam: no rashes or lesions noted Wounds: no wounds Hair: normal Neuro General: patient oriented x3 Cranial nerves: Yes Normal hearing present Cognition (Neuro): normal cognition Gait exam (Neuro): Normal gait present Motor exam (neuro): 5/5 motor strength present throughout Sensory Exam: No Sensory deficit (Neuro) Extrem Other: R2 toe amp site: Scab is starting to form over the site. Slight discoloration noted on the on the foot, not painful, not infectious appearing. Cap refill less than 2 seconds. Palpable DP pulses. General: Yes normal to inspection, Yes full ROM, Yes capillary refill normal and Yes normal gait Assessment & Plan Assessment & Plan (1) Status post amputation of lesser toe of right foot: Code(s): Z89.421 - Acquired absence of other right toe(s) Category: Medical Plan: Reg is presenting today as a 3 week follow up to R2 toe amp. The healing is going very well, and is now scabbing over. The patient is odor is very happy with how the healing is going. We will continue with dressing changes 3 times a week with dry dressings and a Kerlix wrap. We will have him follow up in 2 weeks; this will probably be the last visit as long as the patient continues to heal well. We discussed the importance of not touching the scab, especially rubbing the area when lotion is being applied. The patient was having physical therapy; however they have stopped until he can put full weight-bearing status on his foot. At the next 2 week follow up, we will likely be able to clear him for full weight-bearing and he will be able to participate in PT again. If there are any questions or concerns, please do not hesitate to reach out to us. Coding Level of Care Code Global (12703) Diagnoses Status post amputation of lesser toe of right foot Z89.421
== END 2024-03-27 14:13 | disposition home or self-care (01) ==
PROVIDERS: PCP Internal Medicine; Visit Provider Physician Assistant Surgical
DX: Z89.421 Acquired absence of other right toe(s) (principal)
CPT/HCPCS: 99024

== ENCOUNTER → 2024-03-27 13:36 | Outpatient (BNVA) | payer OTHER, SELFPAY | PROVIDERS: PCP Internal Medicine; Visit Provider Physician Assistant Surgical | DX: Z47.81 Encounter for orthopedic aftercare following surgical amputation (principal); Z89.421 Acquired absence of other right toe(s) | CPT/HCPCS: 99212 ==

== ENCOUNTER 2024-04-22 13:09 | Outpatient (AMB) | payer OTHER, SELFPAY ==
--- NOTE | 2024-04-22 13:17 | MHC.OFFVIS ---
Intake Visit Reasons: 3 week wound check Intake Note: 3 week wound check. Visiting nurses go to the patient's home Sunday , Sunday and Sunday. Patient has redness that started last night. Accompanied by: Daughter Allergies oxycodone [From PERCOCET] Allergy (Unknown, Verified 04/22/24 13:19) CAN'T BREATH/VOMITING simvastatin [SIMVASTATIN] Allergy (Unknown, Verified 04/22/24 13:19) UNKNOWN peas Adverse Reaction (Unknown, Verified 04/22/24 13:19) VOMITING/FAINTING SALMON [id number] Adverse Reaction (Unknown, Uncoded 03/04/24 11:10) VOMITING/FAINT HPI HPI 3 week wound check: Details: Reg is presenting today with his daughter, who is his heavy forger, for a follow up to wound care, status post right 2nd toe amp from 01/15/2024. He continues getting VNA services Sunday, Sunday, and Sunday. He is not having any dressing changes at this point. The daughter states the VNA services is wondering when he can do full weight-bearing on his foot. The patient has significant neuropathy and denies any pain in the foot. The daughter does have concerns of some redness at the tip of his big toe, she states was significant last night. 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 Plantar ulcer of left foot Stage 3b chronic kidney disease (CKD) CKD stage G3b/A1, GFR 30-44 and albumin creatinine ratio <30 mg/g Dementia BPH (benign prostatic hyperplasia) Hypertension Dog bite Rhabdomyolysis Diabetes Surgical History History of amputation of toe Family History Other Diabetes HTN (hypertension) Social History Household Members: Family Housing: House Do you presently have visiting nurse or other home services: Yes Alcohol intake: never Patient Tobacco Use Status: Former Tobacco user Advance Directives Date on File: 01/25/21 service: No Current occupational status: retired Review of Systems Const Reports as per HPI and Denies weakness ENT Reports Normal hearing present and Denies dizziness Card Reports as per HPI, Denies chest pain, Denies chest pain at rest, Denies chest pain with activity, Denies dyspnea and Denies dyspnea on exertion Resp Reports as per HPI, Denies cough, Denies dyspnea and Denies dyspnea on exertion GI Reports as per HPI, Denies abdominal pain, Denies nausea and Denies vomiting Musc Denies numbness Skin/Breast Reports as per HPI, Denies erythema and Denies wounds Neuro Reports Normal hearing present, Denies dizziness, Denies numbness, Denies Sensory deficit (Neuro) and Denies weakness Psych Reports no additional complaints Endo Reports no additional complaints Physical Exam Const General: healthy appearing and no acute distress Orientation/consciousness: patient oriented x3 HEENT Head: Yes normal to inspection Ears: hearing grossly normal bilaterally Mouth: Normal oral and palatal mucosa present Resp Effort & Inspection: normal respiratory effort and able to speak in complete sentences Auscultation: clear to auscultation bilaterally Cardio Jugular venous distension: no JVD Rate: regular rate Rhythm: regular rhythm Heart sounds: S1 normal heart sound present and S2 normal heart sound present Bruits: no abdominal aortic bruits, no carotid bruits, no femoral bruits and no renal bruits Peripheral pulses: Peripheral pulses 2+ throughout GI Inspection: Yes normal to inspection Palpation (GI): No Abdominal aortic bruit present Skin General skin exam: no rashes or lesions noted Wounds: no wounds Hair: normal Neuro General: patient oriented x3 Cranial nerves: Yes Normal hearing present Cognition (Neuro): normal cognition Gait exam (Neuro): Normal gait present Motor exam (neuro): 5/5 motor strength present throughout Sensory Exam: No Sensory deficit (Neuro) Extrem Other: Right 2nd toe amputation site: Scab has formed. There was no bleeding or discharge noted. Right 1 toe: Small amount ever erythema noted throughout the toe. No warmth felt. No wounds noted. No bleeding or drainage noted. General: Yes normal to inspection, Yes full ROM, Yes capillary refill normal and Yes normal gait Assessment & Plan Assessment & Plan (1) Status post amputation of lesser toe of right foot: Code(s): Z89.421 - Acquired absence of other right toe(s) Category: Medical Plan: Reg is presenting today with his daughter for a follow up to right 2nd toe amputation, performed on 01/15/2024. The site has completely healed over and there is no bleeding or drainage noted from the site. The patient's daughter is concerned about his right big toe, she states it was red last night and appears red today. The patient has not been wearing properly sized shoes, the daughter states that they are all too big for him at this point due to the decrease in swelling status post recovery from surgery. We discussed that likely the toe is rubbing on the foot and he will need better shoes. We will reach out to prosthetic and orthotics to obtain better fitting shoes for him. We discussed with the daughter to obtain shoes that are smaller and we will fit the patient appropriately, to prevent any further rubbing on the toes. We discussed to have the daughter keep close eyes on it due to the patient's neuropathy, he is unable to feel any pain in his feet. We discussed that this point that he will not need any further appointments due to the site healing completely. We discussed that physical therapy can now have him start full weight-bearing on that foot. We discussed that if the patient has any more signs and symptoms of vascular disease, they can reach out to us at any point. If there are any questions or concerns, please do not hesitate to reach out to us. Coding Level of Care Code Est Pt Level 4 (71372) Diagnoses Status post amputation of lesser toe of right foot Z89.421
== END 2024-04-22 13:41 | disposition home or self-care (01) ==
PROVIDERS: PCP Internal Medicine; Visit Provider Physician Assistant Surgical
DX: Z89.421 Acquired absence of other right toe(s) (principal)
CPT/HCPCS: 99214

== ENCOUNTER → 2024-04-22 13:09 | Outpatient (BNVA) | payer OTHER, SELFPAY | PROVIDERS: PCP Internal Medicine; Visit Provider Physician Assistant Surgical | DX: Z89.421 Acquired absence of other right toe(s) (principal) | CPT/HCPCS: 99212 ==